=== PATIENT | female | born 1960 | race African-American/Black ===

== ENCOUNTER → 2020-08-10 08:27 | Outpatient (BNVA) | payer MEDICARE, MEDICAID, SELFPAY | PROVIDERS: PCP Internal Medicine Medical Oncology; Visit Provider Orthopaedic Surgery | DX: G56.01 Carpal tunnel syndrome, right upper limb (principal); M79.642 Pain in left hand | CPT/HCPCS: 99202 ==

== ENCOUNTER 2020-08-31 12:11 | Day surgery (SDC) | payer MEDICARE, MEDICAID, SELFPAY ==
[2020-08-31 12:29] VITALS: BMI 46.3
[2020-08-31 12:30] VITALS: BP 138/71; PULSE 58; RESP 18; TEMP 36.7; O2SAT 99
--- NOTE | 2020-08-31 13:16 | W.PM.OPN ---
Operative Note Operative Note Date of Service: 08/31/20 Narrative: Preop diagnosis: 1. Right Carpal tunnel syndrome Postop diagnosis: 1. Right Carpal tunnel syndrome Procedure: 1. Right Carpal tunnel release Surgeon: Sindi Quiles MD Anesthesia: local block using 1% lidocaine with epinephrine Findings: Thickened transverse carpal ligament. EBL: Less than 5 mL Specimens: None Complications: None Disposition: Brought to recovery room in stable condition Plan: Follow-up for 7-10 days for wound check and suture removal Indications: The patient is 60 years old, with right carpal tunnel syndrome that has been unresponsive to nonoperative management. The risks and benefits of operative treatment including but not limited to risk of damage to blood vessels, nerves, tendons, infection, persistent pain, persistent symptoms, or possible need for additional surgery were discussed with the patient and the patient wishes to proceed with surgery. Procedure: Once consent was obtained a local block was performed using a combination of 1% lidocaine with epinephrine. The patient was then brought back to the operating suite and placed on the operative table in supine position. A tourniquet was applied to the proximal aspect of the right upper extremity and the limb was prepped and draped in a standard surgical fashion. Once assured that we had a good block, a 1.5 cm longitudinal incision was made centered over the carpal tunnel. The incision was made through the skin to the subcutaneous tissues using a #15 blade. Dissection was made down to the level of the transverse carpal ligament with care being taken to protect the palmar cutaneous nerve. Once the transverse carpal ligament was clearly visualized, a longitudinal incision was made in the transverse carpal ligament 1st using a #15 blade, then using tenotomy scissors under direct visualization. Care was taken to look for and protect the motor branch of the median nerve when seen in this area. Once satisfied with our carpal tunnel release the wound was copiously irrigated with normal saline and hemostasis was obtained with a brief period of local pressure. The skin edges were reapproximated with some 5.0 nylon suture material and a sterile dressing was applied. The patient appears to have tolerated the procedure well and with no complications. All digits were well vascularized at the conclusion of the case.
[2020-08-31 13:57] VITALS: BP 109/86; PULSE 57; RESP 18; TEMP 36.1; O2SAT 97
== END 2020-08-31 14:15 | disposition home or self-care (01) ==
PROVIDERS: PCP Internal Medicine Medical Oncology; Visit Provider Orthopaedic Surgery
PROC: (CPT 64721; principal; 2020-08-31 12:50)
DX: G56.01 Carpal tunnel syndrome, right upper limb (principal); Z79.899 Other long term (current) drug therapy; Z88.8 Allergy status to other drugs, medicaments and biological substances; Z91.040 Latex allergy status
CPT/HCPCS: 64721

== ENCOUNTER → 2020-09-09 08:56 | Outpatient (BNVA) | payer MEDICARE, MEDICAID, SELFPAY | PROVIDERS: Visit Provider Orthopaedic Surgery | DX: G56.01 Carpal tunnel syndrome, right upper limb (principal) | CPT/HCPCS: 99212 ==

== ENCOUNTER 2020-09-17 12:29 | Outpatient (REF) | payer MEDICARE, MEDICAID, SELFPAY ==
--- NOTE | ~2020-09-17 | US_ITS ---
EXAMINATION: US VENOUS ULTRASOUND WITH DOPPLER LOWER EXTREMITY, RIGHT CLINICAL INFORMATION: Right leg pain. Assess for DVT. COMPARISON: None TECHNIQUE: Ultrasound of the deep veins is performed from the hip to the calf with compression sonography and color and pulse Doppler assessment. Spectral analysis with color-flow imaging is performed. FINDINGS: There is normal venous compression and respiratory variation and augmented flow. The visualized common femoral vein, superficial femoral vein, profunda femoral vein, popliteal vein, and the trifurcation region shows no evidence of deep venous thrombosis. No popliteal fossa cyst. US/US venous duplex LE RT IMPRESSION: No DVT demonstrated in the right lower extremity.
== END 2020-09-17 12:30 | disposition home or self-care (01) ==
LOC: HO.US 12:29
PROVIDERS: PCP Internal Medicine Medical Oncology; Visit Provider Internal Medicine Medical Oncology
DX: M79.604 Pain in right leg (principal); I82.409 Acute embolism and thrombosis of unspecified deep veins of unspecified lower extremity; T81.89XA Other complications of procedures, not elsewhere classified, initial encounter
CPT/HCPCS: 93971

== ENCOUNTER 2021-05-01 10:46 | Emergency (ER) | payer MEDICARE, MEDICAID, SELFPAY ==
--- NOTE | ~2021-05-01 | US_ITS ---
EXAMINATION: US VENOUS ULTRASOUND WITH DOPPLER LOWER EXTREMITY, BILATERAL CLINICAL INFORMATION: Redness, swelling, pain, rule out DVT COMPARISON: None TECHNIQUE: Ultrasound of the deep veins is performed from the hip to the calf with compression sonography and color and pulse Doppler assessment. Spectral analysis with color-flow imaging is performed. FINDINGS: RIGHT: There is normal venous compression and respiratory variation and augmented flow. The visualized common femoral vein, superficial femoral vein, profunda femoral vein, popliteal vein, and the trifurcation region shows no evidence of deep venous thrombosis. There is no significant popliteal fossa cyst. LEFT: There is normal venous compression and respiratory variation and augmented flow. The visualized common femoral vein, superficial femoral vein, profunda femoral vein, popliteal vein, and the trifurcation region shows no evidence of deep venous thrombosis. There is no significant popliteal fossa cyst. If the patient's symptoms persist, followup ultrasound in 5 days 7 days might be of value to exclude proximal propagation from a non-visualized calf vein. US/US venous duplex LE BI IMPRESSION: No DVT demonstrated in the bilateral lower extremities.
[2021-05-01 10:49] VITALS: BP 151/73; PULSE 92; RESP 18; TEMP 36.9; O2SAT 99; BMI 42.8
--- NOTE | 2021-05-01 11:59 | ED.GENADULT ---
HPI - General Adult General Chief complaint: Skin/Abscess/Foreign Body Stated complaint: rash Time Seen by Provider: 05/01/21 11:44 Source: patient Mode of arrival: ambulatory Limitations: no limitations History of Present Illness HPI narrative: 60-year-old female presenting with right lower leg swelling, pain, redness that has worsened over the last 2 weeks. She denies any trauma to the area. She denies fever or chills. She also reports her left lower leg with a tender bump. She states this was how her right lower leg started about 2 weeks ago. She at 1st thought was an insect bite and cleaned with alcohol. A continue to get more red and swollen but there was no obvious insect bite on a either leg and she has not been out in the wood or outside. MD complaint: RLE redness and swelling Onset (ago): week(s) (2) Location: right and lower extremity Radiation: proximal Severity: moderate Severity scale (1-10): 6 Quality: aching Pain Consistency: constant Relieving factors: rest Exacerbating factors: movement Associated symptoms: denies other symptoms Treatments prior to arrival: none Related Data Home Medications Medication Instructions Recorded Confirmed cholecalciferol (vitamin D3) 1,250 1,250 mcg PO QWEEK 05/27/20 mcg (50,000 unit) capsule Previous Rx's Medication Instructions Recorded hydrocodone 5 mg-acetaminophen 325 1 tab PO Q4-6H PRN #5 tab 08/31/20 mg tablet cephalexin 500 mg capsule 500 mg PO Q6H #28 cap 05/01/21 doxycycline monohydrate 100 mg 100 mg PO BID #14 tab 05/01/21 tablet Allergies Allergy/AdvReac Type Severity Reaction Status Date / Time cortisone [CORTISONE] Allergy Intermediate RASH Verified 09/09/20 09:21 adhesive tape [ADHESIVE TAPE] AdvReac Unknown UNKNOWN Verified 09/09/20 09:21 Latex Allergy Unknown redness Uncoded 08/31/20 12:37 [place] Allergy Unknown Unknown Uncoded 08/31/20 12:37 Review of Systems Review of Systems: Constitutional: No Fever, No Chills Cardiovascular: No Chest Pain, No SOB, No Orthopnea, + Edema Respiratory: No Cough, No Sputum, No Wheezing, No dyspnea Gastrointestinal: No Nausea, No Vomiting, No abdominal Pain Genitourinary: No Dysuria, No Urinary Frequency, No Hematuria Musculoskeletal: No joint pain, + Myalgias Skin: + Skin Lesions, No rash Neuro: No Weakness, No Numbness, No Dizziness, No Headache Psych: + Anxiety/Panic, No Depression Heme/Lymph: No Bruising, No Lymphadenopathy PMFSH Past Medical History Surgical History History of carpal tunnel release Social History Social History Advance Directives: No Patient : No Current occupational status: unemployed 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 Physical Exam Vital Signs: Vital Signs: Last Vital Signs Temp 97.5 F 05/01/21 13:33 Pulse 74 05/01/21 13:33 Resp 18 05/01/21 13:33 BP 134/83 05/01/21 13:33 Pulse Ox 96 05/01/21 13:33 Body Mass Index 42.8 Appearance: Alert. Oriented X3. No acute distress. HEENT: normal inspection CVS: Normal heart rate and rhythm. Pulses normal. Respiratory: No respiratory distress. Lungs are clear throughout Skin: Skin warm and dry. Normal skin color. Normal skin turgor. No rashes. Extremities: right lower leg with anteriolateral moderate area of erythema, tenderness and warmth. no calf tenderness. 1+ pitting edema. left lower leg with small circular area of tenderness and firmness to medial aspect of gastrocnemius, no calf tenderness. 2+ DP pulses bilaterally. Neuro: Oriented X 3. No motor deficit. No sensory deficit. Course Course Course Narrative: 60-year-old female presenting with right lower extremity swelling, redness, pain. Has been developing over the last 2 weeks. She also noticed a small area on her left lower extremity that is slightly swollen and tender. Concern for possible cellulitis, however will need to rule out deep vein thrombosis. Will get lower extremity Dopplers for further evaluation. She has not had any chest pain or shortness of breath to suggest PE. She is nontoxic appearing. Vital signs are still normal on arrival. Reevaluation(s) Reevaluation #1: Lower extremity Dopplers are negative. Will treat for cellulitis. Area on her right lower extremity has been outlined and skin pen, and she has been advised to monitor for worsening erythema, swelling, or pain. Will treat with oral antibiotics and have her follow-up with her primary care doctor next week. Stable for discharge home with supportive care. Patient agrees with plan. Critical Care Time Critical Care Time Critical Care Time: No Discharge Plan Discharge Clinical Impression: Cellulitis Qualifiers: Site of cellulitis: extremity Site of cellulitis of extremity: lower extremity Laterality: right Qualified Code(s): L03.115 - Cellulitis of right lower limb Patient Disposition: Home, Self-Care Instructions: Cellulitis (ED), Warm Compress or Soak (ED) Additional Instructions: Your ultrasound stay were negative for blood clots. You being treated for skin infection. Take both the prescribed antibiotics as directed. Complete their entire course Take Motrin and/or Tylenol as needed for pain. Elevate your leg whenever possible. Use warm compresses 3 to 4 times a day. If you have worsening redness, swelling, pain or develop a fever, chest pain, shortness of breath or any other concerning symptoms come back to the ER right away for further evaluation. Prescriptions: New doxycycline monohydrate 100 mg tablet 100 mg PO BID Qty: 14 RF: 0 cephalexin 500 mg capsule 500 mg PO Q6H Qty: 28 RF: 0 No Action cholecalciferol (vitamin D3) 1,250 mcg (50,000 unit) capsule 1,250 mcg PO QWEEK RF: 0 hydrocodone-acetaminophen 5-325 mg tablet 1 tab PO Q4-6H PRN (Reason: pain) Qty: 5 RF: 0 Interventions: ED Discharge Assessment Last Done: 05/01/21 13:34 Discharge Date/Time: 05/01/21 13:35
[2021-05-01 13:33] VITALS: BP 134/83; PULSE 74; RESP 18; TEMP 36.4; O2SAT 96
== END 2021-05-01 13:35 | disposition home or self-care (01) ==
PROVIDERS: Emergency Provider Emergency Medicine; PCP Internal Medicine Medical Oncology
DX: L03.115 Cellulitis of right lower limb (principal); R60.0 Localized edema; Z79.899 Other long term (current) drug therapy
CPT/HCPCS: 93970; 99283; 99284

== ENCOUNTER 2021-07-21 16:28 | Inpatient (IN) | payer MEDICARE, MEDICAID, SELFPAY ==
--- NOTE | ~2021-07-21 | MR_ITS ---
EXAMINATION: MR ABDOMEN WITHOUT CONTRAST CLINICAL INFORMATION: Assess CBD dilatation COMPARISON: Ultrasound same-day TECHNIQUE: MR abdomen is performed without gadolinium contrast. MRCP. FINDINGS: LUNG BASES: The visualized lung bases are unremarkable. LIVER, GALLBLADDER, AND BILIARY TREE: Hepatomegaly again noted. No discrete lesion on this nonenhanced study. The gallbladder wall appears somewhat thickened with stones noted. No significant distention. No discrete lesion on this nonenhanced study. Limited imaging. The biliary tree is prominent with the CBD dilated to approximately 14 mm. There are tiny stones seen within the distal CBD. No gross pancreatic mass or inflammatory changes. PANCREAS: Pancreatic duct normal. No inflammatory changes. No enlarged lymph nodes. SPLEEN: Unremarkable. ADRENAL GLANDS: Referred to CT exam report. KIDNEYS AND URETERS: The kidneys are normal in size and shape. No hydronephrosis. No perinephric stranding. GASTROINTESTINAL TRACT: No bowel obstruction. No ascites or fluid collection. ABDOMINAL WALL: No significant hernia is appreciated. LYMPH NODES: Prominent right paracardiac lymph nodes again noted VASCULAR: Unremarkable. OSSEOUS STRUCTURES: Not well demonstrated. MR/MR abdomen wo con IMPRESSION: 1. Dilated biliary tree with findings strongly suspicious for tiny choledocholithiasis within the distal most aspect of the CBD. 2. Gallbladder is relatively nondistended but please refer to the recent ultrasound for further assessment and findings.
--- NOTE | ~2021-07-21 | CT_ITS ---
EXAMINATION: CT ABDOMEN AND PELVIS WITHOUT CONTRAST CLINICAL INFORMATION: Reevaluate perforated diverticulitis COMPARISON: Previous CT of the abdomen and pelvis 07/21/2021 abdominal ultrasound and MRI 07/22/2021 TECHNIQUE: Multidetector volumetric imaging was performed from the superior aspect of the liver through the pubic symphysis. Sagittal and coronal reformatted images were obtained on the technologist's workstation. This CT examination was performed using dose optimization techniques as appropriate, variously including the following: *Automated exposure control *Adjustment of mA and/or kV according to patient size (this includes techniques or standardized protocols for targeted exams where dose is matched to indication/reason for exam; i.e. extremities or head) *Use of iterative reconstruction technique DLP: 1273 mGy-cm FINDINGS: LUNG BASES: There is atelectasis of the right lung base. There is a prominent right cardiophrenic angle or anterior diaphragmatic lymph node that is unchanged. LIVER, GALLBLADDER, AND BILIARY TREE: The liver is slightly enlarged. No focal liver lesion is seen. There is interval decrease in internal and extrahepatic biliary duct dilatation. The common bile duct measures 11 mm. The gallbladder is unremarkable with no evidence of radiopaque gallstones, gallbladder wall thickening, or obvious pericholecystic inflammatory changes. PANCREAS: The main pancreatic duct is slightly dilated in the head of the the pancreas measuring up to 6 mm. SPLEEN: Unremarkable. ADRENAL GLANDS: Unremarkable. KIDNEYS AND URETERS: The kidneys are normal in size, shape, and attenuation. No hydronephrosis, hydroureter, or calculi seen. No perinephric stranding. BLADDER: The right dome of the bladder appears slightly tented superiorly toward the fat stranding and abnormal air collection in the right lower quadrant. No air in the bladder is seen. GASTROINTESTINAL TRACT: There is diverticulosis of the colon. There is some fat stranding surrounding the proximal sigmoid colon. There are small air collections seen to the right of the sigmoid colon adjacent to the iliac vessels and right ovary. Appearance is again suggestive of diverticulitis and microperforation. This does not appear appreciably changed from previous CT 07/21/2021. Small and large bowel is otherwise unremarkable. The appendix is unremarkable. ABDOMINAL WALL: No significant hernia is appreciated. LYMPH NODES: There is nonspecific fat stranding and small lymph nodes seen in the small bowel mesentery there are small retroperitoneal lymph nodes. No enlarged lymph nodes are seen. There is no ascites. VASCULAR: Unremarkable. PELVIC VISCERA: Unremarkable. OSSEOUS STRUCTURES: There are postsurgical changes at L2-L3. There are degenerative changes of the spine. CT/CT abdomen pelvis wo con IMPRESSION: Stable abnormal air collection in the right lower quadrant probably representing microperforation from sigmoid diverticulitis. No free air is seen. Slight interval decrease in the intra and extrahepatic biliary duct dilatation. Gallstones. Slightly dilated main pancreatic duct in head of the pancreas. Inflammatory changes in the small bowel mesentery and shotty small bowel mesentery and retroperitoneal lymphadenopathy unchanged. Fleischner guidelines were followed.
--- NOTE | ~2021-07-21 | CT_ITS ---
EXAMINATION: CT ABDOMEN AND PELVIS WITH CONTRAST CLINICAL INFORMATION: Elevated LFTs with question of metastatic carcinoma. COMPARISON: None TECHNIQUE: Multidetector volumetric images were obtained from the superior aspect of the liver through the pubic symphysis following administration 85 mL of Omnipaque 350 intravenous contrast. Sagittal and coronal reformatted images were obtained on the technologist's workstation. Oral Contrast: No. This CT examination was performed using dose optimization techniques as appropriate, variously including the following: *Automated exposure control. *Adjustment of mA and/or kV according to patient size (this includes techniques or standardized protocols for targeted exams where dose is matched to indication/reason for exam; i.e. extremities or head). *Use of iterative reconstruction technique. DLP: 1613 mGy-cm FINDINGS: LUNG BASES: There is an enlarged right anterior pre-paracardiac lymph node present measuring 1.9 x 1.2 x 3.0 cm (503:104). Posterior paracardiac lymph nodes are present as well, the largest just behind the IVC measuring 2.5 x 2.0 x 2.2 cm (503:135). Right lower lobe atelectasis is present. LIVER, GALLBLADDER, AND BILIARY TREE: The liver is enlarged measuring 23.7 cm in length. There is intrahepatic biliary ductal dilatation seen with a markedly dilated common bile duct measuring 1.6 cm. The gallbladder is contracted containing gallstones. No evidence of cholecystitis. No mass is seen in the region of the distal common bile duct in the head of the pancreas. No definite stones can be seen within the common bile duct. PANCREAS: Unremarkable. No ductal dilatation, masses or calcifications seen. SPLEEN: Unremarkable. ADRENAL GLANDS: The adrenal glands are abnormal with significant thickening of the lateral limb on the left and an ovoid mass arising from the medial limb on the right measuring 2 x 1 cm. KIDNEYS AND URETERS: The kidneys are normal in size, shape, and attenuation. No hydronephrosis, hydroureter, or calculi seen. No perinephric stranding. BLADDER: Unremarkable. GASTROINTESTINAL TRACT: Diverticular changes are present in the colon, predominantly in the sigmoid. The area of inflammation in the pelvis and a branching air collection in the mesentery begins in the area which probably represents diverticulitis. In the pelvis, there is a complex predominantly air collection seen in the perisigmoid mesentery with multiple branching limbs which could represent contained air probably related to a microperforation.The small and large bowel are otherwise unremarkable. The appendix is unremarkable. ABDOMINAL WALL: No significant hernia is appreciated. LYMPH NODES: Multiple small lymph nodes are present in the retroperitoneum and root of the mesentery. One of the larger is preaortic below the level of the renal hilum measuring 2.1 x 1.0 x 3.4 cm (503:418). Mitzy changes are present in the mesentery with multiple small lymph nodes as well suggestive of mesenteric panniculitis (for example, 503:449). VASCULAR: Unremarkable. PELVIC VISCERA: An anteverted uterus is present. An abnormal adnexal mass or free intraperitoneal fluid is not present. OSSEOUS STRUCTURES: Degenerative changes are present throughout the spine with fusion at L2-L3. No bony destructive lesions are seen. CT/CT abdomen pelvis w con IMPRESSION: A number of abnormalities are present that I find hard to attribute to a single diagnosis: 1. There is cholelithiasis and moderate intrahepatic biliary dilatation with dilated distal common bile duct without mass or stone seen in the duct. Ultrasound may be helpful for further evaluation as this may be better at seeing a stone in the common bile duct. 2. There is sigmoid diverticular disease with inflammation near one loop of sigmoid with a well-contained branching air collections seen in the mesentery suggesting acute diverticulitis with microperforation and contained air collection. 3. Inflammatory changes suggesting mesenteric panniculitis are present in the root of the small bowel mesentery with multiple small lymph nodes. 4. There are definitely abnormally enlarged lymph nodes present most prominent in the paracardiac region as well as a few in the retroperitoneum. 5. Adrenal masses as described above. Fleischner guidelines were followed. This critical result was discussed with Dr. Gaspar at 9:15 PM on the day the exam and it was ascertained that the content and urgency of the report was understood at the time of direct communication.
--- NOTE | ~2021-07-21 | XR_ITS ---
EXAMINATION: XR ABDOMEN KUB CLINICAL INDICATION: Evaluate for pancreatic duct stone COMPARISON: CT scan from 07/23/2021 TECHNIQUE: AP view of the abdomen. FINDINGS: In comparison to the CT scan of July 23 there is new tubular structure identified to the right of L2 most likely biliary stent. And there is status post cholecystectomy with surgical clips in the right upper quadrant. There is no specific bowel gas pattern. Patient is status post disc prosthesis at the level of L3-for placement XR/XR KUB IMPRESSION: Stent visualized to the right of the spine. Status post cholecystectomy.
--- NOTE | ~2021-07-21 | FL_ITS ---
EXAMINATION: XR FLUOROSCOPY WITH IMAGES CLINICAL INFORMATION: ERCP. Biliary and pancreatic ductal distention COMPARISON: CT abdomen 07/23/2021, MR abdomen 07/22/2021, ultrasound abdomen 07/22/2021 TECHNIQUE: Fluoroscopy performed by Dr. Onesimo Sher. Fluoroscopy time: 4.5 minutes DAP: 42.7 Gycm2 Images: 11 FINDINGS: There is contrast in the pancreatic duct. No focal duct stricture or beading. There is mild fullness common duct. No focal stricture or intraluminal filling defect appreciated other than the catheter balloon. FL/FL guidance in OR IMPRESSION: Fluoroscopy for GI procedure.
--- NOTE | ~2021-07-21 | US_ITS ---
EXAMINATION: US ABDOMEN LIMITED CLINICAL INFORMATION: Dilated common bile duct. COMPARISON: CT scan of July 21, 2021 TECHNIQUE: Real-time imaging of the right upper quadrant abdominal viscera. FINDINGS: PANCREAS: No abnormal mass within the head or body is identified however the pancreatic duct at the level of the head of the pancreas measures up to 1.1 cm in diameter with no abnormal filling defects or calculus present and without definite pancreatic head mass. An ampullary lesion cannot be excluded. The tail of the pancreas obscured by overlying bowel gas. LIVER: There is hepatomegaly present. There are dilated intrahepatic bile ducts seen. No focal liver mass is appreciated. The liver contour is normal. Parenchymal echogenicity is normal. GALLBLADDER: The gallbladder appears abnormal with filling defects consistent with calculi and echogenic bile however the wall appears very echogenic and varies in thickness from 2 mm up to approximately 8 mm in diameter. No fluid within the wall of the gallbladder is identified and no pericholecystic fluid is seen. There was tenderness to palpation overlying the gallbladder during the study. COMMON BILE DUCT: Dilated up to 2 cm in diameter including the cystic duct measuring up to 1 cm in diameter. RIGHT KIDNEY: Normal. No hydronephrosis. No renal calculi or focal parenchymal lesions. The kidney measures 12.1 cm in maximum dimension. US/US abdomen limited IMPRESSION: Dilated cystic duct, common bile duct, and pancreatic duct with no pancreatic head lesion identified. No definite calculus within the distal common bile duct is seen. An ampullary lesion cannot be excluded. Abnormal appearing gallbladder with thickened and echogenic wall as well as heterogeneous echotexture lumen some of which appears to be related to calcification but some of which is difficult to tell with no definite layering of echogenic bile or calculi. No fluid within the gallbladder wall identified and no pericholecystic fluid is seen. The thickness of the gallbladder wall also appears to be variable. A gallbladder mass cannot be excluded. Appearance could also be related to chronic cholecystitis. Dilated intrahepatic bile ducts with hepatomegaly.
--- NOTE | ~2021-07-21 | CT_ITS ---
EXAMINATION: CT HEAD WITHOUT CONTRAST CLINICAL INFORMATION: Dysarthria. COMPARISON: None TECHNIQUE: Contiguous axial imaging was performed from the skull base to vertex without intravenous administration of contrast. Coronal and sagittal reformatted images are performed at CT scanner This CT examination was performed using dose optimization techniques as appropriate, variously including the following: *Automated exposure control *Adjustment of mA and/or kV according to patient size (this includes techniques or standardized protocols for targeted exams where dose is matched to indication/reason for exam; i.e. extremities or head) *Use of iterative reconstruction technique DLP: 2383 mGy-cm FINDINGS: There is no evidence of acute intracranial hemorrhage or territorial infarction. No abnormal mass effect or midline shift is seen. [place] to white matter differentiation is well preserved. No extra-axial fluid collections are identified. There are vascular calcifications of the internal carotid arteries at the carotid artery siphon bilaterally. The ventricles are normal in size. There is no abnormal attenuation within the brain parenchyma. The osseous structures and soft tissues are normal. The mastoid air cells and visualized portions of the paranasal sinuses are well aerated. CT/CT head/brain wo con IMPRESSION: No acute intracranial pathology.
--- NOTE | ~2021-07-21 | XR_ITS ---
EXAMINATION: XR CHEST CLINICAL INFORMATION: Assessment for missing tooth. COMPARISON: Chest radiographs 02/02/2017, 10/17/2012 TECHNIQUE: Portable upright AP view of the chest was obtained. FINDINGS: There are low lung volumes with inspiration to the eighth posterior ribs. There is no visible radiopaque foreign body or missing tooth. There is no lobar or segmental airspace consolidation or effusion. Cardiac and hilar and mediastinal contours are grossly unremarkable. There are degenerative changes thoracic spine. XR/XR chest 1V IMPRESSION: Low lung volumes. No visible to the rather radiopaque foreign body.
[2021-07-21 16:48] VITALS: BP 126/82; BP 98/54; PULSE 86; RESP 16; TEMP 36.3; O2SAT 97; O2SAT 98; BMI 42.5
--- NOTE | 2021-07-21 17:00 | ECG_ITS ---
Test Reason : SYNCOPE Blood Pressure : / mmHG Vent. Rate : 083 BPM Atrial Rate : 083 BPM P-R Int : 202 ms QRS Dur : 098 ms QT Int : 388 ms P-R-T Axes : 053 019 019 degrees QTc Int : 455 ms Normal sinus rhythm Normal ECG When compared with ECG of 02-FEB-2017 17:38, Vent. rate has increased BY 28 BPM Referred By: Ambrosio Whitlock Electronically Signed By:JOANN GARCÍA
--- NOTE | 2021-07-21 17:03 | ED_ITS ---
HPI - Altered Mental Status General Chief Complaint: General Medical Stated Complaint: Syncopial episodes Time Seen by Provider: 07/21/21 16:45 Source: patient Mode of arrival: EMS History of Present Illness HPI narrative: Patient's history of depression anxiety came here for not feeling well since 07/03 had cold symptoms been having diarrhea since then today she went to [employer] for shopping with her friend at 11:30 when she was with her friend she has a garbled speech which lasted for few seconds was able to ambulate without any focal weakness was little dizzy and just prior to arrival after shopping she was feeling more dizzy and passed out with jerking movements of all 4 extremity which lasted for for 5 minute patient was post ictal confused after the episode when patient arrived in the ER patient was back to her baseline while examining patient patient had a focal seizure of the left upper extremity lasted for few seconds patient has no history of seizures in the past patient does have a sister who has seizures Related Data Home Medications Medication Instructions Recorded Confirmed cholecalciferol (vitamin D3) 1,250 1,250 mcg PO QWEEK 05/27/20 mcg (50,000 unit) capsule atenolol 50 mg tablet 1 tab PO DAILY 07/21/21 cetirizine 10 mg tablet 1 tab PO DAILY 07/21/21 chlorthalidone 25 mg tablet 1 tab PO QAM 07/21/21 doxepin 25 mg capsule 1 cap PO BEDTIME 07/21/21 fluoxetine 20 mg capsule 1 cap PO QAM 07/21/21 gabapentin 300 mg capsule 1 cap PO TID 07/21/21 omeprazole 40 mg capsule,delayed 1 cap PO DAILY 07/21/21 release potassium chloride 10 mEq 1 tab PO DAILY 07/21/21 tablet,extended release(part/cryst) Allergies Allergy/AdvReac Type Severity Reaction Status Date / Time cortisone [CORTISONE] Allergy Intermediate RASH Verified 09/09/20 09:21 adhesive tape [ADHESIVE TAPE] AdvReac Unknown UNKNOWN Verified 09/09/20 09:21 Latex Allergy Unknown redness Uncoded 08/31/20 12:37 [place] Allergy Unknown Unknown Uncoded 08/31/20 12:37 Review of Systems Review of Systems: Yes all other systems are reviewed and are negative PMFSH Past Medical History Surgical History History of carpal tunnel release Social History Social History Smoked in Last 30 Days: No Use of substances other than those prescribed or required for medical reasons: No Advance Directives: No Advance Directives Information Provided: No Current occupational status: unemployed 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 Physical Exam Vital Signs: Vital Signs: Last Vital Signs Temp 98.5 F 07/21/21 17:51 Pulse 78 07/21/21 17:51 Resp 22 H 07/21/21 17:51 BP 98/55 L 07/21/21 17:51 Pulse Ox 99 07/21/21 17:51 BMI result Body Mass Index 42.5 Appearance: Alert. Oriented X3. No acute distress. Slow to respond Eyes: PERRLA, No Nystagmus ENT: Pharynx normal. Oral Mucosa moist Neck: Normal inspection. Neck supple. CVS: Normal heart rate and rhythm. Pulses normal. Respiratory: No respiratory distress. Equal air entry bilateral, no wheezing/rales/rhonchi Abdomen: Soft and nontender. Bowel sounds are present, no mass palpable, no CVA tenderness Skin: Skin warm and dry. Normal skin color. Normal skin turgor. Extremities: No lower extremity edema. No calf tenderness Neuro: Oriented X 3. No motor deficit. No sensory deficit.No cerebellar signs , cranial nerves II-XII intact MDM - Altered Mental Status MDM Narrative Medical decision making narrative: Patient with dizziness with jerking movement of extremities with transient dysarthria CT scan of the head negative for CVA no focal deficit on arrival etiology with jerking not clear possible patient she had a seizure versus chills patient was confused after the episode likely seizure. Patient never had similar episode in the past blood workup showed WBC count very elevated to 34,000 also showed elevated liver function test with bilirubin of 3.6. Patient does complain of pain in the right upper quadrant for last few months especially after she eats heavy foot but on examination there was no rebound tenderness or guarding the diffuse tenderness in right upper quadrant and left lower quadrant area CT scan of the abdomen showed gallstone with contracted gallbladder without any findings of cholecystitis also showed si gmoid diverticulitis with microperforation. Will start patient on Zosyn patient likely has normal lactic acid levell and patient is afebrile patient is not septic. CT scan showed dilated common bile duct likely patient might have stone may need MRCP in the am Lab Data Attestation: I reviewed the patient's lab results. Result diagrams: 07/21/21 17:20 07/21/21 17:20 Labs: Lab Results 07/21/21 07/21/21 07/21/21 Range/Units 17:20 17:20 17:20 WBC 34.5 H* (4.8-10.8) X10*3/uL RBC 3.53 L (4.20-5.50) X10*6/uL Hgb 9.7 L (12.0-16.0) g/dl Hct 29.6 L (37.0-47.0) % MCV 83.9 (80.0-98.0) fL MCH 27.5 (27.0-33.0) pg MCHC 32.8 (31.0-35.0) g/dl RDW 17.8 H (11.0-16.0) % Plt Count 567 H (160-400) X10*3/uL MPV 9.5 (9.4-12.3) fL Immature Gran % (Auto) Cancelled Neut % (Auto) Cancelled Lymph % (Auto) Cancelled [place] % (Auto) Cancelled Eos % (Auto) Cancelled Baso % (Auto) Cancelled Lymph # (Auto) Cancelled Porter # (Auto) Cancelled Eos # (Auto) Cancelled Baso # (Auto) Cancelled Abs Immat Gran (auto) Cancelled Absolute Neuts (auto) Cancelled Absolute Nucleated RBC 0.020 H (0.0-0.012) X10*3/uL Nucleated RBC % (auto) 0.1 (0.0-0.2) /100WBC Neutrophils % (Manual) 62 (45-73) % Band Neutrophils % 23 H (3-5) % Lymphocytes % (Manual) 9 L (20-40) % Monocytes % (Manual) 6 (2-11) % Abs Neuts (Manual) 29.3 H (2.0-8.3) X10*3/uL Lymphocytes # (Manual) 3.1 (1.2-4.9) X10*3/uL Monocytes # (Manual) 2.1 H (0.1-1.2) X10*3/uL Platelet Estimate INCREASED (NORMAL) Large Platelets PRESENT Plt Morphology Comment NOTED RBC Morphology NOTED Microcytosis 1+ (5-14) /OIF Macrocytosis 1+ (5-14) /OIF Sodium 134 L (135-145) mmol/L Potassium 3.4 (3.3-5.1) mmol/L Chloride 99 (96-108) mmol/L Carbon Dioxide 25 (22-29) mmol/L Anion Gap 13 (12-20) BUN 19 H (9-16) mg/dL Creatinine 1.21 (0.5-1.4) mg/dL Estim Creat Clear Calc 73.4 Estimated GFR 45 Random Glucose 122 H (60-115) mg/dL Lactic Acid (0.5-2.0) mmol/L Calcium 8.7 (8.4-10.2) mg/dL Magnesium 1.7 (1.6-2.6) mg/dL Total Bilirubin 3.6 H (0.0-1.0) mg/dL AST 87 H (5-31) U/L ALT 46 H (0-31) U/L Alkaline Phosphatase 429 H (39-117) U/L Troponin I High Sens 4.4 (<3.5-17.0) ng/L Total Protein 8.1 H (6.5-8.0) g/dL Albumin 2.9 L (3.5-5.0) g/dL Lipase 57 (8-78) U/L Urine Color Urine Appearance Urine pH (5.0-8.0) Ur Specific [place] (1.005-1.025) Urine Protein (NEG-TRACE) MG/DL Urine Glucose (UA) (NEG) MG/DL Urine Ketones (NEG) MG/DL Urine Blood (NEG) Urine Nitrite (NEG) Ur Leukocyte Esterase (NEG) COVID-19 (LUCIAL) (Negative) COVID-19 Clin Com 07/21/21 07/21/21 07/21/21 Range/Units 17:20 18:35 21:05 WBC (4.8-10.8) X10*3/uL RBC (4.20-5.50) X10*6/uL Hgb (12.0-16.0) g/dl Hct (37.0-47.0) % MCV (80.0-98.0) fL MCH (27.0-33.0) pg MCHC (31.0-35.0) g/dl RDW (11.0-16.0) % Plt Count (160-400) X10*3/uL MPV (9.4-12.3) fL Immature Gran % (Auto) Neut % (Auto) Lymph % (Auto) Porter % (Auto) Eos % (Auto) Baso % (Auto) Lymph # (Auto) Porter # (Auto) Eos # (Auto) Baso # (Auto) Abs Immat Gran (auto) Absolute Neuts (auto) Absolute Nucleated RBC (0.0-0.012) X10*3/uL Nucleated RBC % (auto) (0.0-0.2) /100WBC Neutrophils % (Manual) (45-73) % Band Neutrophils % (3-5) % Lymphocytes % (Manual) (20-40) % Monocytes % (Manual) (2-11) % Abs Neuts (Manual) (2.0-8.3) X10*3/uL Lymphocytes # (Manual) (1.2-4.9) X10*3/uL Monocytes # (Manual) (0.1-1.2) X10*3/uL Platelet Estimate (NORMAL) Large Platelets Plt Morphology Comment RBC Morphology Microcytosis /OIF Macrocytosis /OIF Sodium (135-145) mmol/L Potassium (3.3-5.1) mmol/L Chloride (96-108) mmol/L Carbon Dioxide (22-29) mmol/L Anion Gap (12-20) BUN (9-16) mg/dL Creatinine (0.5-1.4) mg/dL Estim Creat Clear Calc Estimated GFR Random Glucose (60-115) mg/dL Lactic Acid 1.9 (0.5-2.0) mmol/L Calcium (8.4-10.2) mg/dL Magnesium (1.6-2.6) mg/dL Total Bilirubin (0.0-1.0) mg/dL AST (5-31) U/L ALT (0-31) U/L Alkaline Phosphatase (39-117) U/L Troponin I High Sens (<3.5-17.0) ng/L Total Protein (6.5-8.0) g/dL Albumin (3.5-5.0) g/dL Lipase (8-78) U/L Urine Color YELLOW Urine Appearance CLEAR Urine pH 6.0 (5.0-8.0) Ur Specific [place] 1.010 (1.005-1.025) Urine Protein TRACE (NEG-TRACE) MG/DL Urine Glucose (UA) NEG (NEG) MG/DL Urine Ketones NEG (NEG) MG/DL Urine Blood NEG (NEG) Urine Nitrite NEG (NEG) Ur Leukocyte Esterase NEG (NEG) COVID-19 (LUCILA) Negative (Negative) COVID-19 Clin Com See Note ECG Data ECG #1: Attestation: I personally reviewed and interpreted this ECG as follows: Interpretation: Normal sinus rhythm heart rate 83 beats per minute normal intervals normal axis no acute STT wave changes pressure normal EKG Discharge Plan Discharge Clinical Impression: Acute diverticulitis, Acute metabolic encephalopathy [place] Qualifiers: Cholecystitis presence: without cholecystitis Biliary obstruction: with biliary obstruction Qualified Code(s): K80.21 - Calculus of gallbladder without cholecystitis with obstruction Patient Disposition: Admitted As Inpatient
[2021-07-21] MEDS: LORazepam 2 MG/ML VIAL 1 MG IVPUSH (17:04)
[2021-07-21 17:35] LABS: Hematocrit 29.6 % (37.0-47.0); Hemoglobin 9.7 g/dl (12.0-16.0); Mean Corpuscular HGB Conc 32.8 g/dl (31.0-35.0); Mean Corpuscular Hemoglobin 27.5 pg (27.0-33.0); Mean Corpuscular Volume 83.9 fL (80.0-98.0); Mean Platelet Volume 9.5 fL (9.4-12.3); NRBC Pct Auto 0.1 /100WBC (0.0-0.2); Platelet Count 567 X10*3/uL (160-400); Red Blood Count 3.53 X10*6/uL (4.20-5.50); Red Cell Distribution Width 17.8 % (11.0-16.0)
[2021-07-21 17:51] VITALS: BP 98/55; PULSE 78; RESP 22; TEMP 36.9; O2SAT 99
[2021-07-21 17:56] LABS: COVID-19 Test Negative (Negative); IDNOW Serial# 08D9AD1C
[2021-07-21 17:58] LABS: Alanine Aminotransferase 46 U/L (0-31); Albumin Level 2.9 g/dL (3.5-5.0); Alkaline Phosphatase 429 U/L (39-117); Anion Gap 13 (12-20); Aspartate Amino Transferase 87 U/L (5-31); Bilirubin Total 3.6 mg/dL (0.0-1.0); Blood Urea Nitrogen 19 mg/dL (9-16); Calcium 8.7 mg/dL (8.4-10.2); Carbon Dioxide 25 mmol/L (22-29); Chloride 99 mmol/L (96-108); Creatinine Clr Calc Pharmacy 73.4; Estimated Glomerular Filt Rate 45; Glucose Random 122 mg/dL (60-115); Magnesium 1.7 mg/dL (1.6-2.6); Potassium 3.4 mmol/L (3.3-5.1); Sodium 134 mmol/L (135-145); Total Protein 8.1 g/dL (6.5-8.0)
[2021-07-21 18:01] LABS: Troponin-I High Sensitivity 4.4 ng/L (<3.5-17.0)
[2021-07-21 18:17] LABS: White Blood Count 34.5 X10*3/uL (4.8-10.8)
[2021-07-21 18:29] LABS: Band Neutrophils Percent 23 % (3-5); Lymphocytes Absolute Manual 3.1 X10*3/uL (1.2-4.9); Lymphocytes Percent Manual 9 % (20-40); Macrocytosis 1+ (5-14) /OIF; Microcytosis 1+ (5-14) /OIF; Monocytes Absolute Manual 2.1 X10*3/uL (0.1-1.2); Monocytes Percent Manual 6 % (2-11); Neutrophils Absolute Manual 29.3 X10*3/uL (2.0-8.3); Neutrophils Percent Manual 62 % (45-73); RBC Morphology NOTED
[2021-07-21 18:30] LABS: Large Platelet PRESENT; Platelet Estimate INCREASED (NORMAL); Platelet Morphology Comment NOTED
[2021-07-21 18:57] LABS: Lactic Acid 1.9 mmol/L (0.5-2.0)
[2021-07-21] MEDS: iohexoL 350 MG/ML 100 ML INFUS..BTL IV (20:00)
[2021-07-21 21:11] LABS: Appearance Urine CLEAR; Color Urine YELLOW; Glucose Urine UA NEG (NEG); Leukocyte Esterase Urine NEG (NEG); Nitrite Urine NEG (NEG); Urine Blood NEG (NEG); Urine Ketones NEG (NEG); Urine Protein TRACE MG/DL (NEG-TRACE)
[2021-07-21 21:48] LABS: Lipase 57 U/L (8-78)
[2021-07-21] MEDS: Piperacillin Sodium/Tazobactam 3.375 GM in 0.9 % Sodium Chloride 50 ML IV (22:18)
[2021-07-21] MEDS: 0.9 % Sodium Chloride 1,000 ML 999 ML IV (22:19)
--- NOTE | 2021-07-21 23:47 | P.HPHOSP_ITS ---
History of Present Illness Date of Service: 07/21/21 Chief Complaint: syncope 61-year-old female with past medical history of depression, hypertension, GERD who presents to the hospital with complaints of fatigue, weakness, and seizure- like activity. Patient reports that today she has been feeling very tired, when shopping with her girlfriend but felt severe fatigue, on returning home she told her girlfriend that she was feeling very tired, she said down but experiencing shaking her arm and reports that she might have loss consciousness for about 10 minutes although she did feel this shaking in her hand through the episode. She does not remember anything else and the next thing she remembers is waking up in the ambulance. On arrival to the ED patient was postictal according to the physician. The patient herself does not remember anything else. Besides the fatigue and feeling generalized weakness she has no headache, no change in vision, no chest pain, no shortness of breath, no abdominal pain nausea or vomiting, no diarrhea constipation, no urinary symptoms and no lower extremity edema. on arrival to the ED patient vitals are remarkable for blood pressure of 98/54 with no other abnormal vitals satting 97% on room air Labs are significant for WBC count of 34.5, hemoglobin of 9.7 which dropped from 14 in November of 2019, sodium of 134, BUN of 19, creatinine of 1.21 with a baseline around 0.95, total bili of 3.6, AST of 87, ALT of 46, alk-phos of 429, albumin of 2.9, UA negative, head CT negative, abdominal CT shows multiple abnormalities including: Via the ice is and moderate intrahepatic biliary dilatation with dilated distal CBD without mass or stone. Sigmoid diverticular disease with inflammation near 1 loop of sigmoid with a well-contained branching air collection suggestive of diverticulitis with micro perforation and contained air collection. Inflammatory changes suggesting mesenteric panic colitis abnormally enlarged lymph nodes present most prominent in the pericardiac region patient was started on IV antibiotics and will be admitted for further management Review of Systems Review of Systems: Yes all other systems are reviewed and are negative [facility] Medical History (Updated 07/22/21 @ 06:27 by Gabrielle Morales MD) Depression Hypertension Pertinent family history: no history of cardiovascular disease in family Surgical History (Updated 07/22/21 @ 06:22 by Gabrielle Morales MD) History of carpal tunnel release No pertinent past surgical history Social History (Updated 07/22/21 @ 06:23 by Gabrielle Morales MD) Alcohol intake: never Smoked in Last 30 Days: No Use of substances other than those prescribed or required for medical reasons: No Advance Directives: No Advance Directives Information Provided: No Current occupational status: unemployed 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 Meds Allergies Allergy/AdvReac Type Severity Reaction Status Date / Time cortisone [CORTISONE] Allergy Intermediate RASH Verified 09/09/20 09:21 adhesive tape [ADHESIVE TAPE] AdvReac Unknown UNKNOWN Verified 09/09/20 09:21 Latex Allergy Unknown redness Uncoded 08/31/20 12:37 [place] Allergy Unknown Unknown Uncoded 08/31/20 12:37 Home Medications Medication Instructions Recorded Confirmed Last Taken Type cholecalciferol (vitamin D3) 1,250 1,250 mcg PO QWEEK 05/27/20 Unknown History mcg (50,000 unit) capsule atenolol 50 mg tablet 1 tab PO DAILY 07/21/21 Unknown History cetirizine 10 mg tablet 1 tab PO DAILY 07/21/21 Unknown History chlorthalidone 25 mg tablet 1 tab PO QAM 07/21/21 Unknown History doxepin 25 mg capsule 1 cap PO BEDTIME 07/21/21 Unknown History fluoxetine 20 mg capsule 1 cap PO QAM 07/21/21 Unknown History gabapentin 300 mg capsule 1 cap PO TID 07/21/21 Unknown History omeprazole 40 mg capsule,delayed 1 cap PO DAILY 07/21/21 Unknown History release potassium chloride 10 mEq 1 tab PO DAILY 07/21/21 Unknown History tablet,extended release(part/cryst) Physical Exam Vital Signs and Narrative: Vital Signs: Last Vital Signs Temp 98.5 F 07/21/21 17:51 Pulse 78 07/21/21 17:51 Resp 22 H 07/21/21 17:51 BP 98/55 L 07/21/21 17:51 Pulse Ox 99 07/21/21 17:51 BMI result Body Mass Index 42.5 Const: General: cooperative and no acute distress Orientation/conscious ness: patient oriented x3 Eyes: General: appearance normal, both eyes and all related structures Resp: Effort & Inspection: normal respiratory effort Auscultation: clear to auscultation bilaterally Cardio: Rate: regular rate Rhythm: regular rhythm GI: Other: no abdominal tenderness, no rebound or guarding Palpation (GI): Soft to palpation Auscultation: normal bowel sounds Skin: General skin exam: no rashes or lesions noted Neuro: General: patient oriented x3 Cognition (Neuro): normal cognition Extrem: General: Yes normal to inspection and Yes no pedal edema Results Labs CBC and Chem 7: 07/21/21 17:20 07/21/21 17:20 Labs: Laboratory Results - last 24 hr 07/21/21 07/21/21 07/21/21 17:20 17:20 17:20 MCV 83.9 MCH 27.5 MCHC 32.8 RDW 17.8 H Plt Count 567 H MPV 9.5 Immature Gran % (Auto) Cancelled Neut % (Auto) Cancelled Lymph % (Auto) Cancelled [place] % (Auto) Cancelled Eos % (Auto) Cancelled Baso % (Auto) Cancelled Lymph # (Auto) Cancelled [place] # (Auto) Cancelled Eos # (Auto) Cancelled Baso # (Auto) Cancelled Abs Immat Gran (auto) Cancelled Absolute Neuts (auto) Cancelled Absolute Nucleated RBC 0.020 H Nucleated RBC % (auto) 0.1 Neutrophils % (Manual) 62 Band Neutrophils % 23 H Lymphocytes % (Manual) 9 L Monocytes % (Manual) 6 Abs Neuts (Manual) 29.3 H Lymphocytes # (Manual) 3.1 Monocytes # (Manual) 2.1 H Platelet Estimate INCREASED Large Platelets PRESENT Plt Morphology Comment NOTED RBC Morphology NOTED Microcytosis 1+ (5-14) Macrocytosis 1+ (5-14) Anion Gap 13 Creatinine 1.21 Estim Creat Clear Calc 73.4 Estimated GFR 45 Random Glucose 122 H Lactic Acid Calcium 8.7 Magnesium 1.7 Total Bilirubin 3.6 H AST 87 H ALT 46 H Alkaline Phosphatase 429 H Troponin I High Sens 4.4 Total Protein 8.1 H Albumin 2.9 L Lipase 57 Urine Color Urine Appearance Urine pH Ur Specific [place] Urine Protein Urine Glucose (UA) Urine Ketones Urine Blood Urine Nitrite Ur Leukocyte Esterase COVID-19 (LUCILA) COVID-19 Clin Com 07/21/21 07/21/21 07/21/21 17:20 18:35 21:05 MCV MCH MCHC RDW Plt Count MPV Immature Gran % (Auto) Neut % (Auto) Lymph % (Auto) [place] % (Auto) Eos % (Auto) Baso % (Auto) Lymph # (Auto) [place] # (Auto) Eos # (Auto) Baso # (Auto) Abs Immat Gran (auto) Absolute Neuts (auto) Absolute Nucleated RBC Nucleated RBC % (auto) Neutrophils % (Manual) Band Neutrophils % Lymphocytes % (Manual) Monocytes % (Manual) Abs Neuts (Manual) Lymphocytes # (Manual) Monocytes # (Manual) Platelet Estimate Large Platelets Plt Morphology Comment RBC Morphology Microcytosis Macrocytosis Anion Gap Creatinine Estim Creat Clear Calc Estimated GFR Random Glucose Lactic Acid 1.9 Calcium Magnesium Total Bilirubin AST ALT Alkaline Phosphatase Troponin I High Sens Total Protein Albumin Lipase Urine Color YELLOW Urine Appearance CLEAR Urine pH 6.0 Ur Specific [place] 1.010 Urine Protein TRACE Urine Glucose (UA) NEG Urine Ketones NEG Urine Blood NEG Urine Nitrite NEG Ur Leukocyte Esterase NEG COVID-19 (LUCILA) Negative COVID-19 Clin Com See Note Imaging Radiologist's Impressions: Impressions Abdomen/Pelvis CT 07/21/21 20:17 IMPRESSION: A number of abnormalities are present that I find hard to attribute to a single diagnosis: 1. There is cholelithiasis and moderate intrahepatic biliary dilatation with dilated distal common bile duct without mass or stone seen in the duct. Ultrasound may be helpful for further evaluation as this may be better at seeing a stone in the common bile duct. 2. There is sigmoid diverticular disease with inflammation near one loop of sigmoid with a well-contained branching air collections seen in the mesentery suggesting acute diverticulitis with microperforation and contained air collection. 3. Inflammatory changes suggesting mesenteric panniculitis are present in the root of the small bowel mesentery with multiple small lymph nodes. 4. There are definitely abnormally enlarged lymph nodes present most prominent in the paracardiac region as well as a few in the retroperitoneum. 5. Adrenal masses as described above. Fleischner guidelines were followed. This critical result was discussed with Dr. Gaspar at 9:15 PM on the day the exam and it was ascertained that the content and urgency of the report was understood at the time of direct communication. Head CT 07/21/21 20:17 IMPRESSION: No acute intracranial pathology. Assessment and Plan (1) Acute diverticulitis: Status: Acute (2) Cholelithiasis: Status: Acute (3) Seizure-like activity: Status: Acute (4) Loss of consciousness: Status: Acute (5) Leukocytosis: Status: Acute (6) ALFREDO (acute kidney injury): Status: Acute 61-year-old female with past medical history of hypertension as well as depression who presents to the hospital with complaints of fatigue as well as seizure-like activity and loss of consciousness found to have acute diverticulitis # acute diverticulitis with micro perforation - patient has leukocytosis, soft abdomen, no rebound or guarding - will consult General surgery - broad-spectrum IV antibiotic - follow cultures # cholelithiasis with dilated CBD - no evidence of acute cholecystitis on CT but has transaminitis - will obtain abdominal ultrasound - prophylactic IV antibiotics - general surgery consulted # seizure-like activity - reports arm shaking witnessed by her friend and loss of consciousness - patient was postictal on arrival to the ED - will obtain EEG and if abnormal will consult neurology # hypertension - stable BP - will continue home meds pending review # leukocytosis - most likely in the setting of above - IV antibiotics and IV fluid - follow culture - follow CBC # ALFREDO - most likely multifactorial secondary to dehydration as well as acute infection - will start with IV fluid - follow BMP dvt ppx: Quality Stroke Does the patient have a stroke diagnosis?: No VTE Prior VTE?: No VTE Risk Level:: Medical - moderate - high VTE Device Contraindication: Treatment Not Indicated VTE Drug Contraindication: N/A - Med Ordered
[2021-07-22 03:00] VITALS: BP 105/45; PULSE 79; RESP 20; O2SAT 98
[2021-07-22] MEDS: metroNIDAZOLE/NS 500 MG/100 ML PIGGYBACK 100 MG IV (03:24)
[2021-07-22] MEDS: 0.9 % Sodium Chloride 1,000 ML 100 ML IVCONT ×2 (03:32→21:34)
[2021-07-22 03:56] VITALS: BP 115/60; PULSE 83; RESP 20; O2SAT 98
[2021-07-22] MEDS: levoFLOXacin/D5W 750 MG/150 ML PIGGYBACK 100 MG IV ×2 (04:28→21:28)
[2021-07-22] MEDS: Heparin Sodium,Porcine 5,000 UNIT/ML VIAL 5000 UNIT SUBCUT ×2 (06:11→19:43)
[2021-07-22 07:21] LABS: Basophils Percent Auto 0.2 % (0-2); Eosinophils Percent Auto 0.1 % (0-4); Hematocrit 28.5 % (37.0-47.0); Hemoglobin 9.4 g/dl (12.0-16.0); Imm Gran Abs Auto 0.26 X10*3/uL (0.00-0.03); Imm Gran Pct Auto 1.1 % (0.0-0.4); Lymphocytes Absolute Auto 1.5 X10*3/uL (1.2-4.9); Lymphocytes Percent Auto 6.2 % (20-40); MANUAL DIFF FLAG SCAN; Mean Corpuscular Hemoglobin 27.7 pg (27.0-33.0); Mean Corpuscular Volume 84.1 fL (80.0-98.0); Mean Platelet Volume 9.4 fL (9.4-12.3); Monocytes Absolute Auto 1.5 X10*3/uL (0.1-1.2); Monocytes Percent Auto 6.1 % (2-11); Neutrophils Absolute Auto 20.5 x10*3/uL (2.0-8.3); Neutrophils Percent Auto 86.3 % (45-73); Platelet Count 519 X10*3/uL (160-400); Red Blood Count 3.39 X10*6/uL (4.20-5.50); Red Cell Distribution Width 17.9 % (11.0-16.0); SCAN SMEAR FLAG 1; White Blood Count 23.7 X10*3/uL (4.8-10.8)
[2021-07-22 07:59] LABS: Anion Gap 11 (12-20); Blood Urea Nitrogen 15 mg/dL (9-16); Calcium 8.4 mg/dL (8.4-10.2); Carbon Dioxide 26 mmol/L (22-29); Chloride 103 mmol/L (96-108); Creatinine Clr Calc Pharmacy 96.6; Estimated Glomerular Filt Rate > 60; Glucose Random 122 mg/dL (60-115); Potassium 3.2 mmol/L (3.3-5.1); Sodium 137 mmol/L (135-145)
--- NOTE | 2021-07-22 08:09 | P.CONGS_ITS ---
History of Present Illness Consult details Consult date: 07/22/21 Requesting physician: Gabrielle Morales Narrative: 61-year-old female patient presenting with complaints of prolonged history of diarrhea, developing dizziness while shopping in subsequently having a syncopal episode. She was noted to have seizure-like activity by her friend and subsequently transported to the emergency department. She reports a vague history of upper abdominal pain mainly in the right upper quadrant but also in the right lower quadrant on off for approximately 1 month. Yesterday prior to the onset of her current symptoms reports eating clamp strips at [facility]. She felt nauseous but denies vomiting. Upon presentation to the emergency department admitting laboratories revealed a markedly elevated WBC of 35 with elevated liver function tests. A CT of the abdomen and pelvis revealed gallstones within the gallbladder, dilated common bile duct and cystic duct without apparent stones in the common bile duct, bailey colitis, adrenal mass, and possible micro perforation of the sigmoid colon due to diverticulitis. No abscess cavity is identified although there is evidence of panniculitis and enlarged lymph nodes. Review of Systems Review of Systems: Yes all other systems are reviewed and are negative Constitutional: Constitutional: Reports anorexia, Reports malaise and Reports weakness Eyes: Eyes: Denies exophthalmos ENT: Reports Normal hearing present, Denies dysphagia and Reports dizziness Cardiovascular: Cardiovascular: Denies chest pain, Denies irregular heart rhythm and Denies palpitations Respiratory: Respiratory: Reports chest congestion, Reports cough and Reports excessive phlegm production Gastrointestinal: Gastrointestinal: Reports as per HPI, Reports abdominal pain, Denies hematochezia, Denies dysphagia, Denies fecal incontinence and Reports diarrhea Genitourinary: Genitourinary: Reports no additional female genitourinary complaints Neurologic: Reports Normal hearing present, Reports dizziness and Reports weakness Psychiatric: Psychiatric: Reports depression Endocrine: Endocrine: Denies palpitations PMFSH Past Medical History Medical History Depression Hypertension Surgical History Surgical History History of carpal tunnel release Hx of tubal ligation No pertinent past surgical history Social History Social History Alcohol intake: never Smoked in Last 30 Days: No Use of substances other than those prescribed or required for medical reasons: No Advance Directives: No Advance Directives Information Provided: No Current occupational status: unemployed 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 Meds Allergies Allergy/AdvReac Type Severity Reaction Status Date / Time cortisone [CORTISONE] Allergy Intermediate RASH Verified 09/09/20 09:21 adhesive tape [ADHESIVE TAPE] AdvReac Unknown UNKNOWN Verified 09/09/20 09:21 Latex Allergy Unknown redness Uncoded 08/31/20 12:37 [place] Allergy Unknown Unknown Uncoded 08/31/20 12:37 Active Medications: Current Medications Acetaminophen (Acetaminophen 325 Mg Tablet) 650 mg PO Q6H PRN PRN Reason: Pain, Mild (Pain Scale 1-3) Docusate Sodium (Docusate Sodium 100 Mg Capsule) 100 mg PO DAILY PRN PRN Reason: Constipation Heparin Sodium (Porcine) (Heparin Sodium,Porcine 5,000 Unit/Ml Vial) 5,000 unit SUBCUT Q12H [facility] Last Admin: 07/22/21 06:11 Dose: 5,000 unit Documented by: Levofloxacin (Levaquin) 750 mg in 150 mls @ 100 mls/hr IV Q24H [facility] Metronidazole (Flagyl) 500 mg in 100 mls @ 100 mls/hr IV Q8H [facility] Last Infusion: 07/22/21 04:28 Dose: Infused Documented by: Sodium Chloride (Ns) 1,000 mls @ 100 mls/hr IVCONT .Q10H [facility] Last Admin: 07/22/21 03:32 Dose: 100 mls/hr Documented by: Ondansetron HCl (Ondansetron Hcl 4 Mg/2 Ml Vial) 4 mg IVPUSH Q8H PRN PRN Reason: Nausea and Vomiting Pharmacy Consult (Consult Rx Perform Med Rec) 1 each MISCELLANE ONCE PRN PRN Reason: Consult order Sodium Chloride (0.9 % Sodium Chloride Flush 3 Ml Syringe) 3 ml IVFLUSH QSHIFT [facility] Last Admin: 07/22/21 07:39 Dose: Not Given Documented by: Home Medications Medication Instructions Recorded Confirmed Last Taken Type cholecalciferol (vitamin D3) 1,250 1,250 mcg PO QWEEK 05/27/20 Unknown History mcg (50,000 unit) capsule atenolol 50 mg tablet 1 tab PO DAILY 07/21/21 Unknown History cetirizine 10 mg tablet 1 tab PO DAILY 07/21/21 Unknown History chlorthalidone 25 mg tablet 1 tab PO QAM 07/21/21 Unknown History doxepin 25 mg capsule 1 cap PO BEDTIME 07/21/21 Unknown History fluoxetine 20 mg capsule 1 cap PO QAM 07/21/21 Unknown History gabapentin 300 mg capsule 1 cap PO TID 07/21/21 Unknown History omeprazole 40 mg capsule,delayed 1 cap PO DAILY 07/21/21 Unknown History release potassium chloride 10 mEq 1 tab PO DAILY 07/21/21 Unknown History tablet,extended release(part/cryst) naproxen 500 mg tablet 1 tab PO BID PRN 07/22/21 Unknown History ondansetron HCl 4 mg tablet 1 tab PO Q6H 07/22/21 Unknown History Physical Exam Vital Signs: Vital Signs: Last Vital Signs Temp 98.5 F 07/21/21 17:51 Pulse 83 07/22/21 03:56 Resp 20 07/22/21 03:56 BP 115/60 07/22/21 03:56 Pulse Ox 98 07/22/21 03:56 BMI result Body Mass Index 42.5 Const: General: well developed and alert Nutritional Appearance: well nourished Orientation/consciousness: patient oriented x3 Limitations: no limitations HENMT: Head: Yes normocephalic and Yes atraumatic Ears: hearing grossly normal bilaterally Neck: Neck: Yes normal visual inspection, Yes trachea midline, Yes supple and Yes no JVD Resp: Effort & Inspection: normal respiratory effort, no audible wheezes, no cough and no respiratory distress GI: Inspection: Yes normal to inspection Palpation (GI): Soft to palpation, Tenderness to palpation present (GI) in the LLQ, in the RLQ, in the RUQ and Andrews's sign positive and no masses Percussion: Yes normal to percussion Rectal Exam - Female: deferred Skin: General skin exam: no rashes or lesions noted Neuro: General: patient oriented x3 Cranial nerves: Yes Normal hearing present Extrem: General: Yes no clubbing, cyanosis or edema Results Labs Result diagrams: 07/21/21 17:20 07/22/21 07:13 Labs: Abnormal lab results 07/21/21 07/21/21 07/22/21 Range/Units 17:20 17:20 07:13 WBC 34.5 H* (4.8-10.8) X10*3/uL RBC 3.53 L (4.20-5.50) X10*6/uL Hgb 9.7 L (12.0-16.0) g/dl Hct 29.6 L (37.0-47.0) % RDW 17.8 H (11.0-16.0) % Plt Count 567 H (160-400) X10*3/uL Absolute Nucleated RBC 0.020 H (0.0-0.012) X10*3/uL Band Neutrophils % 23 H (3-5) % Lymphocytes % (Manual) 9 L (20-40) % Abs Neuts (Manual) 29.3 H (2.0-8.3) X10*3/uL Monocytes # (Manual) 2.1 H (0.1-1.2) X10*3/uL Sodium 134 L (135-145) mmol/L Potassium 3.2 L (3.3-5.1) mmol/L Anion Gap 11 L (12-20) BUN 19 H (9-16) mg/dL Random Glucose 122 H 122 H (60-115) mg/dL Total Bilirubin 3.6 H (0.0-1.0) mg/dL AST 87 H (5-31) U/L ALT 46 H (0-31) U/L Alkaline Phosphatase 429 H (39-117) U/L Total Protein 8.1 H (6.5-8.0) g/dL Albumin 2.9 L (3.5-5.0) g/dL Short CBC 07/21/21 Range/Units 17:20 WBC 34.5 H* (4.8-10.8) X10*3/uL Hgb 9.7 L (12.0-16.0) g/dl Hct 29.6 L (37.0-47.0) % Plt Count 567 H (160-400) X10*3/uL BMP 07/21/21 07/22/21 17:20 07:13 Sodium 134 L 137 Potassium 3.4 3.2 L Chloride 99 103 Carbon Dioxide 25 26 BUN 19 H 15 Creatinine 1.21 0.92 Calcium 8.7 8.4 Liver Function 07/21/21 Range/Units 17:20 Total Bilirubin 3.6 H (0.0-1.0) mg/dL AST 87 H (5-31) U/L ALT 46 H (0-31) U/L Alkaline Phosphatase 429 H (39-117) U/L Albumin 2.9 L (3.5-5.0) g/dL Urine 07/21/21 Range/Units 21:05 Urine Color YELLOW Urine Appearance CLEAR Urine pH 6.0 (5.0-8.0) Ur Specific [place] 1.010 (1.005-1.025) Urine Protein TRACE (NEG-TRACE) MG/DL Urine Glucose (UA) NEG (NEG) MG/DL All other labs normal. Imaging Abdomen CT scan report/results: report reviewed and image reviewed CT scan - pelvis: report reviewed and image reviewed Abdominal ultrasound report/results: image reviewed Assessment and Plan (1) Cholelithiasis: Status: Acute (2) Leukocytosis: Status: Acute (3) Gallstone: Qualifiers: Biliary obstruction: with biliary obstruction Cholecystitis presence: without cholecystitis Qualified Code(s): K80.21 - Calculus of gallbladder without cholecystitis with obstruction Status: Acute (4) Cholangitis: Status: Acute 61-year-old female patient presenting with recent history of dizziness, syncope, abdominal pain, and seizure-like activity, found upon presentation to the emergency department to have elevated WBC of 34.5, markedly elevated liver function tests, and CT revealing gallstones, enlarged common bile duct, bailey colitis, and possible micro perforated diverticulum sigmoid colon. Review the ultrasound reveals a dilated common bile duct without apparent obstructing stone. Findings are worrisome for cholangitis. With Dr. Jimenez. Recommend GI consultation, MRCP. Await repeat laboratories this morning. Agree with continuing Levaquin and Flagyl. Procedures Date of Service Date of Service: 07/22/21
--- NOTE | 2021-07-22 08:20 | P.CONGS_ITS ---
History of Present Illness Consult details Consult date: 07/22/21 Requesting physician: Gabrielle Morales Narrative: 61-year-old female with past medical history of depression, hypertension, GERD who presented to the hospital with complaints of fatigue, weakness, and seizure-like activity.? Patient reports that she was feeling very tired yesterday and upon returning home she sat down and? experienced shaking of her arm with possible LOC for about 10 minutes. EMS was called. On arrival to the ED patient was postictal according to the physician.?Work up included head CT which was negative. Abdominal CT had multiple abnormalities including moderate intrahepatic biliary dilatation with dilated distal CBD without mass or stone.? Sigmoid diverticular disease with inflammation near 1 loop of sigmoid with a well-contained branching air collection suggestive of diverticulitis with micro perforation and contained air collection.? Inflammatory changes suggesting mesenteric panic colitis abnormally enlarged lymph nodes present most prominent in the pericardiac region ?on arrival to the ED patient vitals? are remarkable for blood pressure of 98/54 with no other abnormal vitals satting 97% on room air Labs are significant for WBC count of 34.5, hemoglobin of 9.7 which dropped from 14 in November of 2019, sodium of 134, BUN of 19, creatinine of 1.21 with a baseline around 0.95, total bili of 3.6, AST of 87, ALT of 46, alk-phos of 429,? albumin of 2.9, UA negative, ?, PMFSH Past Medical History Medical History Depression Hypertension Surgical History Surgical History History of carpal tunnel release Hx of tubal ligation No pertinent past surgical history Social History Social History Alcohol intake: never Smoked in Last 30 Days: No Use of substances other than those prescribed or required for medical reasons: No Advance Directives: No Advance Directives Information Provided: No Current occupational status: unemployed 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 Meds Allergies Allergy/AdvReac Type Severity Reaction Status Date / Time cortisone [CORTISONE] Allergy Intermediate RASH Verified 09/09/20 09:21 adhesive tape [ADHESIVE TAPE] AdvReac Unknown UNKNOWN Verified 09/09/20 09:21 Latex Allergy Unknown redness Uncoded 08/31/20 12:37 [place] Allergy Unknown Unknown Uncoded 08/31/20 12:37 Active Medications: Current Medications Acetaminophen (Acetaminophen 325 Mg Tablet) 650 mg PO Q6H PRN PRN Reason: Pain, Mild (Pain Scale 1-3) Docusate Sodium (Docusate Sodium 100 Mg Capsule) 100 mg PO DAILY PRN PRN Reason: Constipation Heparin Sodium (Porcine) (Heparin Sodium,Porcine 5,000 Unit/Ml Vial) 5,000 unit SUBCUT Q12H [facility] Last Admin: 07/22/21 06:11 Dose: 5,000 unit Documented by: Levofloxacin (Levaquin) 750 mg in 150 mls @ 100 mls/hr IV Q24H [facility] Metronidazole (Flagyl) 500 mg in 100 mls @ 100 mls/hr IV Q8H [facility] Last Infusion: 07/22/21 04:28 Dose: Infused Documented by: Sodium Chloride (Ns) 1,000 mls @ 100 mls/hr IVCONT .Q10H [facility] Last Admin: 07/22/21 03:32 Dose: 100 mls/hr Documented by: Ondansetron HCl (Ondansetron Hcl 4 Mg/2 Ml Vial) 4 mg IVPUSH Q8H PRN PRN Reason: Nausea and Vomiting Pharmacy Consult (Consult Rx Perform Med Rec) 1 each MISCELLANE ONCE PRN PRN Reason: Consult order Sodium Chloride (0.9 % Sodium Chloride Flush 3 Ml Syringe) 3 ml IVFLUSH QSHIFT [facility] Last Admin: 07/22/21 07:39 Dose: Not Given Documented by: Home Medications Medication Instructions Recorded Confirmed Last Taken Type cholecalciferol (vitamin D3) 1,250 1,250 mcg PO QWEEK 05/27/20 Unknown History mcg (50,000 unit) capsule atenolol 50 mg tablet 1 tab PO DAILY 07/21/21 Unknown History cetirizine 10 mg tablet 1 tab PO DAILY 07/21/21 Unknown History chlorthalidone 25 mg tablet 1 tab PO QAM 07/21/21 Unknown History doxepin 25 mg capsule 1 cap PO BEDTIME 07/21/21 Unknown History fluoxetine 20 mg capsule 1 cap PO QAM 07/21/21 Unknown History gabapentin 300 mg capsule 1 cap PO TID 07/21/21 Unknown History omeprazole 40 mg capsule,delayed 1 cap PO DAILY 07/21/21 Unknown History release potassium chloride 10 mEq 1 tab PO DAILY 07/21/21 Unknown History tablet,extended release(part/cryst) naproxen 500 mg tablet 1 tab PO BID PRN 07/22/21 Unknown History ondansetron HCl 4 mg tablet 1 tab PO Q6H 07/22/21 Unknown History Physical Exam Vital Signs: Vital Signs: Last Vital Signs Temp 98.5 F 07/21/21 17:51 Pulse 83 07/22/21 03:56 Resp 20 07/22/21 03:56 BP 115/60 07/22/21 03:56 Pulse Ox 98 07/22/21 03:56 BMI result Body Mass Index 42.5 Results Labs Result diagrams: 07/21/21 17:20 07/22/21 07:13 Labs: Abnormal lab results 07/21/21 07/21/21 07/22/21 Range/Units 17:20 17:20 07:13 WBC 34.5 H* (4.8-10.8) X10*3/uL RBC 3.53 L (4.20-5.50) X10*6/uL Hgb 9.7 L (12.0-16.0) g/dl Hct 29.6 L (37.0-47.0) % RDW 17.8 H (11.0-16.0) % Plt Count 567 H (160-400) X10*3/uL Absolute Nucleated RBC 0.020 H (0.0-0.012) X10*3/uL Band Neutrophils % 23 H (3-5) % Lymphocytes % (Manual) 9 L (20-40) % Abs Neuts (Manual) 29.3 H (2.0-8.3) X10*3/uL Monocytes # (Manual) 2.1 H (0.1-1.2) X10*3/uL Sodium 134 L (135-145) mmol/L Potassium 3.2 L (3.3-5.1) mmol/L Anion Gap 11 L (12-20) BUN 19 H (9-16) mg/dL Random Glucose 122 H 122 H (60-115) mg/dL Total Bilirubin 3.6 H (0.0-1.0) mg/dL AST 87 H (5-31) U/L ALT 46 H (0-31) U/L Alkaline Phosphatase 429 H (39-117) U/L Total Protein 8.1 H (6.5-8.0) g/dL Albumin 2.9 L (3.5-5.0) g/dL Short CBC 07/21/21 Range/Units 17:20 WBC 34.5 H* (4.8-10.8) X10*3/uL Hgb 9.7 L (12.0-16.0) g/dl Hct 29.6 L (37.0-47.0) % Plt Count 567 H (160-400) X10*3/uL BMP 07/21/21 07/22/21 17:20 07:13 Sodium 134 L 137 Potassium 3.4 3.2 L Chloride 99 103 Carbon Dioxide 25 26 BUN 19 H 15 Creatinine 1.21 0.92 Calcium 8.7 8.4 Liver Function 07/21/21 Range/Units 17:20 Total Bilirubin 3.6 H (0.0-1.0) mg/dL AST 87 H (5-31) U/L ALT 46 H (0-31) U/L Alkaline Phosphatase 429 H (39-117) U/L Albumin 2.9 L (3.5-5.0) g/dL Urine 07/21/21 Range/Units 21:05 Urine Color YELLOW Urine Appearance CLEAR Urine pH 6.0 (5.0-8.0) Ur Specific [place] 1.010 (1.005-1.025) Urine Protein TRACE (NEG-TRACE) MG/DL Urine Glucose (UA) NEG (NEG) MG/DL All other labs normal. Imaging Additional studies: CT ABD/PELVIS 1. There is cholelithiasis and moderate intrahepatic biliary dilatation with dilated distal common bile duct without mass or stone seen in the duct. Ultrasound may be helpful for further evaluation as this may be better at seeing a stone in the common bile duct. 2. There is sigmoid diverticular disease with inflammation near one loop of sigmoid with a well-contained branching air collections seen in the mesentery suggesting acute diverticulitis with microperforation and contained air collection. 3. Inflammatory changes suggesting mesenteric panniculitis are present in the root of the small bowel mesentery with multiple small lymph nodes. 4. There are definitely abnormally enlarged lymph nodes present most prominent in the paracardiac region as well as a few in the retroperitoneum. 5. Adrenal masses as described above.
[2021-07-22 08:23] LABS: SLIDE REVIEW VERIFIED
--- NOTE | 2021-07-22 09:08 | PHA.MEDREC ---
Pharmacy Consult ? Medication Reconciliation Pharmacy has completed the medication reconciliation. Patient is unsure about Fluoxetine, however it was filled at the same time as all her other medicaitons. Katie Ross, MateoD
[2021-07-22] MEDS: LORazepam 2 MG/ML VIAL 1 MG IVPUSH (09:09)
--- NOTE | 2021-07-22 09:15 | PC.NURSE ---
Pt medicated with ativan IV for anxiety regarding MRI. Pt reports claustrophobia. Techs at bedside at this time for transport to MRI.
--- NOTE | 2021-07-22 09:19 | HO.PM.IMPN ---
Subjective Subjective Date of Service: 07/22/21 Interval History: seizure , cbd dilation Review of Systems Seems more awake, had some right upper quadrant pain otherwise denies any chest pain or shortness of breath or fever or chills or cough or phlegm. Physical Exam Vital Signs: Vital Signs: Last Vital Signs Temp 98.5 F 07/21/21 17:51 Pulse 83 07/22/21 03:56 Resp 20 07/22/21 03:56 BP 115/60 07/22/21 03:56 Pulse Ox 98 07/22/21 03:56 BMI result Body Mass Index 42.5 Physical exam: Appearance: Alert.? Oriented X3.? not in distress.? cvs: rrr, [id number] , no murmur res: clear to auscultation ,no rhonchii or wheezing abd: no rebound or guarding ,ruq, bs present. ext pulses present , no cyanosis . neuro: axo3 , nonfocal. Objective Data Active Medications Acetaminophen (Acetaminophen 325 Mg Tablet) 650 mg PO Q6H PRN PRN Reason: Pain, Mild (Pain Scale 1-3) Docusate Sodium (Docusate Sodium 100 Mg Capsule) 100 mg PO DAILY PRN PRN Reason: Constipation Heparin Sodium (Porcine) (Heparin Sodium,Porcine 5,000 Unit/Ml Vial) 5,000 unit SUBCUT Q12H [facility] Last Admin: 07/22/21 06:11 Dose: 5,000 unit Documented by: [facility] Levofloxacin (Levaquin) 750 mg in 150 mls @ 100 mls/hr IV Q24H [facility] Metronidazole (Flagyl) 500 mg in 100 mls @ 100 mls/hr IV Q8H [facility] Last Infusion: 07/22/21 04:28 Dose: 0 mls/hr Documented by: [facility] Sodium Chloride (Ns) 1,000 mls @ 100 mls/hr IVCONT .Q10H [facility] Last Admin: 07/22/21 03:32 Dose: 100 mls/hr Documented by: [facility] Ondansetron HCl (Ondansetron Hcl 4 Mg/2 Ml Vial) 4 mg IVPUSH Q8H PRN PRN Reason: Nausea and Vomiting Pharmacy Consult (Consult Rx Perform Med Rec) 1 each MISCELLANE ONCE PRN PRN Reason: Consult order Sodium Chloride (0.9 % Sodium Chloride Flush 3 Ml Syringe) 3 ml IVFLUSH QSHIFT [facility] Last Admin: 07/22/21 07:39 Dose: Not Given Documented by: LONNIE Non-Admin Reason: IV Running Labs CBC & Chem 7: 07/22/21 07:13 07/22/21 07:13 Labs: Laboratory Results - last 24 hr 07/21/21 07/21/21 07/21/21 17:20 17:20 17:20 MCV 83.9 MCH 27.5 MCHC 32.8 RDW 17.8 H Plt Count 567 H MPV 9.5 Immature Gran % (Auto) Cancelled Neut % (Auto) Cancelled Lymph % (Auto) Cancelled Cole % (Auto) Cancelled Eos % (Auto) Cancelled Baso % (Auto) Cancelled Lymph # (Auto) Cancelled Cole # (Auto) Cancelled Eos # (Auto) Cancelled Baso # (Auto) Cancelled Abs Immat Gran (auto) Cancelled Absolute Neuts (auto) Cancelled Absolute Nucleated RBC 0.020 H Nucleated RBC % (auto) 0.1 Neutrophils % (Manual) 62 Band Neutrophils % 23 H Lymphocytes % (Manual) 9 L Monocytes % (Manual) 6 Abs Neuts (Manual) 29.3 H Lymphocytes # (Manual) 3.1 Monocytes # (Manual) 2.1 H Platelet Estimate INCREASED Large Platelets PRESENT Plt Morphology Comment NOTED RBC Morphology NOTED Microcytosis 1+ (5-14) Macrocytosis 1+ (5-14) Smear Tech's Comments Anion Gap 13 Estim Creat Clear Calc 73.4 Estimated GFR 45 Random Glucose 122 H Lactic Acid Calcium 8.7 Magnesium 1.7 Total Bilirubin 3.6 H AST 87 H ALT 46 H Alkaline Phosphatase 429 H Troponin I High Sens 4.4 Total Protein 8.1 H Albumin 2.9 L Lipase 57 Urine Color Urine Appearance Urine pH Ur Specific [place] Urine Protein Urine Glucose (UA) Urine Ketones Urine Blood Urine Nitrite Ur Leukocyte Esterase COVID-19 ([facility]) COVID-19 Clin Com 07/21/21 07/21/21 07/21/21 17:20 18:35 21:05 MCV MCH MCHC RDW Plt Count MPV Immature Gran % (Auto) Neut % (Auto) Lymph % (Auto) Cole % (Auto) Eos % (Auto) Baso % (Auto) Lymph # (Auto) Cole # (Auto) Eos # (Auto) Baso # (Auto) Abs Immat Gran (auto) Absolute Neuts (auto) Absolute Nucleated RBC Nucleated RBC % (auto) Neutrophils % (Manual) Band Neutrophils % Lymphocytes % (Manual) Monocytes % (Manual) Abs Neuts (Manual) Lymphocytes # (Manual) Monocytes # (Manual) Platelet Estimate Large Platelets Plt Morphology Comment RBC Morphology Microcytosis Macrocytosis Smear Tech's Comments Anion Gap Estim Creat Clear Calc Estimated GFR Random Glucose Lactic Acid 1.9 Calcium Magnesium Total Bilirubin AST ALT Alkaline Phosphatase Troponin I High Sens Total Protein Albumin Lipase Urine Color YELLOW Urine Appearance CLEAR Urine pH 6.0 Ur Specific [place] 1.010 Urine Protein TRACE Urine Glucose (UA) NEG Urine Ketones NEG Urine Blood NEG Urine Nitrite NEG Ur Leukocyte Esterase NEG COVID-19 (LUCILA) Negative COVID-19 Clin Com See Note 07/22/21 07/22/21 07:13 07:13 MCV 84.1 MCH 27.7 MCHC 33.0 RDW 17.9 H Plt Count 519 H MPV 9.4 Immature Gran % (Auto) 1.1 H Neut % (Auto) 86.3 H Lymph % (Auto) 6.2 L Cole % (Auto) 6.1 Eos % (Auto) 0.1 Baso % (Auto) 0.2 Lymph # (Auto) 1.5 Cole # (Auto) 1.5 H Eos # (Auto) 0.0 Baso # (Auto) 0.0 Abs Immat Gran (auto) 0.26 H Absolute Neuts (auto) 20.5 H Absolute Nucleated RBC 0.000 Nucleated RBC % (auto) 0.0 Neutrophils % (Manual) Band Neutrophils % Lymphocytes % (Manual) Monocytes % (Manual) Abs Neuts (Manual) Lymphocytes # (Manual) Monocytes # (Manual) Platelet Estimate Large Platelets Plt Morphology Comment RBC Morphology Microcytosis Macrocytosis Smear Tech's Comments VERIFIED Anion Gap 11 L Estim Creat Clear Calc 96.6 Estimated GFR > 60 Random Glucose 122 H Lactic Acid Calcium 8.4 Magnesium Total Bilirubin AST ALT Alkaline Phosphatase Troponin I High Sens Total Protein Albumin Lipase Urine Color Urine Appearance Urine pH Ur Specific [place] Urine Protein Urine Glucose (UA) Urine Ketones Urine Blood Urine Nitrite Ur Leukocyte Esterase COVID-19 (LUCILA) COVID-19 Clin Com Assessment and Plan (1) Cholangitis: Status: Acute (2) Perforated diverticulum: Status: Acute (3) Sepsis: Status: Acute Assessment and Plan: 61-year-old female with past medical history of hypertension as well as depression who presents to the hospital with complaints of fatigue as well as seizure-like activity and loss of consciousness found to have acute diverticulitis 1. sepsis (POA)sec acute diverticulitis with micro perforation, possible cholangitis has leucocytossis , tachycardia For leukocytosis improving ,no fever. mri abd:Dilated biliary tree with findings strongly suspicious for tiny choledocholithiasis within the distal most aspect of the CBD. abdominal ultrasound:The thickness of the gallbladder wall also appears to be variable. Appearance could also be related to chronic cholecystitis. blood cultures npo ,broad-spectrum IV antibiotic-levaquin/flagyl day2 cbc , bmp ,liver panel in am 2.? cholelithiasis with dilated CBD see above- seen by GI recommended abd imaging repeat imaging p.o. contrast 3. seizure-like activity Patient was postictal due to seizure -no toxic metabolic encephalopathy. -? reports arm shaking witnessed by her friend and loss of consciousness -? patient was postictal on arrival to the ED consult neurology-ct head neg -? will obtain EEG in am 4.? hypertension -? stable BP hold home meds . hold asa , nsaids -may need endoscopic procedure. 5. leukocytosis -? most likely in the setting of above -? IV antibiotics and IV fluid -? follow culture -? follow CBC 6.? ALFREDO -? most likely multifactorial secondary to dehydration as well as acute infection on IV fluid, improving -? follow BMP Quality Stroke Does the patient have a stroke diagnosis?: No VTE Prior VTE?: No VTE Risk Level:: Medical - moderate - high VTE Device Contraindication: Treatment Not Indicated VTE Drug Contraindication: N/A - Med Ordered
--- NOTE | 2021-07-22 10:48 | MHC.CDI.CONC ---
CDI Concurrent Query Documentation Clarification: PHYSICIAN'S DOCUMENTATION REQUEST Date of Query: 07/22/21 1049 Patient Name: Ibis Arriaga Admit Date: 07/21/21 Dear Doctor, A review of the medical record indicates additional documentation may be needed. Please review below and update the documentation accordingly. Risk Factors/Clinical Indicators/Treatments ED: Clinical impression - Acute metabolic encephalopathy Dizzy, seizure like activity, confused after the episode likely seizure. Please clarify the following: Metabolic Encephalopathy: [Diagnosis] was present on admission and is now resolved [Diagnosis] was present on admission and is still being monitored, evaluated, or treated [Diagnosis] was ruled out [Diagnosis] is still a likely, suspected, probable diagnosis Other (please specify) Unable to determine Use of terms such as suspected, likely, concern for, or probable (associated with a specific diagnosis that is being evaluated, monitored, or treated as if it exists) are acceptable and can be coded in the inpatient setting, when documented at the time of discharge. Thank you, Louise Sharma [facility], CDIS Extension: [phone] Please use your independent medical judgment in providing your response. THIS QUERY IS PART OF THE PERMANENT MEDICAL RECORD Provider Response: Other Other Diagnosis: no acute metabolic encephalopathy
[2021-07-22] MEDS: metroNIDAZOLE/NS 500 MG/100 ML PIGGYBACK IV ×2 (12:16→19:43)
--- NOTE | 2021-07-22 12:22 | PM.GICN ---
History of Present Illness Data of Consult Service Date: 07/22/21 Requesting physician: Fernando Jimenez Primary Care Provider: Kiel Rice MD HPI Reason for consult: ?cholnagitis 61-year-old female with past medical history of depression, hypertension, GERD who I am seeing for abn imaging and elevated LFT. PAtient said she has noted diarrhea for the last 2 weeks but no blood or mucous. Yesterday she had sudden onset severe pain in the lower abdomen with some pain in the RUQ area as well. She also noted to be feeling fatigued and tired with shaking of arm and possible seizure episode with LOC. Today she has tenderness in LLQ and pain, and has not passed any stool or gas since admission. She has nausea but no vomiting. Denies fever, chills, no weight loss recently, feels hungry. She has never had a colonoscopy work up: Labs: WBC count of 34.5, hemoglobin of 9.7 which dropped from 14 in November of 2019, sodium of 134, BUN of 19, creatinine of 1.21 with a baseline around 0.95, total bili of 3.6, AST 87, ALT 46, alk-phos: 429,? albumin of 2.9, UA negative, Imaging: negative head CT CT A/P: moderate intrahepatic biliary dilatation with dilated distal CBD without mass or stone.? Sigmoid diverticular disease with inflammation near 1 loop of sigmoid with a well-contained branching air collection suggestive of diverticulitis with micro perforation and contained air collection.? Inflammatory changes suggesting mesenteric panic colitis abnormally enlarged lymph nodes present most prominent in the pericardiac region US: thickened GB, dilated CBD and PD, hepatomegaly Review of Systems Review of Systems: Yes all other systems are reviewed and are negative Constitutional: Constitutional: Reports anorexia, Reports malaise and Reports weakness Eyes: Eyes: Denies exophthalmos ENT: Reports Normal hearing present, Denies dysphagia and Reports dizziness Cardiovascular: Cardiovascular: Denies chest pain, Denies irregular heart rhythm and Denies palpitations Respiratory: Respiratory: Reports chest congestion, Reports cough and Reports excessive phlegm production Gastrointestinal: Gastrointestinal: Reports as per HPI, Reports abdominal pain, Denies hematochezia, Denies dysphagia, Denies fecal incontinence and Reports diarrhea Neurologic: Reports Normal hearing present, Reports dizziness and Reports weakness Psychiatric: Psychiatric: Reports depression Endocrine: Endocrine: Denies palpitations PMFSH Past Medical History Medical History Depression Hypertension Surgical History Surgical History History of carpal tunnel release Hx of tubal ligation No pertinent past surgical history Social History Social History Alcohol intake: never Smoked in Last 30 Days: No Use of substances other than those prescribed or required for medical reasons: No Advance Directives: No Advance Directives Information Provided: No Current occupational status: unemployed 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 Meds Allergies Allergy/AdvReac Type Severity Reaction Status Date / Time cortisone [CORTISONE] Allergy Intermediate RASH Verified 09/09/20 09:21 adhesive tape [ADHESIVE TAPE] AdvReac Unknown UNKNOWN Verified 09/09/20 09:21 Latex Allergy Unknown redness Uncoded 08/31/20 12:37 Emerson Allergy Unknown Unknown Uncoded 08/31/20 12:37 Active Medications: Current Medications Acetaminophen (Acetaminophen 325 Mg Tablet) 650 mg PO Q6H PRN PRN Reason: Pain, Mild (Pain Scale 1-3) Docusate Sodium (Docusate Sodium 100 Mg Capsule) 100 mg PO DAILY PRN PRN Reason: Constipation Heparin Sodium (Porcine) (Heparin Sodium,Porcine 5,000 Unit/Ml Vial) 5,000 unit SUBCUT Q12H [facility] Last Admin: 07/22/21 06:11 Dose: 5,000 unit Documented by: Levofloxacin (Levaquin) 750 mg in 150 mls @ 100 mls/hr IV Q24H [facility] Metronidazole (Flagyl) 500 mg in 100 mls @ 100 mls/hr IV Q8H [facility] Last Admin: 07/22/21 12:16 Dose: 500 mls/hr Documented by: Sodium Chloride (Ns) 1,000 mls @ 100 mls/hr IVCONT .Q10H [facility] Last Admin: 07/22/21 03:32 Dose: 100 mls/hr Documented by: Ondansetron HCl (Ondansetron Hcl 4 Mg/2 Ml Vial) 4 mg IVPUSH Q8H PRN PRN Reason: Nausea and Vomiting Pharmacy Consult (Consult Rx Perform Med Rec) 1 each MISCELLANE ONCE PRN PRN Reason: Consult order Sodium Chloride (0.9 % Sodium Chloride Flush 3 Ml Syringe) 3 ml IVFLUSH QSHIFT [facility] Last Admin: 07/22/21 07:39 Dose: Not Given Documented by: Home Medications Medication Instructions Recorded Confirmed Last Taken Type atenolol 50 mg tablet 1 tab PO DAILY 07/21/21 07/22/21 07/20/21 History cetirizine 10 mg tablet 1 tab PO DAILY 07/21/21 07/22/21 07/20/21 History chlorthalidone 25 mg tablet 1 tab PO QAM 07/21/21 07/22/21 07/20/21 History doxepin 25 mg capsule 1 cap PO BEDTIME 07/21/21 07/22/21 07/20/21 History fluoxetine 20 mg capsule 1 cap PO QAM 07/21/21 07/22/21 07/20/21 History gabapentin 300 mg capsule 1 cap PO TID 07/21/21 07/22/21 07/20/21 History omeprazole 40 mg capsule,delayed 1 cap PO DAILY 07/21/21 07/22/21 07/20/21 History release potassium chloride 10 mEq 1 tab PO DAILY 07/21/21 07/22/21 07/20/21 History tablet,extended release(part/cryst) aspirin 81 mg chewable tablet 81 mg PO DAILY 07/22/21 07/22/21 07/20/21 History naproxen 500 mg tablet 1 tab PO BID 07/22/21 07/22/21 07/20/21 History ondansetron HCl 4 mg tablet 1 tab PO Q6H PRN 07/22/21 07/22/21 07/20/21 History Physical Exam Vital Signs: Vital Signs: Last Vital Signs Temp 98.5 F 07/21/21 17:51 Pulse 83 07/22/21 03:56 Resp 20 07/22/21 03:56 BP 115/60 07/22/21 03:56 Pulse Ox 98 07/22/21 03:56 BMI result Body Mass Index 42.5 Const: General: cooperative, no acute distress, well developed and alert Nutritional Appearance: well nourished Orientation/consciousness: patient oriented x3 Limitations: no limitations HENMT: Head: Yes normocephalic and Yes atraumatic Ears: hearing grossly normal bilaterally Eyes: General: appearance normal, both eyes and all related structures Neck: Neck: Yes normal visual inspection, Yes trachea midline, Yes supple and Yes no JVD Resp: Effort & Inspection: normal respiratory effort, no audible wheezes, no cough and no respiratory distress Auscultation: clear to auscultation bilaterally Cardio: Rate: regular rate Rhythm: regular rhythm GI: Inspection: Yes normal to inspection Palpation (GI): Soft to palpation, Tenderness to palpation present (GI) in the LLQ, in the RLQ, in the RUQ and Andrews's sign positive and no masses Percussion: Yes normal to percussion Auscultation: normal bowel sounds Rectal Exam - Female: deferred Skin: General skin exam: no rashes or lesions noted Neuro: General: patient oriented x3 Cranial nerves: Yes Normal hearing present Cognition (Neuro): normal cognition Extrem: General: Yes normal to inspection, Yes no clubbing, cyanosis or edema and Yes no pedal edema Results Labs CBC & Chem 7: 07/22/21 07:13 07/22/21 07:13 Labs: Short CBC 07/21/21 07/22/21 Range/Units 17:20 07:13 WBC 34.5 H* 23.7 H (4.8-10.8) X10*3/uL Hgb 9.7 L 9.4 L (12.0-16.0) g/dl Hct 29.6 L 28.5 L (37.0-47.0) % Plt Count 567 H 519 H (160-400) X10*3/uL BMP 07/21/21 07/22/21 17:20 07:13 Sodium 134 L 137 Potassium 3.4 3.2 L Chloride 99 103 Carbon Dioxide 25 26 BUN 19 H 15 Creatinine 1.21 0.92 Calcium 8.7 8.4 Liver Function 07/21/21 Range/Units 17:20 Total Bilirubin 3.6 H (0.0-1.0) mg/dL AST 87 H (5-31) U/L ALT 46 H (0-31) U/L Alkaline Phosphatase 429 H (39-117) U/L Albumin 2.9 L (3.5-5.0) g/dL Urine 07/21/21 Range/Units 21:05 Urine Color YELLOW Urine Appearance CLEAR Urine pH 6.0 (5.0-8.0) Ur Specific [place] 1.010 (1.005-1.025) Urine Protein TRACE (NEG-TRACE) MG/DL Urine Glucose (UA) NEG (NEG) MG/DL Microbiology Microbiology Results: Microbiology 07/21/21 18:35 Blood - Venous Blood Culture - Preliminary Imaging CT scan - abdomen: Attestation: I personally reviewed and interpreted this imaging study as follows: My impression: calcification in GB, dilated CBD, atherosclerosis, perf tic with small air bubbles noted. Assessment and Plan (1) Dilated cbd, acquired: Status: Acute (2) Abnormal LFTs: Status: Acute (3) Perforated diverticulum: Status: Acute 1/ LLq pain with perforated diverticulum on imaging 2/ Abn LFT with dilated CBD, no obvious biliary stones or masses on imaging, MRI report pending, but I don;t appreciate any obvious mass on my personal read, but CBD remains massively dilated ddx: ampullary lesion, cholangioca, impacted stone, pancreatic ca, benign stricture She may have 2 pathologies ongoing, but given her description and current pain/clinical findings it would appear that the perforated sigmoid divertiuclum is the more acute issue of the 2 Plan: 1/ Cont with Iv ABX and bowel rest as doing 2/ await MRi official report. trend LFT 3/ If LFT worsen and clinical findings more suggestive of cholangitis then emergent ERCP otherwise would delay any ERCP till at least Monday, blood cultures neg so far 4/ consider repeat CT with PO contrast to re evaluate the perf tomorrow. Procedures Date of Service Date of Service: 07/22/21
--- NOTE | 2021-07-22 12:27 | PC.NURSE ---
fariba reyes and running, pt requesting ice chips, per md lou to give, ice chips given. No other complaints at this time. HARMEET.
--- NOTE | 2021-07-22 12:49 | MHC.CM.PN ---
PT REPORTS SHE LIVES ALONE AND IS INDEPENDENT WITH PERSONAL CARE PT REPORTS SHE DOES HAVE A DIRECTOR OF CORPORATE RESPONSIBILITY THAT COMES TWICE PER WEEK TO ASSIST WITH HOUSEWORK/TRANSPORTATION SHE REPORTS SHE HAS BOTH A CANE AND A WALKER SHE USES NEEDED PT CONFIRMS HER PCP IS PIERCE JO PT COMPLETED A HCP TODAY NAMING HER SON, GIN LUJAN [phone] AND HER SISTER, FACUNDO OCAMPO [phone], HER PRIMARY AND ALTERNATE AGENTS RESPECTIVELY. A COPY OF THE HCP WAS SCANNED INTO [employer] AND SENT TO [facility] DELIVERED, ORIGINAL GIVEN TO PT, COPY SENT TO [facility] TO TRANSPORT
[2021-07-22 15:20] VITALS: BP 112/62; PULSE 94; RESP 16; TEMP 36.6; O2SAT 97
[2021-07-22 19:37] VITALS: BP 103/53; PULSE 80; RESP 18; O2SAT 98
[2021-07-22] MEDS: FLUoxetine HCl 20 MG CAPSULE PO (19:43)
[2021-07-22] MEDS: Doxepin HCl 25 MG CAPSULE PO (21:27)
[2021-07-23] VITALS (7 sets, daily range): BP systolic 89–124; BP diastolic 45–70; PULSE 58–74; RESP 14–20; TEMP 35.9–36.6; O2SAT 96–99
--- NOTE | 2021-07-23 | EEG_ITS ---
The waking background activity consists of a well-defined [id number] voltage posterior 10 hertz alpha frequency that is seen symmetrically and attenuates well with eye opening. Photic stimulation is without activation. Hyperventilation was omitted. No focal, lateralizing, or paroxysmal discharges are seen. IMPRESSION: This waking EEG is within normal limits. MD YAS Jean/LOKESH / [id number]
[2021-07-23] MEDS: metroNIDAZOLE/NS 500 MG/100 ML PIGGYBACK IV ×2 (04:37→13:24)
--- NOTE | 2021-07-23 04:41 | PC.NURSE ---
pt sleeping no s/s of distress, pt slept comfortably. vitals stable.
[2021-07-23] MEDS: Heparin Sodium,Porcine 5,000 UNIT/ML VIAL 5000 UNIT SUBCUT ×2 (06:13→16:50)
[2021-07-23 07:28] LABS: Basophils Percent Auto 0.2 % (0-2); Eosinophils Absolute Auto 0.1 X10*3/uL (0.0-0.4); Hematocrit 26.8 % (37.0-47.0); Hemoglobin 8.7 g/dl (12.0-16.0); Imm Gran Abs Auto 0.12 X10*3/uL (0.00-0.03); Lymphocytes Absolute Auto 1.7 X10*3/uL (1.2-4.9); Lymphocytes Percent Auto 14.3 % (20-40); MANUAL DIFF FLAG NO; Mean Corpuscular HGB Conc 32.5 g/dl (31.0-35.0); Mean Corpuscular Volume 83.2 fL (80.0-98.0); Mean Platelet Volume 9.4 fL (9.4-12.3); Monocytes Absolute Auto 0.7 X10*3/uL (0.1-1.2); Monocytes Percent Auto 5.5 % (2-11); Neutrophils Absolute Auto 9.5 x10*3/uL (2.0-8.3); Platelet Count 452 X10*3/uL (160-400); Red Blood Count 3.22 X10*6/uL (4.20-5.50); Red Cell Distribution Width 18.1 % (11.0-16.0); White Blood Count 12.2 X10*3/uL (4.8-10.8)
--- NOTE | 2021-07-23 07:48 | PM.PNGS ---
Subjective Subjective Date of Service: 07/23/21 Interval history: Patient reports feeling improved with decreased abdominal pain. The abdominal pain is mainly in the right upper quadrant this time. She is hungry and denies nausea or vomiting. She is passing her urine but feels it is very concentrated. Physical Exam Vital Signs: Vital Signs: Last Vital Signs Temp 97.9 F 07/23/21 01:29 Pulse 72 07/23/21 06:16 Resp 16 07/23/21 06:16 BP 106/52 L 07/23/21 06:16 Pulse Ox 97 07/23/21 06:16 BMI result Body Mass Index 42.5 Const: General: cooperative and no acute distress Nutritional Appearance: obese Orientation/consciousness: patient oriented x3 Limitations: no limitations HENMT: Head: Yes normocephalic and Yes atraumatic Resp: Effort & Inspection: normal respiratory effort Auscultation: clear to auscultation bilaterally GI: Inspection: Yes normal to inspection Palpation (GI): Soft to palpation, Tenderness to palpation present (GI) in the RUQ; Negative for Andrews's sign negative and with no rebound tenderness, no guarding and not rigid Auscultation: normal bowel sounds Rectal Exam - Female: deferred Skin: General skin exam: no rashes or lesions noted Neuro: General: patient oriented x3 Extrem: General: Yes normal to inspection, Yes capillary refill normal and Yes no clubbing, cyanosis or edema Objective Data Active Medications Acetaminophen (Acetaminophen 325 Mg Tablet) 650 mg PO Q6H PRN PRN Reason: Pain, Mild (Pain Scale 1-3) Atenolol (Atenolol 50 Mg Tablet) 50 mg PO DAILY [facility]; Protocol Docusate Sodium (Docusate Sodium 100 Mg Capsule) 100 mg PO DAILY PRN PRN Reason: Constipation Doxepin HCl (Doxepin Hcl 25 Mg Capsule) 25 mg PO BEDTIME [facility] Last Admin: 07/22/21 21:27 Dose: 25 mg Documented by: [facility]CT[facility]za Fluoxetine HCl (Fluoxetine Hcl 20 Mg Capsule) 20 mg PO DAILY [facility] Last Admin: 07/22/21 19:43 Dose: 20 mg Documented by: [facility] Heparin Sodium (Porcine) (Heparin Sodium,Porcine 5,000 Unit/Ml Vial) 5,000 unit SUBCUT Q12H [facility] Last Admin: 07/23/21 06:13 Dose: 5,000 unit Documented by: [facility] Levofloxacin (Levaquin) 750 mg in 150 mls @ 100 mls/hr IV Q24H [facility] Last Infusion: 07/23/21 02:49 Dose: 0 mls/hr Documented by: [facility] Metronidazole (Flagyl) 500 mg in 100 mls @ 100 mls/hr IV Q8H [facility] Last Admin: 07/23/21 04:37 Dose: 500 mls/hr Documented by: [facility] Sodium Chloride (Ns) 1,000 mls @ 100 mls/hr IVCONT .Q10H [facility] Last Admin: 07/22/21 21:34 Dose: 100 mls/hr Documented by: [facility] Loratadine (Loratadine 10 Mg Tablet) 10 mg PO DAILY [facility] Omeprazole (Omeprazole 40 Mg Capsule.Dr) 40 mg PO DAILY [facility] Ondansetron HCl (Ondansetron Hcl 4 Mg/2 Ml Vial) 4 mg IVPUSH Q8H PRN PRN Reason: Nausea and Vomiting Pharmacy Consult (Consult Rx Perform Med Rec) 1 each MISCELLANE ONCE PRN PRN Reason: Consult order Potassium Chloride (Potassium Chloride Er 10 Meq Capsule.Er) 1 meq PO DAILY [facility] Sodium Chloride (0.9 % Sodium Chloride Flush 3 Ml Syringe) 3 ml IVFLUSH QSHIFT [facility] Last Admin: 07/23/21 00:27 Dose: Not Given Documented by: [facility] Non-Admin Reason: IV Running Labs CBC & Chem 7: 07/23/21 07:23 07/22/21 07:13 Labs: Laboratory Results - last 24 hr 07/22/21 07/22/21 07/23/21 07:13 07:13 07:23 MCV 84.1 83.2 MCH 27.7 27.0 MCHC 33.0 32.5 RDW 17.9 H 18.1 H Plt Count 519 H 452 H MPV 9.4 9.4 Immature Gran % (Auto) 1.1 H 1.0 H Neut % (Auto) 86.3 H 78.0 H Lymph % (Auto) 6.2 L 14.3 L [place] % (Auto) 6.1 5.5 Eos % (Auto) 0.1 1.0 Baso % (Auto) 0.2 0.2 Lymph # (Auto) 1.5 1.7 [place] # (Auto) 1.5 H 0.7 Eos # (Auto) 0.0 0.1 Baso # (Auto) 0.0 0.0 Abs Immat Gran (auto) 0.26 H 0.12 H Absolute Neuts (auto) 20.5 H 9.5 H Absolute Nucleated RBC 0.000 0.000 Nucleated RBC % (auto) 0.0 0.0 Smear Tech's Comments VERIFIED Anion Gap 11 L Estim Creat Clear Calc 96.6 Estimated GFR > 60 Random Glucose 122 H Calcium 8.4 Imaging MRI - abdomen: Attestation: I personally reviewed and interpreted this imaging study as follows: (Dilated common bile duct, gallstones within the gallbladder and common bile duct, normal appearing pancreatic duct, no pancreatic mass appreciated) Radiologist's impression: Impressions Abdomen Ultrasound 07/22/21 07:44 IMPRESSION: Dilated cystic duct, common bile duct, and pancreatic duct with no pancreatic head lesion identified. No definite calculus within the distal common bile duct is seen. An ampullary lesion cannot be excluded. Abnormal appearing gallbladder with thickened and echogenic wall as well as heterogeneous echotexture lumen some of which appears to be related to calcification but some of which is difficult to tell with no definite layering of echogenic bile or calculi. No fluid within the gallbladder wall identified and no pericholecystic fluid is seen. The thickness of the gallbladder wall also appears to be variable. A gallbladder mass cannot be excluded. Appearance could also be related to chronic cholecystitis. Dilated intrahepatic bile ducts with hepatomegaly. Abdomen MRI 07/22/21 09:46 IMPRESSION: 1. Dilated biliary tree with findings strongly suspicious for tiny choledocholithiasis within the distal most aspect of the CBD. 2. Gallbladder is relatively nondistended but please refer to the recent ultrasound for further assessment and findings. Microbiology Microbiology Results: Microbiology 07/21/21 18:45 Blood Culture - Preliminary Blood - Venous No growth after 24 hours. 07/21/21 18:35 Blood Culture - Preliminary Blood - Venous Procedures Date of Service Date of Service: 07/23/21 Progress Note: A&P Assessment and plan (1) Cholelithiasis: Status: Acute Assessment and Plan: Patient found to have gallstones within the gallbladder possible wall thickening but no pericholecystic fluid. Patient will eventually need laparoscopic or possible open cholecystectomy. Ideally will need ERCP removed possible small gallstones noted on MRI. (2) Acute diverticulitis: Status: Acute Assessment and Plan: Mild inflammatory changes noted. Air tracking outside of bowel in pelvis verses perhaps fistula. Patient currently asymptomatic and hungry. If her pain should worsen lower abdomen would recommend repeating CT abdomen and pelvis. (3) Leukocytosis: Status: Acute Assessment and Plan: WBC is improving this morning, trending towards normal. (4) Dilated cbd, acquired: Status: Acute Assessment and Plan: MRI indicates stones in the distal common bile duct with dilated common bile duct. Awaiting repeat LFTs this morning. If trending downward will continue to monitor however if elevated may need ERCP. Appreciate GI input. Fall Risk Details Current Medications: Current Medications Acetaminophen (Acetaminophen 325 Mg Tablet) 650 mg PO Q6H PRN PRN Reason: Pain, Mild (Pain Scale 1-3) Atenolol (Atenolol 50 Mg Tablet) 50 mg PO DAILY [facility]; Protocol Docusate Sodium (Docusate Sodium 100 Mg Capsule) 100 mg PO DAILY PRN PRN Reason: Constipation Doxepin HCl (Doxepin Hcl 25 Mg Capsule) 25 mg PO BEDTIME [facility] Last Admin: 07/22/21 21:27 Dose: 25 mg Documented by: Fluoxetine HCl (Fluoxetine Hcl 20 Mg Capsule) 20 mg PO DAILY [facility] Last Admin: 07/22/21 19:43 Dose: 20 mg Documented by: Heparin Sodium (Porcine) (Heparin Sodium,Porcine 5,000 Unit/Ml Vial) 5,000 unit SUBCUT Q12H [facility] Last Admin: 07/23/21 06:13 Dose: 5,000 unit Documented by: Levofloxacin (Levaquin) 750 mg in 150 mls @ 100 mls/hr IV Q24H [facility] Last Infusion: 07/23/21 02:49 Dose: Infused Documented by: Metronidazole (Flagyl) 500 mg in 100 mls @ 100 mls/hr IV Q8H [facility] Last Admin: 07/23/21 04:37 Dose: 500 mls/hr Documented by: Sodium Chloride (Ns) 1,000 mls @ 100 mls/hr IVCONT .Q10H [facility] Last Admin: 07/22/21 21:34 Dose: 100 mls/hr Documented by: Loratadine (Loratadine 10 Mg Tablet) 10 mg PO DAILY [facility] Omeprazole (Omeprazole 40 Mg Capsule.) 40 mg PO DAILY [facility] Ondansetron HCl (Ondansetron Hcl 4 Mg/2 Ml Vial) 4 mg IVPUSH Q8H PRN PRN Reason: Nausea and Vomiting Pharmacy Consult (Consult Rx Perform Med Rec) 1 each MISCELLANE ONCE PRN PRN Reason: Consult order Potassium Chloride (Potassium Chloride Er 10 Meq Capsule.Er) 1 meq PO DAILY [facility] Sodium Chloride (0.9 % Sodium Chloride Flush 3 Ml Syringe) 3 ml IVFLUSH QSHIFT [facility] Last Admin: 07/23/21 00:27 Dose: Not Given Documented by: Time Spent With Patient Time: Total time spent is greater than 50% in coordination of care (as documented) at patient's floor/unit and/or counseling patient: Time with patient: 25 - 35 minutes Quality Stroke Does the patient have a stroke diagnosis?: No VTE Prior VTE?: No VTE Risk Level:: Medical - moderate - high VTE Device Contraindication: Treatment Not Indicated VTE Drug Contraindication: N/A - Med Ordered
[2021-07-23 07:55] LABS: Blood Urea Nitrogen 13 mg/dL (9-16); Calcium 8.1 mg/dL (8.4-10.2); Creatinine Clr Calc Pharmacy 109.7; Estimated Glomerular Filt Rate > 60; Glucose Random 73 mg/dL (60-115)
--- NOTE | 2021-07-23 07:57 | P.PNIM_ITS ---
Subjective Subjective Date of Service: 07/23/21 Interval History: elevated lft's, abd pain Review of Systems patient still has abdominal pain left lower quadrant, denies any chest pain or shortness of breath or fever or chills Physical Exam Vital Signs: Vital Signs: Last Vital Signs Temp 97.8 F 07/23/21 07:49 Pulse 74 07/23/21 07:49 Resp 14 07/23/21 07:49 BP 113/51 L 07/23/21 07:49 Pulse Ox 96 07/23/21 07:49 BMI result Body Mass Index 42.5 Appearance: Alert.? Oriented X3.? not in distress.? cvs: rrr, [id number] , no murmur res: clear to auscultation ,no rhonchii or wheezing abd: no rebound or guarding ,ruq, bs present. ext pulses present , no cyanosis . neuro: axo3 , nonfocal. Objective Data Active Medications Acetaminophen (Acetaminophen 325 Mg Tablet) 650 mg PO Q6H PRN PRN Reason: Pain, Mild (Pain Scale 1-3) Atenolol (Atenolol 50 Mg Tablet) 50 mg PO DAILY [facility]; Protocol Docusate Sodium (Docusate Sodium 100 Mg Capsule) 100 mg PO DAILY PRN PRN Reason: Constipation Doxepin HCl (Doxepin Hcl 25 Mg Capsule) 25 mg PO BEDTIME [facility] Last Admin: 07/22/21 21:27 Dose: 25 mg Documented by: [facility] Fluoxetine HCl (Fluoxetine Hcl 20 Mg Capsule) 20 mg PO DAILY [facility] Last Admin: 07/22/21 19:43 Dose: 20 mg Documented by: [facility] Heparin Sodium (Porcine) (Heparin Sodium,Porcine 5,000 Unit/Ml Vial) 5,000 unit SUBCUT Q12H [facility] Last Admin: 07/23/21 06:13 Dose: 5,000 unit Documented by: [facility] Levofloxacin (Levaquin) 750 mg in 150 mls @ 100 mls/hr IV Q24H [facility] Last Infusion: 07/23/21 02:49 Dose: 0 mls/hr Documented by: [facility] Metronidazole (Flagyl) 500 mg in 100 mls @ 100 mls/hr IV Q8H [facility] Last Admin: 07/23/21 04:37 Dose: 500 mls/hr Documented by: [facility] Sodium Chloride (Ns) 1,000 mls @ 100 mls/hr IVCONT .Q10H [facility] Last Admin: 07/22/21 21:34 Dose: 100 mls/hr Documented by: [facility] Loratadine (Loratadine 10 Mg Tablet) 10 mg PO DAILY [facility] Omeprazole (Omeprazole 40 Mg Capsule.Dr) 40 mg PO DAILY [facility] Ondansetron HCl (Ondansetron Hcl 4 Mg/2 Ml Vial) 4 mg IVPUSH Q8H PRN PRN Reason: Nausea and Vomiting Pharmacy Consult (Consult Rx Perform Med Rec) 1 each MISCELLANE ONCE PRN PRN Reason: Consult order Potassium Chloride (Potassium Chloride Er 10 Meq Capsule.Er) 1 meq PO DAILY [facility] Sodium Chloride (0.9 % Sodium Chloride Flush 3 Ml Syringe) 3 ml IVFLUSH QSHIFT [facility] Last Admin: 07/23/21 00:27 Dose: Not Given Documented by: [facility] Non-Admin Reason: IV Running Labs CBC & Chem 7: 07/23/21 07:23 07/23/21 07:23 Labs: Laboratory Results - last 24 hr 07/22/21 07/22/21 07/23/21 07:13 07:13 07:23 MCV 84.1 83.2 MCH 27.7 27.0 MCHC 33.0 32.5 RDW 17.9 H 18.1 H Plt Count 519 H 452 H MPV 9.4 9.4 Immature Gran % (Auto) 1.1 H 1.0 H Neut % (Auto) 86.3 H 78.0 H Lymph % (Auto) 6.[address] [place] % (Auto) 6.1 5.5 Eos % (Auto) 0.1 1.0 Baso % (Auto) 0.2 0.2 Lymph # (Auto) 1.[address] [place] # (Auto) 1.5 H 0.7 Eos # (Auto) 0.0 0.1 Baso # (Auto) 0.0 0.0 Abs Immat Gran (auto) 0.26 H 0.12 H Absolute Neuts (auto) 20.5 H 9.5 H Absolute Nucleated RBC 0.000 0.000 Nucleated RBC % (auto) 0.0 0.0 Smear Tech's Comments VERIFIED Anion Gap 11 L Estim Creat Clear Calc 96.6 Estimated GFR > 60 Random Glucose 122 H Calcium 8.4 07/23/21 07:23 MCV MCH MCHC RDW Plt Count MPV Immature Gran % (Auto) Neut % (Auto) Lymph % (Auto) [place] % (Auto) Eos % (Auto) Baso % (Auto) Lymph # (Auto) [place] # (Auto) Eos # (Auto) Baso # (Auto) Abs Immat Gran (auto) Absolute Neuts (auto) Absolute Nucleated RBC Nucleated RBC % (auto) Smear Tech's Comments Anion Gap Estim Creat Clear Calc 109.7 Estimated GFR > 60 Random Glucose 73 Calcium 8.1 L Microbiology Microbiology Results: Microbiology 07/21/21 18:45 Blood Culture - Preliminary Blood - Venous No growth after 24 hours. 07/21/21 18:35 Blood Culture - Preliminary Blood - Venous Assessment and Plan (1) Perforated diverticulum: Status: Acute (2) Abnormal LFTs: Status: Acute (3) Seizure-like activity: Status: Acute Assessment and Plan: 61-year-old female with past medical history of hypertension as well as depression who presents to the hospital with complaints of fatigue as well as seizure-like activity and loss of consciousness found to have acute divertic ulitis 1. sepsis (POA)sec acute diverticulitis with micro perforation, possible cholangitis has leucocytossis , tachycardia ? For leukocytosis improving ,no fever. mri abd:Dilated biliary tree with findings strongly suspicious for tiny choledocholithiasis within the distal most aspect of the CBD. ?abdominal ultrasound:The thickness of the gallbladder wall also appears to be variable.? Appearance could also be related to chronic cholecystitis. ?blood cultures npo ,broad-spectrum IV antibiotic-levaquin/flagyl day3 still has abd pain-ct abd with po contrast - diverticulitis with microperforation area seems stable similar to yesterday, an CBD dilation is slightly better on the CT. cbc , bmp ,liver panel in am 2.? cholelithiasis with dilated CBD see above- seen by GI recommended abd imaging repeat imaging p.o. contrast 3. seizure-like activity-Patient was postictal due to seizure -no? toxic metabolic? encephalopathy. -? reports arm shaking witnessed by her friend and loss of consciousness -? patient was postictal on arrival to the ED ?consult neurology-ct head neg eeg pendin neuro-eval noted -possible sz vs tremors /rigors sec to sepsis 4.? hypertension -? stable BP hold? home meds . hold asa , nsaids -may need endoscopic procedure. 5. leukocytosis -? most likely in the setting of above -? IV antibiotics and IV fluid -? follow culture -? follow CBC 6.? ALFREDO -? most likely multifactorial secondary to dehydration as well as acute infection on? IV fluid, improving -? follow BMP Hypokalemia: Repleted, added IV potassium, also magnesium level added. Quality Stroke Does the patient have a stroke diagnosis?: No VTE Prior VTE?: No VTE Risk Level:: Medical - moderate - high VTE Device Contraindication: Treatment Not Indicated VTE Drug Contraindication: N/A - Med Ordered
[2021-07-23 08:07] LABS: Anion Gap 8 (12-20); Carbon Dioxide 26 mmol/L (22-29); Chloride 105 mmol/L (96-108); Potassium 2.7 mmol/L (3.3-5.1); Sodium 136 mmol/L (135-145)
[2021-07-23 08:16] LABS: Alanine Aminotransferase 23 U/L (0-31); Albumin Level 2.2 g/dL (3.5-5.0); Alkaline Phosphatase 281 U/L (39-117); Aspartate Amino Transferase 35 U/L (5-31); Bilirubin Direct 2.1 mg/dL (0.0-0.5); Bilirubin Total 2.6 mg/dL (0.0-1.0); Total Protein 6.4 g/dL (6.5-8.0)
[2021-07-23] MEDS: atenoloL 50 MG TABLET PO (08:31)
[2021-07-23] MEDS: Loratadine 10 MG TABLET PO (08:31)
[2021-07-23] MEDS: FLUoxetine HCl 20 MG CAPSULE PO (08:32)
[2021-07-23] MEDS: Omeprazole 40 MG CAPSULE.DR PO (08:32)
[2021-07-23] MEDS: 0.9 % Sodium Chloride Flush 3 ML SYRINGE IVFLUSH ×2 (09:30→19:57)
--- NOTE | 2021-07-23 10:30 | P.CNNE_ITS ---
History of Present Illness Data of Consult Service Date: 07/22/21 Primary Care Provider: Kiel Rice MD HPI Reason for consult: possible sz like episode This is a 61-year-old female with history of depression, hypertension, GERD who presents to the hospital with complaints of fatigue, weakness, and seizure-like activity.? Patient reports that today she has been feeling very tired, when shopping with her girlfriend but felt severe fatigue, on returning home she told her girlfriend that she was feeling very tired, she had shaking of her arms and body but says she was conscious. She does not remember anything else. On arrival to the ED patient was postictal according to the physician.? The patient herself does not remember anything else.?No previous h/o SZ. Review of Systems Review of Systems: Awake alert and lucid. some right upper quadrant pain otherwise denies any chest pain or shortness of breath or fever or chills or cough or phlegm. Yes all other systems are reviewed and are negative Constitutional: Constitutional: Reports anorexia, Reports malaise and Reports weakness Eyes: Eyes: Denies exophthalmos ENT: Reports Normal hearing present, Denies dysphagia and Reports dizziness Cardiovascular: Cardiovascular: Denies chest pain, Denies irregular heart rhythm and Denies palpitations Respiratory: Respiratory: Reports chest congestion, Reports cough and Reports excessive phlegm production Gastrointestinal: Gastrointestinal: Reports as per HPI, Reports abdominal pain, Denies hematochezia, Denies dysphagia, Denies fecal incontinence and Reports diarrhea Neurologic: Reports Normal hearing present, Reports dizziness and Reports weakness Psychiatric: Psychiatric: Reports depression Endocrine: Endocrine: Denies palpitations PMFSH Past Medical History Medical History Depression Hypertension Surgical History Surgical History History of carpal tunnel release Hx of tubal ligation No pertinent past surgical history Social History Social History Alcohol intake: never Smoked in Last 30 Days: No Use of substances other than those prescribed or required for medical reasons: No Advance Directives: No Advance Directives Information Provided: No service: No Current occupational status: unemployed 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 Meds Allergies Allergy/AdvReac Type Severity Reaction Status Date / Time cortisone [CORTISONE] Allergy Intermediate RASH Verified 09/09/20 09:21 adhesive tape [ADHESIVE TAPE] AdvReac Unknown UNKNOWN Verified 09/09/20 09:21 Latex Allergy Unknown redness Uncoded 08/31/20 12:37 Emerson Allergy Unknown Unknown Uncoded 08/31/20 12:37 Active Medications: Current Medications Acetaminophen (Acetaminophen 325 Mg Tablet) 650 mg PO Q6H PRN PRN Reason: Pain, Mild (Pain Scale 1-3) Atenolol (Atenolol 50 Mg Tablet) 50 mg PO DAILY [facility]; Protocol Last Admin: 07/23/21 08:31 Dose: 50 mg Documented by: Docusate Sodium (Docusate Sodium 100 Mg Capsule) 100 mg PO DAILY PRN PRN Reason: Constipation Doxepin HCl (Doxepin Hcl 25 Mg Capsule) 25 mg PO BEDTIME [facility] Last Admin: 07/22/21 21:27 Dose: 25 mg Documented by: Fluoxetine HCl (Fluoxetine Hcl 20 Mg Capsule) 20 mg PO DAILY [facility] Last Admin: 07/23/21 08:32 Dose: 20 mg Documented by: Heparin Sodium (Porcine) (Heparin Sodium,Porcine 5,000 Unit/Ml Vial) 5,000 unit SUBCUT Q12H [facility] Last Admin: 07/23/21 06:13 Dose: 5,000 unit Documented by: Levofloxacin (Levaquin) 750 mg in 150 mls @ 100 mls/hr IV Q24H [facility] Last Infusion: 07/23/21 02:49 Dose: Infused Documented by: Metronidazole (Flagyl) 500 mg in 100 mls @ 100 mls/hr IV Q8H [facility] Last Admin: 07/23/21 04:37 Dose: 500 mls/hr Documented by: Sodium Chloride (Ns) 1,000 mls @ 100 mls/hr IVCONT .Q10H [facility] Last Admin: 07/22/21 21:34 Dose: 100 mls/hr Documented by: Loratadine (Loratadine 10 Mg Tablet) 10 mg PO DAILY [facility] Last Admin: 07/23/21 08:31 Dose: 10 mg Documented by: Omeprazole (Omeprazole 40 Mg Capsule.) 40 mg PO DAILY [facility] Last Admin: 07/23/21 08:32 Dose: 40 mg Documented by: Ondansetron HCl (Ondansetron Hcl 4 Mg/2 Ml Vial) 4 mg IVPUSH Q8H PRN PRN Reason: Nausea and Vomiting Pharmacy Consult (Consult Rx Perform Med Rec) 1 each MISCELLANE ONCE PRN PRN Reason: Consult order Potassium Chloride (Potassium Chloride Er 10 Meq Capsule.Er) 10 meq PO DAILY [facility] Last Admin: 07/23/21 08:44 Dose: 10 meq Documented by: Sodium Chloride (0.9 % Sodium Chloride Flush 3 Ml Syringe) 3 ml IVFLUSH QSHIFT [facility] Last Admin: 07/23/21 09:30 Dose: 3 ml Documented by: Home Medications Medication Instructions Recorded Confirmed Last Taken Type atenolol 50 mg tablet 1 tab PO DAILY 07/21/21 07/22/21 07/20/21 History cetirizine 10 mg tablet 1 tab PO DAILY 07/21/21 07/22/21 07/20/21 History chlorthalidone 25 mg tablet 1 tab PO QAM 07/21/21 07/22/21 07/20/21 History doxepin 25 mg capsule 1 cap PO BEDTIME 07/21/21 07/22/21 07/20/21 History fluoxetine 20 mg capsule 1 cap PO QAM 07/21/21 07/22/21 07/20/21 History gabapentin 300 mg capsule 1 cap PO TID 07/21/21 07/22/21 07/20/21 History omeprazole 40 mg capsule,delayed 1 cap PO DAILY 07/21/21 07/22/21 07/20/21 History release potassium chloride 10 mEq 1 tab PO DAILY 07/21/21 07/22/21 07/20/21 History tablet,extended release(part/cryst) aspirin 81 mg chewable tablet 81 mg PO DAILY 07/22/21 07/22/21 07/20/21 History naproxen 500 mg tablet 1 tab PO BID 07/22/21 07/22/21 07/20/21 History ondansetron HCl 4 mg tablet 1 tab PO Q6H PRN 07/22/21 07/22/21 07/20/21 History Physical Exam Vital Signs: Vital Signs: Last Vital Signs Temp 97.8 F 07/23/21 07:49 Pulse 74 07/23/21 07:49 Resp 14 07/23/21 07:49 BP 113/51 L 07/23/21 07:49 Pulse Ox 96 07/23/21 07:49 BMI result Body Mass Index 42.5 Const: General: cooperative, no acute distress, well developed and alert Nutritional Appearance: well nourished and obese Orientation/consciousness: p atient oriented x3 Limitations: no limitations HENMT: Head: Yes normocephalic and Yes atraumatic Ears: hearing grossly normal bilaterally Eyes: General: appearance normal, both eyes and all related structures Neck: Neck: Yes normal visual inspection, Yes trachea midline, Yes supple and Yes no JVD Resp: Effort & Inspection: normal respiratory effort, no audible wheezes, no cough and no respiratory distress Auscultation: clear to auscultation bilaterally Cardio: Rate: regular rate Rhythm: regular rhythm GI: Inspection: Yes normal to inspection Palpation (GI): Soft to palpation, Tenderness to palpation present (GI) in the RUQ; Negative for Andrews's sign negative and with no rebound tenderness, no guarding, not rigid and no masses Percussion: Yes normal to percussion Auscultation: normal bowel sounds Rectal Exam - Female: deferred Skin: General skin exam: no rashes or lesions noted Neuro: Other: Alert oriented x3 with non focal exam. General: patient oriented x3 Cranial nerves: Yes Normal hearing present Cognition (Neuro): normal cognition Extrem: General: Yes normal to inspection, Yes capillary refill normal, Yes no clubbing, cyanosis or edema and Yes no pedal edema Results Labs CBC & Chem 7: 07/23/21 07:23 07/23/21 07:23 Labs: Short CBC 07/23/21 Range/Units 07:23 WBC 12.2 H (4.8-10.8) X10*3/uL Hgb 8.7 L (12.0-16.0) g/dl Hct 26.8 L (37.0-47.0) % Plt Count 452 H (160-400) X10*3/uL BMP 07/23/21 07:23 Sodium 136 Potassium 2.7 L Chloride 105 Carbon Dioxide 26 BUN 13 Creatinine 0.81 Calcium 8.1 L Liver Function 07/23/21 Range/Units 07:23 Total Bilirubin 2.6 H (0.0-1.0) mg/dL Direct Bilirubin 2.1 H (0.0-0.5) mg/dL AST 35 H D (5-31) U/L ALT 23 (0-31) U/L Alkaline Phosphatase 281 H D (39-117) U/L Albumin 2.2 L D (3.5-5.0) g/dL Microbiology Microbiology Results: Microbiology 07/21/21 18:35 Blood - Venous Blood Culture - Preliminary No growth after 24 hours. 07/21/21 18:45 Blood - Venous Blood Culture - Preliminary No growth after 24 hours. Assessment and Plan (1) Cholelithiasis: Status: Acute Patient found to have gallstones within the gallbladder possible wall thickening but no pericholecystic fluid. Patient will eventually need laparoscopic or possible open cholecystectomy. Ideally will need ERCP removed possible small gallstones noted on MRI. (2) Acute diverticulitis: Status: Acute Mild inflammatory changes noted. Air tracking outside of bowel in pelvis verses perhaps fistula. Patient currently asymptomatic and hungry. If her pain should worsen lower abdomen would recommend repeating CT abdomen and pelvis. (3) Dilated cbd, acquired: Status: Acute MRI indicates stones in the distal common bile duct with dilated common bile duct. Awaiting repeat LFTs this morning. If trending downward will continue to monitor however if elevated may need ERCP. Appreciate GI input. (4) Seizure-like activity: Status: Acute Possibl eSz vs tremors an rigors from sepsis. CT brain negative. Recom. EEG (5) Cholangitis: Status: Acute Procedures Date of Service Date of Service: 07/22/21
--- NOTE | 2021-07-23 13:20 | MHC.CM.PN ---
PER MD ROUNDS,. PT EXPECTED TO BE CLEARED TO DISCHARGE IN 1-2 DAYS. DC PLAN REMAINS HOME WITH [employer] PT WILL SELF ARRANGE TRANSPORT
[2021-07-23] MEDS: Morphine Sulfate 2 MG/ML CARTRIDGE IVPUSH (13:58)
--- NOTE | 2021-07-23 14:16 | PC.NURSE ---
PT IS OFF TO CT SCAN
[2021-07-23] MEDS: Diatrizoate Meglumine, Sodium 30 ML SOLUTION PO (14:48)
[2021-07-23] MEDS: 0.9 % Sodium Chloride 1,000 ML 100 ML IVCONT (15:45)
[2021-07-23] MEDS: Potassium Chloride/H20 10 MEQ/100 ML PIGGYBACK 100 MEQ IV (15:53)
[2021-07-23] MEDS: Potassium Chloride Packet 20 MEQ PACKET 40 MEQ PO (19:49)
[2021-07-23] MEDS: metroNIDAZOLE/NS 500 MG/100 ML PIGGYBACK 100 MG IV (19:49)
--- NOTE | 2021-07-23 20:23 | P.PNGI_ITS ---
Subjective Subjective Date of Service: 07/23/21 Interval History: Passing gas but no stool ongoing LLQ pain no nausea, no vomiting no fever or chills feels hungry Critical Care Time (minutes): 0 Physical Exam Vital Signs: Vital Signs: Last Vital Signs Temp 96.6 F L 07/23/21 19:24 Pulse 61 07/23/21 19:24 Resp 20 07/23/21 19:24 BP 98/56 L 07/23/21 19:24 Pulse Ox 98 07/23/21 19:24 BMI result Body Mass Index 42.5 Const: General: cooperative, no acute distress, well developed and alert Nutritional Appearance: well nourished and obese Orientation/consciousness: patient oriented x3 Limitations: no limitations HENMT: Head: Yes normocephalic and Yes atraumatic Ears: hearing grossly normal bilaterally Eyes: General: appearance normal, both eyes and all related structures Neck: Neck: Yes normal visual inspection, Yes trachea midline, Yes supple and Yes no JVD Resp: Effort & Inspection: normal respiratory effort, no audible wheezes, no cough and no respiratory distress Auscultation: clear to auscultation bilaterally Cardio: Rate: regular rate Rhythm: regular rhythm GI: Inspection: Yes normal to inspection Palpation (GI): Tenderness to palpation present (GI) in the LLQ, Guarding due to palpation present (GI) in the LLQ, not rigid and no masses Percussion: Yes normal to percussion Auscultation: normal bowel sounds Skin: General skin exam: no rashes or lesions noted Neuro: Other: Alert oriented x3 with non focal exam. General: patient oriented x3 Cranial nerves: Yes Normal hearing present Cognition (Neuro): normal cognition Extrem: General: Yes normal to inspection, Yes no clubbing, cyanosis or edema and Yes no pedal edema Objective Data Labs CBC & Chem 7: 07/23/21 07:23 07/23/21 07:23 Labs: Laboratory Results - last 24 hr 07/23/21 07/23/21 07/23/21 07:23 07:23 07:23 WBC 12.2 H RBC 3.22 L Hgb 8.7 L Hct 26.8 L MCV 83.2 MCH 27.0 MCHC 32.5 RDW 18.1 H Plt Count 452 H MPV 9.4 Immature Gran % (Auto) 1.0 H Neut % (Auto) 78.0 H Lymph % (Auto) 14.3 L Hernando % (Auto) 5.5 Eos % (Auto) 1.0 Baso % (Auto) 0.2 Lymph # (Auto) 1.7 Hernando # (Auto) 0.7 Eos # (Auto) 0.1 Baso # (Auto) 0.0 Abs Immat Gran (auto) 0.12 H Absolute Neuts (auto) 9.5 H Absolute Nucleated RBC 0.000 Nucleated RBC % (auto) 0.0 Sodium 136 Potassium 2.7 L Chloride 105 Carbon Dioxide 26 Anion Gap 8 L BUN 13 Creatinine 0.81 Estim Creat Clear Calc 109.7 Estimated GFR > 60 Random Glucose 73 Calcium 8.1 L Magnesium 2.0 Total Bilirubin 2.6 H Direct Bilirubin 2.1 H AST 35 H D ALT 23 Alkaline Phosphatase 281 H D Total Protein 6.4 L D Albumin 2.2 L D Microbiology Microbiology Results: Microbiology 07/21/21 18:35 Blood - Venous Blood Culture - Preliminary No growth after 24 hours. 07/21/21 18:45 Blood - Venous Blood Culture - Preliminary No growth after 24 hours. Procedures Date of Service Date of Service: 07/23/21 Progress Note: A&P Assessment and plan (1) Perforated diverticulum: Status: Acute (2) Abnormal LFTs: Status: Acute Assessment and Plan: 1/ LLQ pain from perforated sigmoid diverticulum (contained micro perf-no free air--stable appearance on repeat CT) 2/ Dilated CBD and PD, raised LFT, possible 2/2 stones, ddx; neoplasia, SOD, stricture PLAN: 1/ f/u srug recs for perforated sigmoid diverticulitis, allow clears if surgical team agree 2/ tentatively plan for ERCP Monday for burshings and cholangiogram, possible stents and stone extraction if indicated Fall Risk Details Current Medications: Current Medications Acetaminophen (Acetaminophen 325 Mg Tablet) 650 mg PO Q6H PRN PRN Reason: Pain, Mild (Pain Scale 1-3) Atenolol (Atenolol 50 Mg Tablet) 50 mg PO DAILY [facility]; Protocol Last Admin: 07/23/21 08:31 Dose: 50 mg Documented by: Docusate Sodium (Docusate Sodium 100 Mg Capsule) 100 mg PO DAILY PRN PRN Reason: Constipation Doxepin HCl (Doxepin Hcl 25 Mg Capsule) 25 mg PO BEDTIME [facility] Last Admin: 07/22/21 21:27 Dose: 25 mg Documented by: Fluoxetine HCl (Fluoxetine Hcl 20 Mg Capsule) 20 mg PO DAILY [facility] Last Admin: 07/23/21 08:32 Dose: 20 mg Documented by: Heparin Sodium (Porcine) (Heparin Sodium,Porcine 5,000 Unit/Ml Vial) 5,000 unit SUBCUT Q12H [facility] Last Admin: 07/23/21 16:50 Dose: 5,000 unit Documented by: Levofloxacin (Levaquin) 750 mg in 150 mls @ 100 mls/hr IV Q24H [facility] Last Infusion: 07/23/21 02:49 Dose: Infused Documented by: Metronidazole (Flagyl) 500 mg in 100 mls @ 100 mls/hr IV Q8H [facility] Last Admin: 07/23/21 19:49 Dose: 100 mls/hr Documented by: Sodium Chloride (Ns) 1,000 mls @ 100 mls/hr IVCONT .Q10H [facility] Last Admin: 07/23/21 15:45 Dose: 100 mls/hr Documented by: Loratadine (Loratadine 10 Mg Tablet) 10 mg PO DAILY [facility] Last Admin: 07/23/21 08:31 Dose: 10 mg Documented by: Morphine Sulfate (Morphine Sulfate 2 Mg/Ml Cartridge) 2 mg IVPUSH Q3H PRN; Protocol PRN Reason: Pain, Mild (Pain Scale 1-3) Last Admin: 07/23/21 13:58 Dose: 2 mg Documented by: Omeprazole (Omeprazole 40 Mg Capsule.Dr) 40 mg PO DAILY [facility] Last Admin: 07/23/21 08:32 Dose: 40 mg Documented by: Ondansetron HCl (Ondansetron Hcl 4 Mg/2 Ml Vial) 4 mg IVPUSH Q8H PRN PRN Reason: Nausea and Vomiting Pharmacy Consult (Consult Rx Perform Med Rec) 1 each MISCELLANE ONCE PRN PRN Reason: Consult order Potassium Chloride (Potassium Chloride Er 10 Meq Capsule.Er) 10 meq PO DAILY [facility] Last Admin: 07/23/21 08:44 Dose: 10 meq Documented by: Sodium Chloride (0.9 % Sodium Chloride Flush 3 Ml Syringe) 3 ml IVFLUSH QSHIFT [facility] Last Admin: 07/23/21 19:57 Dose: 3 ml Documented by: Time Spent With Patient Time: Total time spent is greater than 50% in coordination of care (as documented) at patient's floor/unit and/or counseling patient: Time with patient: 15 - 24 minutes Quality Stroke Does the patient have a stroke diagnosis?: No VTE Prior VTE?: No VTE Risk Level:: Medical - moderate - high VTE Device Contraindication: Treatment Not Indicated VTE Drug Contraindication: N/A - Med Ordered
[2021-07-23] MEDS: Doxepin HCl 25 MG CAPSULE PO (22:07)
[2021-07-23] MEDS: levoFLOXacin/D5W 750 MG/150 ML PIGGYBACK 100 MG IV (22:08)
[2021-07-24] VITALS (7 sets, daily range): BP systolic 97–149; BP diastolic 56–82; PULSE 59–77; RESP 17–20; TEMP 35.5–36.8; O2SAT 96–100
[2021-07-24] MEDS: metroNIDAZOLE/NS 500 MG/100 ML PIGGYBACK 100 MG IV ×3 (02:28→18:36)
[2021-07-24] MEDS: 0.9 % Sodium Chloride 1,000 ML 100 ML IVCONT ×2 (02:29→14:48)
[2021-07-24] MEDS: Heparin Sodium,Porcine 5,000 UNIT/ML VIAL 5000 UNIT SUBCUT ×2 (05:31→18:36)
[2021-07-24 06:48] LABS: Alanine Aminotransferase 21 U/L (0-31); Albumin Level 2.2 g/dL (3.5-5.0); Alkaline Phosphatase 243 U/L (39-117); Anion Gap 12 (12-20); Aspartate Amino Transferase 30 U/L (5-31); Bilirubin Direct 1.5 mg/dL (0.0-0.5); Bilirubin Total 1.8 mg/dL (0.0-1.0); Blood Urea Nitrogen 11 mg/dL (9-16); Calcium 8.3 mg/dL (8.4-10.2); Carbon Dioxide 23 mmol/L (22-29); Chloride 109 mmol/L (96-108); Creatinine Clr Calc Pharmacy 107.1; Estimated Glomerular Filt Rate > 60; Glucose Random 73 mg/dL (60-115); Potassium 3.7 mmol/L (3.3-5.1); Sodium 140 mmol/L (135-145); Total Protein 6.5 g/dL (6.5-8.0)
[2021-07-24 07:07] LABS: Hematocrit 27.6 % (37.0-47.0); Hemoglobin 8.8 g/dl (12.0-16.0); Mean Corpuscular HGB Conc 31.9 g/dl (31.0-35.0); Mean Corpuscular Hemoglobin 26.6 pg (27.0-33.0); Mean Corpuscular Volume 83.4 fL (80.0-98.0); Platelet Count 484 X10*3/uL (160-400); Red Blood Count 3.31 X10*6/uL (4.20-5.50); Red Cell Distribution Width 18.5 % (11.0-16.0); White Blood Count 6.6 X10*3/uL (4.8-10.8)
--- NOTE | 2021-07-24 07:44 | HO.PM.IMPN ---
Subjective Subjective Date of Service: 07/24/21 Interval History: abd pain Review of Systems abd pain seems to be improving Denies any chest pain or Denies any new complaint of chest pain or shortness of breath or abdominal pain or fever or chills or nausea or vomiting Denies any cough Denies any weakness or numbness.shortness breath or fever or chills Physical Exam Vital Signs: Vital Signs: Last Vital Signs Temp 96 F L 07/24/21 07:22 Pulse 59 07/24/21 07:22 Resp 20 07/24/21 07:22 BP 149/82 H 07/24/21 07:22 Pulse Ox 96 07/24/21 07:22 BMI result Body Mass Index 42.5 Appearance: Alert.? Oriented X3.? not in distress.? cvs: rrr, [id number] , no murmur res: clear to auscultation ,no rhonchii or wheezing abd: no rebound or guarding ,llq seems , bs present. ext pulses present , no cyanosis . neuro: axo3 , nonfocal. Objective Data Active Medications Acetaminophen (Acetaminophen 325 Mg Tablet) 650 mg PO Q6H PRN PRN Reason: Pain, Mild (Pain Scale 1-3) Atenolol (Atenolol 50 Mg Tablet) 50 mg PO DAILY [facility]; Protocol Last Admin: 07/23/21 08:31 Dose: 50 mg Documented by: YARED Docusate Sodium (Docusate Sodium 100 Mg Capsule) 100 mg PO DAILY PRN PRN Reason: Constipation Doxepin HCl (Doxepin Hcl 25 Mg Capsule) 25 mg PO BEDTIME [facility] Last Admin: 07/23/21 22:07 Dose: 25 mg Documented by: STEVO Fluoxetine HCl (Fluoxetine Hcl 20 Mg Capsule) 20 mg PO DAILY [facility] Last Admin: 07/23/21 08:32 Dose: 20 mg Documented by: YARED Heparin Sodium (Porcine) (Heparin Sodium,Porcine 5,000 Unit/Ml Vial) 5,000 unit SUBCUT Q12H [facility] Last Admin: 07/24/21 05:31 Dose: 5,000 unit Documented by: JODI Levofloxacin (Levaquin) 750 mg in 150 mls @ 100 mls/hr IV Q24H [facility] Last Infusion: 07/24/21 00:02 Dose: 0 mls/hr Documented by: JODI Metronidazole (Flagyl) 500 mg in 100 mls @ 100 mls/hr IV Q8H [facility] Last Infusion: 07/24/21 03:45 Dose: 0 mls/hr Documented by: JODI Sodium Chloride (Ns) 1,000 mls @ 100 mls/hr IVCONT .Q10H [facility] Last Admin: 07/24/21 05:22 Dose: Not Given Documented by: JODI Non-Admin Reason: IV Running Loratadine (Loratadine 10 Mg Tablet) 10 mg PO DAILY [facility] Last Admin: 07/23/21 08:31 Dose: 10 mg Documented by: YARED Morphine Sulfate (Morphine Sulfate 2 Mg/Ml Cartridge) 2 mg IVPUSH Q3H PRN; Protocol PRN Reason: Pain, Mild (Pain Scale 1-3) Last Admin: 07/23/21 13:58 Dose: 2 mg Documented by: YARED Omeprazole (Omeprazole 40 Mg Capsule.Dr) 40 mg PO DAILY [facility] Last Admin: 07/23/21 08:32 Dose: 40 mg Documented by: YARED Ondansetron HCl (Ondansetron Hcl 4 Mg/2 Ml Vial) 4 mg IVPUSH Q8H PRN PRN Reason: Nausea and Vomiting Pharmacy Consult (Consult Rx Perform Med Rec) 1 each MISCELLANE ONCE PRN PRN Reason: Consult order Potassium Chloride (Potassium Chloride Er 10 Meq Capsule.Er) 10 meq PO DAILY [facility] Last Admin: 07/23/21 08:44 Dose: 10 meq Documented by: YARED Sodium Chloride (0.9 % Sodium Chloride Flush 3 Ml Syringe) 3 ml IVFLUSH QSHIFT [facility] Last Admin: 07/24/21 07:20 Dose: Not Given Documented by: LEONEL Non-Admin Reason: IV Running Labs CBC & Chem 7: 07/24/21 05:50 07/24/21 05:50 Labs: Laboratory Results - last 24 hr 07/23/21 07/23/21 07/24/21 07:23 07:23 05:50 MCV 83.4 MCH 26.6 L MCHC 31.9 RDW 18.5 H Plt Count 484 H MPV 10.0 Absolute Nucleated RBC 0.000 Nucleated RBC % (auto) 0.0 Anion Gap 8 L Estim Creat Clear Calc 109.7 Estimated GFR > 60 Random Glucose 73 Calcium 8.1 L Magnesium 2.0 Total Bilirubin 2.6 H Direct Bilirubin 2.1 H AST 35 H D ALT 23 Alkaline Phosphatase 281 H D Total Protein 6.4 L D Albumin 2.2 L D 07/24/21 05:50 MCV MCH MCHC RDW Plt Count MPV Absolute Nucleated RBC Nucleated RBC % (auto) Anion Gap 12 Estim Creat Clear Calc 107.1 Estimated GFR > 60 Random Glucose 73 Calcium 8.3 L Magnesium Total Bilirubin 1.8 H Direct Bilirubin 1.5 H AST 30 ALT 21 Alkaline Phosphatase 243 H Total Protein 6.5 Albumin 2.2 L Microbiology Microbiology Results: Microbiology 07/21/21 18:45 Blood Culture - Preliminary Blood - Venous No growth after 48 hours. 07/21/21 18:35 Blood Culture - Preliminary Blood - Venous No growth after 24 hours. Assessment and Plan (1) Perforated diverticulum: Status: Acute (2) Cholangitis: Status: Acute Assessment and Plan: 61-year-old female with past medical history of hypertension as well as depression who presents to the hospital with complaints of fatigue as well as seizure-like activity and loss of consciousness found to have acute diverticulitis 1. sepsis (POA)sec acute diverticulitis with micro perforation, possible cholangitis has leucocytossis , tachycardia-seems improved ? For leukocytosis improved ,no fever. mri abd:Dilated biliary tree with findings strongly suspicious for tiny choledocholithiasis within the distal most aspect of the CBD. ?abdominal ultrasound:The thickness of the gallbladder wall also appears to be variable.? Appearance could also be related to chronic cholecystitis. ?blood cultures npo ,broad-spectrum IV antibiotic-levaquin/flagyl day3 still has abd pain-ct abd with po contrast - diverticulitis with microperforation area seems stable similar to yesterday, an CBD dilation is slightly better on the CT. liver panel in am 2.? cholelithiasis with dilated CBD see above- seen by GI recommended abd imaging repeat imaging p.o. contrast 3. seizure-like activity-Patient was postictal due to seizure -no? toxic metabolic? encephalopathy. -? reports arm shaking witnessed by her friend and loss of consciousness -? patient was postictal on arrival to the ED ?consult neurology-ct head neg eeg -normal neuro-eval noted -possible sz vs tremors /rigors sec to sepsis will check with neuro follow up. 4.? hypertension -? stable BP hold? home meds . hold asa , nsaids -may need endoscopy . 5. leukocytosis: resolved -? most likely in the setting of above -? IV antibiotics and IV fluid -? follow culture -blood cultures neg@48hrs 6.? ALFREDO -? most likely multifactorial secondary to dehydration as well as acute infection on? IV fluid, improving -? follow BMP ? Hypokalemia: Repleted, resolved . Quality Stroke Does the patient have a stroke diagnosis?: No VTE Prior VTE?: No VTE Risk Level:: Medical - moderate - high VTE Device Contraindication: Treatment Not Indicated VTE Drug Contraindication: N/A - Med Ordered
--- NOTE | 2021-07-24 08:45 | PM.PNGS ---
Subjective Subjective Date of Service: 07/24/21 Interval history: Patient reports abdominal pain in the lower abdomen and right upper quadrant. Denies nausea or vomiting. Reports having a normal bowel movement yesterday. Denies any bleeding per rectum. Physical Exam Vital Signs: Vital Signs: Last Vital Signs Temp 96 F L 07/24/21 07:22 Pulse 59 07/24/21 07:22 Resp 20 07/24/21 07:22 BP 149/82 H 07/24/21 07:22 Pulse Ox 96 07/24/21 07:22 BMI result Body Mass Index 42.5 Const: General: no acute distress Nutritional Appearance: obese Orientation/consciousness: patient oriented x3 Limitations: no limitations HENMT: Head: Yes normocephalic and Yes atraumatic Eyes: Sclerae: sclerae normal GI: Inspection: Yes obesity Palpation (GI): Soft to palpation, Tenderness to palpation present (GI) in the LLQ and in the RUQ; Negative for Andrews's sign negative, no guarding, not rigid and No Rebound tenderness present Percussion: Yes normal to percussion Auscultation: normal bowel sounds Rectal Exam - Female: deferred Skin: General skin exam: no rashes or lesions noted Neuro: General: patient oriented x3 Objective Data Active Medications Acetaminophen (Acetaminophen 325 Mg Tablet) 650 mg PO Q6H PRN PRN Reason: Pain, Mild (Pain Scale 1-3) Atenolol (Atenolol 50 Mg Tablet) 50 mg PO DAILY [facility]; Protocol Last Admin: 07/23/21 08:31 Dose: 50 mg Documented by: YARED Docusate Sodium (Docusate Sodium 100 Mg Capsule) 100 mg PO DAILY PRN PRN Reason: Constipation Doxepin HCl (Doxepin Hcl 25 Mg Capsule) 25 mg PO BEDTIME [facility] Last Admin: 07/23/21 22:07 Dose: 25 mg Documented by: STEVO Fluoxetine HCl (Fluoxetine Hcl 20 Mg Capsule) 20 mg PO DAILY [facility] Last Admin: 07/23/21 08:32 Dose: 20 mg Documented by: YARED Heparin Sodium (Porcine) (Heparin Sodium,Porcine 5,000 Unit/Ml Vial) 5,000 unit SUBCUT Q12H [facility] Last Admin: 07/24/21 05:31 Dose: 5,000 unit Documented by: JODI Levofloxacin (Levaquin) 750 mg in 150 mls @ 100 mls/hr IV Q24H [facility] Last Infusion: 07/24/21 00:02 Dose: 0 mls/hr Documented by: JODI Metronidazole (Flagyl) 500 mg in 100 mls @ 100 mls/hr IV Q8H [facility] Last Infusion: 07/24/21 03:45 Dose: 0 mls/hr Documented by: JODI Sodium Chloride (Ns) 1,000 mls @ 100 mls/hr IVCONT .Q10H [facility] Last Admin: 07/24/21 05:22 Dose: Not Given Documented by: JODI Non-Admin Reason: IV Running Loratadine (Loratadine 10 Mg Tablet) 10 mg PO DAILY [facility] Last Admin: 07/23/21 08:31 Dose: 10 mg Documented by: YARED Morphine Sulfate (Morphine Sulfate 2 Mg/Ml Cartridge) 2 mg IVPUSH Q3H PRN; Protocol PRN Reason: Pain, Mild (Pain Scale 1-3) Last Admin: 07/23/21 13:58 Dose: 2 mg Documented by: YARED Omeprazole (Omeprazole 40 Mg Capsule.Dr) 40 mg PO DAILY [facility] Last Admin: 07/23/21 08:32 Dose: 40 mg Documented by: YARED Ondansetron HCl (Ondansetron Hcl 4 Mg/2 Ml Vial) 4 mg IVPUSH Q8H PRN PRN Reason: Nausea and Vomiting Pharmacy Consult (Consult Rx Perform Med Rec) 1 each MISCELLANE ONCE PRN PRN Reason: Consult order Potassium Chloride (Potassium Chloride Er 10 Meq Capsule.Er) 10 meq PO DAILY [facility] Last Admin: 07/23/21 08:44 Dose: 10 meq Documented by: YARED Sodium Chloride (0.9 % Sodium Chloride Flush 3 Ml Syringe) 3 ml IVFLUSH QSHIFT [facility] Last Admin: 07/24/21 07:20 Dose: Not Given Documented by: LEONEL Non-Admin Reason: IV Running Labs CBC & Chem 7: 07/24/21 05:50 07/24/21 05:50 Labs: Laboratory Results - last 24 hr 07/23/21 07/24/21 07/24/21 07:23 05:50 05:50 MCV 83.4 MCH 26.6 L MCHC 31.9 RDW 18.5 H Plt Count 484 H MPV 10.0 Absolute Nucleated RBC 0.000 Nucleated RBC % (auto) 0.0 Anion Gap 12 Estim Creat Clear Calc 107.1 Estimated GFR > 60 Random Glucose 73 Calcium 8.3 L Magnesium 2.0 Total Bilirubin 1.8 H Direct Bilirubin 1.5 H AST 30 ALT 21 Alkaline Phosphatase 243 H Total Protein 6.5 Albumin 2.2 L Imaging MRI - abdomen: Radiologist's impression: Impressions Abdomen/Pelvis CT 07/23/21 14:49 IMPRESSION: Stable abnormal air collection in the right lower quadrant probably representing microperforation from sigmoid diverticulitis. No free air is seen. Slight interval decrease in the intra and extrahepatic biliary duct dilatation. Gallstones. Slightly dilated main pancreatic duct in head of the pancreas. Inflammatory changes in the small bowel mesentery and shotty small bowel mesentery and retroperitoneal lymphadenopathy unchanged. Fleischner guidelines were followed. CT scan - abdomen: Radiologist's impression: Impressions Abdomen/Pelvis CT 07/23/21 14:49 IMPRESSION: Stable abnormal air collection in the right lower quadrant probably representing microperforation from sigmoid diverticulitis. No free air is seen. Slight interval decrease in the intra and extrahepatic biliary duct dilatation. Gallstones. Slightly dilated main pancreatic duct in head of the pancreas. Inflammatory changes in the small bowel mesentery and shotty small bowel mesentery and retroperitoneal lymphadenopathy unchanged. Fleischner guidelines were followed. Microbiology Microbiology Results: Microbiology 07/21/21 18:45 Blood Culture - Preliminary Blood - Venous No growth after 48 hours. 07/21/21 18:35 Blood Culture - Preliminary Blood - Venous No growth after 24 hours. Procedures Date of Service Date of Service: 07/24/21 Progress Note: A&P Assessment and plan (1) Perforated diverticulum: Status: Acute (2) Dilated cbd, acquired: Status: Acute (3) Cholelithiasis: Status: Acute Assessment and Plan: 61-year-old female patient with abdominal pain in markedly elevated WBC now with abdominal pain in the lower abdomen. Overall she has improved with a normal WBC and decreasing liver function tests. Repeat CT abdomen and pelvis revealed a persistent air collection adjacent to the sigmoid colon suggestive of a micro perforation without abscess essentially unchanged from prior study. There is an interval decrease in the size of the common bile duct. MRCP does show small stones within the common bile duct. Patient is currently on a clear liquid diet and seems to be tolerating this fairly well. She is scheduled for ERCP on Monday and will eventually need a cholecystectomy. Recommend continuing antibiotics for the possible micro perforated sigmoid diverticulum. Fall Risk Details Current Medications: Current Medications Acetaminophen (Acetaminophen 325 Mg Tablet) 650 mg PO Q6H PRN PRN Reason: Pain, Mild (Pain Scale 1-3) Atenolol (Atenolol 50 Mg Tablet) 50 mg PO DAILY [facility]; Protocol Last Admin: 07/23/21 08:31 Dose: 50 mg Documented by: Docusate Sodium (Docusate Sodium 100 Mg Capsule) 100 mg PO DAILY PRN PRN Reason: Constipation Doxepin HCl (Doxepin Hcl 25 Mg Capsule) 25 mg PO BEDTIME [facility] Last Admin: 07/23/21 22:07 Dose: 25 mg Documented by: Fluoxetine HCl (Fluoxetine Hcl 20 Mg Capsule) 20 mg PO DAILY [facility] Last Admin: 07/23/21 08:32 Dose: 20 mg Documented by: Heparin Sodium (Porcine) (Heparin Sodium,Porcine 5,000 Unit/Ml Vial) 5,000 unit SUBCUT Q12H [facility] Last Admin: 07/24/21 05:31 Dose: 5,000 unit Documented by: Levofloxacin (Levaquin) 750 mg in 150 mls @ 100 mls/hr IV Q24H [facility] Last Infusion: 07/24/21 00:02 Dose: Infused Documented by: Metronidazole (Flagyl) 500 mg in 100 mls @ 100 mls/hr IV Q8H [facility] Last Infusion: 07/24/21 03:45 Dose: Infused Documented by: Sodium Chloride (Ns) 1,000 mls @ 100 mls/hr IVCONT .Q10H [facility] Last Admin: 07/24/21 05:22 Dose: Not Given Documented by: Loratadine (Loratadine 10 Mg Tablet) 10 mg PO DAILY [facility] Last Admin: 07/23/21 08:31 Dose: 10 mg Documented by: Morphine Sulfate (Morphine Sulfate 2 Mg/Ml Cartridge) 2 mg IVPUSH Q3H PRN; Protocol PRN Reason: Pain, Mild (Pain Scale 1-3) Last Admin: 07/23/21 13:58 Dose: 2 mg Documented by: Omeprazole (Omeprazole 40 Mg Capsule.) 40 mg PO DAILY [facility] Last Admin: 07/23/21 08:32 Dose: 40 mg Documented by: Ondansetron HCl (Ondansetron Hcl 4 Mg/2 Ml Vial) 4 mg IVPUSH Q8H PRN PRN Reason: Nausea and Vomiting Pharmacy Consult (Consult Rx Perform Med Rec) 1 each MISCELLANE ONCE PRN PRN Reason: Consult order Potassium Chloride (Potassium Chloride Er 10 Meq Capsule.Er) 10 meq PO DAILY [facility] Last Admin: 07/23/21 08:44 Dose: 10 meq Documented by: Sodium Chloride (0.9 % Sodium Chloride Flush 3 Ml Syringe) 3 ml IVFLUSH QSHIFT [facility] Last Admin: 07/24/21 07:20 Dose: Not Given Documented by: Time Spent With Patient Time: Total time spent is greater than 50% in coordination of care (as documented) at patient's floor/unit and/or counseling patient: Time with patient: 15 - 24 minutes Quality Stroke Does the patient have a stroke diagnosis?: No VTE Prior VTE?: No VTE Risk Level:: Medical - moderate - high VTE Device Contraindication: Treatment Not Indicated VTE Drug Contraindication: N/A - Med Ordered
[2021-07-24] MEDS: Omeprazole 40 MG CAPSULE.DR PO (09:17)
[2021-07-24] MEDS: FLUoxetine HCl 20 MG CAPSULE PO (09:17)
[2021-07-24] MEDS: atenoloL 50 MG TABLET PO (09:18)
[2021-07-24] MEDS: Loratadine 10 MG TABLET PO (09:18)
[2021-07-24 12:33] LABS: Iron 85 mcg/dL (30-160); Percent Iron Saturation 43 % (15-50); Total Iron Binding Capacity 197 mcg/dL (228-428); Unsaturated Iron Binding 112 ug/dL
[2021-07-24 13:49] LABS: Ferritin 596 ng/mL (10-250)
[2021-07-24] MEDS: guaiFENesin 100 MG/5 ML LIQUID PO (18:23)
[2021-07-24] MEDS: levoFLOXacin/D5W 750 MG/150 ML PIGGYBACK 100 MG IV (20:45)
[2021-07-24] MEDS: Doxepin HCl 25 MG CAPSULE PO (20:45)
[2021-07-25 00:48] VITALS: BP 119/59; PULSE 58; RESP 16; TEMP 36.2; O2SAT 99
[2021-07-25] MEDS: 0.9 % Sodium Chloride 1,000 ML 100 ML IVCONT (03:59)
[2021-07-25] MEDS: metroNIDAZOLE/NS 500 MG/100 ML PIGGYBACK 100 MG IV ×3 (04:07→18:13)
[2021-07-25] MEDS: guaiFENesin 100 MG/5 ML LIQUID PO ×2 (04:15→08:31)
[2021-07-25] MEDS: Heparin Sodium,Porcine 5,000 UNIT/ML VIAL 5000 UNIT SUBCUT ×2 (06:04→18:13)
[2021-07-25 06:13] LABS: Hematocrit 29.2 % (37.0-47.0); Hemoglobin 9.2 g/dl (12.0-16.0)
[2021-07-25 06:36] LABS: Anion Gap 11 (12-20); Blood Urea Nitrogen 8 mg/dL (9-16); Calcium 8.4 mg/dL (8.4-10.2); Carbon Dioxide 23 mmol/L (22-29); Chloride 106 mmol/L (96-108); Creatinine Clr Calc Pharmacy 107.1; Estimated Glomerular Filt Rate > 60; Glucose Random 88 mg/dL (60-115); Potassium 3.1 mmol/L (3.3-5.1); Sodium 137 mmol/L (135-145)
[2021-07-25 07:10] VITALS: BP 104/55; PULSE 69; RESP 19; TEMP 36.1; O2SAT 99
[2021-07-25 07:39] VITALS: RESP 18
[2021-07-25] MEDS: Morphine Sulfate 2 MG/ML CARTRIDGE IVPUSH (07:39)
[2021-07-25] MEDS: Loratadine 10 MG TABLET PO (07:40)
[2021-07-25] MEDS: Omeprazole 40 MG CAPSULE.DR PO (07:40)
[2021-07-25] MEDS: atenoloL 50 MG TABLET PO (07:40)
[2021-07-25] MEDS: FLUoxetine HCl 20 MG CAPSULE PO (07:40)
--- NOTE | 2021-07-25 07:46 | HO.PM.IMPN ---
Subjective Subjective Date of Service: 07/25/21 Interval History: abd pain Review of Systems abd pain seems to be improving ? Denies any chest pain or? Denies any new complaint of chest pain or shortness of breath or fever or chills or nausea or vomiting has left lower abd pain Physical Exam Vital Signs: Vital Signs: Last Vital Signs Temp 97 F 07/25/21 07:10 Pulse 69 07/25/21 07:10 Resp 18 07/25/21 07:39 BP 104/55 L 07/25/21 07:10 Pulse Ox 99 07/25/21 07:10 BMI result Body Mass Index 42.5 ? Appearance: Alert.? Oriented X3.? not in distress.? cvs: rrr, [id number] , no murmur res: clear to auscultation ,no rhonchii or wheezing abd: no rebound or guarding ,llq seems , bs present. ext pulses present , no cyanosis . neuro: axo3 , nonfocal. Objective Data Active Medications Acetaminophen (Acetaminophen 325 Mg Tablet) 650 mg PO Q6H PRN PRN Reason: Pain, Mild (Pain Scale 1-3) Atenolol (Atenolol 50 Mg Tablet) 50 mg PO DAILY [facility]; Protocol Last Admin: 07/25/21 07:40 Dose: 50 mg Documented by: MELISSA Docusate Sodium (Docusate Sodium 100 Mg Capsule) 100 mg PO DAILY PRN PRN Reason: Constipation Doxepin HCl (Doxepin Hcl 25 Mg Capsule) 25 mg PO BEDTIME [facility] Last Admin: 07/24/21 20:45 Dose: 25 mg Documented by: STEVO Fluoxetine HCl (Fluoxetine Hcl 20 Mg Capsule) 20 mg PO DAILY [facility] Last Admin: 07/25/21 07:40 Dose: 20 mg Documented by: MELISSA Guaifenesin (Guaifenesin 100 Mg/5 Ml Liquid) 5 ml PO Q4H PRN PRN Reason: Cough Last Admin: 07/25/21 04:15 Dose: 5 ml Documented by: STEVO Heparin Sodium (Porcine) (Heparin Sodium,Porcine 5,000 Unit/Ml Vial) 5,000 unit SUBCUT Q12H [facility] Last Admin: 07/25/21 06:04 Dose: 5,000 unit Documented by: STEVO Levofloxacin (Levaquin) 750 mg in 150 mls @ 100 mls/hr IV Q24H [facility] Last Infusion: 07/25/21 01:05 Dose: 0 mls/hr Documented by: STEVO Metronidazole (Flagyl) 500 mg in 100 mls @ 100 mls/hr IV Q8H [facility] Last Infusion: 07/25/21 06:06 Dose: 0 mls/hr Documented by: STEVO Loratadine (Loratadine 10 Mg Tablet) 10 mg PO DAILY [facility] Last Admin: 07/25/21 07:40 Dose: 10 mg Documented by: MELISSA Morphine Sulfate (Morphine Sulfate 2 Mg/Ml Cartridge) 2 mg IVPUSH Q3H PRN; Protocol PRN Reason: Pain, Mild (Pain Scale 1-3) Last Admin: 07/25/21 07:39 Dose: 2 mg Documented by: MELISSA Omeprazole (Omeprazole 40 Mg Capsule.Dr) 40 mg PO DAILY [facility] Last Admin: 07/25/21 07:40 Dose: 40 mg Documented by: MELISSA Ondansetron HCl (Ondansetron Hcl 4 Mg/2 Ml Vial) 4 mg IVPUSH Q8H PRN PRN Reason: Nausea and Vomiting Pharmacy Consult (Consult Rx Perform Med Rec) 1 each MISCELLANE ONCE PRN PRN Reason: Consult order Potassium Chloride (Potassium Chloride Er 10 Meq Capsule.Er) 10 meq PO DAILY [facility] Last Admin: 07/25/21 07:40 Dose: 10 meq Documented by: MELISSA Sodium Chloride (0.9 % Sodium Chloride Flush 3 Ml Syringe) 3 ml IVFLUSH QSHIFT [facility] Last Admin: 07/25/21 07:30 Dose: Not Given Documented by: MELISSA Non-Admin Reason: IV Running Labs CBC & Chem 7: 07/25/21 05:11 07/25/21 05:11 Labs: Laboratory Results - last 24 hr 07/24/21 07/25/21 05:50 05:11 Anion Gap 11 L Estim Creat Clear Calc 107.1 Estimated GFR > 60 Random Glucose 88 Calcium 8.4 Iron 85 TIBC 197 L % Saturation 43 Unsat Iron Binding 112 Ferritin 596 H Microbiology Microbiology Results: Microbiology 07/21/21 18:35 Blood Culture - Preliminary Blood - Venous No growth after 48 hours. Assessment and Plan (1) Sepsis: Status: Acute (2) Abnormal LFTs: Status: Acute Assessment and Plan: 61-year-old female with past medical history of hypertension as well as depression who presents to the hospital with complaints of fatigue as well as seizure-like activity and loss of consciousness found to have acute diverticulitis 1. sepsis (POA)sec acute diverticulitis with micro perforation, possible cholangitis has leucocytossis , tachycardia-seems improved ? For leukocytosis improved ,no fever. mri abd:Dilated biliary tree with findings strongly suspicious for tiny choledocholithiasis within the distal most aspect of the CBD. ?abdominal ultrasound:The thickness of the gallbladder wall also appears to be variable.? Appearance could also be related to chronic cholecystitis. ?blood cultures npo ,broad-spectrum IV antibiotic-levaquin/flagyl day4 still has abd pain-ct abd with po contrast - diverticulitis with microperforation area seems stable similar to yesterday, an CBD dilation is slightly better on the CT. liver panel in am 2.? cholelithiasis with dilated CBD see above- seen by GI recommended abd imaging repeat imaging p.o. contrast 3. seizure-like activity-Patient was postictal due to seizure -no? toxic metabolic? encephalopathy. -? reports arm shaking witnessed by her friend and loss of consciousness -? patient was postictal on arrival to the ED ?consult neurology-ct head neg eeg -normal neuro-eval noted -possible sz vs tremors /rigors sec to sepsis will check with neuro follow up. 4.? hypertension -? stable BP hold? home meds . hold asa , nsaids -may need endoscopy . 5. leukocytosis: resolved -? most likely in the setting of above -? IV antibiotics and IV fluid -? follow culture -blood cultures neg@48hrs 6.? ALFREDO -? most likely multifactorial secondary to dehydration as well as acute infection on? IV fluid, improving -? follow BMP ? Hypokalemia: Repleted, resolved . Quality Stroke Does the patient have a stroke diagnosis?: No VTE Prior VTE?: No VTE Risk Level:: Medical - moderate - high VTE Device Contraindication: Treatment Not Indicated VTE Drug Contraindication: N/A - Med Ordered
[2021-07-25] MEDS: Potassium Chloride Packet 20 MEQ PACKET 40 MEQ PO (08:32)
[2021-07-25] MEDS: ondansetron HCL 4 MG/2 ML VIAL IVPUSH ×2 (08:43→15:53)
[2021-07-25 08:59] LABS: Alanine Aminotransferase 16 U/L (0-31); Albumin Level 2.3 g/dL (3.5-5.0); Alkaline Phosphatase 229 U/L (39-117); Aspartate Amino Transferase 27 U/L (5-31); Bilirubin Direct 1.4 mg/dL (0.0-0.5); Bilirubin Total 1.8 mg/dL (0.0-1.0); Magnesium 1.5 mg/dL (1.6-2.6); Total Protein 6.6 g/dL (6.5-8.0)
--- NOTE | 2021-07-25 09:54 | P.PNGS_ITS ---
Subjective Subjective Date of Service: 07/25/21 Interval history: Patient coughing heavily during my visit. She reports some abdominal pain but appeared more comfortable, sitting up in bed. She continues to move her bowels and denies nausea or vomiting. Physical Exam Vital Signs: Vital Signs: Last Vital Signs Temp 97 F 07/25/21 07:10 Pulse 69 07/25/21 07:10 Resp 18 07/25/21 07:39 BP 104/55 L 07/25/21 07:10 Pulse Ox 99 07/25/21 07:10 BMI result Body Mass Index 42.5 Const: General: no acute distress Nutritional Appearance: obese Orientation/consciousness: patient oriented x3 Limitations: no limitations Resp: Effort & Inspection: normal respiratory effort, no audible wheezes, Actively coughing and no respiratory distress GI: Inspection: Yes obesity Palpation (GI): Soft to palpation, Tenderness to palpation present (GI) in the LLQ and in the RUQ; Negative for Andrews's sign negative, with no rebound tenderness and Rovsing's sign negative and not rigid Percussion: Yes normal to percussion Auscultation: normal bowel sounds Rectal Exam - Female: deferred Skin: General skin exam: no rashes or lesions noted Neuro: General: patient oriented x3 Extrem: General: Yes normal to inspection Objective Data Active Medications Acetaminophen (Acetaminophen 325 Mg Tablet) 650 mg PO Q6H PRN PRN Reason: Pain, Mild (Pain Scale 1-3) Atenolol (Atenolol 50 Mg Tablet) 50 mg PO DAILY [facility]; Protocol Last Admin: 07/25/21 07:40 Dose: 50 mg Documented by: SALMAEMA Docusate Sodium (Docusate Sodium 100 Mg Capsule) 100 mg PO DAILY PRN PRN Reason: Constipation Doxepin HCl (Doxepin Hcl 25 Mg Capsule) 25 mg PO BEDTIME [facility] Last Admin: 07/24/21 20:45 Dose: 25 mg Documented by: RAINAS Fluoxetine HCl (Fluoxetine Hcl 20 Mg Capsule) 20 mg PO DAILY [facility] Last Admin: 07/25/21 07:40 Dose: 20 mg Documented by: SALMAEMA Guaifenesin (Guaifenesin 100 Mg/5 Ml Liquid) 5 ml PO Q4H PRN PRN Reason: Cough Last Admin: 07/25/21 08:31 Dose: 5 ml Documented by: HO.COTEMA Heparin Sodium (Porcine) (Heparin Sodium,Porcine 5,000 Unit/Ml Vial) 5,000 unit SUBCUT Q12H [facility] Last Admin: 07/25/21 06:04 Dose: 5,000 unit Documented by: STEOV Levofloxacin (Levaquin) 750 mg in 150 mls @ 100 mls/hr IV Q24H [facility] Last Infusion: 07/25/21 01:05 Dose: 0 mls/hr Documented by: STEVO Metronidazole (Flagyl) 500 mg in 100 mls @ 100 mls/hr IV Q8H [facility] Last Infusion: 07/25/21 06:06 Dose: 0 mls/hr Documented by: STEVO Loratadine (Loratadine 10 Mg Tablet) 10 mg PO DAILY [facility] Last Admin: 07/25/21 07:40 Dose: 10 mg Documented by: MELISSA Morphine Sulfate (Morphine Sulfate 2 Mg/Ml Cartridge) 2 mg IVPUSH Q3H PRN; Protocol PRN Reason: Pain, Mild (Pain Scale 1-3) Last Admin: 07/25/21 07:39 Dose: 2 mg Documented by: MELISSA Omeprazole (Omeprazole 40 Mg Capsule.Dr) 40 mg PO DAILY [facility] Last Admin: 07/25/21 07:40 Dose: 40 mg Documented by: SALMAEMA Ondansetron HCl (Ondansetron Hcl 4 Mg/2 Ml Vial) 4 mg IVPUSH Q8H PRN PRN Reason: Nausea and Vomiting Last Admin: 07/25/21 08:43 Dose: 4 mg Documented by: MELISSA Pharmacy Consult (Consult Rx Perform Med Rec) 1 each MISCELLANE ONCE PRN PRN Reason: Consult order Potassium Chloride (Potassium Chloride Er 10 Meq Capsule.Er) 10 meq PO DAILY [facility] Last Admin: 07/25/21 07:40 Dose: 10 meq Documented by: SALMAEMA Sodium Chloride (0.9 % Sodium Chloride Flush 3 Ml Syringe) 3 ml IVFLUSH QSHIFT [facility] Last Admin: 07/25/21 07:30 Dose: Not Given Documented by: MELISSA Non-Admin Reason: IV Running Labs CBC & Chem 7: 07/25/21 05:11 07/25/21 05:11 Labs: Laboratory Results - last 24 hr 07/24/21 07/25/21 05:50 05:11 Anion Gap 11 L Estim Creat Clear Calc 107.1 Estimated GFR > 60 Random Glucose 88 Calcium 8.4 Magnesium 1.5 L Iron 85 TIBC 197 L % Saturation 43 Unsat Iron Binding 112 Ferritin 596 H Total Bilirubin 1.8 H Direct Bilirubin 1.4 H AST 27 ALT 16 Alkaline Phosphatase 229 H Total Protein 6.6 Albumin 2.3 L Microbiology Microbiology Results: Microbiology 07/21/21 18:35 Blood Culture - Preliminary Blood - Venous No growth after 48 hours. Procedures Date of Service Date of Service: 07/25/21 Progress Note: A&P Assessment and plan (1) Perforated diverticulum: Status: Acute (2) Dilated cbd, acquired: Status: Acute (3) Cholelithiasis: Status: Acute Assessment and Plan: 61-year-old female patient with abdominal pain in markedly elevated WBC now with abdominal pain in the lower abdomen.? Overall she has improved with a normal WBC and decreasing liver function tests although T bili and D bili remained elevated today. Repeat CT abdomen and pelvis revealed a persistent air collection adjacent to the sigmoid colon suggestive of a micro perforation without abscess essentially unchanged from prior study.? There is an interval decrease in the size of the common bile duct.? MRCP does show small stones within the common bile duct.? Patient is currently on a clear liquid diet and seems to be tolerating this fairly well.? She is scheduled for ERCP on Monday and will eventually need a cholecystectomy.? Recommend continuing antibiotics for the possible micro perforated sigmoid diverticulum. Fall Risk Details Current Medications: Current Medications Acetaminophen (Acetaminophen 325 Mg Tablet) 650 mg PO Q6H PRN PRN Reason: Pain, Mild (Pain Scale 1-3) Atenolol (Atenolol 50 Mg Tablet) 50 mg PO DAILY [facility]; Protocol Last Admin: 07/25/21 07:40 Dose: 50 mg Documented by: Docusate Sodium (Docusate Sodium 100 Mg Capsule) 100 mg PO DAILY PRN PRN Reason: Constipation Doxepin HCl (Doxepin Hcl 25 Mg Capsule) 25 mg PO BEDTIME [facility] Last Admin: 07/24/21 20:45 Dose: 25 mg Documented by: Fluoxetine HCl (Fluoxetine Hcl 20 Mg Capsule) 20 mg PO DAILY [facility] Last Admin: 07/25/21 07:40 Dose: 20 mg Documented by: Guaifenesin (Guaifenesin 100 Mg/5 Ml Liquid) 5 ml PO Q4H PRN PRN Reason: Cough Last Admin: 07/25/21 08:31 Dose: 5 ml Documented by: Heparin Sodium (Porcine) (Heparin Sodium,Porcine 5,000 Unit/Ml Vial) 5,000 unit SUBCUT Q12H [facility] Last Admin: 07/25/21 06:04 Dose: 5,000 unit Documented by: Levofloxacin (Levaquin) 750 mg in 150 mls @ 100 mls/hr IV Q24H [facility] Last Infusion: 07/25/21 01:05 Dose: Infused Documented by: Metronidazole (Flagyl) 500 mg in 100 mls @ 100 mls/hr IV Q8H [facility] Last Infusion: 07/25/21 06:06 Dose: Infused Documented by: Loratadine (Loratadine 10 Mg Tablet) 10 mg PO DAILY [facility] Last Admin: 07/25/21 07:40 Dose: 10 mg Documented by: Morphine Sulfate (Morphine Sulfate 2 Mg/Ml Cartridge) 2 mg IVPUSH Q3H PRN; Protocol PRN Reason: Pain, Mild (Pain Scale 1-3) Last Admin: 07/25/21 07:39 Dose: 2 mg Documented by: Omeprazole (Omeprazole 40 Mg Capsule.Dr) 40 mg PO DAILY [facility] Last Admin: 07/25/21 07:40 Dose: 40 mg Documented by: Ondansetron HCl (Ondansetron Hcl 4 Mg/2 Ml Vial) 4 mg IVPUSH Q8H PRN PRN Reason: Nausea and Vomiting Last Admin: 07/25/21 08:43 Dose: 4 mg Documented by: Pharmacy Consult (Consult Rx Perform Med Rec) 1 each MISCELLANE ONCE PRN PRN Reason: Consult order Potassium Chloride (Potassium Chloride Er 10 Meq Capsule.Er) 10 meq PO DAILY [facility] Last Admin: 07/25/21 07:40 Dose: 10 meq Documented by: Sodium Chloride (0.9 % Sodium Chloride Flush 3 Ml Syringe) 3 ml IVFLUSH QSHIFT [facility] Last Admin: 07/25/21 07:30 Dose: Not Given Documented by: Time Spent With Patient Time: Total time spent is greater than 50% in coordination of care (as documented) at patient's floor/unit and/or counseling patient: Time with patient: 15 - 24 minutes Quality Stroke Does the patient have a stroke diagnosis?: No VTE Prior VTE?: No VTE Risk Level:: Medical - moderate - high VTE Device Contraindication: Treatment Not Indicated VTE Drug Contraindication: N/A - Med Ordered
[2021-07-25 11:23] VITALS: BP 111/64; PULSE 68; RESP 18; TEMP 36.1; O2SAT 94
[2021-07-25] MEDS: 0.9 % Sodium Chloride Flush 3 ML SYRINGE IVFLUSH ×2 (15:53→21:08)
[2021-07-25 15:54] VITALS: BP 102/65; PULSE 66; RESP 18; TEMP 37.2; O2SAT 98
[2021-07-25 20:23] VITALS: BP 121/76; PULSE 61; RESP 18; TEMP 37.1; O2SAT 98
[2021-07-25] MEDS: levoFLOXacin/D5W 750 MG/150 ML PIGGYBACK 100 MG IV (21:07)
[2021-07-25] MEDS: Doxepin HCl 25 MG CAPSULE PO (21:07)
[2021-07-26] VITALS (14 sets, daily range): BP systolic 87–125; BP diastolic 44–64; PULSE 58–64; RESP 16–19; TEMP 36.2–37; O2SAT 94–100
[2021-07-26] MEDS: metroNIDAZOLE/NS 500 MG/100 ML PIGGYBACK 100 MG IV ×2 (03:01→18:00)
[2021-07-26] MEDS: ondansetron HCL 4 MG/2 ML VIAL IVPUSH (03:05)
[2021-07-26 06:07] LABS: Anion Gap 12 (12-20); Blood Urea Nitrogen 7 mg/dL (9-16); Calcium 8.5 mg/dL (8.4-10.2); Carbon Dioxide 23 mmol/L (22-29); Chloride 104 mmol/L (96-108); Creatinine Clr Calc Pharmacy 99.9; Estimated Glomerular Filt Rate > 60; Glucose Random 76 mg/dL (60-115); Potassium 3.1 mmol/L (3.3-5.1); Sodium 136 mmol/L (135-145)
--- NOTE | 2021-07-26 07:45 | P.PNIM_ITS ---
Subjective Subjective Date of Service: 07/26/21 Interval History: diverticulitis/microperforation Review of Systems Still has abdominal pain left lower quadrant area. No nausea or vomiting no fever or chills or Physical Exam Vital Signs: Vital Signs: Last Vital Signs Temp 97.7 F 07/26/21 02:54 Pulse 58 07/26/21 02:54 Resp 18 07/26/21 02:54 BP 125/60 07/26/21 02:54 Pulse Ox 98 07/26/21 02:54 BMI result Body Mass Index 42.5 Appearance: Alert.? Oriented X3.? not in distress.? cvs: rrr, [id number] , no murmur res: clear to auscultation ,no rhonchii or wheezing abd: no rebound or guarding ,llq seems , bs present. ext pulses present , no cyanosis . neuro: axo3 , nonfocal. Objective Data Active Medications Acetaminophen (Acetaminophen 325 Mg Tablet) 650 mg PO Q6H PRN PRN Reason: Pain, Mild (Pain Scale 1-3) Atenolol (Atenolol 50 Mg Tablet) 50 mg PO DAILY [facility]; Protocol Last Admin: 07/25/21 07:40 Dose: 50 mg Documented by: SALMAEMA Docusate Sodium (Docusate Sodium 100 Mg Capsule) 100 mg PO DAILY PRN PRN Reason: Constipation Doxepin HCl (Doxepin Hcl 25 Mg Capsule) 25 mg PO BEDTIME [facility] Last Admin: 07/25/21 21:07 Dose: 25 mg Documented by: ODRISM Fluoxetine HCl (Fluoxetine Hcl 20 Mg Capsule) 20 mg PO DAILY [facility] Last Admin: 07/25/21 07:40 Dose: 20 mg Documented by: COTEMA Guaifenesin (Guaifenesin 100 Mg/5 Ml Liquid) 5 ml PO Q4H PRN PRN Reason: Cough Last Admin: 07/25/21 08:31 Dose: 5 ml Documented by: SALMAEMA Heparin Sodium (Porcine) (Heparin Sodium,Porcine 5,000 Unit/Ml Vial) 5,000 unit SUBCUT Q12H [facility] Last Admin: 07/26/21 06:04 Dose: Not Given Documented by: TAERISIsidoro Non-Admin Reason: preop Levofloxacin (Levaquin) 750 mg in 150 mls @ 100 mls/hr IV Q24H [facility] Last Infusion: 07/25/21 22:42 Dose: 0 mls/hr Documented by: LAUREN Metronidazole (Flagyl) 500 mg in 100 mls @ 100 mls/hr IV Q8H [facility] Last Infusion: 07/26/21 04:11 Dose: 0 mls/hr Documented by: LAUREN Magnesium Sulfate (Magnesium Sulfate/H2o) 2 gm in 50 mls @ 50 mls/hr IV ONCE ONE Stop: 07/26/21 08:42 Potassium Chloride () 40 meq in 100 mls @ 100 mls/hr IV Q1H [facility] Stop: 07/26/21 09:44 Loratadine (Loratadine 10 Mg Tablet) 10 mg PO DAILY [facility] Last Admin: 07/25/21 07:40 Dose: 10 mg Documented by: COTEMA Morphine Sulfate (Morphine Sulfate 2 Mg/Ml Cartridge) 2 mg IVPUSH Q3H PRN; Protocol PRN Reason: Pain, Mild (Pain Scale 1-3) Last Admin: 07/25/21 07:39 Dose: 2 mg Documented by: COTEMA Omeprazole (Omeprazole 40 Mg Capsule.Dr) 40 mg PO DAILY [facility] Last Admin: 07/25/21 07:40 Dose: 40 mg Documented by: COTEMA Ondansetron HCl (Ondansetron Hcl 4 Mg/2 Ml Vial) 4 mg IVPUSH Q8H PRN PRN Reason: Nausea and Vomiting Last Admin: 07/26/21 03:05 Dose: 4 mg Documented by: LAUREN Pharmacy Consult (Consult Rx Perform Med Rec) 1 each MISCELLANE ONCE PRN PRN Reason: Consult order Potassium Chloride (Potassium Chloride Er 10 Meq Capsule.Er) 10 meq PO DAILY [facility] Last Admin: 07/25/21 07:40 Dose: 10 meq Documented by: COTEMA Sodium Chloride (0.9 % Sodium Chloride Flush 3 Ml Syringe) 3 ml IVFLUSH QSHIFT [facility] Last Admin: 07/25/21 21:08 Dose: 3 ml Documented by: LAUREN Labs CBC & Chem 7: 07/25/21 05:11 07/26/21 05:35 Labs: Laboratory Results - last 24 hr 07/25/21 07/26/21 05:11 05:35 Anion Gap 12 Estim Creat Clear Calc 99.9 Estimated GFR > 60 Random Glucose 76 Calcium 8.5 Magnesium 1.5 L Total Bilirubin 1.8 H Direct Bilirubin 1.4 H AST 27 ALT 16 Alkaline Phosphatase 229 H Total Protein 6.6 Albumin 2.3 L Assessment and Plan (1) Sepsis: Status: Acute (2) Perforated diverticulum: Status: Acute (3) Dilated cbd, acquired: Status: Acute Assessment and Plan: 61-year-old female with past medical history of hypertension as well as depression who presents to the hospital with complaints of fatigue as well as seizure-like activity and loss of consciousness found to have acute diverticulitis 1. sepsis (POA)sec acute diverticulitis with micro perforation, possible cholangitis has leucocytossis , tachycardia-seems improved ? For leukocytosis improved ,no fever. mri abd:Dilated biliary tree with findings strongly suspicious for tiny choledocholithiasis within the distal most aspect of the CBD. ?abdominal ultrasound:The thickness of the gallbladder wall also appears to be variable.? Appearance could also be related to chronic cholecystitis. ?blood cultures npo ,broad-spectrum IV antibiotic-levaquin/flagyl day5 ct abd with po contrast on 07/26 days back - diverticulitis with microperforation area seems stable similar to yesterday, an CBD dilation is slightly better on the CT. liver panel in am 2.? cholelithiasis with dilated CBD see above- seen by GI recommended abd imaging repeat imaging p.o. contrast 3. seizure-like activity-Patient was postictal due to seizure -no? toxic metabolic? encephalopathy. -? reports arm shaking witnessed by her friend and loss of consciousness -? patient was postictal on arrival to the ED ?consult neurology-ct head neg eeg -normal neuro-eval noted -possible sz vs tremors /rigors sec to sepsis will check with neuro follow up. 4.? hypertension -? stable BP hold? home meds . hold asa , nsaids -may need endoscopy . 5. leukocytosis: resolved -? most likely in the setting of above -? IV antibiotics and IV fluid -? follow culture -blood cultures neg@48hrs 6.? ALFREDO -? most likely multifactorial secondary to dehydration as well as acute infection on? IV fluid, improving -? follow BMP ? Hypokalemia and hypomagnesemia: Repleted, resolved . Quality Stroke Does the patient have a stroke diagnosis?: No VTE Prior VTE?: No VTE Risk Level:: Medical - moderate - high VTE Device Contraindication: Treatment Not Indicated VTE Drug Contraindication: N/A - Med Ordered
[2021-07-26 07:48] LABS: Folate 4.4 ng/mL (> or = 4.0); Vitamin B12 830 pg/mL (200-900)
[2021-07-26] MEDS: Morphine Sulfate 2 MG/ML CARTRIDGE IVPUSH (09:28)
[2021-07-26] MEDS: 0.9 % Sodium Chloride Flush 3 ML SYRINGE IVFLUSH (09:29)
[2021-07-26] MEDS: Magnesium Sulfate/H2O 2 GM/50 ML PIGGYBACK IV (09:29)
[2021-07-26] MEDS: atenoloL 50 MG TABLET PO (09:39)
[2021-07-26] MEDS: Morphine Sulfate 4 MG/ML CARTRIDGE IVPUSH (10:47)
--- NOTE | 2021-07-26 12:57 | HO.ANESPROP2 ---
[facility] Active Problems Active Problems: All Active Problems (Updated 07/22/21 @ 17:17 by Fernando Jimenez MD) Seizure-like activity (Acute) Sepsis (Acute) Perforated diverticulum (Acute) Abnormal LFTs (Acute) Dilated cbd, acquired (Acute) Cholangitis (Acute) ALFREDO (acute kidney injury) (Acute) Leukocytosis (Acute) Loss of consciousness (Acute) Cholelithiasis (Acute) Acute diverticulitis (Acute) Gallstone (Acute) Acute metabolic encephalopathy (Acute) Left hand pain (Acute) Carpal tunnel syndrome of right wrist (Acute) Past Medical History Medical History Depression Hypertension Surgical History Surgical History History of carpal tunnel release Hx of tubal ligation No pertinent past surgical history History of Problems with Anesthesia: No Social History Social History Housing: Other Do you presently have visiting nurse or other home services: Yes (aide 2x a week) Alcohol intake: never Patient Tobacco Use Status: Former Tobacco user Quit Date: 5 yrs ago Tobacco use type: Cigarette service: No Current occupational status: unemployed 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 Meds Allergies Allergy/AdvReac Type Severity Reaction Status Date / Time cortisone [CORTISONE] Allergy Intermediate RASH Verified 09/09/20 09:21 adhesive tape [ADHESIVE TAPE] AdvReac Unknown UNKNOWN Verified 09/09/20 09:21 Latex Allergy Unknown redness Uncoded 08/31/20 12:37 [place] Allergy Unknown Unknown Uncoded 08/31/20 12:37 Active Medications: Current Medications Acetaminophen (Acetaminophen 325 Mg Tablet) 650 mg PO Q6H PRN PRN Reason: Pain, Mild (Pain Scale 1-3) Atenolol (Atenolol 50 Mg Tablet) 50 mg PO DAILY [facility]; Protocol Last Admin: 07/26/21 09:39 Dose: 50 mg Documented by: Docusate Sodium (Docusate Sodium 100 Mg Capsule) 100 mg PO DAILY PRN PRN Reason: Constipation Doxepin HCl (Doxepin Hcl 25 Mg Capsule) 25 mg PO BEDTIME [facility] Last Admin: 07/25/21 21:07 Dose: 25 mg Documented by: Fluoxetine HCl (Fluoxetine Hcl 20 Mg Capsule) 20 mg PO DAILY [facility] Last Admin: 07/26/21 12:22 Dose: Not Given Documented by: Guaifenesin (Guaifenesin 100 Mg/5 Ml Liquid) 5 ml PO Q4H PRN PRN Reason: Cough Last Admin: 07/25/21 08:31 Dose: 5 ml Documented by: Heparin Sodium (Porcine) (Heparin Sodium,Porcine 5,000 Unit/Ml Vial) 5,000 unit SUBCUT Q12H [facility] Last Admin: 07/26/21 06:04 Dose: Not Given Documented by: Levofloxacin (Levaquin) 750 mg in 150 mls @ 100 mls/hr IV Q24H [facility] Last Infusion: 07/25/21 22:42 Dose: Infused Documented by: Metronidazole (Flagyl) 500 mg in 100 mls @ 100 mls/hr IV Q8H [facility] Last Admin: 07/26/21 12:23 Dose: Not Given Documented by: Loratadine (Loratadine 10 Mg Tablet) 10 mg PO DAILY [facility] Last Admin: 07/26/21 12:22 Dose: Not Given Documented by: Morphine Sulfate (Morphine Sulfate 4 Mg/Ml Cartridge) 4 mg IVPUSH Q3H PRN; Protocol PRN Reason: Pain, Mild (Pain Scale 1-3) Omeprazole (Omeprazole 40 Mg Capsule.Dr) 40 mg PO DAILY [facility] Last Admin: 07/26/21 12:22 Dose: Not Given Documented by: Ondansetron HCl (Ondansetron Hcl 4 Mg/2 Ml Vial) 4 mg IVPUSH Q8H PRN PRN Reason: Nausea and Vomiting Last Admin: 07/26/21 03:05 Dose: 4 mg Documented by: Pharmacy Consult (Consult Rx Perform Med Rec) 1 each MISCELLANE ONCE PRN PRN Reason: Consult order Potassium Chloride (Potassium Chloride Er 10 Meq Capsule.Er) 10 meq PO DAILY [facility] Last Admin: 07/26/21 12:23 Dose: Not Given Documented by: Sodium Chloride (0.9 % Sodium Chloride Flush 3 Ml Syringe) 3 ml IVFLUSH QSHIFT [facility] Last Admin: 07/26/21 09:29 Dose: 3 ml Documented by: Home Medications Medication Instructions Recorded Confirmed Last Taken Type atenolol 50 mg tablet 1 tab PO DAILY 07/21/21 07/22/21 07/20/21 History cetirizine 10 mg tablet 1 tab PO DAILY 07/21/21 07/22/21 07/20/21 History chlorthalidone 25 mg tablet 1 tab PO QAM 07/21/21 07/22/21 07/20/21 History doxepin 25 mg capsule 1 cap PO BEDTIME 07/21/21 07/22/21 07/20/21 History fluoxetine 20 mg capsule 1 cap PO QAM 07/21/21 07/22/21 07/20/21 History gabapentin 300 mg capsule 1 cap PO TID 07/21/21 07/22/21 07/20/21 History omeprazole 40 mg capsule,delayed 1 cap PO DAILY 07/21/21 07/22/21 07/20/21 History release potassium chloride 10 mEq 1 tab PO DAILY 07/21/21 07/22/21 07/20/21 History tablet,extended release(part/cryst) aspirin 81 mg chewable tablet 81 mg PO DAILY 07/22/21 07/22/21 07/20/21 History naproxen 500 mg tablet 1 tab PO BID 07/22/21 07/22/21 07/20/21 History ondansetron HCl 4 mg tablet 1 tab PO Q6H PRN 07/22/21 07/22/21 07/20/21 History Exam Exam Date and Time: July 26, 2021 1257 Height,Weight and Vital Signs: Height 5 ft 11 in Weight 138.346 kg Last Vital Signs Temp 98.6 F 07/26/21 12:27 Pulse 60 07/26/21 12:27 Resp 16 07/26/21 12:27 BP 116/64 07/26/21 12:27 Pulse Ox 97 07/26/21 12:27 Pertinent Lab Results Pertinent Lab Results: Laboratory Tests 07/21/21 07/21/21 07/21/21 17:20 17:20 17:20 WBC 34.5 H* RBC 3.53 L Hgb 9.7 L Hct 29.6 L MCV 83.9 MCH 27.5 MCHC 32.8 RDW 17.8 H Plt Count 567 H MPV 9.5 Immature Gran % (Auto) Cancelled Neut % (Auto) Cancelled Lymph % (Auto) Cancelled [place] % (Auto) Cancelled Eos % (Auto) Cancelled Baso % (Auto) Cancelled Lymph # (Auto) Cancelled [place] # (Auto) Cancelled Eos # (Auto) Cancelled Baso # (Auto) Cancelled Abs Immat Gran (auto) Cancelled Absolute Neuts (auto) Cancelled Absolute Nucleated RBC 0.020 H Nucleated RBC % (auto) 0.1 Neutrophils % (Manual) 62 Band Neutrophils % 23 H Lymphocytes % (Manual) 9 L Monocytes % (Manual) 6 Abs Neuts (Manual) 29.3 H Lymphocytes # (Manual) 3.1 Monocytes # (Manual) 2.1 H Platelet Estimate INCREASED Large Platelets PRESENT Plt Morphology Comment NOTED RBC Morphology NOTED Microcytosis 1+ (5-14) Macrocytosis 1+ (5-14) Smear Tech's Comments Sodium 134 L Potassium 3.4 Chloride 99 Carbon Dioxide 25 Anion Gap 13 BUN 19 H Creatinine 1.21 Estim Creat Clear Calc 73.4 Estimated GFR 45 Random Glucose 122 H Lactic Acid Calcium 8.7 Magnesium 1.7 Iron TIBC % Saturation Unsat Iron Binding Ferritin Total Bilirubin 3.6 H Direct Bilirubin AST 87 H ALT 46 H Alkaline Phosphatase 429 H Troponin I High Sens 4.4 Total Protein 8.1 H Albumin 2.9 L Lipase 57 Vitamin B12 Folate Urine Color Urine Appearance Urine pH Ur Specific [place] Urine Protein Urine Glucose (UA) Urine Ketones Urine Blood Urine Nitrite Ur Leukocyte Esterase COVID-19 (LUCILA) COVID-19 Clin Com 07/21/21 07/21/21 07/21/21 17:20 18:35 21:05 WBC RBC Hgb Hct MCV MCH MCHC RDW Plt Count MPV Immature Gran % (Auto) Neut % (Auto) Lymph % (Auto) [place] % (Auto) Eos % (Auto) Baso % (Auto) Lymph # (Auto) [place] # (Auto) Eos # (Auto) Baso # (Auto) Abs Immat Gran (auto) Absolute Neuts (auto) Absolute Nucleated RBC Nucleated RBC % (auto) Neutrophils % (Manual) Band Neutrophils % Lymphocytes % (Manual) Monocytes % (Manual) Abs Neuts (Manual) Lymphocytes # (Manual) Monocytes # (Manual) Platelet Estimate Large Platelets Plt Morphology Comment RBC Morphology Microcytosis Macrocytosis Smear Tech's Comments Sodium Potassium Chloride Carbon Dioxide Anion Gap BUN Creatinine Estim Creat Clear Calc Estimated GFR Random Glucose Lactic Acid 1.9 Calcium Magnesium Iron TIBC % Saturation Unsat Iron Binding Ferritin Total Bilirubin Direct Bilirubin AST ALT Alkaline Phosphatase Troponin I High Sens Total Protein Albumin Lipase Vitamin B12 Folate Urine Color YELLOW Urine Appearance CLEAR Urine pH 6.0 Ur Specific [place] 1.010 Urine Protein TRACE Urine Glucose (UA) NEG Urine Ketones NEG Urine Blood NEG Urine Nitrite NEG Ur Leukocyte Esterase NEG COVID-19 (LUCILA) Negative COVID-19 Clin Com See Note 07/22/21 07/22/21 07/23/21 07:13 07:13 07:23 WBC 23.7 H 12.2 H RBC 3.39 L 3.22 L Hgb 9.4 L 8.7 L Hct 28.5 L 26.8 L MCV 84.1 83.2 MCH 27.7 27.0 MCHC 33.0 32.5 RDW 17.9 H 18.1 H Plt Count 519 H 452 H MPV 9.4 9.4 Immature Gran % (Auto) 1.1 H 1.0 H Neut % (Auto) 86.3 H 78.0 H Lymph % (Auto) 6.2 L 14.3 L [place] % (Auto) 6.1 5.5 Eos % (Auto) 0.1 1.0 Baso % (Auto) 0.2 0.2 Lymph # (Auto) 1.5 1.7 [place] # (Auto) 1.5 H 0.7 Eos # (Auto) 0.0 0.1 Baso # (Auto) 0.0 0.0 Abs Immat Gran (auto) 0.26 H 0.12 H Absolute Neuts (auto) 20.5 H 9.5 H Absolute Nucleated RBC 0.000 0.000 Nucleated RBC % (auto) 0.0 0.0 Neutrophils % (Manual) Band Neutrophils % Lymphocytes % (Manual) Monocytes % (Manual) Abs Neuts (Manual) Lymphocytes # (Manual) Monocytes # (Manual) Platelet Estimate Large Platelets Plt Morphology Comment RBC Morphology Microcytosis Macrocytosis Smear Tech's Comments VERIFIED Sodium 137 Potassium 3.2 L Chloride 103 Carbon Dioxide 26 Anion Gap 11 L BUN 15 Creatinine 0.92 Estim Creat Clear Calc 96.6 Estimated GFR > 60 Random Glucose 122 H Lactic Acid Calcium 8.4 Magnesium Iron TIBC % Saturation Unsat Iron Binding Ferritin Total Bilirubin Direct Bilirubin AST ALT Alkaline Phosphatase Troponin I High Sens Total Protein Albumin Lipase Vitamin B12 Folate Urine Color Urine Appearance Urine pH Ur Specific [place] Urine Protein Urine Glucose (UA) Urine Ketones Urine Blood Urine Nitrite Ur Leukocyte Esterase COVID-19 (LUCILA) COVID-19 Clin Com 0107/23/21 07/24/21 07:23 07:23 05:50 WBC 6.6 RBC 3.31 L Hgb 8.8 L Hct 27.6 L MCV 83.4 MCH 26.6 L MCHC 31.9 RDW 18.5 H Plt Count 484 H MPV 10.0 Immature Gran % (Auto) Neut % (Auto) Lymph % (Auto) [place] % (Auto) Eos % (Auto) Baso % (Auto) Lymph # (Auto) [place] # (Auto) Eos # (Auto) Baso # (Auto) Abs Immat Gran (auto) Absolute Neuts (auto) Absolute Nucleated RBC 0.000 Nucleated RBC % (auto) 0.0 Neutrophils % (Manual) Band Neutrophils % Lymphocytes % (Manual) Monocytes % (Manual) Abs Neuts (Manual) Lymphocytes # (Manual) Monocytes # (Manual) Platelet Estimate Large Platelets Plt Morphology Comment RBC Morphology Microcytosis Macrocytosis Smear Tech's Comments Sodium 136 Potassium 2.7 L Chloride 105 Carbon Dioxide 26 Anion Gap 8 L BUN 13 Creatinine 0.81 Estim Creat Clear Calc 109.7 Estimated GFR > 60 Random Glucose 73 Lactic Acid Calcium 8.1 L Magnesium 2.0 Iron TIBC % Saturation Unsat Iron Binding Ferritin Total Bilirubin 2.6 H Direct Bilirubin 2.1 H AST 35 H D ALT 23 Alkaline Phosphatase 281 H D Troponin I High Sens Total Protein 6.4 L D Albumin 2.2 L D Lipase Vitamin B12 Folate Urine Color Urine Appearance Urine pH Ur Specific [place] Urine Protein Urine Glucose (UA) Urine Ketones Urine Blood Urine Nitrite Ur Leukocyte Esterase COVID-19 (LUCILA) COVID-19 Clin Com 07/24/21 07/24/21 07/25/21 05:50 05:50 05:11 WBC RBC Hgb 9.2 L Hct 29.2 L MCV MCH MCHC RDW Plt Count MPV Immature Gran % (Auto) Neut % (Auto) Lymph % (Auto) [place] % (Auto) Eos % (Auto) Baso % (Auto) Lymph # (Auto) [place] # (Auto) Eos # (Auto) Baso # (Auto) Abs Immat Gran (auto) Absolute Neuts (auto) Absolute Nucleated RBC Nucleated RBC % (auto) Neutrophils % (Manual) Band Neutrophils % Lymphocytes % (Manual) Monocytes % (Manual) Abs Neuts (Manual) Lymphocytes # (Manual) Monocytes # (Manual) Platelet Estimate Large Platelets Plt Morphology Comment RBC Morphology Microcytosis Macrocytosis Smear Tech's Comments Sodium 140 Potassium 3.7 D Chloride 109 H Carbon Dioxide 23 Anion Gap 12 BUN 11 Creatinine 0.83 Estim Creat Clear Calc 107.1 Estimated GFR > 60 Random Glucose 73 Lactic Acid Calcium 8.3 L Magnesium Iron 85 TIBC 197 L % Saturation 43 Unsat Iron Binding 112 Ferritin 596 H Total Bilirubin 1.8 H Direct Bilirubin 1.5 H AST 30 ALT 21 Alkaline Phosphatase 243 H Troponin I High Sens Total Protein 6.5 Albumin 2.2 L Lipase Vitamin B12 830 Folate 4.4 Urine Color Urine Appearance Urine pH Ur Specific [place] Urine Protein Urine Glucose (UA) Urine Ketones Urine Blood Urine Nitrite Ur Leukocyte Esterase COVID-19 (LUCILA) COVID-19 DigitalMR Com 07/25/21 07/26/21 05:11 05:35 WBC RBC Hgb Hct MCV MCH MCHC RDW Plt Count MPV Immature Gran % (Auto) Neut % (Auto) Lymph % (Auto) [place] % (Auto) Eos % (Auto) Baso % (Auto) Lymph # (Auto) [place] # (Auto) Eos # (Auto) Baso # (Auto) Abs Immat Gran (auto) Absolute Neuts (auto) Absolute Nucleated RBC Nucleated RBC % (auto) Neutrophils % (Manual) Band Neutrophils % Lymphocytes % (Manual) Monocytes % (Manual) Abs Neuts (Manual) Lymphocytes # (Manual) Monocytes # (Manual) Platelet Estimate Large Platelets Plt Morphology Comment RBC Morphology Microcytosis Macrocytosis Smear Tech's Comments Sodium 137 136 Potassium 3.1 L 3.1 L Chloride 106 104 Carbon Dioxide 23 23 Anion Gap 11 L 12 BUN 8 L 7 L Creatinine 0.83 0.89 Estim Creat Clear Calc 107.1 99.9 Estimated GFR > 60 > 60 Random Glucose 88 76 Lactic Acid Calcium 8.4 8.5 Magnesium 1.5 L Iron TIBC % Saturation Unsat Iron Binding Ferritin Total Bilirubin 1.8 H Direct Bilirubin 1.4 H AST 27 ALT 16 Alkaline Phosphatase 229 H Troponin I High Sens Total Protein 6.6 Albumin 2.3 L Lipase Vitamin B12 Folate Urine Color Urine Appearance Urine pH Ur Specific [place] Urine Protein Urine Glucose (UA) Urine Ketones Urine Blood Urine Nitrite Ur Leukocyte Esterase COVID-19 ([facility]UCILA) COVID-19 Clin Com Airway Mallampati Class: III TM Dist: >3cm Neck ROM: Full Loose/Missing/Broken Teeth: Yes, Upper (Edentulous upper) and Lower (3 lower teeth one very loose) Heart: RRR Lungs: CTA Assessment and Plan Assessment Anesthesia Assessment: Anesthesia Plan Discussed and Chart Reviewed Final Anesthetic Review History of Problems with Anesthesia: No NPO: Yes ASA Class: III Final Preanesthetic Review: Meds/Allgs Chart Reviewed, Consent Obtained/Reviewed and Anes Risks/Benef Reviewed Patient Risk: Intermediate Procedure Risk: Intermediate Anesthetic Plan Anesthetic Plan: GA Disposition: Standard PACU
[2021-07-26] MEDS: Lactated Ringers 1,000 ML 50 ML IVCONT (13:00)
--- NOTE | 2021-07-26 13:10 | MHC.SHP ---
Pre-Procedural Eval Section A Date of Service: 07/26/21 The patient is an INPATIENT: Yes The History & Physical has been completed within 30 days and I have reviewed it.: Yes Section B Chief Complaint: Syncope, diverticulitis Allergies: Allergies Allergy/AdvReac Type Severity Reaction Status Date / Time cortisone [CORTISONE] Allergy Intermediate RASH Verified 09/09/20 09:21 adhesive tape [ADHESIVE TAPE] AdvReac Unknown UNKNOWN Verified 09/09/20 09:21 Latex Allergy Unknown redness Uncoded 08/31/20 12:37 [place] Allergy Unknown Unknown Uncoded 08/31/20 12:37 Plan Diagnosis/Plan: Unchanged I have reviewed the history and physical and performed a pertinent physical examination on my patient. No changes have occurred unless specified.
--- NOTE | 2021-07-26 13:32 | PC.NURSE ---
states no antibiotic needed even with missing scheduled noon dose of flagyl.
--- NOTE | 2021-07-26 14:15 | MHC.CM.PN ---
PER PHYSICAN ROUNDS, PATIENT STILL WITH SIGNIFICANT PAIN. WILL BE HERE EXPECTED 1-2 MORE DAYS. CASE MANAGEMENT CONTINUING TO FOLLOW
--- NOTE | 2021-07-26 15:17 | P.BOP_ITS ---
Brief Operative Note Date of Service: 07/26/21 Pre-op diagnosis: double duct sign, dilated CBD and PD, concern for choledocholithiasis Post-op diagnosis: same Surgeon: Onesimo Sher MD Anesthesia: GETA Was an Occupational Medicine Physician used for this Procedure?: No Estimated blood loss (mL): 5 Pathology: other Condition: stable Disposition: PACU
--- NOTE | 2021-07-26 15:18 | P.OP_ITS ---
Operative Note Operative Note Date of Service: 07/26/21 Narrative: Description: Endoscopic retrograde cholangiopancreatography (ERCP) with brush cytology and spyglass PROCEDURE: Endoscopic retrograde cholangiopancreatography with brushings, spyglass and sphincterotomy INDICATION FOR THE PROCEDURE: Patient with a history of abdominal pain and dilated CBD and PD with possible stones in CBD MEDICATIONS: General anesthesia, rectal indomethacin 100 mg, The risks of the procedure were made aware to the patient and consisted of medication reaction, bleeding, perforation, aspiration, and post ERCP pancreatitis. DESCRIPTION OF PROCEDURE: After informed consent and appropriate sedation, the duodenoscope was inserted into the oropharynx, down the esophagus, and into the stomach. The scope was then advanced through the pylorus to the ampulla. The ampulla had a normal appearance. It was approached with the tome and entered into what was thought to be initially the CBD. Small amount of contrast was injected but this was noted to be actually the PD. It was beaded and irregular and slightly dilated. A mariaa precut was then performed and the tome with drawn. It was angled and then went into the CBD. Cholangiogram revealed a dilated CBD about 12 mm without filling of the cystic duct. A generous sphincterotomy was performed.A balloon was then exchanged and sweeped down the duct a few times but no stone material or debris noted. Brushings were then taken including for FISH. Spyglass was also used for direct visualization but no obvious mass or epithelial abnormality was seen. A balloon cholangiogram was again done, again dilated CBD noted, no filling defects and no dye into the cystic duct. The PD was then re entered and brushings taken. A 2 cm 4 Fr stent was then deployed to reduce risk of post procedure pancreatitis. There was some minor oozing which had ceased by the end of the procedure. The stomach was then decompressed and the endoscope was withdrawn. FINDINGS: 1.dilated CBD 2. dilated and irregular, tortuous PD may be due to chronic pancreatitis, can a lso cause 1/ above 3. probable chronic cholecystitis, no filling of dye into the GB RECOMMENDATIONS: 1. NPO except ice chips for next 4-6 hrs then clears as tolerated, can advance diet tomorrow if feels well and if no plan for further surgery 2. await biopsy results
--- NOTE | 2021-07-26 16:10 | PM.PNGS ---
Subjective Subjective Date of Service: 07/26/21 Interval history: Patient seen in the recovery room following ERCP today. No obstructing stone was identified although large common bile duct and irregular pancreatic duct was identified. Brushings were obtained. The cystic duct to not fill with contrast during the procedure. This is suggestive of acute cholecystitis. Patient continues to have abdominal pain in the lower abdomen as well. Physical Exam Vital Signs: Vital Signs: Last Vital Signs Temp 97.1 F 07/26/21 15:30 Pulse 59 07/26/21 16:00 Resp 16 07/26/21 16:00 BP 89/50 L 07/26/21 16:00 Pulse Ox 99 07/26/21 16:00 BMI result Body Mass Index 42.5 Const: General: well developed Nutritional Appearance: obese Orientation/consciousness: patient oriented x3 Limitations: no limitations Eyes: Sclerae: sclerae normal Resp: Effort & Inspection: normal respiratory effort GI: Palpation (GI): Tenderness to palpation present (GI) in the LUQ and in the RUQ; Negative for with no rebound tenderness, no guarding and not rigid Skin: General skin exam: no rashes or lesions noted Neuro: General: patient oriented x3 Objective Data Active Medications Acetaminophen (Acetaminophen 325 Mg Tablet) 650 mg PO Q6H PRN PRN Reason: Pain, Mild (Pain Scale 1-3) Acetaminophen (Acetaminophen 325 Mg Tablet) 650 mg PO ONCE PRN PRN Reason: Pain, Mild (Pain Scale 1-3) Atenolol (Atenolol 50 Mg Tablet) 50 mg PO DAILY [facility]; Protocol Last Admin: 07/26/21 09:39 Dose: 50 mg Documented by: JODI Docusate Sodium (Docusate Sodium 100 Mg Capsule) 100 mg PO DAILY PRN PRN Reason: Constipation Doxepin HCl (Doxepin Hcl 25 Mg Capsule) 25 mg PO BEDTIME [facility] Last Admin: 07/25/21 21:07 Dose: 25 mg Documented by: ODRISM Fluoxetine HCl (Fluoxetine Hcl 20 Mg Capsule) 20 mg PO DAILY [facility] Last Admin: 07/26/21 12:22 Dose: Not Given Documented by: JODI Non-Admin Reason: preop Guaifenesin (Guaifenesin 100 Mg/5 Ml Liquid) 5 ml PO Q4H PRN PRN Reason: Cough Last Admin: 07/25/21 08:31 Dose: 5 ml Documented by: COTEMA Heparin Sodium (Porcine) (Heparin Sodium,Porcine 5,000 Unit/Ml Vial) 5,000 unit SUBCUT Q12H [facility] Last Admin: 07/26/21 06:04 Dose: Not Given Documented by: LAUREN Non-Admin Reason: preop Levofloxacin (Levaquin) 750 mg in 150 mls @ 100 mls/hr IV Q24H [facility] Last Infusion: 07/25/21 22:42 Dose: 0 mls/hr Documented by: LAUREN Metronidazole (Flagyl) 500 mg in 100 mls @ 100 mls/hr IV Q8H [facility] Last Admin: 07/26/21 12:23 Dose: Not Given Documented by: JODI Non-Admin Reason: Not In Room Lactated Ringer's (Lr) 1,000 mls @ 50 mls/hr IVCONT .Q20H [facility] Last Admin: 07/26/21 13:00 Dose: 50 mls/hr Documented by: LEXIE Lactated Ringer's (Lr) 1,000 mls @ 125 mls/hr IVCONT .Q8H [facility] Loratadine (Loratadine 10 Mg Tablet) 10 mg PO DAILY [facility] Last Admin: 07/26/21 12:22 Dose: Not Given Documented by: JODI Non-Admin Reason: preop Morphine Sulfate (Morphine Sulfate 4 Mg/Ml Cartridge) 4 mg IVPUSH Q3H PRN; Protocol PRN Reason: Pain, Mild (Pain Scale 1-3) Omeprazole (Omeprazole 40 Mg Capsule.Dr) 40 mg PO DAILY [facility] Last Admin: 07/26/21 12:22 Dose: Not Given Documented by: JODI Non-Admin Reason: preop Ondansetron HCl (Ondansetron Hcl 4 Mg/2 Ml Vial) 4 mg IVPUSH Q8H PRN PRN Reason: Nausea and Vomiting Last Admin: 07/26/21 03:05 Dose: 4 mg Documented by: LAUREN Ondansetron HCl (Ondansetron Hcl 4 Mg/2 Ml Vial) 4 mg IVPUSH ONCE PRN PRN Reason: Nausea and Vomiting Pharmacy Consult (Consult Rx Perform Med Rec) 1 each MISCELLANE ONCE PRN PRN Reason: Consult order Potassium Chloride (Potassium Chloride Er 10 Meq Capsule.Er) 10 meq PO DAILY [facility] Last Admin: 07/26/21 12:23 Dose: Not Given Documented by: JODI Non-Admin Reason: preop Sodium Chloride (0.9 % Sodium Chloride Flush 3 Ml Syringe) 3 ml IVFLUSH QSHIFT [facility] Last Admin: 07/26/21 09:29 Dose: 3 ml Documented by: JODI Labs CBC & Chem 7: 07/25/21 05:11 07/26/21 05:35 Labs: Laboratory Results - last 24 hr 07/24/21 07/26/21 05:50 05:35 Anion Gap 12 Estim Creat Clear Calc 99.9 Estimated GFR > 60 Random Glucose 76 Calcium 8.5 Vitamin B12 830 Folate 4.4 Procedures Date of Service Date of Service: 07/26/21 Progress Note: A&P Assessment and plan (1) Perforated diverticulum: Status: Acute (2) Abnormal LFTs: Status: Acute (3) Dilated cbd, acquired: Status: Acute (4) Cholelithiasis: Status: Acute Assessment and Plan: 61-year-old female patient with complaints of abdominal pain found to have a dilated common bile duct with possible stones on MRCP. Gallstones noted within the gallbladder. Patient also found to have air surrounding the sigmoid colon suggestive of a micro perforation. No abscess is appreciated on 2 CT scans. ERCP today revealed no stones within the duct although the pancreatic duct was noted to be irregularly shaped in the common bile duct was markedly dilated. Cystic duct and not fill suggesting acute cholecystitis. Patient continues to have abdominal pain but is difficult to know which disease process is causing her pain. Given the ERCP findings. I will recommend laparoscopic cholecystectomy and exploratory laparoscopy to evaluate the sigmoid colon for abscess/perforation. She will be added onto the operative schedule for tomorrow. NPO after midnight. Fall Risk Details Current Medications: Current Medications Acetaminophen (Acetaminophen 325 Mg Tablet) 650 mg PO Q6H PRN PRN Reason: Pain, Mild (Pain Scale 1-3) Acetaminophen (Acetaminophen 325 Mg Tablet) 650 mg PO ONCE PRN PRN Reason: Pain, Mild (Pain Scale 1-3) Atenolol (Atenolol 50 Mg Tablet) 50 mg PO DAILY [facility]; Protocol Last Admin: 07/26/21 09:39 Dose: 50 mg Documented by: Docusate Sodium (Docusate Sodium 100 Mg Capsule) 100 mg PO DAILY PRN PRN Reason: Constipation Doxepin HCl (Doxepin Hcl 25 Mg Capsule) 25 mg PO BEDTIME [facility] Last Admin: 07/25/21 21:07 Dose: 25 mg Documented by: Fluoxetine HCl (Fluoxetine Hcl 20 Mg Capsule) 20 mg PO DAILY [facility] Last Admin: 07/26/21 12:22 Dose: Not Given Documented by: Guaifenesin (Guaifenesin 100 Mg/5 Ml Liquid) 5 ml PO Q4H PRN PRN Reason: Cough Last Admin: 07/25/21 08:31 Dose: 5 ml Documented by: Heparin Sodium (Porcine) (Heparin Sodium,Porcine 5,000 Unit/Ml Vial) 5,000 unit SUBCUT Q12H [facility] Last Admin: 07/26/21 06:04 Dose: Not Given Documented by: Levofloxacin (Levaquin) 750 mg in 150 mls @ 100 mls/hr IV Q24H [facility] Last Infusion: 07/25/21 22:42 Dose: Infused Documented by: Metronidazole (Flagyl) 500 mg in 100 mls @ 100 mls/hr IV Q8H [facility] Last Admin: 07/26/21 12:23 Dose: Not Given Documented by: Lactated Ringer's (Lr) 1,000 mls @ 50 mls/hr IVCONT .Q20H [facility] Last Admin: 07/26/21 13:00 Dose: 50 mls/hr Documented by: Lactated Ringer's (Lr) 1,000 mls @ 125 mls/hr IVCONT .Q8H [facility] Loratadine (Loratadine 10 Mg Tablet) 10 mg PO DAILY [facility] Last Admin: 07/26/21 12:22 Dose: Not Given Documented by: Morphine Sulfate (Morphine Sulfate 4 Mg/Ml Cartridge) 4 mg IVPUSH Q3H PRN; Protocol PRN Reason: Pain, Mild (Pain Scale 1-3) Omeprazole (Omeprazole 40 Mg Capsule.Dr) 40 mg PO DAILY [facility] Last Admin: 07/26/21 12:22 Dose: Not Given Documented by: Ondansetron HCl (Ondansetron Hcl 4 Mg/2 Ml Vial) 4 mg IVPUSH Q8H PRN PRN Reason: Nausea and Vomiting Last Admin: 07/26/21 03:05 Dose: 4 mg Documented by: Ondansetron HCl (Ondansetron Hcl 4 Mg/2 Ml Vial) 4 mg IVPUSH ONCE PRN PRN Reason: Nausea and Vomiting Pharmacy Consult (Consult Rx Perform Med Rec) 1 each MISCELLANE ONCE PRN PRN Reason: Consult order Potassium Chloride (Potassium Chloride Er 10 Meq Capsule.Er) 10 meq PO DAILY [facility] Last Admin: 07/26/21 12:23 Dose: Not Given Documented by: Sodium Chloride (0.9 % Sodium Chloride Flush 3 Ml Syringe) 3 ml IVFLUSH QSHIFT [facility] Last Admin: 07/26/21 09:29 Dose: 3 ml Documented by: Time Spent With Patient Time: Total time spent is greater than 50% in coordination of care (as documented) at patient's floor/unit and/or counseling patient: Time with patient: 15 - 24 minutes Quality Stroke Does the patient have a stroke diagnosis?: No VTE Prior VTE?: No VTE Risk Level:: Medical - moderate - high VTE Device Contraindication: Treatment Not Indicated VTE Drug Contraindication: N/A - Med Ordered
[2021-07-26] MEDS: Lactated Ringers 1,000 ML 125 ML IVCONT (17:14)
[2021-07-26] MEDS: Heparin Sodium,Porcine 5,000 UNIT/ML VIAL 5000 UNIT SUBCUT (17:57)
[2021-07-26] MEDS: levoFLOXacin/D5W 750 MG/150 ML PIGGYBACK 100 MG IV (21:13)
[2021-07-26] MEDS: Doxepin HCl 25 MG CAPSULE PO (21:13)
[2021-07-27] VITALS (17 sets, daily range): BP systolic 93–172; BP diastolic 54–92; PULSE 53–86; RESP 12–20; TEMP 36.1–36.6; O2SAT 95–100
[2021-07-27] MEDS: metroNIDAZOLE/NS 500 MG/100 ML PIGGYBACK 100 MG IV ×2 (02:40→19:15)
[2021-07-27] MEDS: Lactated Ringers 1,000 ML 125 ML IVCONT (02:40)
[2021-07-27 06:08] LABS: Anion Gap 13 (12-20); Blood Urea Nitrogen 9 mg/dL (9-16); Calcium 8.3 mg/dL (8.4-10.2); Carbon Dioxide 26 mmol/L (22-29); Chloride 103 mmol/L (96-108); Estimated Glomerular Filt Rate 55; Glucose Random 71 mg/dL (60-115); Potassium 3.6 mmol/L (3.3-5.1); Sodium 138 mmol/L (135-145)
[2021-07-27 07:44] LABS: Alanine Aminotransferase 17 U/L (0-31); Albumin Level 2.4 g/dL (3.5-5.0); Alkaline Phosphatase 224 U/L (39-117); Aspartate Amino Transferase 57 U/L (5-31); Bilirubin Direct 1.3 mg/dL (0.0-0.5); Bilirubin Total 1.6 mg/dL (0.0-1.0); Lipase 118 U/L (8-78); Total Protein 6.8 g/dL (6.5-8.0)
--- NOTE | 2021-07-27 07:57 | PM.PNGS ---
Subjective Subjective Date of Service: 07/27/21 Interval history: Feels ok this morning, abdominal pain improved. Tolerated the ERCP well. Physical Exam Vital Signs: Vital Signs: Last Vital Signs Temp 97.6 F 07/27/21 03:34 Pulse 86 07/27/21 03:34 Resp 18 07/27/21 03:34 BP 115/62 07/27/21 03:34 Pulse Ox 98 07/27/21 03:34 BMI result Body Mass Index 42.5 Const: General: comfortable and no acute distress Nutritional Appearance: obese Orientation/consciousness: patient oriented x3 Limitations: no limitations Resp: Effort & Inspection: normal respiratory effort, no respiratory distress and not tachypneic Auscultation: clear to auscultation bilaterally GI: Inspection: Yes normal to inspection and Yes obesity Palpation (GI): Soft to palpation, Tenderness to palpation present (GI) in the LLQ and in the RUQ, no guarding and not rigid Percussion: Yes dullness to percussion Rectal Exam - Female: deferred Skin: General skin exam: no rashes or lesions noted Neuro: General: patient oriented x3 Extrem: General: Yes no clubbing, cyanosis or edema Objective Data Active Medications Acetaminophen (Acetaminophen 325 Mg Tablet) 650 mg PO Q6H PRN PRN Reason: Pain, Mild (Pain Scale 1-3) Acetaminophen (Acetaminophen 325 Mg Tablet) 650 mg PO ONCE PRN PRN Reason: Pain, Mild (Pain Scale 1-3) Atenolol (Atenolol 50 Mg Tablet) 50 mg PO DAILY [facility]; Protocol Last Admin: 07/26/21 09:39 Dose: 50 mg Documented by: JODI Docusate Sodium (Docusate Sodium 100 Mg Capsule) 100 mg PO DAILY PRN PRN Reason: Constipation Doxepin HCl (Doxepin Hcl 25 Mg Capsule) 25 mg PO BEDTIME [facility] Last Admin: 07/26/21 21:13 Dose: 25 mg Documented by: ODRISM Fluoxetine HCl (Fluoxetine Hcl 20 Mg Capsule) 20 mg PO DAILY [facility] Last Admin: 07/26/21 12:22 Dose: Not Given Documented by: JODI Non-Admin Reason: preop Guaifenesin (Guaifenesin 100 Mg/5 Ml Liquid) 5 ml PO Q4H PRN PRN Reason: Cough Last Admin: 07/25/21 08:31 Dose: 5 ml Documented by: COTEMA Heparin Sodium (Porcine) (Heparin Sodium,Porcine 5,000 Unit/Ml Vial) 5,000 unit SUBCUT Q12H [facility] Last Admin: 07/27/21 05:53 Dose: Not Given Documented by: LAUREN Non-Admin Reason: pre op Levofloxacin (Levaquin) 750 mg in 150 mls @ 100 mls/hr IV Q24H [facility] Last Infusion: 07/26/21 22:49 Dose: 0 mls/hr Documented by: LAUREN Metronidazole (Flagyl) 500 mg in 100 mls @ 100 mls/hr IV Q8H [facility] Last Infusion: 07/27/21 04:07 Dose: 0 mls/hr Documented by: LAUREN Lactated Ringer's (Lr) 1,000 mls @ 50 mls/hr IVCONT .Q20H [facility] Last Admin: 07/26/21 13:00 Dose: 50 mls/hr Documented by: LEXIE Lactated Ringer's (Lr) 1,000 mls @ 125 mls/hr IVCONT .Q8H [facility] Last Admin: 07/27/21 02:40 Dose: 125 mls/hr Documented by: LAUREN Cefotetan Disodium 2 gm/ (Sodium Chloride) 50 mls @ 100 mls/hr IV PREOP ONE Stop: 07/27/21 08:17 Loratadine (Loratadine 10 Mg Tablet) 10 mg PO DAILY [facility] Last Admin: 07/26/21 12:22 Dose: Not Given Documented by: JODI Non-Admin Reason: preop Morphine Sulfate (Morphine Sulfate 4 Mg/Ml Cartridge) 4 mg IVPUSH Q3H PRN; Protocol PRN Reason: Pain, Mild (Pain Scale 1-3) Omeprazole (Omeprazole 40 Mg Capsule.Dr) 40 mg PO DAILY [facility] Last Admin: 07/26/21 12:22 Dose: Not Given Documented by: JODI Non-Admin Reason: preop Ondansetron HCl (Ondansetron Hcl 4 Mg/2 Ml Vial) 4 mg IVPUSH Q8H PRN PRN Reason: Nausea and Vomiting Last Admin: 07/26/21 03:05 Dose: 4 mg Documented by: LAUREN Ondansetron HCl (Ondansetron Hcl 4 Mg/2 Ml Vial) 4 mg IVPUSH ONCE PRN PRN Reason: Nausea and Vomiting Pharmacy Consult (Consult Rx Perform Med Rec) 1 each MISCELLANE ONCE PRN PRN Reason: Consult order Potassium Chloride (Potassium Chloride Er 10 Meq Capsule.Er) 10 meq PO DAILY [facility] Last Admin: 07/26/21 12:23 Dose: Not Given Documented by: JODI Non-Admin Reason: preop Sodium Chloride (0.9 % Sodium Chloride Flush 3 Ml Syringe) 3 ml IVFLUSH QSHIFT [facility] Last Admin: 07/27/21 00:18 Dose: Not Given Documented by: LAUREN Non-Admin Reason: IV Running Labs CBC & Chem 7: 07/25/21 05:11 07/27/21 05:32 Labs: Laboratory Results - last 24 hr 07/27/21 05:32 Anion Gap 13 Estim Creat Clear Calc 88.0 Estimated GFR 55 Random Glucose 71 Calcium 8.3 L Total Bilirubin 1.6 H Direct Bilirubin 1.3 H AST 57 H ALT 17 Alkaline Phosphatase 224 H Total Protein 6.8 Albumin 2.4 L Lipase 118 H Microbiology Microbiology Results: Microbiology 07/21/21 18:45 Blood Culture - Final Blood - Venous No growth after 5 days. Procedures Date of Service Date of Service: 07/27/21 Progress Note: A&P Assessment and plan (1) Acute cholecystitis due to biliary calculus: Status: Acute (2) Perforated diverticulum: Status: Acute Assessment and Plan: Patient presents with abdominal pain found to have a dilated CBD with small stones on MRCP. Also found to have air tracking outside of sigmoid colon suggestive of a microperf. No abscess on either scan. ERCP negative for stones in the CBD however the duct was markedly dilated. The gallbladder did not fill with the cholangiogram, suggestive of acute cholecystitis. I discussed the findings with Ms Arriaga this morning and suggested a laparoscopic cholecystectomy, possible open, with diagnostic laparoscopy to evaluate the microperf. After a discussion of the procedure, alternatives and risks, she consents to the procedure. She has been added on to the OR schedule for later today. Fall Risk Details Current Medications: Current Medications Acetaminophen (Acetaminophen 325 Mg Tablet) 650 mg PO Q6H PRN PRN Reason: Pain, Mild (Pain Scale 1-3) Acetaminophen (Acetaminophen 325 Mg Tablet) 650 mg PO ONCE PRN PRN Reason: Pain, Mild (Pain Scale 1-3) Atenolol (Atenolol 50 Mg Tablet) 50 mg PO DAILY [facility]; Protocol Last Admin: 07/26/21 09:39 Dose: 50 mg Documented by: Docusate Sodium (Docusate Sodium 100 Mg Capsule) 100 mg PO DAILY PRN PRN Reason: Constipation Doxepin HCl (Doxepin Hcl 25 Mg Capsule) 25 mg PO BEDTIME [facility] Last Admin: 07/26/21 21:13 Dose: 25 mg Documented by: Fluoxetine HCl (Fluoxetine Hcl 20 Mg Capsule) 20 mg PO DAILY [facility] Last Admin: 07/26/21 12:22 Dose: Not Given Documented by: Guaifenesin (Guaifenesin 100 Mg/5 Ml Liquid) 5 ml PO Q4H PRN PRN Reason: Cough Last Admin: 07/25/21 08:31 Dose: 5 ml Documented by: Heparin Sodium (Porcine) (Heparin Sodium,Porcine 5,000 Unit/Ml Vial) 5,000 unit SUBCUT Q12H [facility] Last Admin: 07/27/21 05:53 Dose: Not Given Documented by: Levofloxacin (Levaquin) 750 mg in 150 mls @ 100 mls/hr IV Q24H [facility] Last Infusion: 07/26/21 22:49 Dose: Infused Documented by: Metronidazole (Flagyl) 500 mg in 100 mls @ 100 mls/hr IV Q8H [facility] Last Infusion: 07/27/21 04:07 Dose: Infused Documented by: Lactated Ringer's (Lr) 1,000 mls @ 50 mls/hr IVCONT .Q20H [facility] Last Admin: 07/26/21 13:00 Dose: 50 mls/hr Documented by: Lactated Ringer's (Lr) 1,000 mls @ 125 mls/hr IVCONT .Q8H [facility] Last Admin: 07/27/21 02:40 Dose: 125 mls/hr Documented by: Cefotetan Disodium 2 gm/ (Sodium Chloride) 50 mls @ 100 mls/hr IV PREOP ONE Stop: 07/27/21 08:17 Loratadine (Loratadine 10 Mg Tablet) 10 mg PO DAILY [facility] Last Admin: 07/26/21 12:22 Dose: Not Given Documented by: Morphine Sulfate (Morphine Sulfate 4 Mg/Ml Cartridge) 4 mg IVPUSH Q3H PRN; Protocol PRN Reason: Pain, Mild (Pain Scale 1-3) Omeprazole (Omeprazole 40 Mg Capsule.Dr) 40 mg PO DAILY [facility] Last Admin: 07/26/21 12:22 Dose: Not Given Documented by: Ondansetron HCl (Ondansetron Hcl 4 Mg/2 Ml Vial) 4 mg IVPUSH Q8H PRN PRN Reason: Nausea and Vomiting Last Admin: 07/26/21 03:05 Dose: 4 mg Documented by: Ondansetron HCl (Ondansetron Hcl 4 Mg/2 Ml Vial) 4 mg IVPUSH ONCE PRN PRN Reason: Nausea and Vomiting Pharmacy Consult (Consult Rx Perform Med Rec) 1 each MISCELLANE ONCE PRN PRN Reason: Consult order Potassium Chloride (Potassium Chloride Er 10 Meq Capsule.Er) 10 meq PO DAILY [facility] Last Admin: 07/26/21 12:23 Dose: Not Given Documented by: Sodium Chloride (0.9 % Sodium Chloride Flush 3 Ml Syringe) 3 ml IVFLUSH QSHIFT [facility] Last Admin: 07/27/21 00:18 Dose: Not Given Documented by: Time Spent With Patient Time: Total time spent is greater than 50% in coordination of care (as documented) at patient's floor/unit and/or counseling patient: Time with patient: 15 - 24 minutes Quality Stroke Does the patient have a stroke diagnosis?: No VTE Prior VTE?: No VTE Risk Level:: Medical - moderate - high VTE Device Contraindication: Treatment Not Indicated VTE Drug Contraindication: N/A - Med Ordered
[2021-07-27] MEDS: 0.9 % Sodium Chloride Flush 3 ML SYRINGE IVFLUSH ×2 (09:31→17:38)
[2021-07-27] MEDS: Acetaminophen 325 MG TABLET 650 MG PO (09:32)
[2021-07-27] MEDS: FLUoxetine HCl 20 MG CAPSULE PO (09:32)
[2021-07-27] MEDS: Loratadine 10 MG TABLET PO (09:32)
[2021-07-27] MEDS: atenoloL 50 MG TABLET PO (09:32)
[2021-07-27] MEDS: Omeprazole 40 MG CAPSULE.DR PO (09:32)
--- NOTE | 2021-07-27 09:46 | HO.ANESPROP2 ---
HPI - Anesthesia Eval Consult details Narrative: 61 yo female patient for laparoscopic cholecystectomy, possible open PMFSH Active Problems Active Problems: All Active Problems (Updated 07/27/21 @ 07:59 by Edil Feliciano MD) Anemia Acute cholecystitis due to biliary calculus (Acute) Seizure-like activity (Acute) Sepsis (Acute) Perforated diverticulum (Acute) Abnormal LFTs (Acute) Dilated cbd, acquired (Acute) Cholangitis (Acute) ALFREDO (acute kidney injury) (Acute) Leukocytosis (Acute) Loss of consciousness (Acute) Cholelithiasis (Acute) Acute diverticulitis (Acute) Gallstone (Acute) Acute metabolic encephalopathy (Acute) Left hand pain (Acute) Carpal tunnel syndrome of right wrist (Acute) Past Medical History Medical History (Updated 07/27/21 @ 10:55 by Ana Paula Harris MD) Depression Hypertension Family History Family history of problems with anesthesia: No Surgical History Surgical History (Updated 07/27/21 @ 10:56 by Ana Paula Harris MD) History of back surgery History of carpal tunnel release Hx of tubal ligation No pertinent past surgical history History of Problems with Anesthesia: No Social History Social History Housing: Other Do you presently have visiting nurse or other home services: Yes (aide 2x a week) Alcohol intake: never Patient Tobacco Use Status: Former Tobacco user Quit Date: 5 yrs ago Tobacco use type: Cigarette service: No Current occupational status: unemployed 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 Meds Allergies Allergy/AdvReac Type Severity Reaction Status Date / Time cortisone [CORTISONE] Allergy Intermediate RASH Verified 09/09/20 09:21 adhesive tape [ADHESIVE TAPE] AdvReac Unknown UNKNOWN Verified 09/09/20 09:21 Latex Allergy Unknown redness Uncoded 08/31/20 12:37 Harris Allergy Unknown Unknown Uncoded 08/31/20 12:37 Active Medications: Current Medications Acetaminophen (Acetaminophen 325 Mg Tablet) 650 mg PO Q6H PRN PRN Reason: Pain, Mild (Pain Scale 1-3) Last Admin: 07/27/21 09:32 Dose: 650 mg Documented by: Acetaminophen (Acetaminophen 325 Mg Tablet) 650 mg PO ONCE PRN PRN Reason: Pain, Mild (Pain Scale 1-3) Atenolol (Atenolol 50 Mg Tablet) 50 mg PO DAILY [facility]; Protocol Last Admin: 07/27/21 09:32 Dose: 50 mg Documented by: Docusate Sodium (Docusate Sodium 100 Mg Capsule) 100 mg PO DAILY PRN PRN Reason: Constipation Doxepin HCl (Doxepin Hcl 25 Mg Capsule) 25 mg PO BEDTIME [facility] Last Admin: 07/26/21 21:13 Dose: 25 mg Documented by: Fluoxetine HCl (Fluoxetine Hcl 20 Mg Capsule) 20 mg PO DAILY [facility] Last Admin: 07/27/21 09:32 Dose: 20 mg Documented by: Guaifenesin (Guaifenesin 100 Mg/5 Ml Liquid) 5 ml PO Q4H PRN PRN Reason: Cough Last Admin: 07/25/21 08:31 Dose: 5 ml Documented by: Heparin Sodium (Porcine) (Heparin Sodium,Porcine 5,000 Unit/Ml Vial) 5,000 unit SUBCUT Q12H [facility] Last Admin: 07/27/21 05:53 Dose: Not Given Documented by: Levofloxacin (Levaquin) 750 mg in 150 mls @ 100 mls/hr IV Q24H [facility] Last Infusion: 07/26/21 22:49 Dose: Infused Documented by: Metronidazole (Flagyl) 500 mg in 100 mls @ 100 mls/hr IV Q8H [facility] Last Infusion: 07/27/21 04:07 Dose: Infused Documented by: Lactated Ringer's (Lr) 1,000 mls @ 50 mls/hr IVCONT .Q20H [facility] Last Admin: 07/26/21 13:00 Dose: 50 mls/hr Documented by: Lactated Ringer's (Lr) 1,000 mls @ 125 mls/hr IVCONT .Q8H [facility] Last Admin: 07/27/21 02:40 Dose: 125 mls/hr Documented by: Loratadine (Loratadine 10 Mg Tablet) 10 mg PO DAILY [facility] Last Admin: 07/27/21 09:32 Dose: 10 mg Documented by: Morphine Sulfate (Morphine Sulfate 4 Mg/Ml Cartridge) 4 mg IVPUSH Q3H PRN; Protocol PRN Reason: Pain, Mild (Pain Scale 1-3) Omeprazole (Omeprazole 40 Mg Capsule.Dr) 40 mg PO DAILY [facility] Last Admin: 07/27/21 09:32 Dose: 40 mg Documented by: Ondansetron HCl (Ondansetron Hcl 4 Mg/2 Ml Vial) 4 mg IVPUSH Q8H PRN PRN Reason: Nausea and Vomiting Last Admin: 07/26/21 03:05 Dose: 4 mg Documented by: Ondansetron HCl (Ondansetron Hcl 4 Mg/2 Ml Vial) 4 mg IVPUSH ONCE PRN PRN Reason: Nausea and Vomiting Pharmacy Consult (Consult Rx Perform Med Rec) 1 each MISCELLANE ONCE PRN PRN Reason: Consult order Potassium Chloride (Potassium Chloride Er 10 Meq Capsule.Er) 10 meq PO DAILY [facility] Last Admin: 07/27/21 09:36 Dose: 10 meq Documented by: Sodium Chloride (0.9 % Sodium Chloride Flush 3 Ml Syringe) 3 ml IVFLUSH QSHIFT [facility] Last Admin: 07/27/21 09:31 Dose: 3 ml Documented by: Home Medications Medication Instructions Recorded Confirmed Last Taken Type atenolol 50 mg tablet 1 tab PO DAILY 07/21/21 07/22/21 07/20/21 History cetirizine 10 mg tablet 1 tab PO DAILY 07/21/21 07/22/21 07/20/21 History chlorthalidone 25 mg tablet 1 tab PO QAM 07/21/21 07/22/21 07/20/21 History doxepin 25 mg capsule 1 cap PO BEDTIME 07/21/21 07/22/21 07/20/21 History fluoxetine 20 mg capsule 1 cap PO QAM 07/21/21 07/22/21 07/20/21 History gabapentin 300 mg capsule 1 cap PO TID 07/21/21 07/22/21 07/20/21 History omeprazole 40 mg capsule,delayed 1 cap PO DAILY 07/21/21 07/22/21 07/20/21 History release potassium chloride 10 mEq 1 tab PO DAILY 07/21/21 07/22/21 07/20/21 History tablet,extended release(part/cryst) aspirin 81 mg chewable tablet 81 mg PO DAILY 07/22/21 07/22/21 07/20/21 History naproxen 500 mg tablet 1 tab PO BID 07/22/21 07/22/21 07/20/21 History ondansetron HCl 4 mg tablet 1 tab PO Q6H PRN 07/22/21 07/22/21 07/20/21 History Exam Exam Date and Time: July 27, 2021 0946 Height,Weight and Vital Signs: Height 5 ft 11 in Weight 138.346 kg Last Vital Signs Temp 97.7 F 07/27/21 08:00 Pulse 53 07/27/21 08:00 Resp 18 07/27/21 08:00 BP 117/64 07/27/21 08:00 Pulse Ox 97 07/27/21 08:00 Pertinent Lab Results Pertinent Lab Results: Laboratory Tests 07/21/21 07/21/21 07/21/21 17:20 17:20 17:20 WBC 34.5 H* RBC 3.53 L Hgb 9.7 L Hct 29.6 L MCV 83.9 MCH 27.5 MCHC 32.8 RDW 17.8 H Plt Count 567 H MPV 9.5 Immature Gran % (Auto) Cancelled Neut % (Auto) Cancelled Lymph % (Auto) Cancelled [place] % (Auto) Cancelled Eos % (Auto) Cancelled Baso % (Auto) Cancelled Lymph # (Auto) Cancelled [place] # (Auto) Cancelled Eos # (Auto) Cancelled Baso # (Auto) Cancelled Abs Immat Gran (auto) Cancelled Absolute Neuts (auto) Cancelled Absolute Nucleated RBC 0.020 H Nucleated RBC % (auto) 0.1 Neutrophils % (Manual) 62 Band Neutrophils % 23 H Lymphocytes % (Manual) 9 L Monocytes % (Manual) 6 Abs Neuts (Manual) 29.3 H Lymphocytes # (Manual) 3.1 Monocytes # (Manual) 2.1 H Platelet Estimate INCREASED Large Platelets PRESENT Plt Morphology Comment NOTED RBC Morphology NOTED Microcytosis 1+ (5-14) Macrocytosis 1+ (5-14) Smear Tech's Comments Sodium 134 L Potassium 3.4 Chloride 99 Carbon Dioxide 25 Anion Gap 13 BUN 19 H Creatinine 1.21 Estim Creat Clear Calc 73.4 Estimated GFR 45 Random Glucose 122 H Lactic Acid Calcium 8.7 Magnesium 1.7 Iron TIBC % Saturation Unsat Iron Binding Ferritin Total Bilirubin 3.6 H Direct Bilirubin AST 87 H ALT 46 H Alkaline Phosphatase 429 H Troponin I High Sens 4.4 Total Protein 8.1 H Albumin 2.9 L Lipase 57 Vitamin B12 Folate Urine Color Urine Appearance Urine pH Ur Specific [place] Urine Protein Urine Glucose (UA) Urine Ketones Urine Blood Urine Nitrite Ur Leukocyte Esterase COVID-19 (LUCILA) COVID-19 Clin Com 0107/21/21 07/21/21 17:20 18:35 21:05 WBC RBC Hgb Hct MCV MCH MCHC RDW Plt Count MPV Immature Gran % (Auto) Neut % (Auto) Lymph % (Auto) [place] % (Auto) Eos % (Auto) Baso % (Auto) Lymph # (Auto) [place] # (Auto) Eos # (Auto) Baso # (Auto) Abs Immat Gran (auto) Absolute Neuts (auto) Absolute Nucleated RBC Nucleated RBC % (auto) Neutrophils % (Manual) Band Neutrophils % Lymphocytes % (Manual) Monocytes % (Manual) Abs Neuts (Manual) Lymphocytes # (Manual) Monocytes # (Manual) Platelet Estimate Large Platelets Plt Morphology Comment RBC Morphology Microcytosis Macrocytosis Smear Tech's Comments Sodium Potassium Chloride Carbon Dioxide Anion Gap BUN Creatinine Estim Creat Clear Calc Estimated GFR Random Glucose Lactic Acid 1.9 Calcium Magnesium Iron TIBC % Saturation Unsat Iron Binding Ferritin Total Bilirubin Direct Bilirubin AST ALT Alkaline Phosphatase Troponin I High Sens Total Protein Albumin Lipase Vitamin B12 Folate Urine Color YELLOW Urine Appearance CLEAR Urine pH 6.0 Ur Specific [place] 1.010 Urine Protein TRACE Urine Glucose (UA) NEG Urine Ketones NEG Urine Blood NEG Urine Nitrite NEG Ur Leukocyte Esterase NEG COVID-19 (LUCILA) Negative COVID-19 Clin Com See Note 07/22/21 07/22/21 07/23/21 07:13 07:13 07:23 WBC 23.7 H 12.2 H RBC 3.39 L 3.22 L Hgb 9.4 L 8.7 L Hct 28.5 L 26.8 L MCV 84.1 83.2 MCH 27.7 27.0 MCHC 33.0 32.5 RDW 17.9 H 18.1 H Plt Count 519 H 452 H MPV 9.4 9.4 Immature Gran % (Auto) 1.1 H 1.0 H Neut % (Auto) 86.3 H 78.0 H Lymph % (Auto) 6.2 L 14.3 L [place] % (Auto) 6.1 5.5 Eos % (Auto) 0.1 1.0 Baso % (Auto) 0.2 0.2 Lymph # (Auto) 1.5 1.7 [place] # (Auto) 1.5 H 0.7 Eos # (Auto) 0.0 0.1 Baso # (Auto) 0.0 0.0 Abs Immat Gran (auto) 0.26 H 0.12 H Absolute Neuts (auto) 20.5 H 9.5 H Absolute Nucleated RBC 0.000 0.000 Nucleated RBC % (auto) 0.0 0.0 Neutrophils % (Manual) Band Neutrophils % Lymphocytes % (Manual) Monocytes % (Manual) Abs Neuts (Manual) Lymphocytes # (Manual) Monocytes # (Manual) Platelet Estimate Large Platelets Plt Morphology Comment RBC Morphology Microcytosis Macrocytosis Smear Tech's Comments VERIFIED Sodium 137 Potassium 3.2 L Chloride 103 Carbon Dioxide 26 Anion Gap 11 L BUN 15 Creatinine 0.92 Estim Creat Clear Calc 96.6 Estimated GFR > 60 Random Glucose 122 H Lactic Acid Calcium 8.4 Magnesium Iron TIBC % Saturation Unsat Iron Binding Ferritin Total Bilirubin Direct Bilirubin AST ALT Alkaline Phosphatase Troponin I High Sens Total Protein Albumin Lipase Vitamin B12 Folate Urine Color Urine Appearance Urine pH Ur Specific [place] Urine Protein Urine Glucose (UA) Urine Ketones Urine Blood Urine Nitrite Ur Leukocyte Esterase COVID-19 (LUCILA) COVID-19 Clin Com 07/23/21 07/23/21 07/24/21 07:23 07:23 05:50 WBC 6.6 RBC 3.31 L Hgb 8.8 L Hct 27.6 L MCV 83.4 MCH 26.6 L MCHC 31.9 RDW 18.5 H Plt Count 484 H MPV 10.0 Immature Gran % (Auto) Neut % (Auto) Lymph % (Auto) [place] % (Auto) Eos % (Auto) Baso % (Auto) Lymph # (Auto) [place] # (Auto) Eos # (Auto) Baso # (Auto) Abs Immat Gran (auto) Absolute Neuts (auto) Absolute Nucleated RBC 0.000 Nucleated RBC % (auto) 0.0 Neutrophils % (Manual) Band Neutrophils % Lymphocytes % (Manual) Monocytes % (Manual) Abs Neuts (Manual) Lymphocytes # (Manual) Monocytes # (Manual) Platelet Estimate Large Platelets Plt Morphology Comment RBC Morphology Microcytosis Macrocytosis Smear Tech's Comments Sodium 136 Potassium 2.7 L Chloride 105 Carbon Dioxide 26 Anion Gap 8 L BUN 13 Creatinine 0.81 Estim Creat Clear Calc 109.7 Estimated GFR > 60 Random Glucose 73 Lactic Acid Calcium 8.1 L Magnesium 2.0 Iron TIBC % Saturation Unsat Iron Binding Ferritin Total Bilirubin 2.6 H Direct Bilirubin 2.1 H AST 35 H D ALT 23 Alkaline Phosphatase 281 H D Troponin I High Sens Total Protein 6.4 L D Albumin 2.2 L D Lipase Vitamin B12 Folate Urine Color Urine Appearance Urine pH Ur Specific [place] Urine Protein Urine Glucose (UA) Urine Ketones Urine Blood Urine Nitrite Ur Leukocyte Esterase COVID-19 (LUCILA) COVID-19 [employer] 07/24/21 07/24/21 07/25/21 05:50 05:50 05:11 WBC RBC Hgb 9.2 L Hct 29.2 L MCV MCH MCHC RDW Plt Count MPV Immature Gran % (Auto) Neut % (Auto) Lymph % (Auto) [place] % (Auto) Eos % (Auto) Baso % (Auto) Lymph # (Auto) [place] # (Auto) Eos # (Auto) Baso # (Auto) Abs Immat Gran (auto) Absolute Neuts (auto) Absolute Nucleated RBC Nucleated RBC % (auto) Neutrophils % (Manual) Band Neutrophils % Lymphocytes % (Manual) Monocytes % (Manual) Abs Neuts (Manual) Lymphocytes # (Manual) Monocytes # (Manual) Platelet Estimate Large Platelets Plt Morphology Comment RBC Morphology Microcytosis Macrocytosis Smear Tech's Comments Sodium 140 Potassium 3.7 D Chloride 109 H Carbon Dioxide 23 Anion Gap 12 BUN 11 Creatinine 0.83 Estim Creat Clear Calc 107.1 Estimated GFR > 60 Random Glucose 73 Lactic Acid Calcium 8.3 L Magnesium Iron 85 TIBC 197 L % Saturation 43 Unsat Iron Binding 112 Ferritin 596 H Total Bilirubin 1.8 H Direct Bilirubin 1.5 H AST 30 ALT 21 Alkaline Phosphatase 243 H Troponin I High Sens Total Protein 6.5 Albumin 2.2 L Lipase Vitamin B12 830 Folate 4.4 Urine Color Urine Appearance Urine pH Ur Specific [place] Urine Protein Urine Glucose (UA) Urine Ketones Urine Blood Urine Nitrite Ur Leukocyte Esterase COVID-19 (LUCILA) COVID-19 [employer] 07/25/21 07/26/21 07/27/21 05:11 05:35 05:32 WBC RBC Hgb Hct MCV MCH MCHC RDW Plt Count MPV Immature Gran % (Auto) Neut % (Auto) Lymph % (Auto) [place] % (Auto) Eos % (Auto) Baso % (Auto) Lymph # (Auto) [place] # (Auto) Eos # (Auto) Baso # (Auto) Abs Immat Gran (auto) Absolute Neuts (auto) Absolute Nucleated RBC Nucleated RBC % (auto) Neutrophils % (Manual) Band Neutrophils % Lymphocytes % (Manual) Monocytes % (Manual) Abs Neuts (Manual) Lymphocytes # (Manual) Monocytes # (Manual) Platelet Estimate Large Platelets Plt Morphology Comment RBC Morphology Microcytosis Macrocytosis Smear Tech's Comments Sodium 137 136 138 Potassium 3.1 L 3.1 L 3.6 Chloride 106 104 103 Carbon Dioxide 23 23 26 Anion Gap 11 L 12 13 BUN 8 L 7 L 9 Creatinine 0.83 0.89 1.01 Estim Creat Clear Calc 107.1 99.9 88.0 Estimated GFR > 60 > 60 55 Random Glucose 88 76 71 Lactic Acid Calcium 8.4 8.5 8.3 L Magnesium 1.5 L Iron TIBC % Saturation Unsat Iron Binding Ferritin Total Bilirubin 1.8 H 1.6 H Direct Bilirubin 1.4 H 1.3 H AST 27 57 H ALT 16 17 Alkaline Phosphatase 229 H 224 H Troponin I High Sens Total Protein 6.6 6.8 Albumin 2.3 L 2.4 L Lipase 118 H Vitamin B12 Folate Urine Color Urine Appearance Urine pH Ur Specific [place] Urine Protein Urine Glucose (UA) Urine Ketones Urine Blood Urine Nitrite Ur Leukocyte Esterase COVID-19 ([facility]UCILA) COVID-19 Clin Com Assessment and Plan Final Anesthetic Review Family History of Problems with Anesthesia: No History of Problems with Anesthesia: No
[2021-07-27] MEDS: Lactated Ringers 1,000 ML 100 ML IVCONT (10:34)
--- NOTE | 2021-07-27 13:04 | P.OP_ITS ---
Operative Note Operative Note Date of Service: 07/27/21 Narrative: Preoperative diagnosis: Acute cholecystitis, cholelithiasis, micro perforation sigmoid colon Postoperative diagnosis: Acute cholecystitis, cholelithiasis, negative exploratory laparoscopy Procedure: Laparoscopic cholecystectomy, exploratory laparoscopy Surgeon: Edil Feliciano MD Hall Tender: SKIP Pack Anesthesia: General endotracheal Indications for procedure: 61-year-old female patient presenting with diffuse abdominal pain and a markedly elevated WBC found to have evidence of acute cholecystitis, choledocholithiasis, common bile duct obstruction, with air tracking around the sigmoid colon suggestive of a micro perforation. Patient was initially treated with antibiotics with improvement of her WBC. MRCP did indicate several small stones within the common bile duct. ERCP however reve aled no obstructing stone with obstruction of the cystic duct and no filling of the gallbladder suggestive of acute cholecystitis. Patient presents today for laparoscopic cholecystectomy and exploratory laparoscopy to evaluate the sigmoid colon. Operative findings: Acutely inflamed gallbladder with several large gallstones within the gallbladder. The cystic duct was noted to be quite large. The wall the gallbladder was edematous. Evaluation of the left lower quadrant revealed a small amount of clear fluid no evidence of perforation in the sigmoid colon. Specimen: gallbladder Estimated blood loss: 5 mL Complications: None Procedure details: Patient was brought to the OR and placed in a supine position. After administering general anesthesia the patient's abdomen was prepped with ChloraPrep and draped in a sterile fashion. Local anesthesia consisting of 0.5% Sensorcaine without epinephrine was infiltrated in a periumbilical region. A 5 mm incision was made above the umbilicus in a transverse fashion. The Veress needle was then inserted while elevating abdominal cavity with towel clips. After positive drop test the abdomen was insufflated to a pressure of 15 mm of mercury. The Veress needle was then removed and a 5 mm trocar inserted. The camera was inserted in the abdomen explored. A 12 mm trocar was then placed in the epigastrium and two 5 mm trocars placed in the right upper quadrant. The patient was placed in reverse Trendelenburg positioning and rotated to the left. The gallbladder was grasped with the fundus and retracted cephalad. A large gallstone was noted at the fundus of the gallbladder as well as in the infundibulum. The infundibulum was then grasped and retracted away from the liver bed. The Dolphin dissected was then used to dissect the peritoneum off the infundibulum to reveal the junction with the cystic duct. Cystic artery was noted slightly medial and posterior to the cystic duct. After obtaining a critical view, the cystic artery was doubly clipped divided. A 2nd lateral cystic artery was also identified, doubly clipped and divided. The cystic duct was noted to be quite large, larger than a large clip would accommodate. As a result an Endo-ISIAH stapler was used to divide the cystic duct using the vascular staple. The gallbladder was then dissected off the liver bed using electrocautery with an L hook. Hemostasis was assured all times using the electrocautery. When the gallbladder is completely dissected off the liver bed was placed in an Endo-Catch bag and brought out through the epigastric incision. The gallbladder was sent to pathology for further examination. The abdomen was then re-examined and the pelvis examined. The patient was placed in a Trendelenburg position and the small bowel retracted out of the pelvis. Sigmoid colon was identified and a small amount of fluid evacuated. The sigmoid colon was evaluated determined to have no evidence of diverticulitis. The pelvis was irrigated with saline solution and suctioned. The returning fluid clear without evidence of fecal soilage. Liver bed was irrigated and suctioned dry. No bleeding or bile leak could be identified. CO2 was then evacuated and all trocars removed. Fascia was closed at the epigastric incision using a [id number] Polysorb suture. Skin was closed in all incisions using a subcuticular 4 0 Polysorb suture. Sterile dressings consisting of Steri-Strips, 2 x 2 gauze, and Tegaderm were then applied. The patient tolerated the procedure well. Sponge instrument and needle counts reported as correct. The patient was transferred to PACU in stable condition.
[2021-07-27] MEDS: ondansetron HCL 4 MG/2 ML VIAL IVPUSH (13:32)
--- NOTE | 2021-07-27 14:57 | HO.POSTANES ---
Post Anesthesia Evaluation Post Anesthesia Evaluation Vital Signs: Vital Signs Temp Pulse Resp BP Pulse Ox 07/27/21 14:23 97 F 54 14 94/59 L 97 07/27/21 14:09 54 12 93/57 L 98 07/27/21 13:55 54 12 97/61 95 07/27/21 13:45 58 18 103/66 96 07/27/21 13:35 71 20 158/85 H 97 07/27/21 13:30 80 20 157/92 H 97 07/27/21 13:22 80 19 157/90 H 97 07/27/21 13:17 58 18 125/74 97 07/27/21 13:12 57 19 117/75 97 07/27/21 13:07 97.5 F 68 16 116/59 L 100 07/27/21 10:27 97.7 F 56 18 109/54 L 98 07/27/21 08:00 97.7 F 53 18 117/64 97 07/27/21 03:34 97.6 F 86 18 115/62 98 Anesthesia: General Endotracheal-GETA Mental Status: Awake Pain Control: Satisfactory Nausea/Vomiting: None Hydration: Adequate Anesthesia-Related Issues: No Anes. Related Issues
--- NOTE | 2021-07-27 15:09 | HO.PM.IMPN ---
Subjective Subjective Date of Service: 07/27/21 Interval History: Perforated diverticulitis, CBD stone, Review of Systems Abdominal pain somewhat better but still has lower abdominal pain. Still require on and off morphine. Denies any nausea or vomiting no fever or chills overnight Physical Exam Vital Signs: Vital Signs: Last Vital Signs Temp 97.4 F 07/27/21 14:53 Pulse 58 07/27/21 14:53 Resp 19 07/27/21 14:53 BP 94/60 07/27/21 14:53 Pulse Ox 96 07/27/21 14:53 BMI result Body Mass Index 42.5 Appearance: Alert.? Oriented X3.? not in distress.? cvs: rrr, [id number] , no murmur res: clear to auscultation ,no rhonchii or wheezing abd: no rebound or guarding ,llq seems , bs present. ext pulses present , no cyanosis . neuro: axo3 , nonfocal. Objective Data Active Medications Acetaminophen (Acetaminophen 325 Mg Tablet) 650 mg PO Q6H PRN PRN Reason: Pain, Mild (Pain Scale 1-3) Last Admin: 07/27/21 09:32 Dose: 650 mg Documented by: LEONEL Acetaminophen (Acetaminophen 325 Mg Tablet) 650 mg PO ONCE PRN PRN Reason: Pain, Mild (Pain Scale 1-3) Atenolol (Atenolol 50 Mg Tablet) 50 mg PO DAILY [facility]; Protocol Last Admin: 07/27/21 09:32 Dose: 50 mg Documented by: LEONEL Docusate Sodium (Docusate Sodium 100 Mg Capsule) 100 mg PO DAILY PRN PRN Reason: Constipation Doxepin HCl (Doxepin Hcl 25 Mg Capsule) 25 mg PO BEDTIME [facility] Last Admin: 07/26/21 21:13 Dose: 25 mg Documented by: ODRISIsidoro Fentanyl (Fentanyl Citrate/Pf 100 Mcg/2 Ml Vial) 25 mcg IVPUSH Q5M PRN; Protocol PRN Reason: Pain, Moderate (Pain Scale 4-6 Fluoxetine HCl (Fluoxetine Hcl 20 Mg Capsule) 20 mg PO DAILY [facility] Last Admin: 07/27/21 09:32 Dose: 20 mg Documented by: LEONEL Guaifenesin (Guaifenesin 100 Mg/5 Ml Liquid) 5 ml PO Q4H PRN PRN Reason: Cough Last Admin: 07/25/21 08:31 Dose: 5 ml Documented by: COTEMA Heparin Sodium (Porcine) (Heparin Sodium,Porcine 5,000 Unit/Ml Vial) 5,000 unit SUBCUT Q12H [facility] Last Admin: 07/27/21 05:53 Dose: Not Given Documented by: LAUREN Non-Admin Reason: pre op Hydromorphone HCl (Hydromorphone Hcl 0.5 Mg/0.5 Ml Syringe) 0.25 mg IVPUSH Q5M PRN; Protocol PRN Reason: Pain, Severe (Pain Scale 7-10) Levofloxacin (Levaquin) 750 mg in 150 mls @ 100 mls/hr IV Q24H [facility] Last Infusion: 07/26/21 22:49 Dose: 0 mls/hr Documented by: LAUREN Metronidazole (Flagyl) 500 mg in 100 mls @ 100 mls/hr IV Q8H [facility] Last Infusion: 07/27/21 04:07 Dose: 0 mls/hr Documented by: LAUREN Lactated Ringer's (Lr) 1,000 mls @ 100 mls/hr IVCONT .Q10H [facility] Last Admin: 07/27/21 10:34 Dose: 100 mls/hr Documented by: MANNY Promethazine HCl 6.25 mg/ (Sodium Chloride) 50.25 mls @ 201 mls/hr IV ONCE PRN PRN Reason: Nausea and Vomiting Loratadine (Loratadine 10 Mg Tablet) 10 mg PO DAILY [facility] Last Admin: 07/27/21 09:32 Dose: 10 mg Documented by: LEONEL Morphine Sulfate (Morphine Sulfate 4 Mg/Ml Cartridge) 4 mg IVPUSH Q3H PRN; Protocol PRN Reason: Pain, Mild (Pain Scale 1-3) Omeprazole (Omeprazole 40 Mg Capsule.Dr) 40 mg PO DAILY [facility] Last Admin: 07/27/21 09:32 Dose: 40 mg Documented by: LEONEL Ondansetron HCl (Ondansetron Hcl 4 Mg/2 Ml Vial) 4 mg IVPUSH Q8H PRN PRN Reason: Nausea and Vomiting Last Admin: 07/26/21 03:05 Dose: 4 mg Documented by: LAUREN Ondansetron HCl (Ondansetron Hcl 4 Mg/2 Ml Vial) 4 mg IVPUSH ONCE PRN PRN Reason: Nausea and Vomiting Pharmacy Consult (Consult Rx Perform Med Rec) 1 each MISCELLANE ONCE PRN PRN Reason: Consult order Potassium Chloride (Potassium Chloride Er 10 Meq Capsule.Er) 10 meq PO DAILY [facility] Last Admin: 07/27/21 09:36 Dose: 10 meq Documented by: LEONEL Sodium Chloride (0.9 % Sodium Chloride Flush 3 Ml Syringe) 3 ml IVFLUSH QSHIFT [facility] Last Admin: 07/27/21 09:31 Dose: 3 ml Documented by: LEONEL Labs CBC & Chem 7: 07/25/21 05:11 07/27/21 05:32 Labs: Laboratory Results - last 24 hr 07/27/21 05:32 Anion Gap 13 Estim Creat Clear Calc 88.0 Estimated GFR 55 Random Glucose 71 Calcium 8.3 L Total Bilirubin 1.6 H Direct Bilirubin 1.3 H AST 57 H ALT 17 Alkaline Phosphatase 224 H Total Protein 6.8 Albumin 2.4 L Lipase 118 H Microbiology Microbiology Results: Microbiology 07/21/21 18:35 Blood Culture - Final Blood - Venous No growth after 5 days. 07/21/21 18:45 Blood Culture - Final Blood - Venous No growth after 5 days. Assessment and Plan (1) Sepsis: Status: Acute (2) Abnormal LFTs: Status: Acute (3) Dilated cbd, acquired: Status: Acute Assessment and Plan: 61-year-old female with past medical history of hypertension as well as depression who presents to the hospital with complaints of fatigue as well as seizure-like activity and loss of consciousness found to have acute diverticulitis 1. sepsis (POA)sec acute diverticulitis with micro perforation, possible cholangitis has leucocytossis , tachycardia-seems improved ? For leukocytosis improved ,no fever. mri abd:Dilated biliary tree with findings strongly suspicious for tiny choledocholithiasis within the distal most aspect of the CBD. ?abdominal ultrasound:The thickness of the gallbladder wall also appears to be variable.? Appearance could also be related to chronic cholecystitis. ?blood cultures neg npo ,broad-spectrum IV antibiotic-levaquin/flagyl day6 ct abd with po contrast on 07/26 days back - diverticulitis with microperforation area seems stable similar to yesterday, an CBD dilation is slightly better on the CT. liver panel in am Patient is and p.o. and going to surgery today for cholecystectomy , Says he also will look at diverticulitis site laparoscopically. 2.? cholelithiasis with dilated CBD see above- seen by GI recommended : Patient had ERCP:1.dilated CBD 2. dilated and irregular, tortuous PD may be due to chronic pancreatitis, can also cause 1/ above? 3. probable chronic cholecystitis, no filling of dye into the GB. plan :Gi biopsies are done , follow-up outpatient with GI. 3. seizure-like activity-Patient was postictal due to seizure -no? toxic metabolic? encephalopathy. -? reports arm shaking witnessed by her friend and loss of consciousness -? patient was postictal on arrival to the ED ?consult neurology-ct head neg eeg -normal neuro-eval noted -possible sz vs tremors /rigors sec to sepsis neuro follow up. 4.? hypertension -? stable BP hold? home meds . hold asa , nsaids -may need endoscopy . 5. leukocytosis: resolved -? most likely in the setting of above -? IV antibiotics and IV fluid -? follow culture -blood cultures neg@48hrs 6.? ALFREDO -? most likely multifactorial secondary to dehydration as well as acute infection on? IV fluid, improving -? follow BMP ? Hypokalemia and hypomagnesemia: Repleted, resolved . Quality Stroke Does the patient have a stroke diagnosis?: No VTE Prior VTE?: No VTE Risk Level:: Medical - moderate - high VTE Device Contraindication: Treatment Not Indicated VTE Drug Contraindication: N/A - Med Ordered
[2021-07-27] MEDS: Morphine Sulfate 4 MG/ML CARTRIDGE IVPUSH ×2 (17:37→20:45)
[2021-07-27] MEDS: Heparin Sodium,Porcine 5,000 UNIT/ML VIAL 5000 UNIT SUBCUT (17:38)
[2021-07-27] MEDS: Doxepin HCl 25 MG CAPSULE PO (20:45)
[2021-07-27] MEDS: levoFLOXacin/D5W 750 MG/150 ML PIGGYBACK 100 MG IV (22:58)
[2021-07-28] VITALS (8 sets, daily range): BP systolic 90–110; BP diastolic 47–61; PULSE 52–66; RESP 16–18; TEMP 35.7–37; O2SAT 94–98
[2021-07-28] MEDS: Morphine Sulfate 4 MG/ML CARTRIDGE IVPUSH ×3 (00:36→11:16)
[2021-07-28] MEDS: metroNIDAZOLE/NS 500 MG/100 ML PIGGYBACK 100 MG IV ×3 (03:59→19:07)
[2021-07-28 05:00] LABS: Hematocrit 28.5 % (37.0-47.0); Mean Corpuscular HGB Conc 31.6 g/dl (31.0-35.0); Mean Corpuscular Hemoglobin 26.5 pg (27.0-33.0); Mean Corpuscular Volume 84.1 fL (80.0-98.0); Mean Platelet Volume 10.1 fL (9.4-12.3); NRBC Pct Auto 0.2 /100WBC (0.0-0.2); Platelet Count 383 X10*3/uL (160-400); Red Blood Count 3.39 X10*6/uL (4.20-5.50); Red Cell Distribution Width 18.8 % (11.0-16.0); White Blood Count 9.6 X10*3/uL (4.8-10.8)
[2021-07-28] MEDS: Heparin Sodium,Porcine 5,000 UNIT/ML VIAL 5000 UNIT SUBCUT ×2 (05:12→17:40)
[2021-07-28 05:25] LABS: Alanine Aminotransferase 17 U/L (0-31); Albumin Level 2.5 g/dL (3.5-5.0); Alkaline Phosphatase 204 U/L (39-117); Anion Gap 10 (12-20); Aspartate Amino Transferase 56 U/L (5-31); Bilirubin Direct 1.2 mg/dL (0.0-0.5); Bilirubin Total 1.4 mg/dL (0.0-1.0); Blood Urea Nitrogen 14 mg/dL (9-16); Calcium 8.2 mg/dL (8.4-10.2); Carbon Dioxide 28 mmol/L (22-29); Chloride 103 mmol/L (96-108); Creatinine Clr Calc Pharmacy 84.7; Estimated Glomerular Filt Rate 53; Glucose Random 106 mg/dL (60-115); Potassium 3.5 mmol/L (3.3-5.1); Sodium 137 mmol/L (135-145); Total Protein 6.9 g/dL (6.5-8.0)
--- NOTE | 2021-07-28 07:34 | P.PNIM_ITS ---
Subjective Subjective Date of Service: 07/28/21 Interval History: diverticulitis , cbd dilation Review of Systems abd pain seems to be improving, still has signifcant pain feels nauseated Physical Exam Vital Signs: Vital Signs: Last Vital Signs Temp 98.0 F 07/28/21 04:27 Pulse 65 07/28/21 04:27 Resp 16 07/28/21 04:27 BP 110/61 07/28/21 04:27 Pulse Ox 98 07/28/21 04:27 BMI result Body Mass Index 42.5 Appearance: Alert.? Oriented X3.? not in distress.? cvs: rrr, [id number] , no murmur res: clear to auscultation ,no rhonchii or wheezing abd: no rebound or guarding ,llq seems , bs present. ext pulses present , no cyanosis . neuro: axo3 , nonfocal. Objective Data Active Medications Acetaminophen (Acetaminophen 325 Mg Tablet) 650 mg PO Q6H PRN PRN Reason: Pain, Mild (Pain Scale 1-3) Last Admin: 07/27/21 09:32 Dose: 650 mg Documented by: LEONEL Atenolol (Atenolol 50 Mg Tablet) 50 mg PO DAILY [facility]; Protocol Last Admin: 07/27/21 09:32 Dose: 50 mg Documented by: LEONEL Docusate Sodium (Docusate Sodium 100 Mg Capsule) 100 mg PO DAILY PRN PRN Reason: Constipation Doxepin HCl (Doxepin Hcl 25 Mg Capsule) 25 mg PO BEDTIME [facility] Last Admin: 07/27/21 20:45 Dose: 25 mg Documented by: JOANN Fluoxetine HCl (Fluoxetine Hcl 20 Mg Capsule) 20 mg PO DAILY [facility] Last Admin: 07/27/21 09:32 Dose: 20 mg Documented by: LEONEL Guaifenesin (Guaifenesin 100 Mg/5 Ml Liquid) 5 ml PO Q4H PRN PRN Reason: Cough Last Admin: 07/25/21 08:31 Dose: 5 ml Documented by: MELISSA Heparin Sodium (Porcine) (Heparin Sodium,Porcine 5,000 Unit/Ml Vial) 5,000 unit SUBCUT Q12H [facility] Last Admin: 07/28/21 05:12 Dose: 5,000 unit Documented by: BHAVESH Levofloxacin (Levaquin) 750 mg in 150 mls @ 100 mls/hr IV Q24H [facility] Last Infusion: 07/28/21 01:06 Dose: 100 mls/hr Documented by: BHAVESH Metronidazole (Flagyl) 500 mg in 100 mls @ 100 mls/hr IV Q8H [facility] Last Infusion: 07/28/21 06:16 Dose: 100 mls/hr Documented by: BHAVESH Promethazine HCl 6.25 mg/ (Sodium Chloride) 50.25 mls @ 201 mls/hr IV ONCE PRN PRN Reason: Nausea and Vomiting Loratadine (Loratadine 10 Mg Tablet) 10 mg PO DAILY [facility] Last Admin: 07/27/21 09:32 Dose: 10 mg Documented by: LEONEL Morphine Sulfate (Morphine Sulfate 4 Mg/Ml Cartridge) 4 mg IVPUSH Q3H PRN; Protocol PRN Reason: Pain, Mild (Pain Scale 1-3) Last Admin: 07/28/21 05:12 Dose: 4 mg Documented by: BHAVESH Omeprazole (Omeprazole 40 Mg Capsule.Dr) 40 mg PO DAILY [facility] Last Admin: 07/27/21 09:32 Dose: 40 mg Documented by: LEONEL Ondansetron HCl (Ondansetron Hcl 4 Mg/2 Ml Vial) 4 mg IVPUSH Q8H PRN PRN Reason: Nausea and Vomiting Last Admin: 07/26/21 03:05 Dose: 4 mg Documented by: LAUREN Pharmacy Consult (Consult Rx Perform Med Rec) 1 each MISCELLANE ONCE PRN PRN Reason: Consult order Potassium Chloride (Potassium Chloride Er 10 Meq Capsule.Er) 10 meq PO DAILY [facility] Last Admin: 07/27/21 09:36 Dose: 10 meq Documented by: LEONEL Sodium Chloride (0.9 % Sodium Chloride Flush 3 Ml Syringe) 3 ml IVFLUSH QSHIFT [facility] Last Admin: 07/28/21 00:29 Dose: Not Given Documented by: BHAVESH Non-Admin Reason: IV Running Labs CBC & Chem 7: 07/28/21 04:18 07/28/21 04:18 Labs: Laboratory Results - last 24 hr 07/21/21 07/22/21 07/23/21 17:20 07:13 07:23 MCV MCH MCHC RDW Plt Count MPV Absolute Nucleated RBC Nucleated RBC % (auto) Anion Gap Creatinine 1.21 0.92 0.81 Estim Creat Clear Calc Estimated GFR Random Glucose Calcium Total Bilirubin Direct Bilirubin AST ALT Alkaline Phosphatase Total Protein Albumin Lipase 07/24/21 07/25/21 07/26/21 05:50 05:11 05:35 MCV MCH MCHC RDW Plt Count MPV Absolute Nucleated RBC Nucleated RBC % (auto) Anion Gap Creatinine 0.83 0.83 0.89 Estim Creat Clear Calc Estimated GFR Random Glucose Calcium Total Bilirubin Direct Bilirubin AST ALT Alkaline Phosphatase Total Protein Albumin Lipase 07/27/21 07/28/21 07/28/21 05:32 04:18 04:18 MCV 84.1 MCH 26.5 L MCHC 31.6 RDW 18.8 H Plt Count 383 MPV 10.1 Absolute Nucleated RBC 0.020 H Nucleated RBC % (auto) 0.2 Anion Gap 10 L Creatinine 1.01 1.05 Estim Creat Clear Calc 84.7 Estimated GFR 53 Random Glucose 106 Calcium 8.2 L Total Bilirubin 1.6 H 1.4 H Direct Bilirubin 1.3 H 1.2 H AST 57 H 56 H ALT 17 17 Alkaline Phosphatase 224 H 204 H Total Protein 6.8 6.9 Albumin 2.4 L 2.5 L Lipase 118 H Microbiology Microbiology Results: Microbiology 07/21/21 18:35 Blood Culture - Final Blood - Venous No growth after 5 days. Assessment and Plan (1) S/P laparoscopic cholecystectomy: Status: Acute (2) Sepsis: Status: Acute (3) Perforated diverticulum: Status: Acute Assessment and Plan: 61-year-old female with past medical history of hypertension as well as depression who presents to the hospital with complaints of fatigue as well as seizure-like activity and loss of consciousness found to have acute divert iculitis 1. sepsis (POA)sec acute diverticulitis with micro perforation, possible cholangitis has leucocytossis , tachycardia-seems improved ? For leukocytosis improved ,no fever. mri abd:Dilated biliary tree with findings strongly suspicious for tiny choledocholithiasis within the distal most aspect of the CBD. ?abdominal ultrasound:The thickness of the gallbladder wall also appears to be variable.? Appearance could also be related to chronic cholecystitis. ?blood cultures neg npo ,broad-spectrum IV antibiotic-levaquin/flagyl day7 ct abd with po contrast on 07/26 days back - diverticulitis with microperforation area seems stable similar to yesterday, an CBD dilation is slightly better on the CT. ? Patient is and p.o. , s/p lap day1 still has pain, nausea surgery follow up - moniter for today 2.? cholelithiasis with dilated CBD see above- seen by GI recommended : She was CBD dilation secondary to chronic pancreatitis/cholecystitis. ? Patient had? ERCP:1.dilated CBD 2. dilated and irregular, tortuous PD may be due to chronic pancreatitis, can also cause 1/ above? 3. probable chronic cholecystitis, no filling of dye into the GB. Gi follow up in am. 3. seizure-like activity-Patient was postictal due to seizure -no? toxic metabolic? encephalopathy. -? reports arm shaking witnessed by her friend and loss of consciousness -? patient was postictal on arrival to the ED ?consult neurology-ct head neg eeg -normal neuro-eval noted -possible sz vs tremors /rigors sec to sepsis neuro follow up. 4.? hypertension -? stable BP hold? home meds . hold asa , nsaids -may need endoscopy . 5. leukocytosis: resolved -? most likely in the setting of above -? IV antibiotics and IV fluid -? follow culture -blood cultures neg@48hrs 6.? ALFREDO -? most likely multifactorial secondary to dehydration as well as acute infection on? IV fluid, improving -? follow BMP ? Hypokalemia and hypomagnesemia: Repleted, resolved . Quality Stroke Does the patient have a stroke diagnosis?: No VTE Prior VTE?: No VTE Risk Level:: Medical - moderate - high VTE Device Contraindication: Treatment Not Indicated VTE Drug Contraindication: N/A - Med Ordered
[2021-07-28] MEDS: atenoloL 50 MG TABLET PO (07:53)
[2021-07-28] MEDS: Loratadine 10 MG TABLET PO (07:53)
[2021-07-28] MEDS: Omeprazole 40 MG CAPSULE.DR PO (07:53)
[2021-07-28] MEDS: 0.9 % Sodium Chloride Flush 3 ML SYRINGE IVFLUSH ×2 (07:54→17:41)
[2021-07-28] MEDS: FLUoxetine HCl 20 MG CAPSULE PO (07:54)
[2021-07-28] MEDS: Lactated Ringers 1,000 ML 80 ML IVCONT (07:54)
--- NOTE | 2021-07-28 11:40 | MHC.CM.PN ---
EMR REVIEWED, PER HOSPITALIST PT CONT'S TO HAVE PAIN AND IV PAIN MEDS, ANTIC D/C 1-2 DAYS, CM WILL CONT TO FOLLOW D/C NEEDS.
--- NOTE | 2021-07-28 12:02 | P.PNGS_ITS ---
Subjective Subjective Date of Service: 07/28/21 Interval history: Feels ok this morning. All the pain prior to surgery is gone and now is just having incisional pain. Tolerating diet without N/V. OOB to bathroom. Physical Exam Vital Signs: Vital Signs: Last Vital Signs Temp 96.9 F 07/28/21 11:48 Pulse 52 07/28/21 11:48 Resp 17 07/28/21 11:48 BP 98/52 L 07/28/21 11:48 Pulse Ox 95 07/28/21 11:48 BMI result Body Mass Index 42.5 Const: General: comfortable, no acute distress and alert Orientation/consciousness: patient oriented x3 Resp: Effort & Inspection: normal respiratory effort GI: Inspection: No distended and Yes incision (dressings c/d/i) Palpation (GI): Soft to palpation, Tenderness to palpation present (GI) (incisional, cait epigastric incision site), no guarding and not rigid Percussion: Yes normal to percussion Skin: General skin exam: no rashes or lesions noted Neuro: General: patient oriented x3 Objective Data Active Medications Acetaminophen (Acetaminophen 325 Mg Tablet) 650 mg PO Q6H PRN PRN Reason: Pain, Mild (Pain Scale 1-3) Last Admin: 07/27/21 09:32 Dose: 650 mg Documented by: LEONEL Atenolol (Atenolol 50 Mg Tablet) 50 mg PO DAILY [facility]; Protocol Last Admin: 07/28/21 07:53 Dose: 50 mg Documented by: YUVAL Docusate Sodium (Docusate Sodium 100 Mg Capsule) 100 mg PO DAILY PRN PRN Reason: Constipation Doxepin HCl (Doxepin Hcl 25 Mg Capsule) 25 mg PO BEDTIME [facility] Last Admin: 07/27/21 20:45 Dose: 25 mg Documented by: JOANN Fluoxetine HCl (Fluoxetine Hcl 20 Mg Capsule) 20 mg PO DAILY [facility] Last Admin: 07/28/21 07:54 Dose: 20 mg Documented by: YUVAL Guaifenesin (Guaifenesin 100 Mg/5 Ml Liquid) 5 ml PO Q4H PRN PRN Reason: Cough Last Admin: 07/25/21 08:31 Dose: 5 ml Documented by: MELISSA Heparin Sodium (Porcine) (Heparin Sodium,Porcine 5,000 Unit/Ml Vial) 5,000 unit SUBCUT Q12H [facility] Last Admin: 07/28/21 05:12 Dose: 5,000 unit Documented by: BHAVESH Levofloxacin (Levaquin) 750 mg in 150 mls @ 100 mls/hr IV Q24H [facility] Last Infusion: 07/28/21 01:06 Dose: 100 mls/hr Documented by: BHAVESH Metronidazole (Flagyl) 500 mg in 100 mls @ 100 mls/hr IV Q8H [facility] Last Admin: 07/28/21 11:16 Dose: 100 mls/hr Documented by: YUVAL Promethazine HCl 6.25 mg/ (Sodium Chloride) 50.25 mls @ 201 mls/hr IV ONCE PRN PRN Reason: Nausea and Vomiting Lactated Ringer's (Lr) 1,000 mls @ 80 mls/hr IVCONT .[id number] [facility] Last Infusion: 07/28/21 10:05 Dose: 0 mls/hr Documented by: YUVAL Loratadine (Loratadine 10 Mg Tablet) 10 mg PO DAILY [facility] Last Admin: 07/28/21 07:53 Dose: 10 mg Documented by: YUVAL Morphine Sulfate (Morphine Sulfate 4 Mg/Ml Cartridge) 4 mg IVPUSH Q3H PRN; Protocol PRN Reason: Pain, Mild (Pain Scale 1-3) Last Admin: 07/28/21 11:16 Dose: 4 mg Documented by: YUVAL Omeprazole (Omeprazole 40 Mg Capsule.Dr) 40 mg PO DAILY [facility] Last Admin: 07/28/21 07:53 Dose: 40 mg Documented by: YUVAL Ondansetron HCl (Ondansetron Hcl 4 Mg/2 Ml Vial) 4 mg IVPUSH Q8H PRN PRN Reason: Nausea and Vomiting Last Admin: 07/26/21 03:05 Dose: 4 mg Documented by: LAUREN Pharmacy Consult (Consult Rx Perform Med Rec) 1 each MISCELLANE ONCE PRN PRN Reason: Consult order Potassium Chloride (Potassium Chloride Er 10 Meq Capsule.Er) 10 meq PO DAILY [facility] Last Admin: 07/28/21 07:53 Dose: 10 meq Documented by: YUVAL Sodium Chloride (0.9 % Sodium Chloride Flush 3 Ml Syringe) 3 ml IVFLUSH QSHIFT [facility] Last Admin: 07/28/21 07:54 Dose: 3 ml Documented by: YUVAL Labs CBC & Chem 7: 07/28/21 04:18 07/28/21 04:18 Labs: Laboratory Results - last 24 hr 07/28/21 07/28/21 04:18 04:18 MCV 84.1 MCH 26.5 L MCHC 31.6 RDW 18.8 H Plt Count 383 MPV 10.1 Absolute Nucleated RBC 0.020 H Nucleated RBC % (auto) 0.2 Anion Gap 10 L Estim Creat Clear Calc 84.7 Estimated GFR 53 Random Glucose 106 Calcium 8.2 L Total Bilirubin 1.4 H Direct Bilirubin 1.2 H AST 56 H ALT 17 Alkaline Phosphatase 204 H Total Protein 6.9 Albumin 2.5 L Microbiology Microbiology Results: Microbiology 07/21/21 18:35 Blood Culture - Final Blood - Venous No growth after 5 days. Procedures Date of Service Date of Service: 07/28/21 Progress Note: A&P Assessment and plan (1) Acute cholecystitis due to biliary calculus: Status: Acute (2) Sepsis: Status: Acute (3) Dilated cbd, acquired: Status: Acute (4) S/P laparoscopic cholecystectomy: Status: Acute Assessment and Plan: Patient presents with abdominal pain found to have a dilated CBD with small stones on MRCP.? Also found to have air tracking outside of sigmoid colon suggestive of a microperf.? No abscess on either scan.? ERCP negative for stones in the CBD however the duct was markedly dilated with no GB filling. She is now POD #1 s/p lap CCY with negative exploratory laparoscopy. Intraop findings included acutely inflamed gallbladder with several large gallstones within the gallbladder with a large cystic duct. Evaluation of the left lower quadrant revealed a small amount of clear fluid no evidence of perforation in the sigmoid colon. She is doing well post op. She is only having incisional pain but is comfortable. Tolerating solid diet. VSS. Abd exam benign with appropriate post op tenderness, dressings c/d/i. She is stable from surgical standpoint. No evidence of sandra perforation on laparoscopy. Discharge planning as per medicine. Can f/u in office with Dr. Feliciano in office in 1 week. GI f/u with Dr. Sher for colonoscopy to eval colon. Fall Risk Details Current Medications: Current Medications Acetaminophen (Acetaminophen 325 Mg Tablet) 650 mg PO Q6H PRN PRN Reason: Pain, Mild (Pain Scale 1-3) Last Admin: 07/27/21 09:32 Dose: 650 mg Documented by: Atenolol (Atenolol 50 Mg Tablet) 50 mg PO DAILY [facility]; Protocol Last Admin: 07/28/21 07:53 Dose: 50 mg Documented by: Docusate Sodium (Docusate Sodium 100 Mg Capsule) 100 mg PO DAILY PRN PRN Reason: Constipation Doxepin HCl (Doxepin Hcl 25 Mg Capsule) 25 mg PO BEDTIME [facility] Last Admin: 07/27/21 20:45 Dose: 25 mg Documented by: Fluoxetine HCl (Fluoxetine Hcl 20 Mg Capsule) 20 mg PO DAILY [facility] Last Admin: 07/28/21 07:54 Dose: 20 mg Documented by: Guaifenesin (Guaifenesin 100 Mg/5 Ml Liquid) 5 ml PO Q4H PRN PRN Reason: Cough Last Admin: 07/25/21 08:31 Dose: 5 ml Documented by: Heparin Sodium (Porcine) (Heparin Sodium,Porcine 5,000 Unit/Ml Vial) 5,000 unit SUBCUT Q12H [facility] Last Admin: 07/28/21 05:12 Dose: 5,000 unit Documented by: Levofloxacin (Levaquin) 750 mg in 150 mls @ 100 mls/hr IV Q24H [facility] Last Infusion: 07/28/21 01:06 Dose: Infused Documented by: Metronidazole (Flagyl) 500 mg in 100 mls @ 100 mls/hr IV Q8H [facility] Last Admin: 07/28/21 11:16 Dose: 100 mls/hr Documented by: Promethazine HCl 6.25 mg/ (Sodium Chloride) 50.25 mls @ 201 mls/hr IV ONCE PRN PRN Reason: Nausea and Vomiting Lactated Ringer's (Lr) 1,000 mls @ 80 mls/hr IVCONT .[id number] [facility] Last Infusion: 07/28/21 10:05 Dose: 0 mls/hr Documented by: Loratadine (Loratadine 10 Mg Tablet) 10 mg PO DAILY [facility] Last Admin: 07/28/21 07:53 Dose: 10 mg Documented by: Morphine Sulfate (Morphine Sulfate 4 Mg/Ml Cartridge) 4 mg IVPUSH Q3H PRN; Protocol PRN Reason: Pain, Mild (Pain Scale 1-3) Last Admin: 07/28/21 11:16 Dose: 4 mg Documented by: Omeprazole (Omeprazole 40 Mg Capsule.Dr) 40 mg PO DAILY [facility] Last Admin: 07/28/21 07:53 Dose: 40 mg Documented by: Ondansetron HCl (Ondansetron Hcl 4 Mg/2 Ml Vial) 4 mg IVPUSH Q8H PRN PRN Reason: Nausea and Vomiting Last Admin: 07/26/21 03:05 Dose: 4 mg Documented by: Pharmacy Consult (Consult Rx Perform Med Rec) 1 each MISCELLANE ONCE PRN PRN Reason: Consult order Potassium Chloride (Potassium Chloride Er 10 Meq Capsule.Er) 10 meq PO DAILY [facility] Last Admin: 07/28/21 07:53 Dose: 10 meq Documented by: Sodium Chloride (0.9 % Sodium Chloride Flush 3 Ml Syringe) 3 ml IVFLUSH QSHIFT [facility] Last Admin: 07/28/21 07:54 Dose: 3 ml Documented by: Time Spent With Patient Time: Total time spent is greater than 50% in coordination of care (as documented) at patient's floor/unit and/or counseling patient: Time with patient: 15 - 24 minutes Quality Stroke Does the patient have a stroke diagnosis?: No VTE Prior VTE?: No VTE Risk Level:: Medical - moderate - high VTE Device Contraindication: Treatment Not Indicated VTE Drug Contraindication: N/A - Med Ordered
--- NOTE | 2021-07-28 12:41 | HO.POSTANES ---
Post Anesthesia Evaluation Post Anesthesia Evaluation Vital Signs: Vital Signs Temp Pulse Resp BP Pulse Ox 07/28/21 11:48 96.9 F 52 17 98/52 L 95 07/28/21 08:28 97.1 F 58 18 98 07/28/21 04:27 98.0 F 65 16 110/61 98 Anesthesia: General Endotracheal-GETA Mental Status: Awake Pain Control: Satisfactory Nausea/Vomiting: None Hydration: Adequate Anesthesia-Related Issues: No Anes. Related Issues
--- NOTE | 2021-07-28 12:58 | MHC.CM.PN ---
Cm met w/pt at pt's request, pt reports she is discharging home tomorrow and would like additional help, cm offered [facility]NA service which pt would like and encouraged pt to contatc the company that provides her HH services to request an increase in hours as CM are unable to. Pt reports she has no preference in which [facility]NA provides service.
--- NOTE | 2021-07-28 14:08 | MHC.CM.PN ---
PER HOSPITALIST PT MEDICALLY CLEARED FOR D/C HOME W/NEW [facility]NA FOR RETIREMENT AND RESUMPTION OF HOME HEALTH, PT CALLING TO ARRANGE TRANSPORT.
--- NOTE | 2021-07-28 14:21 | P.DS_ITS ---
DS: Providers Provider Date of Service: 07/28/21 Date of admission: 07/21/21 23:47 Primary care physician: Kiel Rice MD Consults: 07/22/21 03:06 Consult to General Surgery Routine Consulting Provider: Edil Feliciano Reason for consultation: diverticulitis with micro perforation Has provider been notified: No 07/22/21 07:17 Consult to Neurology Routine Consulting Provider: [facility] Reason for consultation: Possible seizure Has provider been notified: No 07/22/21 08:04 Consult to Gastroenterology Routine Consulting Provider: Raul Bella Reason for consultation: cbd dilation, elevated lft's Has provider been notified: No DS: Diagnosis Discharge Diagnosis (1) Acute cholecystitis due to biliary calculus: Status: Acute (2) Sepsis: Status: Acute (3) Dilated cbd, acquired: Status: Acute (4) S/P laparoscopic cholecystectomy: Status: Acute DS: Summary Hospital Course Hospital Course: 61-year-old female with past medical history of hypertension as well as depression who presents to the hospital with complaints of fatigue as well as seizure-like activity and loss of consciousness found to have acute diverticulitis 1.Intially found to sepsis (POA)sec acute diverticulitis with micro perforation, possible cholangitis-further workup Mrcp done , started on broad- spectrum IV antibiotics, blood cultures sent, requested GI and surgery evaluation. patient ?found to have a dilated CBD with small stones on MRCP.? Also found to have air tracking outside of sigmoid colon suggestive of a microperf.? No abscess on either scan.? ERCP negative for stones in the CBD however the duct was markedly dilated with no GB filling. Blood cultures are negative, furthermore patient got s/p lap CCY POD #2 with negative exploratory laparoscopy. Intraop findings included acutely inflamed gallbladder with several large gallstones within the gallbladder with a large cystic duct. Evaluation of the left lower quadrant revealed a small amount of clear fluid no evidence of perforation in the sigmoid colon. She is doing well post op. She is only having incisional pain but is comfortable. Tolerating solid diet. VSS. Abd exam benign with appropriate post op tenderness, dressings c/d/i. She is stable from surgical standpoint. No evidence of sandra perforation on laparoscopy. Discharge planning as per medicine. Can f/u in office with Dr. Feliciano in office in 1 week. GI f/u with Dr. Sher for colonoscopy to eval colon. 2.? cholelithiasis with dilated CBD see above- seen by GI recommended : ? Patient had? ERCP:1.dilated CBD 2. dilated and irregular, tortuous PD may be due to chronic pancreatitis, can also cause 1/ above? 3. probable chronic cholecystitis, no filling of dye into the GB. plan :Gi biopsies are done ,? follow-up outpatient with GI. 3. seizure-like activity-Patient was postictal due to seizure -no? toxic metabolic? encephalopathy. -? reports arm shaking witnessed by her friend and loss of consciousness -? patient was postictal on arrival to the ED ?consult neurology-ct head neg eeg -normal neuro-eval noted -possible sz vs tremors /rigors sec to sepsis neuro follow up. 4.? hypertension -? stable BP hold? home meds . hold asa , nsaids -may need endoscopy . 5. leukocytosis: resolved -? most likely in the setting of above -? IV antibiotics and IV fluid -? follow culture -blood cultures neg@48hrs 6.? ALFREDO -? most likely multifactorial secondary to dehydration as well as acute infection on? IV fluid, improving -? follow BMP ? Hypokalemia and hypomagnesemia: Repleted, resolved . Time Spent with Patient Time attestation: Total time spent providing and/or coordinating discharge services: Physical Exam Vital Signs: Vital Signs: Last Vital Signs Temp 96.9 F 07/28/21 11:48 Pulse 52 07/28/21 11:48 Resp 17 07/28/21 11:48 BP 98/52 L 07/28/21 11:48 Pulse Ox 95 07/28/21 11:48 BMI result Body Mass Index 42.5 DS: Data Data Completed and Pending Completed studies during hospitalization [Text1]: Pending at discharge 07/26/21 14:29 Cytology [PTH] Routine Cytology [PTH] Routine 07/27/21 12:42 Surgical [PTH] Routine Labs on day of discharge: Laboratory Results - last 24 hr 07/28/21 07/28/21 04:18 04:18 WBC 9.6 RBC 3.39 L Hgb 9.0 L Hct 28.5 L MCV 84.1 MCH 26.5 L MCHC 31.6 RDW 18.8 H Plt Count 383 MPV 10.1 Absolute Nucleated RBC 0.020 H Nucleated RBC % (auto) 0.2 Sodium 137 Potassium 3.5 Chloride 103 Carbon Dioxide 28 Anion Gap 10 L BUN 14 D Creatinine 1.05 Estim Creat Clear Calc 84.7 Estimated GFR 53 Random Glucose 106 Calcium 8.2 L Total Bilirubin 1.4 H Direct Bilirubin 1.2 H AST 56 H ALT 17 Alkaline Phosphatase 204 H Total Protein 6.9 Albumin 2.5 L Discharge Plan Discharge Patient Disposition: Home Health Service Discharge Diagnosis: sepsis 2nd to diverticulitis. possible cholecystitis status post cholecystectomy. ALFREDO resolved Referrals: Marisela PARRISH [Outside] - 1 Week (LONG TERM, PLEASE CALL [phone] IF YOU DO NOT HEAR FROM A NURSE BY NOON TOMORROW 07/29/21, YOUR START OF CARE WILL BE WITHIN 48HRS OF DISCHARGE. ) Kiel Rice MD [Primary Care Provider] - 1 Week Onesimo Sher MD [Physician] - 1 Week (follow up outpatiently) Edil Feliciano MD [Physician] - 1 Week Discharge Medications: New levofloxacin 500 mg tablet 500 mg PO Q24H Qty: 2 RF: 0 acetaminophen [Tylenol] 325 mg tablet 650 mg PO Q6H PRN (Reason: pain, mild) Qty: 10 RF: 0 metronidazole 500 mg tablet 500 mg PO BID Qty: 4 RF: 0 Continued cetirizine 10 mg tablet 1 tab PO DAILY RF: 0 doxepin 25 mg capsule 1 cap PO BEDTIME RF: 0 chlorthalidone 25 mg tablet 1 tab PO QAM RF: 0 omeprazole 40 mg capsule,delayed release(DR/EC) 1 cap PO DAILY RF: 0 gabapentin 300 mg capsule 1 cap PO TID RF: 0 fluoxetine 20 mg capsule 1 cap PO QAM RF: 0 atenolol 50 mg tablet 1 tab PO DAILY RF: 0 potassium chloride 10 mEq tablet,ER particles/crystals 1 tab PO DAILY RF: 0 ondansetron HCl 4 mg tablet 1 tab PO Q6H PRN (Reason: Nausea) RF: 0 aspirin 81 mg Tablet,Chewable 81 mg PO DAILY RF: 0 Discontinued naproxen 500 mg tablet 1 tab PO BID RF: 0 Discharge Orders: Discharge Order (Routine); Ordered 07/28/21 Ordered By: Fernando Jimenez Diet: advance to usual diet and low fat, low cholesterol Activity on Discharge: As tolerated Stand Alone Forms: Patient Portal Discharge page Activity Restrictions/Additional Instructions: If the incision area is tender, you may apply an ice pack for short intervals (No more than 20 minutes on, followed by at least 20 minutes off). Do not apply heat. Do not use creams, lotions, or topical antibiotics unless instructed to do so by your surgeon. These can cause infection or allergic reaction. Ok to shower. Remove clear dressings 3 days following your procedure. You have steri strips (small white cloth strips) covering your incision- these will fall off ~1 week. No heavy lifting (>10lbs)! Follow up in office with Dr. Feliciano in 1 week. ([phone]) Call Your Doctor If: -Your temperature exceeds 101.5? F -You experience excessive pain or swelling -You have an unexpected reaction to medication -You have excessive bleeding -You experience continued vomiting/nausea -Your incision begins to separate -Your incision shows signs of infection such as increased redness, swelling, excessive pain, drainage (light blood or clear fluid is normal) or heat Care Plan Goals: patient admitted for sepsis secondary to diverticulitis, possible cholangitis: patient was started on hydration, anti biotics, seen by surgery and GI and MRCP was done -showed CBD dilation for that patient had MRCP done and biopsies were taken. she also had laparoscopic cholecystectomy yesterday- abdominal pain improved significantly. we will switch to po antibiotics upon discharge. patient is to follow up outpatient with Dr. Feliciano and Dr. Sher. Health Concerns: as above. Plan of Treatment: as above. Assessment: as above.
[2021-07-28] MEDS: oxyCODONE HCl Immed Release 5 MG TABLET PO (17:41)
[2021-07-28] MEDS: levoFLOXacin/D5W 750 MG/150 ML PIGGYBACK 100 MG IV (20:31)
[2021-07-28] MEDS: Doxepin HCl 25 MG CAPSULE PO (20:31)
[2021-07-29] MEDS: 0.9 % Sodium Chloride Flush 3 ML SYRINGE IVFLUSH ×2 (00:58→07:43)
[2021-07-29] MEDS: Morphine Sulfate 4 MG/ML CARTRIDGE IVPUSH (02:05)
[2021-07-29] MEDS: metroNIDAZOLE/NS 500 MG/100 ML PIGGYBACK 100 MG IV ×2 (02:08→10:48)
[2021-07-29 03:31] VITALS: BP 105/47; PULSE 73; RESP 18; TEMP 37.4; O2SAT 93
[2021-07-29] MEDS: Heparin Sodium,Porcine 5,000 UNIT/ML VIAL 5000 UNIT SUBCUT (05:59)
[2021-07-29 07:25] VITALS: BP 107/53; PULSE 72; RESP 18; TEMP 36.8; O2SAT 95
[2021-07-29] MEDS: FLUoxetine HCl 20 MG CAPSULE PO (07:43)
[2021-07-29] MEDS: Loratadine 10 MG TABLET PO (07:43)
[2021-07-29] MEDS: atenoloL 50 MG TABLET PO (07:43)
[2021-07-29] MEDS: Omeprazole 40 MG CAPSULE.DR PO (07:43)
--- NOTE | 2021-07-29 08:08 | P.PNGS_ITS ---
Subjective Subjective Date of Service: 07/29/21 Interval history: Patient is much improved with decreased abdominal pain, tolerating regular diet, passing bowels normally. Physical Exam Vital Signs: Vital Signs: Last Vital Signs Temp 98.2 F 07/29/21 07:25 Pulse 72 07/29/21 07:25 Resp 18 07/29/21 07:25 BP 107/53 L 07/29/21 07:25 Pulse Ox 95 07/29/21 07:25 BMI result Body Mass Index 42.5 Const: General: cooperative and comfortable Nutritional Appearance: obese Orientation/consciousness: patient oriented x3 Limitations: no limitations HENMT: Head: Yes normocephalic and Yes atraumatic Resp: Other: Breathing comfortably on room air GI: Other: Incisions are clean, dry, and intact without redness or discharge. Skin: Other: Warm, dry, no rash Neuro: General: patient oriented x3 Objective Data Active Medications Acetaminophen (Acetaminophen 325 Mg Tablet) 650 mg PO Q6H PRN PRN Reason: Pain, Mild (Pain Scale 1-3) Last Admin: 07/27/21 09:32 Dose: 650 mg Documented by: LEONEL Atenolol (Atenolol 50 Mg Tablet) 50 mg PO DAILY [facility]; Protocol Last Admin: 07/29/21 07:43 Dose: 50 mg Documented by: SHANELLE Docusate Sodium (Docusate Sodium 100 Mg Capsule) 100 mg PO DAILY PRN PRN Reason: Constipation Doxepin HCl (Doxepin Hcl 25 Mg Capsule) 25 mg PO BEDTIME [facility] Last Admin: 07/28/21 20:31 Dose: 25 mg Documented by: KANWAL Fluoxetine HCl (Fluoxetine Hcl 20 Mg Capsule) 20 mg PO DAILY [facility] Last Admin: 07/29/21 07:43 Dose: 20 mg Documented by: SHANELLE Guaifenesin (Guaifenesin 100 Mg/5 Ml Liquid) 5 ml PO Q4H PRN PRN Reason: Cough Last Admin: 07/25/21 08:31 Dose: 5 ml Documented by: COTEMA Heparin Sodium (Porcine) (Heparin Sodium,Porcine 5,000 Unit/Ml Vial) 5,000 unit SUBCUT Q12H [facility] Last Admin: 07/29/21 05:59 Dose: 5,000 unit Documented by: CINDY Levofloxacin (Levaquin) 750 mg in 150 mls @ 100 mls/hr IV Q24H [facility] Last Infusion: 07/28/21 22:14 Dose: 0 mls/hr Documented by: KANWAL Metronidazole (Flagyl) 500 mg in 100 mls @ 100 mls/hr IV Q8H [facility] Last Infusion: 07/29/21 03:14 Dose: 0 mls/hr Documented by: CINDY Promethazine HCl 6.25 mg/ (Sodium Chloride) 50.25 mls @ 201 mls/hr IV ONCE PRN PRN Reason: Nausea and Vomiting Loratadine (Loratadine 10 Mg Tablet) 10 mg PO DAILY [facility] Last Admin: 07/29/21 07:43 Dose: 10 mg Documented by: SHANELLE Morphine Sulfate (Morphine Sulfate 4 Mg/Ml Cartridge) 4 mg IVPUSH Q3H PRN; Protocol PRN Reason: Pain, Mild (Pain Scale 1-3) Last Admin: 07/29/21 02:05 Dose: 4 mg Documented by: CINDY Omeprazole (Omeprazole 40 Mg Capsule.Dr) 40 mg PO DAILY [facility] Last Admin: 07/29/21 07:43 Dose: 40 mg Documented by: SHANELLE Ondansetron HCl (Ondansetron Hcl 4 Mg/2 Ml Vial) 4 mg IVPUSH Q8H PRN PRN Reason: Nausea and Vomiting Last Admin: 07/26/21 03:05 Dose: 4 mg Documented by: ODRISM Oxycodone HCl (Oxycodone Hcl Immed Release 5 Mg Tablet) 5 mg PO Q4H PRN PRN Reason: Pain, Moderate (Pain Scale 4-6 Last Admin: 07/28/21 17:41 Dose: 5 mg Documented by: KANWAL Pharmacy Consult (Consult Rx Perform Med Rec) 1 each MISCELLANE ONCE PRN PRN Reason: Consult order Potassium Chloride (Potassium Chloride Er 10 Meq Capsule.Er) 10 meq PO DAILY [facility] Last Admin: 07/29/21 07:43 Dose: 10 meq Documented by: SHANELLE Sodium Chloride (0.9 % Sodium Chloride Flush 3 Ml Syringe) 3 ml IVFLUSH QSHIFT [facility] Last Admin: 07/29/21 07:43 Dose: 3 ml Documented by: SHANELLE Labs CBC & Chem 7: 07/28/21 04:18 07/28/21 04:18 Procedures Date of Service Date of Service: 07/29/21 Progress Note: A&P Assessment and plan (1) S/P laparoscopic cholecystectomy: Status: Acute (2) Acute cholecystitis due to biliary calculus: Status: Acute Assessment and Plan: Pod 2 status post laparoscopic cholecystectomy for acute cholecystitis cholelithiasis. Exploratory laparoscopy performed no evidence of bowel perforation. Patient is ready for discharge to home. She should follow up in the office in approximately 1 week. She should continue on oral antibiotics for another 5- 7 days. I will follow her up in the office in approximately 1 week. She should remain on a low-fat diet and avoid heavy lifting greater than 10 lb for the next 2 weeks. I instructed her to call for increased pain, nausea, vomiting, fever, chills, or other concerns regarding her incisions. Fall Risk Details Current Medications: Current Medications Acetaminophen (Acetaminophen 325 Mg Tablet) 650 mg PO Q6H PRN PRN Reason: Pain, Mild (Pain Scale 1-3) Last Admin: 07/27/21 09:32 Dose: 650 mg Documented by: Atenolol (Atenolol 50 Mg Tablet) 50 mg PO DAILY [facility]; Protocol Last Admin: 07/29/21 07:43 Dose: 50 mg Documented by: Docusate Sodium (Docusate Sodium 100 Mg Capsule) 100 mg PO DAILY PRN PRN Reason: Constipation Doxepin HCl (Doxepin Hcl 25 Mg Capsule) 25 mg PO BEDTIME [facility] Last Admin: 07/28/21 20:31 Dose: 25 mg Documented by: Fluoxetine HCl (Fluoxetine Hcl 20 Mg Capsule) 20 mg PO DAILY [facility] Last Admin: 07/29/21 07:43 Dose: 20 mg Documented by: Guaifenesin (Guaifenesin 100 Mg/5 Ml Liquid) 5 ml PO Q4H PRN PRN Reason: Cough Last Admin: 07/25/21 08:31 Dose: 5 ml Documented by: Heparin Sodium (Porcine) (Heparin Sodium,Porcine 5,000 Unit/Ml Vial) 5,000 unit SUBCUT Q12H [facility] Last Admin: 07/29/21 05:59 Dose: 5,000 unit Documented by: Levofloxacin (Levaquin) 750 mg in 150 mls @ 100 mls/hr IV Q24H [facility] Last Infusion: 07/28/21 22:14 Dose: Infused Documented by: Metronidazole (Flagyl) 500 mg in 100 mls @ 100 mls/hr IV Q8H [facility] Last Infusion: 07/29/21 03:14 Dose: Infused Documented by: Promethazine HCl 6.25 mg/ (Sodium Chloride) 50.25 mls @ 201 mls/hr IV ONCE PRN PRN Reason: Nausea and Vomiting Loratadine (Loratadine 10 Mg Tablet) 10 mg PO DAILY [facility] Last Admin: 07/29/21 07:43 Dose: 10 mg Documented by: Morphine Sulfate (Morphine Sulfate 4 Mg/Ml Cartridge) 4 mg IVPUSH Q3H PRN; Protocol PRN Reason: Pain, Mild (Pain Scale 1-3) Last Admin: 07/29/21 02:05 Dose: 4 mg Documented by: Omeprazole (Omeprazole 40 Mg Capsule.Dr) 40 mg PO DAILY [facility] Last Admin: 07/29/21 07:43 Dose: 40 mg Documented by: Ondansetron HCl (Ondansetron Hcl 4 Mg/2 Ml Vial) 4 mg IVPUSH Q8H PRN PRN Reason: Nausea and Vomiting Last Admin: 07/26/21 03:05 Dose: 4 mg Documented by: Oxycodone HCl (Oxycodone Hcl Immed Release 5 Mg Tablet) 5 mg PO Q4H PRN PRN Reason: Pain, Moderate (Pain Scale 4-6 Last Admin: 07/28/21 17:41 Dose: 5 mg Documented by: Pharmacy Consult (Consult Rx Perform Med Rec) 1 each MISCELLANE ONCE PRN PRN Reason: Consult order Potassium Chloride (Potassium Chloride Er 10 Meq Capsule.Er) 10 meq PO DAILY [facility] Last Admin: 07/29/21 07:43 Dose: 10 meq Documented by: Sodium Chloride (0.9 % Sodium Chloride Flush 3 Ml Syringe) 3 ml IVFLUSH QSHIFT [facility] Last Admin: 07/29/21 07:43 Dose: 3 ml Documented by: Time Spent With Patient Time: Total time spent is greater than 50% in coordination of care (as documented) at patient's floor/unit and/or counseling patient: Time with patient: 15 - 24 minutes Quality Stroke Does the patient have a stroke diagnosis?: No VTE Prior VTE?: No VTE Risk Level:: Medical - moderate - high VTE Device Contraindication: Treatment Not Indicated VTE Drug Contraindication: N/A - Med Ordered
--- NOTE | 2021-07-29 10:45 | PM.DS ---
DS: Providers Provider Date of Service: 07/29/21 Date of admission: 07/21/21 23:47 Primary care physician: Kiel Rice MD Consults: 07/22/21 03:06 Consult to General Surgery Routine Consulting Provider: Edil Feliciano Reason for consultation: diverticulitis with micro perforation Has provider been notified: No 07/22/21 07:17 Consult to Neurology Routine Consulting Provider: [facility] Reason for consultation: Possible seizure Has provider been notified: No 07/22/21 08:04 Consult to Gastroenterology Routine Consulting Provider: Raul Bella Reason for consultation: cbd dilation, elevated lft's Has provider been notified: No DS: Diagnosis Discharge Diagnosis (1) S/P laparoscopic cholecystectomy: Status: Acute (2) Acute cholecystitis due to biliary calculus: Status: Acute DS: Summary Hospital Course Hospital Course: Patient was admitted for sepsis secondary to acute cholecystitis and possible cholangitis. She was treated with Levaquin and metronidazole. Blood cultures were negative. Patient underwent ERCP which showed dilated CBD but no obvious stones, pathology appears benign. patient underwent laparoscopic cholecystectomy with resolution of her pain and symptoms. Patient was able to tolerate solid diet. On admission patient was also noted to have tonic clonic movements witnessed by a friend. EEG was normal. Differential includes seizure versus rigors due to sepsis which seems more likely. Patient follow-up with Neurology as outpatient. Patient will be discharged on p.o. Levaquin and Flagyl. Time Spent with Patient Time attestation: Total time spent providing and/or coordinating discharge services: Discharge coordination time: Greater than 30 minutes Quality: Stroke Does the patient have a stroke diagnosis?: No Physical Exam Vital Signs: Vital Signs: Last Vital Signs Temp 98.2 F 07/29/21 07:25 Pulse 72 07/29/21 07:25 Resp 18 07/29/21 07:25 BP 107/53 L 07/29/21 07:25 Pulse Ox 95 07/29/21 07:25 BMI result Body Mass Index 42.5 General: AO X 3, no acute distress Resp: CTA bilateral, no accessory muscles used CVS: S1,S2,RRR GI: soft, non tender, non distended Neuro: motor grossly intact, alert Psych: appropriate affect, appropriate insight DS: Data Data Completed and Pending Completed studies during hospitalization [Text1]: Pending at discharge 07/26/21 14:29 Cytology [PTH] Routine Cytology [PTH] Routine 07/27/21 12:42 Surgical [PTH] Routine Discharge Plan Discharge Patient Disposition: Home Health Service Discharge Diagnosis: sepsis 2nd to diverticulitis. possible cholecystitis status post cholecystectomy. ALFREDO resolved Referrals: Marisela PARRISH [Outside] - 1 Week (INTERMEDIATE, PLEASE CALL [phone] IF YOU DO NOT HEAR FROM A NURSE BY NOON TOMORROW 07/29/21, YOUR START OF CARE WILL BE WITHIN 48HRS OF DISCHARGE. ) Kiel Rice MD [Primary Care Provider] - 1 Week Onesimo Sher MD [Physician] - 1 Week (follow up outpatiently) Edil Feliciano MD [Physician] - 1 Week Discharge Medications: New levofloxacin 500 mg tablet 500 mg PO Q24H Qty: 2 RF: 0 metronidazole 500 mg tablet 500 mg PO BID Qty: 4 RF: 0 acetaminophen [Tylenol] 325 mg tablet 650 mg PO Q6H PRN (Reason: pain, mild) Qty: 10 RF: 0 docusate sodium [Colace] 100 mg capsule 100 mg PO DAILY Qty: 30 RF: 0 Continued cetirizine 10 mg tablet 1 tab PO DAILY RF: 0 doxepin 25 mg capsule 1 cap PO BEDTIME RF: 0 chlorthalidone 25 mg tablet 1 tab PO QAM RF: 0 omeprazole 40 mg capsule,delayed release(DR/EC) 1 cap PO DAILY RF: 0 gabapentin 300 mg capsule 1 cap PO TID RF: 0 fluoxetine 20 mg capsule 1 cap PO QAM RF: 0 atenolol 50 mg tablet 1 tab PO DAILY RF: 0 potassium chloride 10 mEq tablet,ER particles/crystals 1 tab PO DAILY RF: 0 ondansetron HCl 4 mg tablet 1 tab PO Q6H PRN (Reason: Nausea) RF: 0 aspirin 81 mg Tablet,Chewable 81 mg PO DAILY RF: 0 Discontinued naproxen 500 mg tablet 1 tab PO BID RF: 0 Discharge Orders: Discharge Order (Routine); Ordered 07/28/21 Ordered By: Fernando Jimenez Diet: advance to usual diet and low fat, low cholesterol Activity on Discharge: As tolerated Stand Alone Forms: Patient Portal Discharge page Activity Restrictions/Additional Instructions: If the incision area is tender, you may apply an ice pack for short intervals (No more than 20 minutes on, followed by at least 20 minutes off). Do not apply heat. Do not use creams, lotions, or topical antibiotics unless instructed to do so by your surgeon. These can cause infection or allergic reaction. Ok to shower. Remove clear dressings 3 days following your procedure. You have steri strips (small white cloth strips) covering your incision- these will fall off ~1 week. No heavy lifting (>10lbs)! Follow up in office with Dr. Feliciano in 1 week. ([phone]) Call Your Doctor If: -Your temperature exceeds 101.5? F -You experience excessive pain or swelling -You have an unexpected reaction to medication -You have excessive bleeding -You experience continued vomiting/nausea -Your incision begins to separate -Your incision shows signs of infection such as increased redness, swelling, excessive pain, drainage (light blood or clear fluid is normal) or heat Care Plan Goals: patient admitted for sepsis secondary to diverticulitis, possible cholangitis: patient was started on hydration, anti biotics, seen by surgery and GI and MRCP was done -showed CBD dilation for that patient had MRCP done and biopsies were taken. she also had laparoscopic cholecystectomy yesterday- abdominal pain improved significantly. we will switch to po antibiotics upon discharge. patient is to follow up outpatient with Dr. Feliciano and Dr. Sher. Health Concerns: as above. Plan of Treatment: as above. Assessment: as above.
--- NOTE | 2021-07-29 12:14 | MHC.CM.PN ---
PT DISCHARGING HOME TODAY W/[facility] FOR LONG-TERM, PT WILL CALL FAMILY FOR TRANSPORT HOME.
--- NOTE | 2021-07-29 14:26 | P.F2F_ITS ---
Service Date Service Date: 07/29/21 Encounter Date of encounter: 07/29/21 Reasons for Services Signs and symptoms assessed: weakness Homebound: Leaving the home is medically contraindicated at this time without the asist of a device and/or another person due th the listed conditions above and below. Reason homebound: unsteady gait / fall risk Certification: Based on the above findings, I certify that this patient is confined to the home and needs intermittent long-term care, physical therapy and/or speech therapy, or continues to need occupational therapy. The patient is under my care, and I have initiated the establishment of the plan of care. The patient will be followed by a physician who will periodically review the plan of care.
== END 2021-07-29 13:13 | disposition home health service (06) | DRG 854 ==
LOC: HO.ED 17:53 → HO.EDOVER 07-22 00:02 → HO.S3 07-23 16:45
PROVIDERS: Internal Medicine; Internal Medicine Gastroenterology; Surgery; Admitting Provider Internal Medicine; Emergency Provider Internal Medicine; PCP Internal Medicine Medical Oncology; Visit Provider Internal Medicine
PROC: 0F788ZZ Dilation of Cystic Duct, Via Natural or Artificial Opening Endoscopic (ICD-10-PCS; CPT 43260; principal; 2021-07-26 12:30)
PROC: 0FT44ZZ Resection of Gallbladder, Percutaneous Endoscopic Approach (ICD-10-PCS; CPT 47562; principal; 2021-07-27 11:00)
DX: A41.9 Sepsis, unspecified organism (principal); N17.9 Acute kidney failure, unspecified; K80.42 Calculus of bile duct with acute cholecystitis without obstruction; F32.A Depression, unspecified; D72.829 Elevated white blood cell count, unspecified; R56.9 Unspecified convulsions; K21.9 Gastro-esophageal reflux disease without esophagitis; E86.0 Dehydration; Z20.822 Contact with and (suspected) exposure to COVID-19; Z87.891 Personal history of nicotine dependence; Z91.040 Latex allergy status; Z79.82 Long term (current) use of aspirin; Z79.899 Other long term (current) drug therapy
CPT/HCPCS: 36415; 70450; 71045; 74018; 74176; 74177; 74181; 76705; 80048; 80053; 80076; 81003; 82607; 82728; 82746; 83540; 83605; 83690; 83735; 84484; 85007; 85014; 85018; 85025; 85027; 87040; 87635; 88112; 88120; 88121; 88300; 88304; 93005; 95816; 96365; 96375; 99024; 99284; 99285; C1713; C1769; C1887; C2617; J1100; J1170; J1610; J1956; J2060; J2250; J2270; J2370; J2405; J2543; J3010; J3475; Q9967

== ENCOUNTER → 2021-08-10 10:32 | Outpatient (BNVA) | payer MEDICARE, MEDICAID, SELFPAY | PROVIDERS: PCP Internal Medicine Medical Oncology; Visit Provider Surgery | DX: Z48.815 Encounter for surgical aftercare following surgery on the digestive system (principal); Z90.49 Acquired absence of other specified parts of digestive tract | CPT/HCPCS: 99212 ==

== ENCOUNTER 2021-09-06 11:01 | Outpatient (REF) | payer MEDICARE, MEDICAID, SELFPAY ==
--- NOTE | ~2021-09-06 | XR_ITS ---
EXAMINATION: XR ABDOMEN KUB CLINICAL INDICATION: Displacement of other gastrointestinal prosthesis COMPARISON: Previous x-ray July [address] of the abdomen and pelvis July 2021 TECHNIQUE: AP view of the abdomen. FINDINGS: There is a stent seen projecting over the right side of the L1 vertebral body. This is similar to previous KUB. This is new from previous CT of the abdomen and pelvis 07/23/2021. There are surgical clips in the right upper quadrant suggestive of previous cholecystectomy. The bowel gas pattern is normal. There are post operative changes at the L3-L4 disc space level. There are degenerative changes of the spine and hip joints. XR/XR KUB IMPRESSION: Stable position of the stent projecting over the right side of the L1 vertebral body compared to previous KUB July 2021.
== END 2021-09-06 11:02 | disposition home or self-care (01) ==
LOC: HO.XRAY 11:01
PROVIDERS: PCP Internal Medicine Medical Oncology; Visit Provider Internal Medicine Gastroenterology
DX: T85.528A Displacement of other gastrointestinal prosthetic devices, implants and grafts, initial encounter (principal)
CPT/HCPCS: 74018

== ENCOUNTER → 2021-10-08 11:09 | Outpatient (BNVA) | payer MEDICARE, MEDICAID, SELFPAY | PROVIDERS: PCP Internal Medicine Medical Oncology; Visit Provider Internal Medicine Gastroenterology | DX: R10.9 Unspecified abdominal pain (principal) | CPT/HCPCS: 99212 ==

== ENCOUNTER 2021-10-12 11:46 | Outpatient (REF) | payer MEDICARE, MEDICAID, SELFPAY ==
--- NOTE | ~2021-10-12 | MM_ITS ---
EXAMINATION: MM SCREENING DIGITAL BREAST TOMOSYNTHESIS, BILATERAL CLINICAL INFORMATION: Screening. Asymptomatic. The lifetime risk of breast cancer based on the Tyrer-Cuzick Model is 7%. COMPARISON: Mammography: 04/25/2019, 02/27/2018, 03/27/2014, 09/05/2011 TECHNIQUE: Digital breast tomosynthesis is performed in both the craniocaudal and mediolateral oblique views along with computer-aided detection (CAD). Synthesized 2D images are generated from the tomosynthesis. Additional bilateral CC and additional bilateral MLO views are provided. FINDINGS: The breasts are almost entirely fatty (ACR BI-RADS breast composition Category a). Parenchymal pattern is similar to prior studies. Background stromal markings are stable. There are no significant masses, abnormal calcifications, or other abnormalities. MM/MM tomosynthesis screening BI IMPRESSION: No mammographic evidence of malignancy. ASSESSMENT: BI-RADS 1: Negative RECOMMENDATION: Routine annual mammography screening. This patient's information was entered into a reminder system with a target due date for their next mammogram.
== END 2021-10-12 11:47 | disposition home or self-care (01) ==
LOC: HO.MAMMO 11:46
PROVIDERS: PCP Internal Medicine Medical Oncology; Visit Provider Internal Medicine Medical Oncology
DX: Z12.31 Encounter for screening mammogram for malignant neoplasm of breast (principal)
CPT/HCPCS: 77063; 77067

== ENCOUNTER 2022-01-02 17:57 | Emergency (ER) | payer MEDICARE, MEDICAID, SELFPAY ==
--- NOTE | ~2022-01-02 | XR_ITS ---
EXAMINATION: LEFT KNEE AND CHEST. CLINICAL INFORMATION: Status post left knee replacement. COMPARISON: None TECHNIQUE: Left knee 2 views. Chest one view. FINDINGS: Left knee: There is a total left knee replacement with prosthetic components in satisfactory alignment. There is moderate prepatellar anterior knee soft tissue swelling with mild joint effusion. CHEST: The lungs are hypoexpanded with clear. The heart size is enlarged. Pulmonary vascularity is normal. No gross bony abnormality seen. XR/XR chest 1V IMPRESSION: Total left knee prosthesis with prosthetic components in satisfactory alignment. Moderate left anterior knee soft tissue swelling is seen. There is mild joint effusion as well.
--- NOTE | ~2022-01-02 | XR_ITS ---
EXAMINATION: LEFT KNEE AND CHEST. CLINICAL INFORMATION: Status post left knee replacement. COMPARISON: None TECHNIQUE: Left knee 2 views. Chest one view. FINDINGS: Left knee: There is a total left knee replacement with prosthetic components in satisfactory alignment. There is moderate prepatellar anterior knee soft tissue swelling with mild joint effusion. CHEST: The lungs are hypoexpanded with clear. The heart size is enlarged. Pulmonary vascularity is normal. No gross bony abnormality seen. XR/XR knee LT 2V IMPRESSION: Total left knee prosthesis with prosthetic components in satisfactory alignment. Moderate left anterior knee soft tissue swelling is seen. There is mild joint effusion as well.
--- NOTE | ~2022-01-02 | US_ITS ---
EXAMINATION: US VENOUS ULTRASOUND WITH DOPPLER LOWER EXTREMITY, LEFT CLINICAL INFORMATION: Edema, pain COMPARISON: None TECHNIQUE: Ultrasound of the deep veins is performed from the hip to the calf with compression sonography and color and pulse Doppler assessment. Spectral analysis with color-flow imaging is performed. FINDINGS: There is normal venous compression and respiratory variation and augmented flow. The visualized common femoral vein, superficial femoral vein, profunda femoral vein, popliteal vein, and the trifurcation region shows no evidence of deep venous thrombosis. 4.6 x 1.1 x 3.6 cm probable Renee's cyst. prominent lymph node in the groin. If the patient's symptoms persist, followup ultrasound in 5 days 7 days might be of value to exclude proximal propagation from a non-visualized calf vein. US/US venous duplex LE LT IMPRESSION: No DVT demonstrated in the left lower extremity. Renee's cyst noted
[2022-01-02 18:13] VITALS: BP 127/77; PULSE 101; PULSE 110; RESP 18; TEMP 38.8; O2SAT 96; BMI 46.3
--- NOTE | 2022-01-02 18:13 | ECG_ITS ---
Test Reason : SEPSIS Blood Pressure : / mmHG Vent. Rate : 100 BPM Atrial Rate : 100 BPM P-R Int : 198 ms QRS Dur : 098 ms QT Int : 364 ms P-R-T Axes : 053 018 037 degrees QTc Int : 469 ms Normal sinus rhythm Normal ECG When compared with ECG of 21-JUL-2021 17:27, No significant change was found Referred By: Rebecca Green Electronically Signed By:JOANN GARCÍA
--- NOTE | 2022-01-02 18:27 | ED_ITS ---
HPI - General Adult General Chief complaint: General Medical Stated complaint: L KNEE PAIN/SWELL,FEVER 102 S/P PROC @ [facility] Source: patient and EMS Mode of arrival: EMS Limitations: no limitations History of Present Illness HPI narrative: 61-year-old female presents via EMS for increased left leg pain and swelling. She is status post total knee replacement on 12/31/2021 from [facility] Dr. Nugent, was evaluated earlier today at [facility] for the same complaint. She reports to have fevers, increased pain, and swelling to left lower extremity. She does not report chest pain or pressure, palpitations, shortness of breath, abdominal pain, abdominal distention, dysuria, hematuria, or any other concerning symptoms. Onset (ago): day(s) (1) Location: left and lower extremity Radiation: non-radiation Severity: severe Severity scale (1-10): 9 Quality: aching Pain Consistency: constant Relieving factors: none Exacerbating factors: movement Associated symptoms: fever/chills Treatments prior to arrival: none Related Data Home Medications Medication Instructions Recorded Confirmed atenolol 50 mg tablet 1 tab PO DAILY 07/21/21 07/22/21 cetirizine 10 mg tablet 1 tab PO DAILY 07/21/21 08/10/21 chlorthalidone 25 mg tablet 1 tab PO QAM 07/21/21 08/10/21 doxepin 25 mg capsule 1 cap PO BEDTIME 07/21/21 08/10/21 fluoxetine 20 mg capsule 1 cap PO QAM 07/21/21 08/10/21 gabapentin 300 mg capsule 1 cap PO TID 07/21/21 08/10/21 omeprazole 40 mg capsule,delayed 1 cap PO DAILY 07/21/21 08/10/21 release potassium chloride 10 mEq 1 tab PO DAILY 07/21/21 08/10/21 tablet,extended release(part/cryst) aspirin 81 mg chewable tablet 81 mg PO DAILY 07/22/21 07/22/21 ondansetron HCl 4 mg tablet 1 tab PO Q6H PRN Nausea 07/22/21 08/10/21 naproxen 500 mg tablet 500 mg PO BID PRN 08/10/21 08/10/21 Previous Rx's Medication Instructions Recorded acetaminophen 325 mg tablet 650 mg PO Q6H PRN pain, mild #10 07/28/21 (Tylenol) tabs docusate sodium 100 mg capsule 100 mg PO DAILY #30 caps 07/28/21 (Colace) levofloxacin 500 mg tablet 500 mg PO Q24H #2 tabs 07/28/21 metronidazole 500 mg tablet 500 mg PO BID #4 tabs 07/28/21 ondansetron 4 mg disintegrating 4 mg PO Q8H PRN nausea and 10/08/21 tablet vomiting #7 tabs sodium,potassium,mag sulfates 17.5 See Rx Instructions PO .COMPLEX 10/08/21 gram-3.13 gram-1.6 gram oral soln #354 mL (Suprep Bowel Prep Kit) cefuroxime axetil 500 mg tablet 500 mg PO Q12H 7 days #14 tabs 01/02/22 Allergies Allergy/AdvReac Type Severity Reaction Status Date / Time cortisone [CORTISONE] Allergy Intermediate RASH Verified 10/08/21 11:21 adhesive tape [ADHESIVE TAPE] AdvReac Unknown UNKNOWN Verified 10/08/21 11:21 Latex Allergy Unknown redness Uncoded 10/08/21 11:21 Emerson Allergy Unknown Unknown Uncoded 10/08/21 11:21 Review of Systems Review of Systems: Constitutional: No Fever, No Chills ENT/Mouth: No Ear Pain, No Hoarseness, No sore throat Eyes: No Eye Pain, No Swelling, No Redness, No Foreign Body Cardiovascular: No Chest Pain, No SOB Respiratory: No Cough, No Dyspnea Gastrointestinal: No Nausea, No Vomiting, No Diarrhea, No abdominal Pain Genitourinary: No Dysuria, No Hematuria Musculoskeletal: positive left knee pain, No Myalgias, No Joint Swelling Skin: No Skin lacerations, No rash Neuro: No Weakness, No Numbness, No Paresthesias, No Loss of Consciousness, No Dizziness, No Headache Psych: No Anxiety/Panic, No Depression Heme/Lymph: no easy bruising, no Lymphadenopathy Endocrine: No Polyuria, No Polydipsia Yes all other systems are reviewed and are negative [facility] Past Medical History Attestation statement: The following information was validated with the patient. Source: old records reviewed Medical History Depression Hypertension Surgical History History of back surgery History of carpal tunnel release Hx of tubal ligation No pertinent past surgical history Social History Social History Housing: Other Do you presently have visiting nurse or other home services: Yes (aide 2x a week) Alcohol intake: former Patient Tobacco Use Status: Former Tobacco user Quit Date: 5 yrs ago Tobacco use type: Cigarette Use of substances other than those prescribed or required for medical reasons: No Advance Directives: No Advance Directives Information Provided: No service: No Current occupational status: unemployed 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 Physical Exam ED Vital Signs: Vital Signs - 24 hr 01/02/22 18:13 Temperature 101.8 F H Pulse Rate 101 H Respiratory Rate 18 Blood Pressure 127/77 Pulse Oximetry 96 Oxygen Delivery Method Room Air BMI result Body Mass Index 46.3 Appearance: Alert. Oriented X3. Moderate distress. Eyes: Pupils equal, round and reactive to light. EOMI. Sclera nonicteric. ENT: Pharynx normal. Moist mucous membranes. Neck: Normal inspection. Neck supple. CVS: Normal heart rate and rhythm. Apical pulse equal pulses to extremities Respiratory: No respiratory distress. . Lung sounds clear to auscultation all lobes. Abdomen: Soft and nontender. Skin: Skin warm and dry. Normal skin color. Normal skin turgor. Extremities: Range of motion within normal limits left lower extremity. Diffusely swollen and warm to touch. No erythema noted. Calf pain or tende rness. Findings consistent with status post left total knee replacement on 12/31/2021. Brisk capillary refill and equal pedal pulses bilaterally. Neuro: No motor deficit. No sensory deficit. Cranial nerves 2-12 intact. Course Course Course Narrative: 61-year-old female presents via EMS for left knee pain and fever of 102. Patient was evaluated at [facility] yesterday with negative workup, patient did not want to return to [facility] per patient request. Plan is for labs, cultures, x-ray of knee and chest, urinalysis, saline bolus, morphine, and Tylenol. 18:15 records requested from [facility]. 18:20 discussion of plan of care with Dr. Johnson. She did evaluate this patient. Dr. Johnson agrees with the plan. 19:53 x-ray of the knee indicates moderate left anterior knee soft tissue swelling and mild joint effusion. When comparing to x-ray from [facility] on 01/02/2022 states that they are postsurgical changes from left total knee arthroscopy in standard alignment without radiographic evidence of immediate complication. Overlying soft tissue swelling and soft tissue gas is compatible with the immediate postoperative state. Duplex negative for DVT, negative for DVT and indicates Renee's cyst, when comparing the radiology read from [facility] on 12/2708/15/2021 there is no evidence of DVT and no report of Renee's cyst Plan of care is to treat for UTI. Will give ceftriaxone IV, replete magnesium with 2 g, replete potassium. Patient has chronic hypokalemia and does take potassium supplements on a daily basis. Lab values are consistent with normal values. ESR elevated at 74, prior rate 97 consistent with postsurgical procedure. CRP 74, was 10 earlier today. Labs were compared to values obtained from [facility] Medical evaluation on 01/02/2022. Patient verbalized understanding of and agrees plan of care discharge home. Verbalized understanding of signs and symptoms indicating need for emergent intervention. She does understand that she must follow-up with her orthopedic surgeon, Dr. Nugent. Medical Decision Making Differential Diagnosis Differential Diagnosis: Sepsis, hemarthrosis, effusion, DVT Medical Records Medical records reviewed: Yes I reviewed the patient's medical records. Medical records narrative: Patient was evaluated earlier today at [facility], presented for increased left knee pain and swelling. Physical exam indicates left knee diffusely swollen and warm to touch. Limited range of motion secondary to pain and swelling. No calf pain or tenderness. Minimal swelling over the dorsum of her left foot most likely dependent edema. They did speak to orthopedics at that time, stated that was most likely due to the block wearing off with the increase of pain. They completed x-ray, which was negative for acute findings, showing some normal swelling postop to the left knee. DVT study was negative for acute findings. Lab values indicated white count of 10.9, hematocrit of 35.6, sed rate 97, CRP of 10.1 all consistent with findings status post total left knee replacement. Patient was given pain medications and discharged home with encouragement to follow-up with orthopedics. Lab Data Lab results reviewed: Yes I reviewed the patient's lab results. Result diagrams: 01/02/22 18:50 01/02/22 18:50 Labs: Lab Results 06/26/22 06/26/22 06/26/22 Range/Units 18:30 18:50 18:50 WBC 11.2 H (4.8-10.8) X10*3/uL RBC 3.98 L (4.20-5.50) X10*6/uL Hgb 10.6 L (12.0-16.0) g/dl Hct 31.9 L (37.0-47.0) % MCV 80.2 (80.0-98.0) fL MCH 26.6 L (27.0-33.0) pg MCHC 33.2 (31.0-35.0) g/dl RDW 15.1 (11.0-16.0) % Plt Count 301 (160-400) X10*3/uL MPV 10.4 (9.4-12.3) fL Immature Gran % (Auto) 0.5 H (0.0-0.4) % Neut % (Auto) 65.4 (45-73) % Lymph % (Auto) 19.9 L (20-40) % Lo[place]za % (Auto) 9.5 (2-11) % Eos % (Auto) 4.3 H (0-4) % Baso % (Auto) 0.4 (0-2) % Lymph # (Auto) 2.2 (1.2-4.9) X10*3/uL [place] # (Auto) 1.1 (0.1-1.2) X10*3/uL Eos # (Auto) 0.5 H (0.0-0.4) X10*3/uL Baso # (Auto) 0.0 (0.0-0.2) X10*3/uL Abs Immat Gran (auto) 0.06 H (0.00-0.03) X10*3/uL Absolute Neuts (auto) 7.3 (2.0-8.3) x10*3/uL Absolute Nucleated RBC 0.000 (0.0-0.012) X10*3/uL Nucleated RBC % (auto) 0.0 (0.0-0.2) /100WBC ESR (0-20) MM/HR PT (9.9-13.0) SEC INR (0.9-1.1) APTT Cancelled Sodium (135-145) mmol/L Potassium (3.3-5.1) mmol/L Chloride (96-108) mmol/L Carbon Dioxide (22-29) mmol/L Anion Gap (12-20) BUN (9-16) mg/dL Creatinine (0.5-1.4) mg/dL Estim Creat Clear Calc Estimated GFR POC Glucose 99 (60-115) mg/dL Random Glucose (60-115) mg/dL Lactic Acid (0.5-2.0) mmol/L Calcium (8.4-10.2) mg/dL Magnesium (1.6-2.6) mg/dL Total Bilirubin (0.0-1.0) mg/dL Direct Bilirubin (0.0-0.5) mg/dL AST (5-31) U/L ALT (0-31) U/L Alkaline Phosphatase (39-117) U/L Troponin I High Sens (<3.5-17.0) ng/L Total Protein (6.5-8.0) g/dL Albumin (3.5-5.0) g/dL Lipase (8-78) U/L Urine Color Urine Appearance Urine pH (5.0-8.0) Ur Specific Ava (1.005-1.025) Urine Protein (NEG-TRACE) MG/DL Urine Glucose (UA) (NEG) MG/DL Urine Ketones (NEG) MG/DL Urine Blood (NEG) Urine Nitrite (NEG) Ur Leukocyte Esterase (NEG) Urine RBC (0) /HPF Urine WBC (0-4) /HPF Urine WBC Clumps Ur Squamous Epith Cells /LPF Ur Renal Epithelial Cell /LPF Amorphous Sediment /LPF Urine Bacteria /LPF Urine Mucus /LPF Urine Yeast /HPF COVID-19 (LUCILA) (Negative) COVID-19 Clin Com Influenza Type A (MARVIN) (Negative) Influenza Type B (MARVIN) (Negative) Influenza A & B Note 01/02/22 01/02/22 01/02/22 Range/Units 18:50 18:50 18:50 WBC (4.8-10.8) X10*3/uL RBC (4.20-5.50) X10*6/uL Hgb (12.0-16.0) g/dl Hct (37.0-47.0) % MCV (80.0-98.0) fL MCH (27.0-33.0) pg MCHC (31.0-35.0) g/dl RDW (11.0-16.0) % Plt Count (160-400) X10*3/uL MPV (9.4-12.3) fL Immature Gran % (Auto) (0.0-0.4) % Neut % (Auto) (45-73) % Lymph % (Auto) (20-40) % Lo[place]za % (Auto) (2-11) % Eos % (Auto) (0-4) % Baso % (Auto) (0-2) % Lymph # (Auto) (1.2-4.9) X10*3/uL [place] # (Auto) (0.1-1.2) X10*3/uL Eos # (Auto) (0.0-0.4) X10*3/uL Baso # (Auto) (0.0-0.2) X10*3/uL Abs Immat Gran (auto) (0.00-0.03) X10*3/uL Absolute Neuts (auto) (2.0-8.3) x10*3/uL Absolute Nucleated RBC (0.0-0.012) X10*3/uL Nucleated RBC % (auto) (0.0-0.2) /100WBC ESR (0-20) MM/HR PT 14.1 H (9.9-13.0) SEC INR 1.2 H (0.9-1.1) APTT 29.9 Sodium 136 (135-145) mmol/L Potassium 3.1 L (3.3-5.1) mmol/L Chloride 102 (96-108) mmol/L Carbon Dioxide 26 (22-29) mmol/L Anion Gap 11 L (12-20) BUN 14 (9-16) mg/dL Creatinine 0.81 (0.5-1.4) mg/dL Estim Creat Clear Calc 111.9 Estimated GFR > 60 POC Glucose (60-115) mg/dL Random Glucose 105 (60-115) mg/dL Lactic Acid 1.0 (0.5-2.0) mmol/L Calcium 8.0 L (8.4-10.2) mg/dL Magnesium 1.4 L* (1.6-2.6) mg/dL Total Bilirubin 0.9 (0.0-1.0) mg/dL Direct Bilirubin 0.5 (0.0-0.5) mg/dL AST 21 D (5-31) U/L ALT 10 (0-31) U/L Alkaline Phosphatase 93 D (39-117) U/L Troponin I High Sens (<3.5-17.0) ng/L Total Protein 7.0 (6.5-8.0) g/dL Albumin 3.3 L D (3.5-5.0) g/dL Lipase 21 (8-78) U/L Urine Color Urine Appearance Urine pH (5.0-8.0) Ur Specific Ava (1.005-1.025) Urine Protein (NEG-TRACE) MG/DL Urine Glucose (UA) (NEG) MG/DL Urine Ketones (NEG) MG/DL Urine Blood (NEG) Urine Nitrite (NEG) Ur Leukocyte Esterase (NEG) Urine RBC (0) /HPF Urine WBC (0-4) /HPF Urine WBC Clumps Ur Squamous Epith Cells /LPF Ur Renal Epithelial Cell /LPF Amorphous Sediment /LPF Urine Bacteria /LPF Urine Mucus /LPF Urine Yeast /HPF COVID-19 (LUCILA) (Negative) COVID-19 Clin Com Influenza Type A (MARVIN) (Negative) Influenza Type B (MARVIN) (Negative) Influenza A & B Note 01/02/22 01/02/22 01/02/22 Range/Units 18:50 18:51 19:16 WBC (4.8-10.8) X10*3/uL RBC (4.20-5.50) X10*6/uL Hgb (12.0-16.0) g/dl Hct (37.0-47.0) % MCV (80.0-98.0) fL MCH (27.0-33.0) pg MCHC (31.0-35.0) g/dl RDW (11.0-16.0) % Plt Count (160-400) X10*3/uL MPV (9.4-12.3) fL Immature Gran % (Auto) (0.0-0.4) % Neut % (Auto) (45-73) % Lymph % (Auto) (20-40) % Lo[place]za % (Auto) (2-11) % Eos % (Auto) (0-4) % Baso % (Auto) (0-2) % Lymph # (Auto) (1.2-4.9) X10*3/uL [place] # (Auto) (0.1-1.2) X10*3/uL Eos # (Auto) (0.0-0.4) X10*3/uL Baso # (Auto) (0.0-0.2) X10*3/uL Abs Immat Gran (auto) (0.00-0.03) X10*3/uL Absolute Neuts (auto) (2.0-8.3) x10*3/uL Absolute Nucleated RBC (0.0-0.012) X10*3/uL Nucleated RBC % (auto) (0.0-0.2) /100WBC ESR 74 H (0-20) MM/HR PT (9.9-13.0) SEC INR (0.9-1.1) APTT Sodium (135-145) mmol/L Potassium (3.3-5.1) mmol/L Chloride (96-108) mmol/L Carbon Dioxide (22-29) mmol/L Anion Gap (12-20) BUN (9-16) mg/dL Creatinine (0.5-1.4) mg/dL Estim Creat Clear Calc Estimated GFR POC Glucose (60-115) mg/dL Random Glucose (60-115) mg/dL Lactic Acid (0.5-2.0) mmol/L Calcium (8.4-10.2) mg/dL Magnesium (1.6-2.6) mg/dL Total Bilirubin (0.0-1.0) mg/dL Direct Bilirubin (0.0-0.5) mg/dL AST (5-31) U/L ALT (0-31) U/L Alkaline Phosphatase (39-117) U/L Troponin I High Sens 4.6 (<3.5-17.0) ng/L Total Protein (6.5-8.0) g/dL Albumin (3.5-5.0) g/dL Lipase (8-78) U/L Urine Color YELLOW Urine Appearance HAZY Urine pH 6.5 (5.0-8.0) Ur Specific Ava 1.010 (1.005-1.025) Urine Protein NEG (NEG-TRACE) MG/DL Urine Glucose (UA) NEG (NEG) MG/DL Urine Ketones NEG (NEG) MG/DL Urine Blood 1+ H (NEG) Urine Nitrite NEG (NEG) Ur Leukocyte Esterase 1+ H (NEG) Urine RBC 5-9 H (0) /HPF Urine WBC 5-9 H (0-4) /HPF Urine WBC Clumps NOTED Ur Squamous Epith Cells 2+ /LPF Ur Renal Epithelial Cell TRACE /LPF Amorphous Sediment 2+ /LPF Urine Bacteria 3+ /LPF Urine Mucus 1+ /LPF Urine Yeast 2+ /HPF COVID-19 (LUCILA) (Negative) COVID-19 Clin Com Influenza Type A (MARVIN) (Negative) Influenza Type B (MARVIN) (Negative) Influenza A & B Note 01/02/22 01/02/22 Range/Units 19:17 19:17 WBC (4.8-10.8) X10*3/uL RBC (4.20-5.50) X10*6/uL Hgb (12.0-16.0) g/dl Hct (37.0-47.0) % MCV (80.0-98.0) fL MCH (27.0-33.0) pg MCHC (31.0-35.0) g/dl RDW (11.0-16.0) % Plt Count (160-400) X10*3/uL MPV (9.4-12.3) fL Immature Gran % (Auto) (0.0-0.4) % Neut % (Auto) (45-73) % Lymph % (Auto) (20-40) % [place] % (Auto) (2-11) % Eos % (Auto) (0-4) % Baso % (Auto) (0-2) % Lymph # (Auto) (1.2-4.9) X10*3/uL [place] # (Auto) (0.1-1.2) X10*3/uL Eos # (Auto) (0.0-0.4) X10*3/uL Baso # (Auto) (0.0-0.2) X10*3/uL Abs Immat Gran (auto) (0.00-0.03) X10*3/uL Absolute Neuts (auto) (2.0-8.3) x10*3/uL Absolute Nucleated RBC (0.0-0.012) X10*3/uL Nucleated RBC % (auto) (0.0-0.2) /100WBC ESR (0-20) MM/HR PT (9.9-13.0) SEC INR (0.9-1.1) APTT Sodium (135-145) mmol/L Potassium (3.3-5.1) mmol/L Chloride (96-108) mmol/L Carbon Dioxide (22-29) mmol/L Anion Gap (12-20) BUN (9-16) mg/dL Creatinine (0.5-1.4) mg/dL Estim Creat Clear Calc Estimated GFR POC Glucose (60-115) mg/dL Random Glucose (60-115) mg/dL Lactic Acid (0.5-2.0) mmol/L Calcium (8.4-10.2) mg/dL Magnesium (1.6-2.6) mg/dL Total Bilirubin (0.0-1.0) mg/dL Direct Bilirubin (0.0-0.5) mg/dL AST (5-31) U/L ALT (0-31) U/L Alkaline Phosphatase (39-117) U/L Troponin I High Sens (<3.5-17.0) ng/L Total Protein (6.5-8.0) g/dL Albumin (3.5-5.0) g/dL Lipase (8-78) U/L Urine Color Urine Appearance Urine pH (5.0-8.0) Ur Specific Ava (1.005-1.025) Urine Protein (NEG-TRACE) MG/DL Urine Glucose (UA) (NEG) MG/DL Urine Ketones (NEG) MG/DL Urine Blood (NEG) Urine Nitrite (NEG) Ur Leukocyte Esterase (NEG) Urine RBC (0) /HPF Urine WBC (0-4) /HPF Urine WBC Clumps Ur Squamous Epith Cells /LPF Ur Renal Epithelial Cell /LPF Amorphous Sediment /LPF Urine Bacteria /LPF Urine Mucus /LPF Urine Yeast /HPF COVID-19 (LUCILA) Negative (Negative) COVID-19 Clin Com See Note Influenza Type A (MARVIN) Negative (Negative) Influenza Type B (MARVIN) Negative (Negative) Influenza A & B Note See Note Imaging Data Knee x-ray: Attestation: I personally reviewed and interpreted this imaging study as follows: Radiologist's impression: EXAMINATION: LEFT KNEE AND CHEST. CLINICAL INFORMATION: Status post left knee replacement.? COMPARISON: None? TECHNIQUE: Left knee 2 views. Chest one view.? FINDINGS: Left knee: There is a total left knee replacement with prosthetic components in satisfactory alignment. There is moderate prepatellar anterior knee soft tissue swelling with mild joint effusion. CHEST: The lungs are hypoexpanded with clear. The heart size is enlarged. Pulmonary vascularity is normal. No gross bony abnormality seen.? XR/XR knee LT 2V IMPRESSION: Total left knee prosthesis with prosthetic components in satisfactory alignment. ? Moderate left anterior knee soft tissue swelling is seen. There is mild joint effusion as well.? Left duplex: Attestation: I personally reviewed and interpreted this imaging study as follows: Radiologist's impression: EXAMINATION: LEFT KNEE AND CHEST. CLINICAL INFORMATION: Status post left knee replacement.? COMPARISON: None? TECHNIQUE: Left knee 2 views. Chest one view.? FINDINGS: Left knee: There is a total left knee replacement with prosthetic components in satisfactory alignment. There is moderate prepatellar anterior knee soft tissue swelling with mild joint effusion. CHEST: The lungs are hypoexpanded with clear. The heart size is enlarged. Pulmonary vascularity is normal. No gross bony abnormality seen.? XR/XR knee LT 2V IMPRESSION: Total left knee prosthesis with prosthetic components in satisfactory alignment. ? Moderate left anterior knee soft tissue swelling is seen. There is mild joint effusion as well.? ECG Data Attestation: I personally reviewed and interpreted this ECG as follows: Prior ECG tracings: available for review Interpretation: Vent. Rate : 100 BPM ? ? Atrial Rate : 100 BPM ?? P-R Int : 198 ms? QRS Dur : 098 ms ? ? QT Int : 364 ms ? ? ? P-R-T Axes : 053 018 037 degrees ?? QTc Int : 469 ms ? Normal sinus rhythm Normal ECG When compared with ECG of 21-JUL-2021 17:27, No significant change was found 02-JAN-2022 18:23:44 Discharge Plan Discharge Clinical Impression: Postoperative pain, UTI (urinary tract infection) Patient Disposition: Home, Self-Care Instructions: Urinary Tract Infection in Women (ED), Pain Management (ED) Additional Instructions: You were evaluated for left lower extremity pain. DVT study is negative. X- rays show a Renee's cyst. Please follow-up with your orthopedic surgeon Dr. Nugent as scheduled, or call for earlier evaluation. Please take your pain management medications as directed. Urinalysis indicates UTI. Please take cefuroxime 500 mg twice a day for the next 7 days. Drink plenty of fluids. Thank you for choosing this emergency department for evaluation. Please follow-up with primary care physician as needed. Return to the emergency department for any new, concerning, or worsening symptoms. Prescriptions: New cefuroxime axetil 500 mg tablet 500 mg PO Q12H 7 Days Qty: 14 0RF No Action cetirizine 10 mg tablet 1 tab PO DAILY doxepin 25 mg capsule 1 cap PO BEDTIME chlorthalidone 25 mg tablet 1 tab PO QAM omeprazole 40 mg capsule,delayed release(DR/EC) 1 cap PO DAILY gabapentin 300 mg capsule 1 cap PO TID fluoxetine 20 mg capsule 1 cap PO QAM atenolol 50 mg tablet 1 tab PO DAILY potassium chloride 10 mEq tablet,ER particles/crystals 1 tab PO DAILY ondansetron HCl 4 mg tablet 1 tab PO Q6H PRN (Reason: Nausea) aspirin 81 mg Tablet,Chewable 81 mg PO DAILY levofloxacin 500 mg tablet 500 mg PO Q24H Qty: 2 0RF metronidazole 500 mg tablet 500 mg PO BID Qty: 4 0RF acetaminophen [Tylenol] 325 mg tablet 650 mg PO Q6H PRN (Reason: pain, mild) Qty: 10 0RF docusate sodium [Colace] 100 mg capsule 100 mg PO DAILY Qty: 30 0RF naproxen 500 mg tablet 500 mg PO BID PRN Suprep Bowel Prep Kit 17.5-3.13-1.6 gram recon soln See Rx Instructions PO .COMPLEX Qty: 354 0RF Rx Instructions: DILUTE; drink 1/2 at 6-8 pm and half at 11 PM- 1AM ondansetron 4 mg tablet,disintegrating 4 mg PO Q8H PRN (Reason: nausea and vomiting) Qty: 7 0RF Referrals: [facility] [Provider Group] (DR. NUGENT) Pallavi Escalante FNP [Primary Care Provider] - Interventions: ED Discharge Assessment Last Done: 01/02/22 22:07 Discharge Date/Time: 01/02/22 22:15
[2022-01-02] MEDS: 0.9 % Sodium Chloride 1,000 ML 999 ML IVCONT (18:30)
[2022-01-02 18:37] LABS: Glucose, Whole Blood 99 mg/dL (60-115)
[2022-01-02 18:58] LABS: MANUAL DIFF FLAG NO
[2022-01-02 19:00] LABS: Basophils Percent Auto 0.4 % (0-2); Eosinophils Absolute Auto 0.5 X10*3/uL (0.0-0.4); Eosinophils Percent Auto 4.3 % (0-4); Hematocrit 31.9 % (37.0-47.0); Hemoglobin 10.6 g/dl (12.0-16.0); Imm Gran Abs Auto 0.06 X10*3/uL (0.00-0.03); Imm Gran Pct Auto 0.5 % (0.0-0.4); Lymphocytes Absolute Auto 2.2 X10*3/uL (1.2-4.9); Lymphocytes Percent Auto 19.9 % (20-40); Mean Corpuscular HGB Conc 33.2 g/dl (31.0-35.0); Mean Corpuscular Hemoglobin 26.6 pg (27.0-33.0); Mean Corpuscular Volume 80.2 fL (80.0-98.0); Mean Platelet Volume 10.4 fL (9.4-12.3); Monocytes Absolute Auto 1.1 X10*3/uL (0.1-1.2); Monocytes Percent Auto 9.5 % (2-11); Neutrophils Absolute Auto 7.3 x10*3/uL (2.0-8.3); Neutrophils Percent Auto 65.4 % (45-73); Platelet Count 301 X10*3/uL (160-400); Red Blood Count 3.98 X10*6/uL (4.20-5.50); Red Cell Distribution Width 15.1 % (11.0-16.0); White Blood Count 11.2 X10*3/uL (4.8-10.8)
[2022-01-02 19:17] LABS: INTERNATIONAL NORM RATIO 1.2 (0.9-1.1); Prothrombin Time 14.1 SEC (9.9-13.0)
[2022-01-02 19:21] LABS: Troponin-I High Sensitivity 4.6 ng/L (<3.5-17.0)
[2022-01-02] MEDS: Acetaminophen 325 MG TABLET 975 MG PO (19:22)
[2022-01-02] MEDS: Morphine Sulfate 4 MG/ML CARTRIDGE IVPUSH (19:22)
[2022-01-02] MEDS: ondansetron HCL 4 MG/2 ML VIAL IVPUSH (19:22)
[2022-01-02 19:27] LABS: Appearance Urine HAZY; Color Urine YELLOW; Glucose Urine UA NEG (NEG); Leukocyte Esterase Urine 1+ (NEG); Nitrite Urine NEG (NEG); PH 6.5 (5.0-8.0); UACC Culture Trigger YES; Urine Blood 1+ (NEG); Urine Ketones NEG (NEG); Urine Protein NEG (NEG-TRACE)
[2022-01-02 19:34] LABS: Amorphous Sediment Urine 2+ /LPF; Bacteria Urine 3+ /LPF; Mucus Urine 1+ /LPF; Renal Epithelial Cells Urine TRACE /LPF; Squamous Epithelial Cell Urine 2+ /LPF; WBC Clumps Urine NOTED
[2022-01-02 19:48] LABS: IDNOW Serial# 16C4AD1C
[2022-01-02 19:49] LABS: COVID-19 Test Negative (Negative); Influenza A Negative (Negative); Influenza B2 Negative (Negative)
[2022-01-02 20:00] LABS: Erythrocyte Sedimentation Rate 74 MM/HR (0-20)
[2022-01-02 20:01] LABS: Alanine Aminotransferase 10 U/L (0-31); Albumin Level 3.3 g/dL (3.5-5.0); Alkaline Phosphatase 93 U/L (39-117); Anion Gap 11 (12-20); Aspartate Amino Transferase 21 U/L (5-31); Bilirubin Direct 0.5 mg/dL (0.0-0.5); Bilirubin Total 0.9 mg/dL (0.0-1.0); Blood Urea Nitrogen 14 mg/dL (9-16); Carbon Dioxide 26 mmol/L (22-29); Chloride 102 mmol/L (96-108); Creatinine Clr Calc Pharmacy 111.9; Estimated Glomerular Filt Rate > 60; Glucose Random 105 mg/dL (60-115); Lipase 21 U/L (8-78); Magnesium 1.4 mg/dL (1.6-2.6); Potassium 3.1 mmol/L (3.3-5.1); Sodium 136 mmol/L (135-145)
[2022-01-02] MEDS: Potassium Chloride Packet 20 MEQ PACKET 40 MEQ PO (21:23)
[2022-01-02] MEDS: cefTRIAXone sodium 1 GM in 0.9 % Sodium Chloride 50 ML IV (21:23)
[2022-01-02] MEDS: Magnesium Sulfate/H2O 2 GM/50 ML PIGGYBACK IV (21:23)
[2022-01-02 22:14] LABS: Partial Thromboplastin Time 29.9 SEC (24.1-38.0)
== END 2022-01-02 22:15 | disposition home or self-care (01) ==
PROVIDERS: Nurse Practitioner Family; Emergency Provider Emergency Medicine; PCP Nurse Practitioner Family
DX: G89.18 Other acute postprocedural pain (principal); N39.0 Urinary tract infection, site not specified; E87.6 Hypokalemia; I10 Essential (primary) hypertension; Z96.652 Presence of left artificial knee joint; Z20.822 Contact with and (suspected) exposure to COVID-19
CPT/HCPCS: 36415; 71045; 73560; 80048; 80076; 81001; 81003; 82947; 83605; 83690; 83735; 84484; 85025; 85610; 85652; 85730; 87040; 87086; 87502; 87635; 93005; 93971; 96361; 96365; 96366; 96375; 99284; J0696; J2270; J2405; J3475

== ENCOUNTER 2022-02-08 08:56 | Day surgery (SDC) | payer MEDICARE, MEDICAID, SELFPAY ==
[2022-02-02 14:03] VITALS: BMI 40.6
--- NOTE | 2022-02-07 09:31 | P.CONAN_ITS ---
Documented by User: Madeline John NP 02/07/22 09:37 HPI - Anesthesia Eval Consult details Narrative: 61yo F for Upper Endoscopy and Colonoscopy,with Pancreatic duct stent removal s/p TKA 12/2021 at [facility] s/p lap [place] 07/2021 with GA-LMA 7 s/p ERCP 07/2021 with GA-7.5 PMFSH Active Problems Active Problems: All Active Problems (Updated 01/03/22 @ 00:01 by Mary Reyes) Carpal tunnel syndrome of right wrist (Acute) Left hand pain (Acute) Acute diverticulitis (Acute) Gallstone (Acute) Acute metabolic encephalopathy (Acute) Cholelithiasis (Acute) Seizure-like activity (Acute) Loss of consciousness (Acute) Leukocytosis (Acute) ALFREDO (acute kidney injury) (Acute) Cholangitis (Acute) Dilated cbd, acquired (Acute) Abnormal LFTs (Acute) Perforated diverticulum (Acute) Sepsis (Acute) Acute cholecystitis due to biliary calculus (Acute) Anemia (Acute) S/P laparoscopic cholecystectomy (Acute) Displacement of pancreatic stent (Acute) Past Medical History Medical History Depression Hypertension Family History Family history of problems with anesthesia: No Surgical History Surgical History History of back surgery History of carpal tunnel release History of ERCP Hx laparoscopic cholecystectomy Hx of tubal ligation History of Problems with Anesthesia: No Social History Social History Housing: Other Do you presently have visiting nurse or other home services: Yes (aide 2x a week) Alcohol intake: former Patient Tobacco Use Status: Former Tobacco user Quit Date: 5 yrs ago Tobacco use type: Cigarette Are you DNR?: No Advance Directives: No Advance Directives Information Provided: Yes Nutrition Risks: No Nutritional Risk service: No Current occupational status: unemployed 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 Meds Allergies Allergy/AdvReac Type Severity Reaction Status Date / Time cortisone [CORTISONE] Allergy Intermediate RASH Verified 02/08/22 09:11 adhesive tape [ADHESIVE TAPE] AdvReac Unknown UNKNOWN Verified 02/08/22 09:11 Latex Allergy Intermediate redness Uncoded 02/02/22 14:00 [place] Allergy Unknown Unknown Uncoded 10/08/21 11:21 Home Medications Medication Instructions Recorded Confirmed Last Taken Type atenolol 50 mg tablet 1 tab PO DAILY 07/21/21 02/02/22 07/20/21 History cetirizine 10 mg tablet 1 tab PO DAILY 07/21/21 02/02/22 07/20/21 History chlorthalidone 25 mg tablet 1 tab PO QAM 07/21/21 02/02/22 07/20/21 History doxepin 25 mg capsule 1 cap PO BEDTIME 07/21/21 02/02/22 07/20/21 History fluoxetine 20 mg capsule 1 cap PO QAM 07/21/21 02/02/22 07/20/21 History gabapentin 300 mg capsule 1 cap PO TID 07/21/21 02/02/22 07/20/21 History omeprazole 40 mg capsule,delayed 1 cap PO DAILY 07/21/21 02/02/22 07/20/21 History release potassium chloride 10 mEq 1 tab PO DAILY 07/21/21 02/02/22 07/20/21 History tablet,extended release(part/cryst) aspirin 81 mg chewable tablet 81 mg PO DAILY 07/22/21 02/02/22 07/20/21 History ondansetron HCl 4 mg tablet 1 tab PO Q6H PRN Nausea 07/22/21 08/10/21 07/20/21 History naproxen 500 mg tablet 500 mg PO BID PRN Pain 08/10/21 02/02/22 Unknown History Exam Exam Date and Time: February 07, 2022 0931 Height,Weight and Vital Signs: Height 5 ft 7 in Weight 117.651 kg Pertinent Lab Results Pertinent Lab Results: Laboratory Tests 01/02/22 01/02/22 18:50 18:50 WBC 11.2 H Hgb 10.6 L Hct 31.9 L Plt Count 301 Sodium 136 Potassium 3.1 L Chloride 102 Carbon Dioxide 26 BUN 14 Creatinine 0.81 Narrative Narrative: EKG 12/2021 Vent. Rate : 100 BPM ? ? Atrial Rate : 100 BPM ?? P-R Int : 198 ms? QRS Dur : 098 ms ? ? QT Int : 364 ms ? ? ? P-R-T Axes : 053 018 037 degrees ?? QTc Int : 469 ms ? Normal sinus rhythm Normal ECG When compared with ECG of 21-JUL-2021 17:27, No significant change was found Assessment and Plan Assessment Anesthesia Assessment: Chart Reviewed Final Anesthetic Review Family History of Problems with Anesthesia: No History of Problems with Anesthesia: No Documented by User: Collin Slade MD 02/08/22 10:03 [facility] Past Medical History Medical History Depression Hypertension Surgical History Surgical History History of back surgery History of carpal tunnel release History of ERCP Hx laparoscopic cholecystectomy Hx of tubal ligation Social History Social History Housing: Other Do you presently have visiting nurse or other home services: Yes (aide 2x a week) Alcohol intake: former Patient Tobacco Use Status: Former Tobacco user Quit Date: 5 yrs ago Tobacco use type: Cigarette Are you DNR?: No Advance Directives: No Advance Directives Information Provided: Yes Nutrition Risks: No Nutritional Risk service: No Current occupational status: unemployed 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 Meds Allergies Allergy/AdvReac Type Severity Reaction Status Date / Time cortisone [CORTISONE] Allergy Intermediate RASH Verified 02/08/22 09:11 adhesive tape [ADHESIVE TAPE] AdvReac Unknown UNKNOWN Verified 02/08/22 09:11 Latex Allergy Intermediate redness Uncoded 02/02/22 14:00 [place] Allergy Unknown Unknown Uncoded 10/08/21 11:21 Home Medications Medication Instructions Recorded Confirmed Last Taken Type atenolol 50 mg tablet 1 tab PO DAILY 07/21/21 02/02/22 07/20/21 History cetirizine 10 mg tablet 1 tab PO DAILY 07/21/21 02/02/22 07/20/21 History chlorthalidone 25 mg tablet 1 tab PO QAM 07/21/21 02/02/22 07/20/21 History doxepin 25 mg capsule 1 cap PO BEDTIME 07/21/21 02/02/2222 History fluoxetine 20 mg capsule 1 cap PO QAM 07/21/21 02/02/22 07/20/21 History gabapentin 300 mg capsule 1 cap PO TID 07/21/21 02/02/22 07/20/21 History omeprazole 40 mg capsule,delayed 1 cap PO DAILY 07/21/21 02/02/22 07/20/21 History release potassium chloride 10 mEq 1 tab PO DAILY 07/21/21 02/02/22 07/20/21 History tablet,extended release(part/cryst) aspirin 81 mg chewable tablet 81 mg PO DAILY 07/22/21 02/02/22 07/20/21 History ondansetron HCl 4 mg tablet 1 tab PO Q6H PRN Nausea 07/22/21 08/10/21 07/20/21 History naproxen 500 mg tablet 500 mg PO BID PRN Pain 08/10/21 02/02/22 Unknown History Exam Airway Mallampati Class: IV TM Dist: >3cm Neck ROM: Full Denture: Upper Partial: Lower Loose/Missing/Broken Teeth: Lower Heart: rrr Lungs: clear Other: two teeth lower Assessment and Plan Final Anesthetic Review NPO: Yes ASA Class: II Final Preanesthetic Review: No Changes in Pt Med Stat, Meds/Allgs Chart Reviewed, Consent Obtained/Reviewed and Anes Risks/Benef Reviewed Patient Risk: Intermediate Procedure Risk: Low Anesthetic Plan Anesthetic Plan: MAC: Disposition: Standard PACU
--- NOTE | ~2022-02-08 | XR_ITS ---
EXAMINATION: XR ABDOMEN KUB CLINICAL INDICATION: Assess for pancreatic duct stent location. COMPARISON: KUB studies dated 08/29/2021 and 07/29/2021. TECHNIQUE: AP view of the abdomen. There is limitation the study secondary to difficulty with patient positioning. FINDINGS: The previously seen stent overlies the right upper quadrant lateral to L2. There is a nonobstructive bowel gas pattern. Mild atherosclerosis within the colon distally to the rectum. The osseous structures are unchanged. XR/XR KUB IMPRESSION: The pancreatic duct stent is seen more to the right of midline compared to previous studies. The exact location cannot be determined on this study. A CT scan may be needed to better assess location.
--- NOTE | 2022-02-08 09:10 | MHC.SHP ---
Pre-Procedural Eval Section A Date of Service: 02/08/22 Section B Chief Complaint: pancreatic duct stent in situ and diverticulitis Details of Present Illness: prio abn imaging with possible diverticulitis and ?micro perf many months ago, colonoscopy for further assessment Relevant Family History (Specify if Yes): No Relevant Social History: None Present Medications: see Short Stay Collaborative assessment Medical History: Significant History (Depression Hypertension) History of Previous Operations: Relevant previous surgery/procedure and date(s) (History of back surgery History of carpal tunnel release History of ERCP Hx laparoscopic cholecystectomy Hx of tubal ligation) Allergies: Allergies Allergy/AdvReac Type Severity Reaction Status Date / Time cortisone [CORTISONE] Allergy Intermediate RASH Verified 10/08/21 11:21 adhesive tape [ADHESIVE TAPE] AdvReac Unknown UNKNOWN Verified 10/08/21 11:21 Latex Allergy Intermediate redness Uncoded 02/02/22 14:00 [place] Allergy Unknown Unknown Uncoded 10/08/21 11:21 Review of Systems Sugical H&P ROS: Negative: Constitution, Cardiovascular, Respiratory, Neurological, Psychiatric, Hem-Onc, Allergic/Immunologic, Gastrointestinal, Genitourinary, Musculoskeletal, Integumentary, Endocrine and Eyes/Ears/Nose/Throat Exam Surgical H&P Exam: Normal: HEENT, Normal: Heart, Normal: Lungs, Normal: Extremities, Normal: Abdomen, Normal: Skin and Normal: Neurological Plan Diagnosis/Plan: Unchanged I have reviewed the history and physical and performed a pertinent physical examination on my patient. No changes have occurred unless specified.
[2022-02-08 09:22] VITALS: BP 98/60; PULSE 98; RESP 18; TEMP 36.6; O2SAT 96
[2022-02-08] MEDS: Lactated Ringers 1,000 ML 100 ML IVCONT (09:23)
--- NOTE | 2022-02-08 09:48 | W.PM.OPN ---
Operative Note Operative Note Date of Service: 02/08/22 Narrative: Operative Information Procedure Description: EGD, Colonoscopy Indication: pancreatic duct in situ, screening colonoscopy Anesthesia: MAC FLEXIBLE TRANSORAL UPPER GASTROINTESTINAL ENDOSCOPY AND COLONOSCOPY PROCEDURE NOTE UPPER ENDOSCOPY Consent: Indications for the procedure and potential complications of bleeding, perforation, reaction to medications and missed diagnosis were discussed with the patient and informed consent was obtained. Instrument: Olympus ERCP scope Monitoring: Vital signs and clinical assessment, continuous EKG monitoring, Pulse oximetry, Carbon Dioxide monitoring and blood pressure monitoring were done throughout the procedure. Procedure: The patient was placed in the left lateral decubitis position and pre-procedure medications were administered and a bite block was placed. The endoscope was inserted into the mouth and advanced under direct vision to the third part of duodenum. Limited exam of mucosa as side viewer scope was used Findings: Larynx:not seen Esophagus: appeared normal Stomach: Normal mucosa. Duodenum: Normal bulb and descending duodenum, papilla normal, no stent noted Intervention: none COLONOSCOPY Instrument: Olympus variable stiffness adult scope 190L Colonoscopy Monitoring: Vital signs and clinical assessment, continuous EKG monitoring, Pulse oximetry, Carbon Dioxide monitoring and blood pressure monitoring were done throughout the procedure. Colon withdrawal time was 12 minutes. Procedure: The patient was placed in the left lateral decubitis position and pre-procedure medications were administered. After a digital rectal examination of the ano-rectum, the video colonoscope was inserted into the rectum and advanced through the colon to the cecum/TI. The colonoscope was slowly withdrawn in a retrograde panoramic fashion and the colon mucosa was carefully examined including a retroflexed view of the rectum. Findings and interventions are described below. Procedure Difficulty:easy Findings: Terminal Ileum-normal Cecum:normal Ascending Colon: normal Transverse Colon -normal Descending Colon:normal Sigmoid Colon: moderate severe diverticulosis. 12-13 mm semi pedunculated polyp removed with hot snare and closed defect with on clip Rectum: Retroflexion with small internal hemorrhoids, grade I, x 2 sessile polyps 4-5 mm removed with cold forceps Anorectum - normal Colon preparation: [place] Bowel Preparation Scale Right colon; 2 Transverse colon: 2 Left colon; 2 (0 = Unprepared colon segment with mucosa not seen due to solid stool that cannot be cleared. 1 = Portion of mucosa of the colon segment seen, but other areas of the colon segment not well seen due to staining, residual stool and/or opaque liquid. 2 = Minor amount of residual staining, small fragments of stool and/or opaque liquid, but mucosa of colon segment seen well. 3 = Entire mucosa of colon segment seen well with no residual staining, small fragments of stool or opaque liquid) Impression and Post Procedure Diagnosis: Endoscopy Findings: normal papilla, no stent seen Colonoscopy Findings: polyps internal hemorrhoids diverticular disease Plan: Await Pathology results Repeat Colonoscopy in 3-5 years due to adenomatous appearing polyps or earlier if clinically indicated High fiber diet leaflet avoid straining at stool, epsom salts and sitz bath, anusol supps or cream get KUB make sure PD stent has not migrated up into the PD Above findings were reviewed with the patient and relevant handouts were provided if indicated.
[2022-02-08 10:57] VITALS: BP 111/92; PULSE 97; RESP 16; TEMP 36.2; O2SAT 96
[2022-02-08 11:12] VITALS: BP 104/73; PULSE 97; RESP 20; O2SAT 95
[2022-02-08 11:33] VITALS: BP 113/82; PULSE 82; RESP 18; TEMP 36.2; O2SAT 97
== END 2022-02-08 12:12 | disposition home or self-care (01) ==
PROVIDERS: PCP Internal Medicine Medical Oncology; Visit Provider Internal Medicine Gastroenterology
PROC: (CPT 45385; principal; 2022-02-08 10:00)
DX: Z12.11 Encounter for screening for malignant neoplasm of colon (principal); D12.5 Benign neoplasm of sigmoid colon; K62.1 Rectal polyp; K57.30 Diverticulosis of large intestine without perforation or abscess without bleeding; K64.0 First degree hemorrhoids; R10.11 Right upper quadrant pain; R10.32 Left lower quadrant pain; Z96.89 Presence of other specified functional implants; I10 Essential (primary) hypertension; F32.A Depression, unspecified; Z79.899 Other long term (current) drug therapy; Z79.1 Long term (current) use of non-steroidal anti-inflammatories (NSAID); Z79.82 Long term (current) use of aspirin; Z88.8 Allergy status to other drugs, medicaments and biological substances; Z91.040 Latex allergy status; Z90.49 Acquired absence of other specified parts of digestive tract; Z87.891 Personal history of nicotine dependence
CPT/HCPCS: 45385; 45380; 43235; 74018; 88305

== ENCOUNTER → 2022-05-13 10:08 | Outpatient (BNVA) | payer MEDICARE, MEDICAID, SELFPAY | PROVIDERS: PCP Internal Medicine Medical Oncology; Referring Provider Internal Medicine Medical Oncology; Visit Provider Internal Medicine Gastroenterology | DX: R68.81 Early satiety (principal); Z90.49 Acquired absence of other specified parts of digestive tract | CPT/HCPCS: 99212 ==

== ENCOUNTER → 2022-06-06 08:11 | Outpatient (REF) | payer MEDICARE, MEDICAID, SELFPAY ==
--- NOTE | ~2022-06-06 | NM_ITS ---
EXAMINATION: VA RADIONUCLIDE SOLID FOOD GASTRIC EMPTYING 4-HOUR STUDY CLINICAL INFORMATION: Early satiety. COMPARISON: None TECHNIQUE: A standard meal consisting of 4 oz of Egg Beaters brand tagged with 930 microcuries Tc-99m Sulfur Colloid, 8 oz water and 2 slices of toast with jelly was administered orally to the patient. Images were obtained using a dual head gamma camera in the anterior and posterior projections over of the stomach immediately post ingestion and at hourly intervals up to 4 hours post ingestion. The anterior and posterior counts at each time interval were averaged using the geometric mean and expressed as percentage of the immediate post ingestion counts. FINDINGS: There is good visualization of activity in the stomach immediately post ingestion. As the study progresses, there is good clearance of activity from the stomach and visualization of progressively increasing small bowel activity. By the end of the study, there is almost no retention noted in the stomach. Retention in the stomach at each time interval was: 1 hour 55% (normal 37%-90%) 2 hours 5% (normal 30%-60%) 3 hours 1% 4 hours 0% (normal 0%-10%) VA/VA gastric emptying study IMPRESSION: Normal 4-hour solid food gastric emptying study.
== END ==
LOC: HO.NUCMED 08:11
PROVIDERS: PCP Internal Medicine Medical Oncology; Visit Provider Internal Medicine Gastroenterology
DX: R68.81 Early satiety (principal)
CPT/HCPCS: 78264; A9541

== ENCOUNTER → 2022-09-09 11:06 | Outpatient (BNVA) | payer OTHER, SELFPAY | PROVIDERS: PCP Internal Medicine Medical Oncology; Visit Provider Internal Medicine Gastroenterology | DX: K57.90 Diverticulosis of intestine, part unspecified, without perforation or abscess without bleeding (principal); K63.5 Polyp of colon; K31.89 Other diseases of stomach and duodenum | CPT/HCPCS: Q3014 ==

== ENCOUNTER 2022-10-04 15:54 | Emergency (ER) | payer MEDICARE, MEDICAID, SELFPAY ==
[2022-10-04 16:11] VITALS: BP 122/74; BP 122/76; PULSE 72; PULSE 77; RESP 16; TEMP 36.8; O2SAT 95; O2SAT 98; BMI 41.8
[2022-10-04 16:12] LABS: Glucose, Whole Blood 491 mg/dL (60-115)
[2022-10-04] MEDS: 0.9 % Sodium Chloride 1,000 ML 999 ML IV (16:18)
--- NOTE | 2022-10-04 16:43 | PC.NURSE ---
45 sec absent seizure noticed by RN. SPO2 maintained in the 90s. ED provider to the bedside
[2022-10-04 16:44] LABS: Basophils Percent Auto 0.6 % (0-2); Eosinophils Absolute Auto 0.3 X10*3/uL (0.0-0.4); Eosinophils Percent Auto 3.7 % (0-4); Imm Gran Abs Auto 0.02 X10*3/uL (0.00-0.03); Imm Gran Pct Auto 0.3 % (0.0-0.4); Lymphocytes Absolute Auto 2.2 X10*3/uL (1.2-4.9); Lymphocytes Percent Auto 31.8 % (20-40); MANUAL DIFF FLAG NO; Mean Corpuscular HGB Conc 33.3 g/dl (31.0-35.0); Mean Corpuscular Hemoglobin 26.7 pg (27.0-33.0); Mean Corpuscular Volume 80.2 fL (80.0-98.0); Mean Platelet Volume 10.7 fL (9.4-12.3); Monocytes Absolute Auto 0.6 X10*3/uL (0.1-1.2); Monocytes Percent Auto 8.1 % (2-11); Neutrophils Absolute Auto 3.9 x10*3/uL (2.0-8.3); Neutrophils Percent Auto 55.5 % (45-73); Platelet Count 336 X10*3/uL (160-400); Red Blood Count 5.61 X10*6/uL (4.20-5.50); Red Cell Distribution Width 13.6 % (11.0-16.0); White Blood Count 6.9 X10*3/uL (4.8-10.8)
[2022-10-04 16:57] LABS: INTERNATIONAL NORM RATIO 1.1 (0.9-1.1); Prothrombin Time 12.3 SEC (10.0-13.1)
--- NOTE | 2022-10-04 17:07 | ED.SEIZURE ---
HPI - Seizure General Chief Complaint: Seizure Stated Complaint: DKA Seizure Time Seen by Provider: 10/04/22 16:08 Source: patient, family and EMS Mode of arrival: EMS History of Present Illness HPI Narrative: 62-year-old female with majority of history obtained on scalp our ring her pharmacy scripts and prior notation switch the last documentation is from February of last year. Patient is brought in by EMS for seizure and received Versed. She was also noted to be hyperglycemic. Patient herself does not remember the incident and on review of her prior documentation this has happened previously. At that time Neurology ordered an EEG which was noted to be within normal limits. Patient does have a significant depression history for which it appears that she takes fluoxetine, doxepin, and is noted to have recently received a prescription for gabapentin. Related Data Home Medications Medication Instructions Recorded Confirmed atenolol 50 mg tablet 1 tab PO DAILY 07/21/21 02/02/22 cetirizine 10 mg tablet 1 tab PO DAILY 07/21/21 02/02/22 chlorthalidone 25 mg tablet 1 tab PO QAM 07/21/21 02/02/22 doxepin 25 mg capsule 1 cap PO BEDTIME 07/21/21 02/02/22 omeprazole 40 mg capsule,delayed 1 cap PO DAILY 07/21/21 02/02/22 release potassium chloride 10 mEq 1 tab PO DAILY 07/21/21 02/02/22 tablet,extended release(part/cryst) aspirin 81 mg chewable tablet 81 mg PO DAILY 07/22/21 02/02/22 fluoxetine 40 mg capsule 40 mg PO DAILY 05/13/22 gabapentin 400 mg capsule 400 mg PO TID 05/13/22 meloxicam 15 mg tablet 15 mg PO DAILY 05/13/22 Previous Rx's Medication Instructions Recorded acetaminophen 325 mg tablet 650 mg PO Q6H PRN pain, mild #10 07/28/21 (Tylenol) tabs docusate sodium 100 mg capsule 100 mg PO DAILY #30 caps 07/28/21 (Colace) polyethylene glycol 3350 17 17 g PO DAILY #850 grams 05/13/22 gram/dose oral powder (Miralax) metformin 1,000 mg tablet 1,000 mg PO BIDWMEAL #60 tabs 10/04/22 Allergies Allergy/AdvReac Type Severity Reaction Status Date / Time cortisone [CORTISONE] Allergy Intermediate RASH Verified 09/09/22 11:06 adhesive tape [ADHESIVE TAPE] AdvReac Unknown UNKNOWN Verified 09/09/22 11:06 Latex Allergy Intermediate redness Uncoded 09/09/22 11:06 Chrisman Allergy Unknown Unknown Uncoded 09/09/22 11:06 Review of Systems Review of Systems: Pertinent positives and negatives as stated in [facility] Past Medical History Source: nursing notes reviewed Medical History Depression Hypertension Surgical History History of back surgery History of carpal tunnel release History of ERCP History of esophagogastroduodenoscopy (EGD) Hx laparoscopic cholecystectomy Hx of colonoscopy Hx of total knee replacement Hx of tubal ligation Social History Social History Housing: Other Do you presently have visiting nurse or other home services: Yes (aide 2x a week) Alcohol intake: former Patient Tobacco Use Status: Former Tobacco user Quit Date: 5 yrs ago Tobacco use type: Cigarette Advance Directives: No Advance Directives Information Provided: Yes service: No Current occupational status: unemployed 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 Physical Exam Vital Signs: Vital Signs: Last Vital Signs Temp 98.2 F 10/04/22 16:11 Pulse 72 10/04/22 18:26 Resp 17 10/04/22 18:26 BP 114/57 L 10/04/22 18:26 Pulse Ox 94 10/04/22 18:26 O2 Del Method Room Air 10/04/22 18:26 BMI result Body Mass Index 41.8 VITAL SIGNS: Reviewed. GENERAL: Well developed, well nourished, in no acute distress. HEAD: Normocephalic/atraumatic EYES: PERRLA, EOMI EARS: Ext canals without abnormality, TMs non-bulging and non-erythematous NOSE: Nares patent bilateral OROPHARYNX: no oral lesions noted, posterior pharynx clear NECK: Supple, no adenopathy LUNGS: Normal breath sounds. No adventitious sounds or accessory muscle use. SpO2<95> CARDIOVASCULAR: Regular rate and rhythm without noted murmurs, no JVD or lower extremity edema. ABDOMEN: Soft, non-tender, non-distended with bowel sounds. MUSCULOSKELETAL: No tenderness, deformities, or effusions noted on gross inspection. EXTREMITIES: No cyanosis, clubbing or edema. SKIN: Inspection of the skin reveals no rashes NEUROLOGIC: Alert and oriented x 4. Strength and sensation to light touch were grossly intact x 4, patient does appear to be postictal but somewhat unclear as there is some noted tension on evaluation but then patient also appears to turn towards voice. Medications Administered Discontinued Medications Generic Name Dose Route Start Last Admin Trade Name Jean Carlos PRN Reason Stop Dose Admin Sodium Chloride 1,000 mls @ 999 mls/hr 10/04/22 16:15 10/04/22 17:51 Ns IV 10/04/22 17:15 Infused .Q1H1M IRENA Infusion Lactated Ringer's 2,000 mls @ 999 mls/hr 10/04/22 17:45 10/04/22 20:55 Lr IV 10/04/22 19:45 Infused .Q2H1M IRENA Infusion Medical Decision Making Medical Decision Making MDM Narrative: 62-year-old female and after extensive review of pharmacy [facility] and prior documentation appears to been evaluated for seizure last year with a normal EEG and it appears recently has had prescriptions submitted to the pharmacy in the area for blood pressure medication and antidepressants. The hyperglycemia that was noted in route as well as here in the emergency room is new, does not appear to be associated with current antidepressant medications and no evidence to suggest DKA or HHS. Patient will receive multiple IV fluid boluses, the lactic acid-2.1 is attributable to patient's seizure-like activity. On review of all investigations based on patient's prior lab work I would suspect that she is somewhat hemoconcentrated and may have developed gradually over time due to frequent urination secondary to elevated glucose levels. Will continue to hydrate, check urinalysis and urine toxicology (although I suspect that this will be benign in nature). There is no evidence of acute infection, anemia, electrolyte abnormalities further supporting the possibility of dehydration with hyperglycemia. Repeat glucose levels have significantly improved after hydration, all results discussed with the patient at bedside and she understands that she is being diagnosed with new onset diabetes and will be started on a new medication and has been strongly encouraged to follow-up with Dr. patten by calling the office 1st thing in the morning. On review of the urinalysis it appears to be a dirty sample and will not initiate antibiotics at this time. Patient states that she is feeling much better and I will provide her with a follow-up referral to Neurology. Differential Diagnosis Please see the discussion above Lab Data Please see the discussion above 10/04/22 16:35 10/04/22 16:35 Labs: Lab Results 10/04/22 10/04/22 10/04/22 Range/Units 05:43 16:08 16:35 WBC 6.9 (4.8-10.8) X10*3/uL RBC 5.61 H D (4.20-5.50) X10*6/uL Hgb 15.0 D (12.0-16.0) g/dl Hct 45.0 D (37.0-47.0) % MCV 80.2 (80.0-98.0) fL MCH 26.7 L (27.0-33.0) pg MCHC 33.3 (31.0-35.0) g/dl RDW 13.6 (11.0-16.0) % Plt Count 336 (160-400) X10*3/uL MPV 10.7 (9.4-12.3) fL Immature Gran % (Auto) 0.3 (0.0-0.4) % Neut % (Auto) 55.5 (45-73) % Lymph % (Auto) 31.8 (20-40) % Dickenson % (Auto) 8.1 (2-11) % Eos % (Auto) 3.7 (0-4) % Baso % (Auto) 0.6 (0-2) % Lymph # (Auto) 2.2 (1.2-4.9) X10*3/uL Dickenson # (Auto) 0.6 (0.1-1.2) X10*3/uL Eos # (Auto) 0.3 (0.0-0.4) X10*3/uL Baso # (Auto) 0.0 (0.0-0.2) X10*3/uL Abs Immat Gran (auto) 0.02 (0.00-0.03) X10*3/uL Absolute Neuts (auto) 3.9 (2.0-8.3) x10*3/uL Absolute Nucleated RBC 0.000 (0.0-0.012) X10*3/uL Nucleated RBC % (auto) 0.0 (0.0-0.2) /100WBC PT (10.0-13.1) SEC INR (0.9-1.1) Sodium (135-145) mmol/L Potassium (3.3-5.1) mmol/L Chloride (96-108) mmol/L Carbon Dioxide (22-29) mmol/L Anion Gap (12-20) BUN (9-16) mg/dL Creatinine (0.5-1.4) mg/dL Estim Creat Clear Calc Estimated GFR POC Glucose 491 H* (60-115) mg/dL Random Glucose (60-115) mg/dL Lactic Acid 2.1 H* (0.5-2.0) mmol/L Lactic Acid F/U @ 2Hr (0.5-2.0) mmol/L Calcium (8.4-10.2) mg/dL Total Bilirubin (0.0-1.0) mg/dL AST (5-31) U/L ALT (0-31) U/L Alkaline Phosphatase (39-117) U/L Troponin I High Sens (<3.5-17.0) ng/L Total Protein (6.5-8.0) g/dL Albumin (3.5-5.0) g/dL Urine Color Urine Appearance Urine pH (5.0-9.0) Ur Specific Sumrall (1.005-1.025) Urine Protein (Neg-Trace) mg/dL Urine Glucose (UA) (Negative) mg/dL Urine Ketones (Negative) mg/dL Urine Blood (Negative) Urine Nitrite (Negative) Ur Leukocyte Esterase (Negative) Urine RBC (0-2) /HPF Urine WBC (0-5) /HPF Ur Squamous Epith Cells (0-2) /HPF Urine Bacteria (None Seen) Hyaline Casts (0-2) /LPF Urine Yeast Urine Opiates Screen (Not Detect) Urine Fentanyl Screen (Not Detect) Ur Barbiturates Screen (Not Detect) Ur Phencyclidine Scrn (Not Detect) Ur Amphetamines Screen (Not Detect) U Benzodiazepines Scrn (Not Detect) Urine Cocaine Screen (Not Detect) U Marijuana (THC) Screen (Not Detect) Acetone, Qual (Negative) COVID-19 (LUCILA) (Negative) COVID-19 Clin Com 03/28/23 03/28/23 03/28/23 Range/Units 16:35 16:35 16:35 WBC (4.8-10.8) X10*3/uL RBC (4.20-5.50) X10*6/uL Hgb (12.0-16.0) g/dl Hct (37.0-47.0) % MCV (80.0-98.0) fL MCH (27.0-33.0) pg MCHC (31.0-35.0) g/dl RDW (11.0-16.0) % Plt Count (160-400) X10*3/uL MPV (9.4-12.3) fL Immature Gran % (Auto) (0.0-0.4) % Neut % (Auto) (45-73) % Lymph % (Auto) (20-40) % Dickenson % (Auto) (2-11) % Eos % (Auto) (0-4) % Baso % (Auto) (0-2) % Lymph # (Auto) (1.2-4.9) X10*3/uL Dickenson # (Auto) (0.1-1.2) X10*3/uL Eos # (Auto) (0.0-0.4) X10*3/uL Baso # (Auto) (0.0-0.2) X10*3/uL Abs Immat Gran (auto) (0.00-0.03) X10*3/uL Absolute Neuts (auto) (2.0-8.3) x10*3/uL Absolute Nucleated RBC (0.0-0.012) X10*3/uL Nucleated RBC % (auto) (0.0-0.2) /100WBC PT 12.3 (10.0-13.1) SEC INR 1.1 (0.9-1.1) Sodium 135 (135-145) mmol/L Potassium 3.4 (3.3-5.1) mmol/L Chloride 94 L (96-108) mmol/L Carbon Dioxide 29 (22-29) mmol/L Anion Gap 15 (12-20) BUN 10 (9-16) mg/dL Creatinine 1.30 (0.5-1.4) mg/dL Estim Creat Clear Calc 66.8 Estimated GFR 41 POC Glucose (60-115) mg/dL Random Glucose 525 H* (60-115) mg/dL Lactic Acid (0.5-2.0) mmol/L Lactic Acid F/U @ 2Hr (0.5-2.0) mmol/L Calcium 9.4 D (8.4-10.2) mg/dL Total Bilirubin 0.5 (0.0-1.0) mg/dL AST 17 (5-31) U/L ALT 11 (0-31) U/L Alkaline Phosphatase 144 H (39-117) U/L Troponin I High Sens < 3.5 (<3.5-17.0) ng/L Total Protein 8.0 (6.5-8.0) g/dL Albumin 3.7 (3.5-5.0) g/dL Urine Color Urine Appearance Urine pH (5.0-9.0) Ur Specific Sumrall (1.005-1.025) Urine Protein (Neg-Trace) mg/dL Urine Glucose (UA) (Negative) mg/dL Urine Ketones (Negative) mg/dL Urine Blood (Negative) Urine Nitrite (Negative) Ur Leukocyte Esterase (Negative) Urine RBC (0-2) /HPF Urine WBC (0-5) /HPF Ur Squamous Epith Cells (0-2) /HPF Urine Bacteria (None Seen) Hyaline Casts (0-2) /LPF Urine Yeast Urine Opiates Screen (Not Detect) Urine Fentanyl Screen (Not Detect) Ur Barbiturates Screen (Not Detect) Ur Phencyclidine Scrn (Not Detect) Ur Amphetamines Screen (Not Detect) U Benzodiazepines Scrn (Not Detect) Urine Cocaine Screen (Not Detect) U Marijuana (THC) Screen (Not Detect) Acetone, Qual Negative (Negative) COVID-19 (LUCILA) (Negative) COVID-19 Clin Com 10/04/22 10/04/22 10/04/22 Range/Units 18:05 18:47 18:47 WBC (4.8-10.8) X10*3/uL RBC (4.20-5.50) X10*6/uL Hgb (12.0-16.0) g/dl Hct (37.0-47.0) % MCV (80.0-98.0) fL MCH (27.0-33.0) pg MCHC (31.0-35.0) g/dl RDW (11.0-16.0) % Plt Count (160-400) X10*3/uL MPV (9.4-12.3) fL Immature Gran % (Auto) (0.0-0.4) % Neut % (Auto) (45-73) % Lymph % (Auto) (20-40) % Dickenson % (Auto) (2-11) % Eos % (Auto) (0-4) % Baso % (Auto) (0-2) % Lymph # (Auto) (1.2-4.9) X10*3/uL Dickenson # (Auto) (0.1-1.2) X10*3/uL Eos # (Auto) (0.0-0.4) X10*3/uL Baso # (Auto) (0.0-0.2) X10*3/uL Abs Immat Gran (auto) (0.00-0.03) X10*3/uL Absolute Neuts (auto) (2.0-8.3) x10*3/uL Absolute Nucleated RBC (0.0-0.012) X10*3/uL Nucleated RBC % (auto) (0.0-0.2) /100WBC PT (10.0-13.1) SEC INR (0.9-1.1) Sodium (135-145) mmol/L Potassium (3.3-5.1) mmol/L Chloride (96-108) mmol/L Carbon Dioxide (22-29) mmol/L Anion Gap (12-20) BUN (9-16) mg/dL Creatinine (0.5-1.4) mg/dL Estim Creat Clear Calc Estimated GFR POC Glucose (60-115) mg/dL Random Glucose (60-115) mg/dL Lactic Acid (0.5-2.0) mmol/L Lactic Acid F/U @ 2Hr (0.5-2.0) mmol/L Calcium (8.4-10.2) mg/dL Total Bilirubin (0.0-1.0) mg/dL AST (5-31) U/L ALT (0-31) U/L Alkaline Phosphatase (39-117) U/L Troponin I High Sens (<3.5-17.0) ng/L Total Protein (6.5-8.0) g/dL Albumin (3.5-5.0) g/dL Urine Color Yellow Urine Appearance Clear Urine pH 6.5 (5.0-9.0) Ur Specific Sumrall >= 1.030 H (1.005-1.025) Urine Protein Negative (Neg-Trace) mg/dL Urine Glucose (UA) >=1000 H (Negative) mg/dL Urine Ketones Negative (Negative) mg/dL Urine Blood Negative (Negative) Urine Nitrite Negative (Negative) Ur Leukocyte Esterase Small (1+) H (Negative) Urine RBC 0-2 (0-2) /HPF Urine WBC 21-50 H (0-5) /HPF Ur Squamous Epith Cells 6-10 (0-2) /HPF Urine Bacteria 1+ (None Seen) Hyaline Casts 0-2 (0-2) /LPF Urine Yeast Present Urine Opiates Screen Not Detected (Not Detect) Urine Fentanyl Screen Not Detected (Not Detect) Ur Barbiturates Screen Not Detected (Not Detect) Ur Phencyclidine Scrn Not Detected (Not Detect) Ur Amphetamines Screen Not Detected (Not Detect) U Benzodiazepines Scrn POSITIVE H (Not Detect) Urine Cocaine Screen Not Detected (Not Detect) U Marijuana (THC) Screen Not Detected (Not Detect) Acetone, Qual (Negative) COVID-19 (LUCILA) Negative (Negative) COVID-19 Clin Com See Note 10/04/22 10/04/22 Range/Units 19:14 19:53 WBC (4.8-10.8) X10*3/uL RBC (4.20-5.50) X10*6/uL Hgb (12.0-16.0) g/dl Hct (37.0-47.0) % MCV (80.0-98.0) fL MCH (27.0-33.0) pg MCHC (31.0-35.0) g/dl RDW (11.0-16.0) % Plt Count (160-400) X10*3/uL MPV (9.4-12.3) fL Immature Gran % (Auto) (0.0-0.4) % Neut % (Auto) (45-73) % Lymph % (Auto) (20-40) % Dickenson % (Auto) (2-11) % Eos % (Auto) (0-4) % Baso % (Auto) (0-2) % Lymph # (Auto) (1.2-4.9) X10*3/uL Dickenson # (Auto) (0.1-1.2) X10*3/uL Eos # (Auto) (0.0-0.4) X10*3/uL Baso # (Auto) (0.0-0.2) X10*3/uL Abs Immat Gran (auto) (0.00-0.03) X10*3/uL Absolute Neuts (auto) (2.0-8.3) x10*3/uL Absolute Nucleated RBC (0.0-0.012) X10*3/uL Nucleated RBC % (auto) (0.0-0.2) /100WBC PT (10.0-13.1) SEC INR (0.9-1.1) Sodium (135-145) mmol/L Potassium (3.3-5.1) mmol/L Chloride (96-108) mmol/L Carbon Dioxide (22-29) mmol/L Anion Gap (12-20) BUN (9-16) mg/dL Creatinine (0.5-1.4) mg/dL Estim Creat Clear Calc Estimated GFR POC Glucose 372 H* (60-115) mg/dL Random Glucose (60-115) mg/dL Lactic Acid (0.5-2.0) mmol/L Lactic Acid F/U @ 2Hr 1.6 (0.5-2.0) mmol/L Calcium (8.4-10.2) mg/dL Total Bilirubin (0.0-1.0) mg/dL AST (5-31) U/L ALT (0-31) U/L Alkaline Phosphatase (39-117) U/L Troponin I High Sens (<3.5-17.0) ng/L Total Protein (6.5-8.0) g/dL Albumin (3.5-5.0) g/dL Urine Color Urine Appearance Urine pH (5.0-9.0) Ur Specific Sumrall (1.005-1.025) Urine Protein (Neg-Trace) mg/dL Urine Glucose (UA) (Negative) mg/dL Urine Ketones (Negative) mg/dL Urine Blood (Negative) Urine Nitrite (Negative) Ur Leukocyte Esterase (Negative) Urine RBC (0-2) /HPF Urine WBC (0-5) /HPF Ur Squamous Epith Cells (0-2) /HPF Urine Bacteria (None Seen) Hyaline Casts (0-2) /LPF Urine Yeast Urine Opiates Screen (Not Detect) Urine Fentanyl Screen (Not Detect) Ur Barbiturates Screen (Not Detect) Ur Phencyclidine Scrn (Not Detect) Ur Amphetamines Screen (Not Detect) U Benzodiazepines Scrn (Not Detect) Urine Cocaine Screen (Not Detect) U Marijuana (THC) Screen (Not Detect) Acetone, Qual (Negative) COVID-19 (LUCILA) (Negative) COVID-19 Clin Com External Record Review External record reviewed: Outpatient record and Prior outpatient labs Chronic Conditions Patient?s care impacted by: Diabetes and Hypertension Discharge Plan Discharge Clinical Impression: Seizure-like activity, Diabetes mellitus, new onset, Dehydration, Hyperglycemia Patient Disposition: Home, Self-Care Instructions: Dehydration (ED), Type 2 Diabetes in Adults: New Diagnosis (ED), Basic Carbohydrate Counting (DC), Diabetes and Nutrition (ED), Diabetes and Exercise (ED), How to Check your Blood Sugar (ED) Additional Instructions: 1. Resume all home medications as prescribed. 2. You have been started on metformin, initially you need to take 1 pill daily for 3 days and then begin taking 1 pill twice a day for the rest the days as prescribed. 3. Call the office of your primary care doctor in the morning to set up an appointment for re-evaluation especially because you have been recently diagnosed with diabetes. 4. There is a referral to follow-up with neurology. Return to the ER for any worsening symptoms. Prescriptions: New metformin 1,000 mg tablet 1,000 mg PO BIDWMEAL Qty: 60 0RF Rx Instructions: Take 1 pill, daily, for 3 days and then initiate twice daily No Action cetirizine 10 mg tablet 1 tab PO DAILY doxepin 25 mg capsule 1 cap PO BEDTIME chlorthalidone 25 mg tablet 1 tab PO QAM omeprazole 40 mg capsule,delayed release(DR/EC) 1 cap PO DAILY atenolol 50 mg tablet 1 tab PO DAILY potassium chloride 10 mEq tablet,ER particles/crystals 1 tab PO DAILY aspirin 81 mg Tablet,Chewable 81 mg PO DAILY acetaminophen [Tylenol] 325 mg tablet 650 mg PO Q6H PRN (Reason: pain, mild) Qty: 10 0RF docusate sodium [Colace] 100 mg capsule 100 mg PO DAILY Qty: 30 0RF meloxicam 15 mg tablet 15 mg PO DAILY gabapentin 400 mg capsule 400 mg PO TID fluoxetine 40 mg capsule 40 mg PO DAILY polyethylene glycol 3350 [Miralax] 17 gram/dose powder 17 g PO DAILY Qty: 850 2RF Referrals: Kiel Rice MD [Physician] -
[2022-10-04 17:10] LABS: Alanine Aminotransferase 11 U/L (0-31); Albumin Level 3.7 g/dL (3.5-5.0); Alkaline Phosphatase 144 U/L (39-117); Anion Gap 15 (12-20); Aspartate Amino Transferase 17 U/L (5-31); Bilirubin Total 0.5 mg/dL (0.0-1.0); Blood Urea Nitrogen 10 mg/dL (9-16); Calcium 9.4 mg/dL (8.4-10.2); Carbon Dioxide 29 mmol/L (22-29); Chloride 94 mmol/L (96-108); Creatinine Clr Calc Pharmacy 66.8; Estimated Glomerular Filt Rate 41; Glucose Random 525 mg/dL (60-115); Potassium 3.4 mmol/L (3.3-5.1); Sodium 135 mmol/L (135-145); Troponin-I High Sensitivity < 3.5 ng/L (<3.5-17.0)
[2022-10-04 17:11] LABS: Lactic Acid 2.1 mmol/L (0.5-2.0)
[2022-10-04 17:33] LABS: Acetone, serum QL Negative (Negative)
--- NOTE | 2022-10-04 17:44 | PC.NURSE ---
patient answering yes and no questions. sister at the bedside. VS stable, will CTM
[2022-10-04] MEDS: Lactated Ringers 2,000 ML 999 ML IV (17:51)
[2022-10-04 18:26] VITALS: BP 114/57; PULSE 72; RESP 17; O2SAT 94
[2022-10-04 18:37] LABS: COVID-19 Test Negative (Negative); IDNOW Serial# BCCEAD1C
[2022-10-04 18:39] LABS: Reflex Lactate? Lactic Acid Added
[2022-10-04 19:12] LABS: Amphetamine Screen Urine Not Detected (Not Detect); Appearance Urine Clear; Barbiturates, Urine Not Detected (Not Detect); Benzodiazepines Screen Urine POSITIVE (Not Detect); Cannabinoid Screen Urine Not Detected (Not Detect); Cocaine Screen Urine Not Detected (Not Detect); Color Urine Yellow; Fentanyl, urine Not Detected (Not Detect); Glucose Urine UA >=1000 mg/dL (Negative); Leukocyte Esterase Urine Small (1+) (Negative); Nitrite Urine Negative (Negative); Opiate Screen Urine Not Detected (Not Detect); PH 6.5 (5.0-9.0); Phencyclidine Screen Urine Not Detected (Not Detect); Specific Gravity - Urine >= 1.030 (1.005-1.025); UMIC TRIGGER UACC YES; Urine Blood Negative (Negative); Urine Ketones Negative (Negative); Urine Protein Negative (Neg-Trace)
--- NOTE | 2022-10-04 19:27 | PC.NURSE ---
assumed care of patient at 1900 - pt resting comfortably on stretcher. iv fluids running. pt on secured entrance monitor, has no current complaints. sister at bedside. will PERLAM
[2022-10-04 19:39] LABS: Bacteria Urine 1+ (None Seen); Hyaline Casts Urine 0-2 /LPF (0-2); RBC Urine 0-2 /HPF (0-2); UACC Culture Trigger YES; WBC Urine 21-50 /HPF (0-5)
[2022-10-04 19:49] LABS: ~Lactic Acid-LAB USE ONLY 1.6 mmol/L (0.5-2.0)
[2022-10-04 19:57] LABS: Glucose, Whole Blood 372 mg/dL (60-115)
[2022-10-04] MEDS: metFORMIN HCl 500 MG TABLET PO (22:08)
[2022-10-05 05:21] LABS: Estimated Average Glucose 306 mg/dL; Hemoglobin A1c % 12.3 %
== END 2022-10-04 22:16 | disposition home or self-care (01) ==
PROVIDERS: Emergency Provider Student in an Organized Health Care Education/Training Program
DX: R56.9 Unspecified convulsions (principal); E11.65 Type 2 diabetes mellitus with hyperglycemia; E86.0 Dehydration; R35.0 Frequency of micturition; Z20.822 Contact with and (suspected) exposure to COVID-19; I10 Essential (primary) hypertension; F32.A Depression, unspecified; Z87.891 Personal history of nicotine dependence; Z90.49 Acquired absence of other specified parts of digestive tract; Z79.899 Other long term (current) drug therapy
CPT/HCPCS: 36415; 80053; 80307; 81001; 81003; 82009; 82947; 83036; 83605; 84484; 85025; 85610; 87040; 87086; 87635; 96360; 96361; 99284; 99285

== ENCOUNTER 2022-10-06 07:41 | Outpatient (REF) | payer MEDICARE, MEDICAID, SELFPAY ==
--- NOTE | ~2022-10-06 | CT_ITS ---
EXAMINATION: CT HEAD WITHOUT CONTRAST CLINICAL INFORMATION: Seizures COMPARISON: CT head from 07/21/2021 TECHNIQUE: Contiguous axial imaging was performed from the skull base to vertex without intravenous administration of contrast. This CT examination was performed using dose optimization techniques as appropriate, variously including the following: *Automated exposure control *Adjustment of mA and/or kV according to patient size (this includes techniques or standardized protocols for targeted exams where dose is matched to indication/reason for exam; i.e. extremities or head) *Use of iterative reconstruction technique DLP: 906 mGy-cm FINDINGS: There is no evidence of acute intracranial hemorrhage or territorial infarction. No abnormal mass effect or midline shift is seen. Thapa to white matter differentiation is well preserved. No extra-axial fluid collections are identified. The ventricles are normal in size. There is no abnormal attenuation within the brain parenchyma. The osseous structures and soft tissues are normal. The mastoid air cells and visualized portions of the paranasal sinuses are well aerated. CT/CT head/brain wo IV con IMPRESSION: No acute intracranial pathology.
== END 2022-10-06 07:42 | disposition home or self-care (01) ==
LOC: HO.CT 07:41
PROVIDERS: PCP Internal Medicine Medical Oncology; Visit Provider Internal Medicine Medical Oncology
DX: R56.9 Unspecified convulsions (principal); E13.69 Other specified diabetes mellitus with other specified complication
CPT/HCPCS: 70450

== ENCOUNTER 2022-10-14 08:35 | Outpatient (REF) | payer MEDICARE, MEDICAID, SELFPAY ==
--- NOTE | ~2022-10-14 | MM_ITS ---
EXAMINATION: MM SCREENING DIGITAL BREAST TOMOSYNTHESIS, BILATERAL CLINICAL INFORMATION: Screening. Asymptomatic. The lifetime risk of breast cancer based on the Tyrer-Cuzick Model is 7%. COMPARISON: Mammography: 10/12/2021, 04/25/2019, 02/27/2018 TECHNIQUE: Digital breast tomosynthesis is performed in both the craniocaudal and mediolateral oblique views along with computer-aided detection (CAD). Synthesized 2D images are generated from the tomosynthesis. Additional bilateral MLO views are provided. FINDINGS: The breasts are almost entirely fatty (ACR BI-RADS breast composition Category a). Background stromal markings are similar to prior studies. No developing density or architectural abnormality. There are no significant masses, abnormal calcifications, or other abnormalities. The axilla and skin contours are unremarkable. MM/MM tomosynthesis screening BI IMPRESSION: No mammographic evidence of malignancy. ASSESSMENT: BI-RADS 1: Negative RECOMMENDATION: Routine annual mammography screening. This patient's information was entered into a reminder system with a target due date for their next mammogram.
== END 2022-10-14 08:36 | disposition home or self-care (01) ==
LOC: HO.MAMMO 08:35
PROVIDERS: PCP Internal Medicine Medical Oncology; Visit Provider Internal Medicine Medical Oncology
DX: Z12.31 Encounter for screening mammogram for malignant neoplasm of breast (principal)
CPT/HCPCS: 77063; 77067

== ENCOUNTER 2022-11-09 09:54 | Outpatient (REF) | payer MEDICARE, MEDICAID, SELFPAY ==
[2022-11-09 13:39] LABS: MANUAL DIFF FLAG NO
[2022-11-09 13:48] LABS: Basophils Percent Auto 0.6 % (0-2); Eosinophils Absolute Auto 0.3 X10*3/uL (0.0-0.4); Eosinophils Percent Auto 4.4 % (0-4); Hematocrit 41.8 % (37.0-47.0); Hemoglobin 13.6 g/dl (12.0-16.0); Imm Gran Abs Auto 0.02 X10*3/uL (0.00-0.03); Imm Gran Pct Auto 0.3 % (0.0-0.4); Lymphocytes Absolute Auto 2.1 X10*3/uL (1.2-4.9); Lymphocytes Percent Auto 31.5 % (20-40); Mean Corpuscular HGB Conc 32.5 g/dl (31.0-35.0); Mean Corpuscular Hemoglobin 26.4 pg (27.0-33.0); Mean Corpuscular Volume 81.2 fL (80.0-98.0); Mean Platelet Volume 10.4 fL (9.4-12.3); Monocytes Absolute Auto 0.6 X10*3/uL (0.1-1.2); Monocytes Percent Auto 9.8 % (2-11); Neutrophils Absolute Auto 3.5 x10*3/uL (2.0-8.3); Neutrophils Percent Auto 53.4 % (45-73); Platelet Count 370 X10*3/uL (160-400); Red Blood Count 5.15 X10*6/uL (4.20-5.50); Red Cell Distribution Width 14.1 % (11.0-16.0); White Blood Count 6.5 X10*3/uL (4.8-10.8)
[2022-11-09 13:59] LABS: Estimated Average Glucose 249 mg/dL; Hemoglobin A1c % 10.3 %
[2022-11-09 14:06] LABS: Alanine Aminotransferase 11 U/L (0-31); Albumin Level 3.7 g/dL (3.5-5.0); Alkaline Phosphatase 108 U/L (39-117); Anion Gap 12 (12-20); Aspartate Amino Transferase 18 U/L (5-31); Bilirubin Total 0.4 mg/dL (0.0-1.0); Blood Urea Nitrogen 15 mg/dL (9-16); Calcium 9.4 mg/dL (8.4-10.2); Carbon Dioxide 29 mmol/L (22-29); Chloride 102 mmol/L (96-108); Cholesterol 148 mg/dL; Estimated Glomerular Filt Rate > 60; Glucose Fasting 118 mg/dL (60-99); HDL Cholesterol 30 mg/dL; LDL Cholesterol Calculated 94 mg/dl; Potassium 3.7 mmol/L (3.3-5.1); Sodium 139 mmol/L (135-145); Total Protein 7.6 g/dL (6.5-8.0); Triglycerides 122 mg/dL
[2022-11-09 14:30] LABS: Microalbum/Creatinine Ratio Ur 4.5 ug/mg cr
== END 2022-11-09 09:55 | disposition home or self-care (01) ==
LOC: HO.10HDL 09:54
PROVIDERS: Visit Provider Internal Medicine Medical Oncology
DX: E11.9 Type 2 diabetes mellitus without complications (principal); E66.9 Obesity, unspecified; I10 Essential (primary) hypertension
CPT/HCPCS: 36415; 80053; 80061; 82043; 83036; 85025

== ENCOUNTER 2023-01-20 14:09 | Outpatient (REF) | payer MEDICARE, MEDICAID, SELFPAY ==
--- NOTE | 2023-01-20 | PFT_ITS ---
INDICATION: Dyspnea. SPIROMETRY: FEV1 to FVC of 84% with an FEV1 of 2.13 L, which is 95% predicted and an FVC of 2.55 L, which is 89% predicted. No significant response to bronchodilator is noted. Maximum voluntary ventilation 56% predicted. LUNG VOLUMES: Total lung capacity 75% predicted with an expiratory reserve volume of 3% predicted. DIFFUSION CAPACITY: DLCO of 72% predicted, although it corrects to 115% predicted when corrected for the alveolar volume. COMPARISON: None. INTERPRETATION: No obstructive ventilatory defect. No significant response to bronchodilators noted. There is a moderate decrease in the maximum voluntary ventilation secondary to likely deconditioning, although cannot rule out neuromuscular condition. The patient does have a restrictive ventilatory defect consistent with mild restrictive lung disease. In this case, likely the result of an elevated BMI. The patient does have severely decreased expiratory reserve volume secondary to also the elevated BMI affecting her lung expansion. The patient also has a mild diffusion impairment that does correct to normal and correcting for the alveolar volumes suggesting there is a hypoexpansion issue, and not an intrinsic lung issue. Clinical correlation warranted. MD BLANCHE Green/MODL / [id number]
== END 2023-01-20 14:10 | disposition home or self-care (01) ==
LOC: HO.RESP 14:09
PROVIDERS: PCP Internal Medicine Medical Oncology; Visit Provider Internal Medicine Medical Oncology
DX: R06.02 Shortness of breath (principal); Z87.891 Personal history of nicotine dependence
CPT/HCPCS: 94010; 94727; 94729

== ENCOUNTER → 2023-01-20 14:30 | Outpatient (BNV) | payer MEDICARE, MEDICAID, SELFPAY | PROVIDERS: PCP Internal Medicine Medical Oncology; Visit Provider Hospitalist | DX: R06.02 Shortness of breath (principal) | CPT/HCPCS: 94060; 94727; 94729 ==

== ENCOUNTER 2023-08-22 15:08 | Inpatient (IN) | payer OTHER, SELFPAY ==
[2023-08-22] VITALS (10 sets, daily range): BP systolic 84–139; BP diastolic 36–60; PULSE 79–112; RESP 15–22; TEMP 36.8–38.7; O2SAT 93–99; BMI 46.0; BMI 47.0
--- NOTE | 2023-08-22 | ECG_ITS ---
Test Reason : ?SEPSIS Blood Pressure : / mmHG Vent. Rate : 102 BPM Atrial Rate : 102 BPM P-R Int : 232 ms QRS Dur : 096 ms QT Int : 340 ms P-R-T Axes : 060 031 026 degrees QTc Int : 443 ms Sinus tachycardia with 1st degree A-V block ST & T wave abnormality, consider lateral ischemia Abnormal ECG When compared with ECG of 02-JAN-2022 18:23, NH interval has increased T wave inversion now evident in Lateral leads Referred By: Generic ED Physician Electronically Signed By:Dwight Ramírez
--- NOTE | ~2023-08-22 | XR_ITS ---
EXAMINATION: XR KNEE, LEFT CLINICAL INFORMATION: Left knee pain. COMPARISON: None available. TECHNIQUE: Four views of the left knee. FINDINGS: There is total left knee prosthesis with the prosthetic components in satisfactory alignment. No periprosthetic loosening or fracture seen. No abnormal joint effusion. XR/XR knee LT 4V IMPRESSION: Total left knee prosthesis in satisfactory alignment. No periprosthetic loosening or fracture seen.
--- NOTE | ~2023-08-22 | CT_ITS ---
CT HEAD WITHOUT IV CONTRAST INDICATION: Fall with headache. Rule out fracture/bleed. COMPARISON: Head CT 10/06/2022. TECHNIQUE: Multidetector CT acquisitions of the head was obtained without IV contrast. This CT examination was performed using dose optimization techniques as appropriate, variously including the following: *Automated exposure control *Adjustment of mA and/or kV according to patient size (this includes techniques or standardized protocols for targeted exams where dose is matched to indication/reason for exam; i.e. extremities or head) *Use of iterative reconstruction technique FINDINGS: There is no intracranial hemorrhage, hydrocephalus, extra-axial surface collection, midline shift, or other herniation pattern. Small parafalcine lipoma incidentally noted. [place] to white matter differentiation is diffusely maintained without evidence of an evolved acute territorial infarct. The basilar cisterns are preserved. No significant soft tissue abnormality. No acute osseous abnormality. The paranasal sinuses and the mastoid air cells are well aerated. CT/CT head/brain wo IV con IMPRESSION: No acute intracranial abnormality.
--- NOTE | ~2023-08-22 | XR_ITS ---
EXAMINATION: XR CHEST CLINICAL INFORMATION: Cough, weakness COMPARISON: 01/02/2022 TECHNIQUE: Frontal view of the chest was obtained. FINDINGS: Normal cardiomediastinal silhouette. There are low lung volumes. There is hazy opacity at the left lung base, favored to represent atelectasis. No pleural effusion or pneumothorax. No acute osseous abnormality. XR/XR chest 1V IMPRESSION: Low lung volumes with hazy opacity at the left lung base, favored to represent atelectasis. No dense focal consolidation.
--- NOTE | 2023-08-22 15:34 | PC.NURSE ---
20gIV placed in the left AC by EMS. labs obtained/sent to lab. ekg being performed by tech.
[2023-08-22 15:40] LABS: MANUAL DIFF FLAG NO
--- NOTE | 2023-08-22 15:40 | ED_ITS ---
HPI - Weakness General Chief complaint: Fall Stated complaint: cold/flu sx,foul urine per ems Time Seen by Provider: 08/22/23 15:38 Source: patient Mode of arrival: EMS Limitations: no limitations History of Present Illness HPI Narrative: 63-year-old female with a history of diabetes mellitus, hypertension, hyperlipidemia, diverticulitis who presents emergency department for evaluation of cough, weakness and fall out of bed. Patient states she has had a cough which is occasionally productive of phlegm over the last 2 days she states that when she woke up this afternoon she felt weak and fell out of bed. She was unable to get off the floor and called 911. She is uncertain if she hit her head or had any loss of consciousness. Paramedics reported that the patient had a fever of 103 degrees F and had a low blood pressure therefore they called the patient in as a sepsis alert. At the time my evaluation, the patient patient complained of weakness and pain in her left knee which she believes she injured when she fell. Review of systems was positive for shortness of breath and dyspnea on exertion only. Patient denied fever, chills, rhinorrhea, sore throat, nausea, vomiting, diarrhea, dysuria, frequency or abdominal pain Related Data Home Medications Medication Instructions Recorded Confirmed atenolol 50 mg tablet 1 tab PO DAILY 07/21/21 02/02/22 cetirizine 10 mg tablet 1 tab PO DAILY 07/21/21 02/02/22 chlorthalidone 25 mg tablet 1 tab PO QAM 07/21/21 02/02/22 doxepin 25 mg capsule 1 cap PO BEDTIME 07/21/21 02/02/22 omeprazole 40 mg capsule,delayed 1 cap PO DAILY 07/21/21 02/02/22 release potassium chloride 10 mEq 1 tab PO DAILY 07/21/21 02/02/22 tablet,extended release(part/cryst) aspirin 81 mg chewable tablet 81 mg PO DAILY 07/22/21 02/02/22 fluoxetine 40 mg capsule 40 mg PO DAILY 05/13/22 gabapentin 400 mg capsule 400 mg PO TID 05/13/22 meloxicam 15 mg tablet 15 mg PO DAILY 05/13/22 Previous Rx's Medication Instructions Recorded acetaminophen 325 mg tablet 650 mg (2 x 325 mg) PO Q6H PRN 07/28/21 (Tylenol) pain, mild #10 tabs docusate sodium 100 mg capsule 100 mg PO DAILY #30 caps 07/28/21 (Colace) polyethylene glycol 3350 17 17 g PO DAILY #850 grams 05/13/22 gram/dose oral powder (Miralax) metformin 1,000 mg tablet 1,000 mg PO BIDWMEAL #60 tabs 10/04/22 Allergies Allergy/AdvReac Type Severity Reaction Status Date / Time cortisone [CORTISONE] Allergy Intermediate RASH Verified 08/22/23 15:23 adhesive tape [ADHESIVE TAPE] AdvReac Unknown UNKNOWN Verified 08/22/23 15:23 Latex Allergy Intermediate redness Uncoded 08/22/23 15:23 Emerson Allergy Unknown Unknown Uncoded 08/22/23 15:23 Review of Systems 2 Review of Systems: Yes all other systems are reviewed and are negative [facility] Past Medical History [facility] Narrative: Social history: She states she lives alone. She denied tobacco, alcohol and drug use. Medical History Depression Hypertension Surgical History History of back surgery History of carpal tunnel release History of ERCP History of esophagogastroduodenoscopy (EGD) Hx laparoscopic cholecystectomy Hx of colonoscopy Hx of total knee replacement Hx of tubal ligation Social History Social History Housing: Other Do you presently have visiting nurse or other home services: Yes (aide 2x a week) Alcohol intake: former Patient Tobacco Use Status: Former Tobacco user Quit Date: 5 yrs ago Tobacco use type: Cigarette Smoked in Last 30 Days: No Use of substances other than those prescribed or required for medical reasons: No Advance Directives: Yes Advance Directives on File: Yes Advance Directives Date on File: 07/23/21 service: No Current occupational status: unemployed 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 Physical Exam 2 Vital Signs: Vital Signs: Last Vital Signs Temp 98.3 F 08/22/23 20:36 Pulse 86 08/22/23 20:36 Resp 15 08/22/23 20:36 BP 90/36 L 08/22/23 20:36 Pulse Ox 94 08/22/23 20:36 O2 Del Method Room Air 08/22/23 20:36 BMI result Body Mass Index 46.0 Vital signs revealed an elevated temperature of a 101.6 degrees, pulse was elevated 107, vital signs otherwise unremarkable Exam General: Awake, alert in no distress, elevated BMI 46 Head: Normocephalic, atraumatic EENT: PERRL, Lids normal, sclera normal, conjunctiva normal, nose normal , ears normal, throat without erythema or exudates Neck: Supple, no adenopathy Lung: breath sounds symmetric, no wheezing, rales or rhonchi Chest: symmetric movement, nontender Heart: regular rate and rhythm, normal S1, S2 no murmurs or rubs Abdomen: soft, non-tender, nondistended, normal bowel sounds Back: no vertebral tenderness, no CVAT Extremities: no deformities, patient does have evidence for left knee replacement, she has tenderness palpation over her left knee with increased pain with flexion extension of the knee, no erythema or increased warmth noted. Neuro: Awake, alert, oriented, normal speech, cranial nerves intact, moves all extremities symmetrically Psych: Pleasant, cooperative Medications Administered Discontinued Medications Generic Name Dose Route Start Last Admin Trade Name Marcialq PRN Reason Stop Dose Admin Acetaminophen 975 mg 08/22/23 15:52 08/22/23 16:12 Acetaminophen 325 Mg Tablet PO 08/22/23 15:53 975 mg ONCE ONE Administration Sodium Chloride 2,055 mls @ 2,055 mls/hr 08/22/23 15:52 08/22/23 17:39 Ns IV 08/22/23 16:51 Infused .Q1H STA Infusion Ceftriaxone Sodium 500 mg/ 50 mls @ 100 mls/hr 08/22/23 17:06 08/22/23 18:17 Sodium Chloride IV 08/22/23 17:35 Infused ONCE ONE Infusion Azithromycin 500 mg/ Sodium 250 mls @ 125 mls/hr 08/22/23 17:06 08/22/23 17:47 Chloride IV 08/22/23 19:05 125 mls/hr ONCE ONE Administration Lactated Ringer's 1,000 mls @ 999 mls/hr 08/22/23 18:15 08/22/23 19:34 Lr IV 08/22/23 19:15 Infused .Q1H1M IRENA Infusion Ketorolac Tromethamine 30 mg 08/22/23 19:05 08/22/23 19:17 Ketorolac Tromethamine 15 Mg/Ml Vial IVPUSH 08/22/23 19:06 30 mg ONCE STA Administration Oseltamivir Phosphate 75 mg 08/22/23 17:06 08/22/23 17:47 Oseltamivir Phosphate 75 Mg Capsule PO 08/22/23 17:07 75 mg ONCE ONE Administration Medical Decision Making Medical Decision Making [facility] Narrative: 63-year-old female with a history of diabetes mellitus, hypertension, hyperlipidemia, diverticulitis who presents emergency department for evaluation of cough times several days and weakness with fall out of bed prior to coming to emergency department. Paramedics reported that the patient had a fever of 103 degrees F and had a low blood pressure therefore they called the patient in as a sepsis alert. Patient's vital signs revealed a fever of 101.6, elevated heart rate of 107, otherwise unremarkable. Examination did reveal tenderness palpation over the left knee otherwise unremarkable. 16:01 Differential diagnosis: Includes was not limited to pneumonia, bronchitis, URI, viral syndrome, COVID-19, influenza, RSV, urinary tract infection, anemia, electrolyte abnormalities, dehydration, closed head injury, skull fracture, intracranial bleed, myocardial infarction, myocardial ischemia, myocarditis Following evaluation was ordered: CBC, BMP, liver panel, BNP, troponin, EKG, PTT, COVID-19, RSV, influenza, lactic acid, blood cultures x2 left knee x-rays, chest x-ray one view, CT scan head without IV contrast Patient was treated with the following: Normal saline bolus, Tylenol 975 mg orally The patient is obese based on BMI of 46, therefore the normal saline bolus was given based on ideal body weight. 20:35 My interpretation patient's laboratory evaluation as follows: CBC was normal. Potassium low 3.1. First troponin was 3.5, repeat 3 hour troponin was 6.0. LFTs were normal. COVID-19 was negative. Influenza was positive. First lactic acid was elevated 2.3 but normalized to 1.4 after fluid bolus. Influenza A was treated with Tamiflu 75 mg IV Chest x-ray was concerning for left lower lobe infiltrate. Initial EKG did reveal ST segment depression 2, AVF, V4 through V6, repeat EKG at 17:20 and 19:09 hours revealed resolution of the ST segment depression with no acute abnormalities. Patient did complain of chest pain which patient's chest pain is more pleuritic and I do not think that is cardiac, patient did get Toradol 30 mg IV with some improvement of her pain Patient's blood pressure was still slightly low after 2 L however after 3 L, her blood pressures improved to 94/42 and 90/36. Chest x-ray is concerning for left lower lobe infiltrate therefore the patient was given ceftriaxone 1 g IV and Zithromax 500 mg IV. I will discuss admission with the covering hospitalist, Dr. Jefferson who requested that I present the case to the steamfitter supervisor 21:01 I did discuss the patient's presentation with Dr. Alves and he states that he will accept the patient in the intensive care unit. Admission/Observation Consideration of admission/observation: Escalation of care including admission/observation considered Lab Data 08/22/23 15:34 08/22/23 15:34 Labs: Lab Results 08/22/23 08/22/23 08/22/23 Range/Units 15:34 15:46 17:51 WBC 7.5 (4.8-10.8) X10*3/uL RBC 4.64 (4.20-5.50) X10*6/uL Hgb 12.4 (12.0-16.0) g/dl Hct 37.8 (37.0-47.0) % MCV 81.5 (80.0-98.0) fL MCH 26.7 L (27.0-33.0) pg MCHC 32.8 (31.0-35.0) g/dl RDW 14.1 (11.0-16.0) % Plt Count 305 (160-400) X10*3/uL MPV 9.9 (9.4-12.3) fL Immature Gran % (Auto) 0.5 H (0.0-0.4) % Neut % (Auto) 75.1 H (45-73) % Lymph % (Auto) 10.1 L (20-40) % [place] % (Auto) 12.3 H (2-11) % Eos % (Auto) 1.6 (0-4) % Baso % (Auto) 0.4 (0-2) % Lymph # (Auto) 0.8 L (1.2-4.9) X10*3/uL [place] # (Auto) 0.9 (0.1-1.2) X10*3/uL Eos # (Auto) 0.1 (0.0-0.4) X10*3/uL Baso # (Auto) 0.0 (0.0-0.2) X10*3/uL Abs Immat Gran (auto) 0.04 H (0.00-0.03) X10*3/uL Absolute Neuts (auto) 5.7 (2.0-8.3) x10*3/uL Absolute Nucleated RBC 0.000 (0.0-0.012) X10*3/uL Nucleated RBC % (auto) 0.0 (0.0-0.2) /100WBC APTT 24.1 L (26.0-36.8) SEC Sodium 137 (135-145) mmol/L Potassium 3.1 L (3.3-5.1) mmol/L Chloride 98 (96-108) mmol/L Carbon Dioxide 28 (22-29) mmol/L Anion Gap 14 (12-20) BUN 11 (9-16) mg/dL Creatinine 1.10 (0.5-1.4) mg/dL Estim Creat Clear Calc 79.8 Estimated GFR 50 Random Glucose 108 (60-115) mg/dL Lactic Acid 2.3 H* (0.5-2.0) mmol/L Lactic Acid F/U @ 2Hr 1.4 (0.5-2.0) mmol/L Calcium 9.4 (8.4-10.2) mg/dL Total Bilirubin 0.3 (0.0-1.0) mg/dL Direct Bilirubin 0.2 (0.0-0.5) mg/dL AST 31 (5-31) U/L ALT 16 (0-31) U/L Alkaline Phosphatase 87 (39-117) U/L Troponin I High Sens 3.5 (<3.5-17.0) ng/L B-Natriuretic Peptide 26 (<100) pg/mL Total Protein 8.2 H (6.5-8.0) g/dL Albumin 3.8 (3.5-5.0) g/dL Influenza Type A (PCR) POSITIVE A (Negative) Influenza Type B (PCR) NEGATIVE (Negative) RSV RNA Qual (PCR) NEGATIVE (Negative) SARS-CoV-2 RNA (RT-PCR) NEGATIVE (Negative) 08/22/23 Range/Units 18:53 WBC (4.8-10.8) X10*3/uL RBC (4.20-5.50) X10*6/uL Hgb (12.0-16.0) g/dl Hct (37.0-47.0) % MCV (80.0-98.0) fL MCH (27.0-33.0) pg MCHC (31.0-35.0) g/dl RDW (11.0-16.0) % Plt Count (160-400) X10*3/uL MPV (9.4-12.3) fL Immature Gran % (Auto) (0.0-0.4) % Neut % (Auto) (45-73) % Lymph % (Auto) (20-40) % [place] % (Auto) (2-11) % Eos % (Auto) (0-4) % Baso % (Auto) (0-2) % Lymph # (Auto) (1.2-4.9) X10*3/uL [place] # (Auto) (0.1-1.2) X10*3/uL Eos # (Auto) (0.0-0.4) X10*3/uL Baso # (Auto) (0.0-0.2) X10*3/uL Abs Immat Gran (auto) (0.00-0.03) X10*3/uL Absolute Neuts (auto) (2.0-8.3) x10*3/uL Absolute Nucleated RBC (0.0-0.012) X10*3/uL Nucleated RBC % (auto) (0.0-0.2) /100WBC APTT (26.0-36.8) SEC Sodium (135-145) mmol/L Potassium (3.3-5.1) mmol/L Chloride (96-108) mmol/L Carbon Dioxide (22-29) mmol/L Anion Gap (12-20) BUN (9-16) mg/dL Creatinine (0.5-1.4) mg/dL Estim Creat Clear Calc Estimated GFR Random Glucose (60-115) mg/dL Lactic Acid (0.5-2.0) mmol/L Lactic Acid F/U @ 2Hr (0.5-2.0) mmol/L Calcium (8.4-10.2) mg/dL Total Bilirubin (0.0-1.0) mg/dL Direct Bilirubin (0.0-0.5) mg/dL AST (5-31) U/L ALT (0-31) U/L Alkaline Phosphatase (39-117) U/L Troponin I High Sens 6.0 D (<3.5-17.0) ng/L B-Natriuretic Peptide (<100) pg/mL Total Protein (6.5-8.0) g/dL Albumin (3.5-5.0) g/dL Influenza Type A (PCR) (Negative) Influenza Type B (PCR) (Negative) RSV RNA Qual (PCR) (Negative) SARS-CoV-2 RNA (RT-PCR) (Negative) Independent Interpretation I performed an independent interpretation of an: EKG and Plain X-Ray Interpretation: My interpretation patient's 12 EKG done at 15:35 hours is as follows: Sinus tachycardia with a first-degree AV block with a rate of 102 and a MO interval of 232 milliseconds, normal QRS duration and QTC interval, no ST segment elevation, less than [address] segment depression in leads 3 and AVF as well as in leads V4 through V6 no significant T-wave abnormalities, no PACs, no PVCs. Compared to EKG dated 01/02/[address] segment depressions are new, the first-degree AV block is new as well. My interpretation patient's one-view chest x-ray is as follows: Left lower lobe haziness My independent interpretation of the patient's left knee x-ray is as follows: Prosthesis is in place, no fracture noted Radiology Impression Discussion of test interpretation with radiology: I have reviewed the radiologist's reading. Radiologist Impression: XR chest 1V IMPRESSION: Low lung volumes with hazy opacity at the left lung base, favored to represent atelectasis. No dense focal consolidation. Dictated By: Savanah Xie MD XR knee LT 4V IMPRESSION: Total left knee prosthesis in satisfactory alignment. No periprosthetic loosening or fracture seen. Dictated By: Gerardo Cruz MD Critical Care Time Critical Care Time Critical Care Time: Yes Total Critical Care Time: 120 Attestation: Critical Care: The patient was critically ill with a high probability of imminent or life threatening deterioration. I spent greater than 30 minutes of discontinuous time evaluating the patient,delivering critical care at the bedside, discussing and evaluating pertinent data with consultants. Critical care time does not include time spent performing separately billable procedures or teaching. Total time spent performing critical care was 120 minutes. Discharge Plan Discharge Patient Disposition: Admitted As Inpatient
[2023-08-22 15:44] LABS: Basophils Percent Auto 0.4 % (0-2); Eosinophils Absolute Auto 0.1 X10*3/uL (0.0-0.4); Eosinophils Percent Auto 1.6 % (0-4); Hematocrit 37.8 % (37.0-47.0); Hemoglobin 12.4 g/dl (12.0-16.0); Imm Gran Abs Auto 0.04 X10*3/uL (0.00-0.03); Imm Gran Pct Auto 0.5 % (0.0-0.4); Lymphocytes Absolute Auto 0.8 X10*3/uL (1.2-4.9); Lymphocytes Percent Auto 10.1 % (20-40); Mean Corpuscular HGB Conc 32.8 g/dl (31.0-35.0); Mean Corpuscular Hemoglobin 26.7 pg (27.0-33.0); Mean Corpuscular Volume 81.5 fL (80.0-98.0); Mean Platelet Volume 9.9 fL (9.4-12.3); Monocytes Absolute Auto 0.9 X10*3/uL (0.1-1.2); Monocytes Percent Auto 12.3 % (2-11); Neutrophils Absolute Auto 5.7 x10*3/uL (2.0-8.3); Neutrophils Percent Auto 75.1 % (45-73); Platelet Count 305 X10*3/uL (160-400); Red Blood Count 4.64 X10*6/uL (4.20-5.50); Red Cell Distribution Width 14.1 % (11.0-16.0); White Blood Count 7.5 X10*3/uL (4.8-10.8)
[2023-08-22 15:56] LABS: Anion Gap 14 (12-20); Blood Urea Nitrogen 11 mg/dL (9-16); Calcium 9.4 mg/dL (8.4-10.2); Carbon Dioxide 28 mmol/L (22-29); Chloride 98 mmol/L (96-108); Creatinine Clr Calc Pharmacy 79.8; Estimated Glomerular Filt Rate 50; Glucose Random 108 mg/dL (60-115); Potassium 3.1 mmol/L (3.3-5.1); Sodium 137 mmol/L (135-145)
[2023-08-22 15:57] LABS: Lactic Acid 2.3 mmol/L (0.5-2.0)
[2023-08-22 15:59] LABS: Partial Thromboplastin Time 24.1 SEC (26.0-36.8)
[2023-08-22 16:03] LABS: B Type Natriuretic Peptide 26 pg/mL (<100)
[2023-08-22 16:04] LABS: Troponin-I High Sensitivity 3.5 ng/L (<3.5-17.0)
[2023-08-22] MEDS: Acetaminophen 325 MG TABLET 975 MG PO (16:12)
--- NOTE | 2023-08-22 16:12 | PC.NURSE ---
tylenol administered per provider order for pt's fever. will reassess temp shortly. IVF administered per provider order. pt going to CT at this time.
[2023-08-22 16:24] LABS: Alanine Aminotransferase 16 U/L (0-31); Albumin Level 3.8 g/dL (3.5-5.0); Alkaline Phosphatase 87 U/L (39-117); Aspartate Amino Transferase 31 U/L (5-31); Bilirubin Direct 0.2 mg/dL (0.0-0.5); Bilirubin Total 0.3 mg/dL (0.0-1.0); Total Protein 8.2 g/dL (6.5-8.0)
--- NOTE | 2023-08-22 16:32 | PC.NURSE ---
pt returned from CT at this time. respirations even and unlabored. plan of care ongoing.
[2023-08-22 16:38] LABS: Influenza A PCR POSITIVE (Negative); Influenza B PCR NEGATIVE (Negative); Resp Syncy Virus RNA Qual PCR NEGATIVE (Negative); SARS COV2 PCR INHOUSE NEGATIVE (Negative)
--- NOTE | 2023-08-22 17:05 | ECG_ITS ---
Test Reason : REPEAT Blood Pressure : / mmHG Vent. Rate : 101 BPM Atrial Rate : 101 BPM P-R Int : 196 ms QRS Dur : 092 ms QT Int : 344 ms P-R-T Axes : 063 031 037 degrees QTc Int : 446 ms Sinus tachycardia Nonspecific ST and T wave abnormality Abnormal ECG When compared with ECG of 22-AUG-2023 15:35, GA interval has decreased Nonspecific T wave abnormality has replaced inverted T waves in Lateral leads Referred By: Maximo House Electronically Signed By:Dwight Ramírez
[2023-08-22 17:39] LABS: Reflex Lactate? Lactic Acid Added
[2023-08-22] MEDS: Azithromycin 500 MG in 0.9 % Sodium Chloride 250 ML 125 MG IV (17:47)
[2023-08-22] MEDS: Oseltamivir Phosphate 75 MG CAPSULE PO (17:47)
--- NOTE | 2023-08-22 17:58 | PC.NURSE ---
medication administered per provide order repeat lactic obtained/sent to lab.
[2023-08-22 18:13] LABS: ~Lactic Acid-LAB USE ONLY 1.4 mmol/L (0.5-2.0)
[2023-08-22] MEDS: Lactated Ringers 1,000 ML 999 ML IV (18:26)
--- NOTE | 2023-08-22 18:28 | PC.NURSE ---
pt's temp decreased post medication administration. pt remains hypotensive at this time despite IVF administration. ED provider notified/aware. IVF administered per provider order. rspirations even/slightly labored. plan of care ongoing.
--- NOTE | 2023-08-22 18:38 | ECG_ITS ---
Test Reason : CHEST PAIN Blood Pressure : / mmHG Vent. Rate : 121 BPM Atrial Rate : 088 BPM P-R Int : 214 ms QRS Dur : 094 ms QT Int : 370 ms P-R-T Axes : 094 034 082 degrees QTc Int : 525 ms Artifact on tracing Sinus rhythm with 1st degree A-V block Nonspecific T wave changes Abnormal ECG When compared with ECG of 22-AUG-2023 17:20, Nonspecific T wave changes Referred By: Maximo House Electronically Signed By:Dwihgt Ramírez
[2023-08-22] MEDS: Ketorolac Tromethamine 15 MG/ML VIAL 30 MG IVPUSH (19:17)
--- NOTE | 2023-08-22 20:48 | MHC.EDTECH ---
This Tech assumed care of this pt upon arrival. Repeat EKG completes and handed to a provider. PT assisted to bathroom and urine was sent to the lab for processing
--- NOTE | 2023-08-22 21:21 | PHA.MEDREC ---
Pharmacy Consult ? Medication Reconciliation Pharmacy has completed the medication reconciliation. Patient and family do not know medications. Reported EMS brought the list but unsure where it is. Utilized claim history to complete med rec. Patient was able to confirm gabapentin dose is 600 mg QID and not 400 mg TID. Katie Ross, PharmD
[2023-08-22 21:31] LABS: Appearance Urine Clear; Color Urine Yellow; Glucose Urine UA Negative (Negative); Leukocyte Esterase Urine Negative (Negative); Nitrite Urine Negative (Negative); PH 6.5 (5.0-9.0); Specific Gravity - Urine 1.015 (1.005-1.025); Urine Blood Negative (Negative); Urine Ketones Negative (Negative); Urine Protein Negative (Neg-Trace)
[2023-08-22 21:34] LABS: Bacteria Urine None Seen (None Seen); Hyaline Casts Urine 0-2 /LPF (0-2); RBC Urine 0-2 /HPF (0-2); Squamous Epithelial Cell Urine 0-2 /HPF (0-2); WBC Urine 0-5 /HPF (0-5)
--- NOTE | 2023-08-22 21:43 | PC.NURSE ---
This filing writer assumed care of this Pt at 1900. Pt A&Ox4, reports 9/10 left sided CP, non radiating and worsens with deep breathing. Pt medicated per MAR with some effectiveness. BP systolic soft in the 90's after fluid completions. Pt ambulated to BR with walker use. Urine sample collected and sent to lab.
--- NOTE | 2023-08-22 21:50 | P.HPCC_ITS ---
History of Present Illness Date of Service: 08/22/23 <Carolina Cardenas NP - Last Filed: 08/22/23 22:15> Attending physician on admission: Zhen Alves <Carolina Cardenas NP - Last Filed: 08/22/23 22:15> Chief Complaint: Fall <Carolina Cardenas NP - Last Filed: 08/22/23 22:15> ?The patient is a 63-year-old female with a past medical history of ? diabetes mellitus, hypertension, hyperlipidemia, and diverticulitis who presented to the emergency? department after sustaining a fall.? Patient reported? she felt weak and fell out of bed.? She also reported a persistent cough with phlegm in the past 2 days.? EMS noted patient had a fever 103 and low blood pressure.?? On arrival to the emergency department,? temp was 101.6 degrees,? she was tachycardic to 107,? hypotensive 84/36.? Satting 93-95% on room air.? ?Laboratory data was significant for? potassium of 3.1, lactate of 2.3, and positive for? influenza A.? IMAGING:? ?Chest x-ray: no acute infectious process ?Left knee x-ray:? no acute findings ?HEAD CT: negative for acute findings ? ED course:? ?Patient received a total of 3 L in the emergency department, Tamiflu,? azithromycin 500 mg, ceftriaxone 500 mg,? Tylenol and ketorolac.? ?Despite fluid administration patient remained hypotensive,? will be admitted to? ICU for closely hemodynamic monitoring <Carolina Cardenas NP - Last Filed: 08/22/23 22:15> Review of Systems 2 Constitutional: Constitutional: Reports body ache(s), Reports chills, Reports fatigue, Reports fever(s), Denies headache(s), Reports lethargy and Reports weakness <Carolina Cardenas NP - Last Filed: 08/22/23 22:15> Eyes: Eyes: Denies blurry vision <Carolina Cardenas NP - Last Filed: 08/22/23 22:15> ENT: Denies dizziness and Denies headache(s) <Carolina Cardenas NP - Last Filed: 08/22/23 22:15> Cardiovascular: Cardiovascular: Denies chest pain and Denies dyspnea < Carolina Cardenas PUBLIC SERVICES LIBRARIAN - Last Filed: 08/22/23 22:15> Respiratory: Respiratory: Reports chest congestion, Reports cough and Denies dyspnea <Carolina Cardenas PUBLIC SERVICES LIBRARIAN - Last Filed: 08/22/23 22:15> Gastrointestinal: Gastrointestinal: Denies nausea and Denies vomiting < Carolina Cardenas PUBLIC SERVICES LIBRARIAN - Last Filed: 08/22/23 22:15> Comments: diffuse abdominal pain <Carolina Cardenas, PUBLIC SERVICES LIBRARIAN - Last Filed: 08/22/23 22:15> Musculoskeletal: Comments: left knee pain <Carolina Cardenas PUBLIC SERVICES LIBRARIAN - Last Filed: 08/22/23 22:15> Integumentary/Breasts: Skin/Breast: Denies wounds <Carolina Cardenas PUBLIC SERVICES LIBRARIAN - Last Filed: 08/22/23 22:15> Neurologic: Denies dizziness, Denies headache(s) and Reports weakness < Carolina Cardenas PUBLIC SERVICES LIBRARIAN - Last Filed: 08/22/23 22:15> Endocrine: Endocrine: Reports fatigue <Carolina Cardenas PUBLIC SERVICES LIBRARIAN - Last Filed: 08/22/23 22:15> PMFSH Past Medical History Medical History: Medical History Depression Hypertension <Carolina Cardenas PUBLIC SERVICES LIBRARIAN - Last Filed: 08/22/23 22:15> Surgical History Surgical History: Surgical History History of back surgery History of carpal tunnel release History of ERCP History of esophagogastroduodenoscopy (EGD) Hx laparoscopic cholecystectomy Hx of colonoscopy Hx of total knee replacement Hx of tubal ligation <Carolina Cardenas PUBLIC SERVICES LIBRARIAN - Last Filed: 08/22/23 22:15> Social History Social History: Social History Household Members: None Housing: Apartment Do you presently have visiting nurse or other home services: Yes Alcohol intake: former Patient Tobacco Use Status: Former Tobacco user Quit Date: 5 yrs ago Tobacco use type: Cigarette Smoked in Last 30 Days: No Patient Interested in Nicotine Replacement: No Patient Given Instructions on How to Stop Smoking: No Second Hand Smoke Exposure: No Use of substances other than those prescribed or required for medical reasons: No Currently Displaying Signs/Symptoms of Drug Intoxication Withdrawal: No Any prior treatment program specific to substance use: No Have you been hit, kicked, punched, or otherwise hurt by someone within the past year? If so, by whom?: No Do you feel safe in your current relationship?: Yes Is there a partner from a previous relationship who is making you feel unsafe now?: No Are you made to feel afraid or neglected: No Advance Directives: Yes Advance Directives on File: Yes Advance Directives Date on File: 07/23/21 Do you have thoughts of harming others: None Do you have a plan to hurt others: No Plan Recently lost weight without trying: No Nutrition Risks: No Nutritional Risk Patient : No : No Poor oral hygiene: No service: No Current occupational status: unemployed 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 <Carolina Cardenas NP - Last Filed: 08/22/23 22:15> Meds Allergies/Adverse reactions: Allergies Allergy/AdvReac Type Severity Reaction Status Date / Time cortisone [CORTISONE] Allergy Intermediate RASH Verified 08/22/23 15:23 adhesive tape [ADHESIVE TAPE] AdvReac Unknown UNKNOWN Verified 08/22/23 15:23 Latex Allergy Intermediate redness Uncoded 08/22/23 15:23 [place] Allergy Unknown Unknown Uncoded 08/22/23 15:23 <Carolina Cardenas NP - Last Filed: 08/22/23 22:15> Active Medications: Current Medications Enoxaparin Sodium (Enoxaparin Sodium 40 Mg/0.4 Ml Syringe) 40 mg SUBCUT Q12H IRENA <Carolina Cardenas NP - Last Filed: 08/22/23 22:15> Home medications: Home Medications Medication Instructions Recorded Confirmed Last Taken Type atenolol 50 mg tablet 1 tab PO DAILY 07/21/21 08/22/23 08/21/23 History cetirizine 10 mg tablet 1 tab PO DAILY 07/21/21 08/22/23 08/21/23 History chlorthalidone 25 mg tablet 1 tab PO QAM 07/21/21 08/22/2324 History doxepin 25 mg capsule 1 cap PO BEDTIME 07/21/21 08/22/23 08/21/23 History omeprazole 40 mg capsule,delayed 1 cap PO DAILY 07/21/21 08/22/23 08/21/23 History release potassium chloride 10 mEq 1 tab PO DAILY 07/21/21 08/22/23 08/21/23 History tablet,extended release(part/cryst) aspirin 81 mg chewable tablet 81 mg PO DAILY 07/22/21 08/22/23 08/21/23 History fluoxetine 40 mg capsule 40 mg PO DAILY 05/13/22 08/22/23 08/21/23 History atorvastatin 10 mg tablet 10 mg PO DAILY 08/22/23 08/22/23 08/21/23 History gabapentin 600 mg tablet 600 mg PO QID 08/22/23 08/22/23 08/21/23 History lisinopril 2.5 mg tablet 2.5 mg PO DAILY 08/22/23 08/22/23 08/21/23 History <Carolina Cardenas NP - Last Filed: 08/22/23 22:15> Physical Exam 2 Vital Signs: Vital Signs: Last Vital Signs Temp 98.3 F 08/22/23 20:36 Pulse 86 08/22/23 20:36 Resp 15 08/22/23 20:36 BP 112/60 08/22/23 21:35 Pulse Ox 94 08/22/23 20:36 O2 Del Method Room Air 08/22/23 20:36 BMI result Body Mass Index 46.0 <Carolina Cardenas NP - Last Filed: 08/22/23 22:15> ?General:? Alert oriented x3 no acute distress.? Speaking full sentences.? Speech is well articulated, thought process is coherent.? Following all commands. ?HEENT:? Head is normocephalic, atraumatic, pupils equal round reactive to light accommodation bilaterally.? Extraocular movements appear intact.? Buccal mucosa is dry, Neck is supple ?Cardiac:? Clear S1-S2, no murmurs rubs or gallops. ?Pulmonary:? Clear to auscultation, no wheezes, rales or rhonchi. ?Abdomen:? Diffuse abdominal tenderness (reports chronic), ?Abdomen soft, non- distended. Normal bowel sounds. ?Musculoskeletal:? Moving all 4 extremities upon request a major joints, there is no crepitus or tenderness.? The strength is 5/5 bilaterally and throughout all 4 extremities.? Gait not assessed at this point. ?Neurologic:? cranial nerves 2-12 are grossly intact.? No focal deficits noted.Motor strength as above.?? ?Skin:? Intact, no lesions, edema, erythema, clubbing or cyanosis.? No ulcers. Vascular:? 2+ pulses upper and lower extremities distally.? <Carolina Cardenas NP - Last Filed: 08/22/23 22:15> Results Labs CBC and Chem 7: 08/23/23 05:07 08/23/23 05:07 <Carolina Cardenas NP - Last Filed: 08/22/23 22:15> Labs: Laboratory Results - last 24 hr 08/22/23 08/22/23 08/22/23 15:34 15:46 17:51 MCV 81.5 MCH 26.7 L MCHC 32.8 RDW 14.1 Plt Count 305 MPV 9.9 Immature Gran % (Auto) 0.5 H Neut % (Auto) 75.1 H Lymph % (Auto) 10.1 L [place] % (Auto) 12.3 H Eos % (Auto) 1.6 Baso % (Auto) 0.4 Lymph # (Auto) 0.8 L [place] # (Auto) 0.9 Eos # (Auto) 0.1 Baso # (Auto) 0.0 Abs Immat Gran (auto) 0.04 H Absolute Neuts (auto) 5.7 Absolute Nucleated RBC 0.000 Nucleated RBC % (auto) 0.0 APTT 24.1 L Anion Gap 14 Estim Creat Clear Calc 79.8 Estimated GFR 50 Random Glucose 108 Lactic Acid 2.3 H* Lactic Acid F/U @ 2Hr 1.4 Calcium 9.4 Total Bilirubin 0.3 Direct Bilirubin 0.2 AST 31 ALT 16 Alkaline Phosphatase 87 Troponin I High Sens 3.5 B-Natriuretic Peptide 26 Total Protein 8.2 H Albumin 3.8 Urine Color Urine Appearance Urine pH Ur Specific [place] Urine Protein Urine Glucose (UA) Urine Ketones Urine Blood Urine Nitrite Ur Leukocyte Esterase Urine RBC Urine WBC Ur Squamous Epith Cells Urine Bacteria Hyaline Casts Influenza Type A (PCR) POSITIVE A Influenza Type B (PCR) NEGATIVE RSV RNA Qual (PCR) NEGATIVE SARS-CoV-2 RNA (RT-PCR) NEGATIVE 08/22/23 08/22/23 18:53 20:01 MCV MCH MCHC RDW Plt Count MPV Immature Gran % (Auto) Neut % (Auto) Lymph % (Auto) [place] % (Auto) Eos % (Auto) Baso % (Auto) Lymph # (Auto) [place] # (Auto) Eos # (Auto) Baso # (Auto) Abs Immat Gran (auto) Absolute Neuts (auto) Absolute Nucleated RBC Nucleated RBC % (auto) APTT Anion Gap Estim Creat Clear Calc Estimated GFR Random Glucose Lactic Acid Lactic Acid F/U @ 2Hr Calcium Total Bilirubin Direct Bilirubin AST ALT Alkaline Phosphatase Troponin I High Sens 6.0 D B-Natriuretic Peptide Total Protein Albumin Urine Color Yellow Urine Appearance Clear Urine pH 6.5 Ur Specific [place] 1.015 Urine Protein Negative Urine Glucose (UA) Negative Urine Ketones Negative Urine Blood Negative Urine Nitrite Negative Ur Leukocyte Esterase Negative Urine RBC 0-2 Urine WBC 0-5 Ur Squamous Epith Cells 0-2 Urine Bacteria None Seen Hyaline Casts 0-2 Influenza Type A (PCR) Influenza Type B (PCR) RSV RNA Qual (PCR) SARS-CoV-2 RNA (RT-PCR) <Carolina Cardenas NP - Last Filed: 08/22/23 22:15> Imaging Radiologist's Impressions: Impressions Chest X-Ray 08/22/23 16:10 IMPRESSION: Low lung volumes with hazy opacity at the left lung base, favored to represent atelectasis. No dense focal consolidation. Knee X-Ray 08/22/23 16:10 IMPRESSION: Total left knee prosthesis in satisfactory alignment. No periprosthetic loosening or fracture seen. Head CT 08/22/23 16:29 IMPRESSION: No acute intracranial abnormality. <Carolina Cardenas NP - Last Filed: 08/22/23 22:15> Assessment and Plan (1) Severe sepsis: Status: Acute <Carolina Cardenas NP - Last Filed: 08/22/23 22:15> (2) Hypotension: Status: Acute <Carolina Cardenas NP - Last Filed: 08/22/23 22:15> (3) Influenza A: Status: Acute <Carolina Cardenas NP - Last Filed: 08/22/23 22:15> (4) Acute dehydration: Status: Acute <Carolina Cardenas NP - Last Filed: 08/22/23 22:15> (5) Hypokalemia: Status: Acute <Carolina Cardenas NP - Last Filed: 08/22/23 22:15> (6) ALFREDO (acute kidney injury): Status: Acute <Carolina Cardenas NP - Last Filed: 08/22/23 22:15> 63-year-old female with a past medical history of ? diabetes mellitus, hypertension, hyperlipidemia, and diverticulitis admitted for severe sepsis due to influenza type a Neuro:? ?No acute issues Cardiac:?? Hypotension:? no evidence of septic shock,? patient lactic quickly? down trending after 2 L of fluids,? white count is not elevated hypotension is likely due to severe sepsis from? influenza type a.? Pulmonary:? ?Influenza type a-? patient reports 2 days of? cough, chills and weakness.? Positive for? influenza type a.? She is on room air.? She received ceftriaxone/azithromycin and Tamiflu in the emergency department.? No evidence of pneumonia.? We will continue Tamiflu Renal:?? ALFREDO- most likely related to dehydration from? influenza. ? 3 L in the ED.? Continue to check renal induces and urine output ?Hypokalemia-? patient chronically takes p.o. Potassium because she is on diuretics. ? No changes on EKG. Will replace K.? Endo:? No acute issues.?? GI:?No acute issues ID:?? ?Influenza-? see pulmonary plan? Heme/Onc:?? ?No acute issues? Psych:? No acute issues. Miscellaneous:? No acute issues? Prophylaxis: ? Lovenox Critical care time:? X 60 minutes of critical care time Code? status:? FULL code? Case discussed with attending Dr Alves <Carolina Cardenas NP - Last Filed: 08/22/23 22:15> 63-year-old female with a past medical history of ? diabetes mellitus, hypertension, hyperlipidemia, and diverticulitis admitted for severe sepsis due to influenza type a Neuro:? ?No acute issues Cardiac:?? Hypotension:? no evidence of septic shock,? patient lactic quickly? down trending after 2 L of fluids,? white count is not elevated hypotension is likely due to severe sepsis from? influenza type a.? Pulmonary:? ?Influenza type a-? patient reports 2 days of? cough, chills and weakness.? Positive for? influenza type a.? She is on room air.? She received ceftriaxone/azithromycin and Tamiflu in the emergency department.? No evidence of pneumonia.? We will continue Tamiflu Renal:?? ALFREDO- most likely related to dehydration from? influenza. ? 3 L in the ED.? Continue to check renal induces and urine output ?Hypokalemia-? patient chronically takes p.o. Potassium because she is on diuretics. ? No changes on EKG. Will replace K.? Endo:? No acute issues.?? GI:?No acute issues ID:?? ?Influenza-? see pulmonary plan? Heme/Onc:?? ?No acute issues? Psych:? No acute issues. Miscellaneous:? No acute issues? Prophylaxis: ? Lovenox Code? status:? FULL code? Case discussed with attending Dr Alves <Zhen Alves MD - Last Filed: 08/23/23 09:25>
[2023-08-22] MEDS: Enoxaparin Sodium 40 MG/0.4 ML SYRINGE SUBCUT (21:59)
[2023-08-22] MEDS: Potassium Chloride Packet 20 MEQ PACKET 40 MEQ PO (22:00)
--- NOTE | 2023-08-22 22:24 | PC.NURSE ---
Nurse to nurse given to Dheeraj,Pt and family aware of plan. Pt transported to room 459.
[2023-08-22] MEDS: Gabapentin 600 MG TABLET PO (22:50)
[2023-08-22] MEDS: Acetaminophen 325 MG TABLET 650 MG PO (22:50)
[2023-08-22 23:02] LABS: Glucose, Whole Blood 98 mg/dL (60-115)
[2023-08-23] VITALS (14 sets, daily range): BP systolic 92–137; BP diastolic 46–74; PULSE 66–83; RESP 15–20; TEMP 36.4–37.3; O2SAT 96–99; BMI 47.1
--- NOTE | 2023-08-23 03:44 | PC.NURSE ---
Addendum entered by Dheeraj Haskins RN 08/23/23 06:36: PER ER REPORT PATIENT OOB AND VOIDED PRIOR TO TRANSFER TO ICU Original Note: ADMIT TO ICU APPROX 10PM..ALERT..ORIENTED X3...SKIN WARM/DRY..RESPIRATIONS EASY..OCCASSIONAL HARSH COUGH..PATIENT ABLE TO STAND AND PIVOT FROM STRETCHER TO BED..REPOSITIONS SELF IN BED....NSR RARE TO ISOLATED PVC...SBP 90'S-100'S...C/O MODERATE HEADACHE AND CHRONIC BACK PAIN...TYLENOL 650MG PO X1 GIVEN...NEURONTIN 600MG PO GIVEN AND TO START NEURONTIN QID IN AM AT HOME..RESTFUL AFTERWARDS...POC 98...HS SNACK GIVEN...DOZING AT 01:00...SAO2 89-90% ASLEEP..O2 2 L/M CANNULA APPLIED WITH SAO2 96-97%...REPOSITIONS SELF AD-ROBERT IN BED..NO DISTRESS
[2023-08-23 05:13] LABS: VBG Base Excess 6.8 mmol/L; VBG HCO3 32 mmol/L (22-26); VBG pCO2 48 mmHg; VBG pH 7.42 (7.32-7.43); VBG pO2 27 mmHg
[2023-08-23 05:15] LABS: Venous Blood Gas Refer to POC result
[2023-08-23 05:46] LABS: Basophils Percent Auto 0.6 % (0-2); Eosinophils Absolute Auto 0.1 X10*3/uL (0.0-0.4); Eosinophils Percent Auto 1.7 % (0-4); Hematocrit 34.2 % (37.0-47.0); Imm Gran Abs Auto 0.03 X10*3/uL (0.00-0.03); Imm Gran Pct Auto 0.6 % (0.0-0.4); Lymphocytes Absolute Auto 1.6 X10*3/uL (1.2-4.9); Lymphocytes Percent Auto 33.1 % (20-40); MANUAL DIFF FLAG SCAN; Mean Corpuscular HGB Conc 32.2 g/dl (31.0-35.0); Mean Corpuscular Hemoglobin 26.4 pg (27.0-33.0); Mean Corpuscular Volume 82.2 fL (80.0-98.0); Mean Platelet Volume 10.1 fL (9.4-12.3); Monocytes Absolute Auto 1.2 X10*3/uL (0.1-1.2); Monocytes Percent Auto 25.4 % (2-11); Neutrophils Absolute Auto 1.8 x10*3/uL (2.0-8.3); Neutrophils Percent Auto 38.6 % (45-73); Platelet Count 259 X10*3/uL (160-400); Red Blood Count 4.16 X10*6/uL (4.20-5.50); Red Cell Distribution Width 14.6 % (11.0-16.0); SCAN SMEAR FLAG 1; White Blood Count 4.8 X10*3/uL (4.8-10.8)
[2023-08-23 06:07] LABS: Anion Gap 10 (12-20); Blood Urea Nitrogen 14 mg/dL (9-16); Calcium 8.3 mg/dL (8.4-10.2); Carbon Dioxide 28 mmol/L (22-29); Chloride 103 mmol/L (96-108); Estimated Glomerular Filt Rate 44; Glucose Random 119 mg/dL (60-115); Magnesium 1.5 mg/dL (1.6-2.6); Phosphorus 3.5 mg/dL (2.7-4.5); Potassium 3.2 mmol/L (3.3-5.1); Sodium 138 mmol/L (135-145)
[2023-08-23 06:18] LABS: Albumin Level 3.2 g/dL (3.5-5.0)
[2023-08-23 06:31] LABS: SLIDE REVIEW VERIFIED
[2023-08-23] MEDS: Omeprazole 40 MG CAPSULE.DR PO (06:52)
[2023-08-23] MEDS: Acetaminophen 325 MG TABLET 650 MG PO ×2 (06:52→20:48)
[2023-08-23 07:54] LABS: Glucose, Whole Blood 126 mg/dL (60-115)
[2023-08-23] MEDS: Gabapentin 600 MG TABLET PO ×4 (08:38→20:48)
[2023-08-23] MEDS: FLUoxetine HCl 20 MG CAPSULE 40 MG PO (08:38)
[2023-08-23] MEDS: Aspirin 81 MG TAB.CHEW PO (08:39)
[2023-08-23] MEDS: Atorvastatin Calcium 10 MG TABLET PO (08:39)
[2023-08-23] MEDS: Potassium Chloride Packet 20 MEQ PACKET 60 MEQ PO (08:40)
[2023-08-23] MEDS: Magnesium Sulfate/H2O 2 GM/50 ML PIGGYBACK IV (08:44)
[2023-08-23] MEDS: Albumin Human 25 % 100 ML IV ×2 (08:51→18:12)
--- NOTE | 2023-08-23 09:25 | PM.CCPN ---
Subjective Subjective Date of Service: 08/23/23 Interval History: 63-year-old lady with underlying history of diabetes mellitus, hypertension hyperlipidemia, diverticulitis admitted on 08/22/2023 with weakness resulting mechanical fall and upper respiratory symptoms for 2 days. On ER evaluation patient febrile and influenza A positive with hypotension with borderline response to initial IV fluid resuscitation admitted to intensive care unit for close monitoring. Started on Tamiflu. No events overnight. Did not require pressor support. Critical Care Time (minutes): 0 Physical Exam Vital Signs: Vital Signs: Last Vital Signs Temp 98.1 F 08/23/23 08:00 Pulse 82 08/23/23 09:00 Resp 20 08/23/23 09:00 BP 99/59 L 08/23/23 09:00 Pulse Ox 97 08/23/23 09:00 O2 Del Method Nasal Cannula 08/23/23 09:00 O2 Flow Rate 2 08/23/23 09:00 BMI result Body Mass Index 47.1 Const: General: no acute distress, alert and awake Eyes: Sclerae: sclerae normal EOM: EOMs intact bilaterally Neck: Neck: Yes no lymphadenopathy, Yes trachea midline and Yes supple Resp: Effort & Inspection: normal respiratory effort and no respiratory distress Auscultation: clear to auscultation bilaterally Cardio: Rate: regular rate Rhythm: regular rhythm Heart sounds: no gallops, no murmurs and no rubs GI: Palpation (GI): Soft to palpation and Other GI palpation findings present ( Nontender) Auscultation: normal bowel sounds Extrem: General: Yes no pedal edema, No clubbing and No cyanosis Objective Data Labs 08/23/23 05:07 08/23/23 05:07 Labs: Laboratory Results - last 24 hr 08/22/23 08/22/23 08/22/23 15:34 15:46 17:51 WBC 7.5 RBC 4.64 Hgb 12.4 Hct 37.8 MCV 81.5 MCH 26.7 L MCHC 32.8 RDW 14.1 Plt Count 305 MPV 9.9 Immature Gran % (Auto) 0.5 H Neut % (Auto) 75.1 H Lymph % (Auto) 10.1 L [place] % (Auto) 12.3 H Eos % (Auto) 1.6 Baso % (Auto) 0.4 Lymph # (Auto) 0.8 L [place] # (Auto) 0.9 Eos # (Auto) 0.1 Baso # (Auto) 0.0 Abs Immat Gran (auto) 0.04 H Absolute Neuts (auto) 5.7 Absolute Nucleated RBC 0.000 Nucleated RBC % (auto) 0.0 Smear Tech's Comments APTT 24.1 L VBG pH VBG pCO2 VBG pO2 VBG HCO3 VBG O2 Saturation VBG Base Excess Sodium 137 Potassium 3.1 L Chloride 98 Carbon Dioxide 28 Anion Gap 14 BUN 11 Creatinine 1.10 Estim Creat Clear Calc 79.8 Estimated GFR 50 POC Glucose Random Glucose 108 Lactic Acid 2.3 H* Lactic Acid F/U @ 2Hr 1.4 Calcium 9.4 Phosphorus Magnesium Total Bilirubin 0.3 Direct Bilirubin 0.2 AST 31 ALT 16 Alkaline Phosphatase 87 Troponin I High Sens 3.5 B-Natriuretic Peptide 26 Total Protein 8.2 H Albumin 3.8 Urine Color Urine Appearance Urine pH Ur Specific [place] Urine Protein Urine Glucose (UA) Urine Ketones Urine Blood Urine Nitrite Ur Leukocyte Esterase Urine RBC Urine WBC Ur Squamous Epith Cells Urine Bacteria Hyaline Casts Influenza Type A (PCR) POSITIVE A Influenza Type B (PCR) NEGATIVE RSV RNA Qual (PCR) NEGATIVE SARS-CoV-2 RNA (RT-PCR) NEGATIVE 08/22/23 08/22/23 08/22/23 18:53 20:01 22:58 WBC RBC Hgb Hct MCV MCH MCHC RDW Plt Count MPV Immature Gran % (Auto) Neut % (Auto) Lymph % (Auto) [place] % (Auto) Eos % (Auto) Baso % (Auto) Lymph # (Auto) [place] # (Auto) Eos # (Auto) Baso # (Auto) Abs Immat Gran (auto) Absolute Neuts (auto) Absolute Nucleated RBC Nucleated RBC % (auto) Smear Tech's Comments APTT VBG pH VBG pCO2 VBG pO2 VBG HCO3 VBG O2 Saturation VBG Base Excess Sodium Potassium Chloride Carbon Dioxide Anion Gap BUN Creatinine Estim Creat Clear Calc Estimated GFR POC Glucose 98 Random Glucose Lactic Acid Lactic Acid F/U @ 2Hr Calcium Phosphorus Magnesium Total Bilirubin Direct Bilirubin AST ALT Alkaline Phosphatase Troponin I High Sens 6.0 D B-Natriuretic Peptide Total Protein Albumin Urine Color Yellow Urine Appearance Clear Urine pH 6.5 Ur Specific [place] 1.015 Urine Protein Negative Urine Glucose (UA) Negative Urine Ketones Negative Urine Blood Negative Urine Nitrite Negative Ur Leukocyte Esterase Negative Urine RBC 0-2 Urine WBC 0-5 Ur Squamous Epith Cells 0-2 Urine Bacteria None Seen Hyaline Casts 0-2 Influenza Type A (PCR) Influenza Type B (PCR) RSV RNA Qual (PCR) SARS-CoV-2 RNA (RT-PCR) 08/23/23 08/23/23 08/23/23 05:06 05:07 07:51 WBC 4.8 RBC 4.16 L Hgb 11.0 L Hct 34.2 L MCV 82.2 MCH 26.4 L MCHC 32.2 RDW 14.6 Plt Count 259 MPV 10.1 Immature Gran % (Auto) 0.6 H Neut % (Auto) 38.6 L Lymph % (Auto) 33.1 [place] % (Auto) 25.4 H Eos % (Auto) 1.7 Baso % (Auto) 0.6 Lymph # (Auto) 1.6 [place] # (Auto) 1.2 Eos # (Auto) 0.1 Baso # (Auto) 0.0 Abs Immat Gran (auto) 0.03 Absolute Neuts (auto) 1.8 L Absolute Nucleated RBC 0.000 Nucleated RBC % (auto) 0.0 Smear Tech's Comments VERIFIED APTT VBG pH 7.42 VBG pCO2 48 VBG pO2 27 VBG HCO3 32 H VBG O2 Saturation 39.0 VBG Base Excess 6.8 Sodium 138 Potassium 3.2 L Chloride 103 Carbon Dioxide 28 Anion Gap 10 L BUN 14 Creatinine 1.22 Estim Creat Clear Calc 73.0 Estimated GFR 44 POC Glucose 126 H Random Glucose 119 H Lactic Acid Lactic Acid F/U @ 2Hr Calcium 8.3 L D Phosphorus 3.5 Magnesium 1.5 L Total Bilirubin Direct Bilirubin AST ALT Alkaline Phosphatase Troponin I High Sens B-Natriuretic Peptide Total Protein Albumin 3.2 L Urine Color Urine Appearance Urine pH Ur Specific [place] Urine Protein Urine Glucose (UA) Urine Ketones Urine Blood Urine Nitrite Ur Leukocyte Esterase Urine RBC Urine WBC Ur Squamous Epith Cells Urine Bacteria Hyaline Casts Influenza Type A (PCR) Influenza Type B (PCR) RSV RNA Qual (PCR) SARS-CoV-2 RNA (RT-PCR) Progress Note: A&P Assessment and plan (1) Influenza A: Status: Acute (2) Acute dehydration: Status: Acute Plan Assessment: 63-year-old lady admitted with intravascular volume and weakness secondary to influenza A Plan: Neuro: No acute issues. Cardiac: No acute issues. Underlying history of hypertension. Pulmonary: No acute issues. Renal: No acute issues. Endo: No acute issues. Underlying diabetes mellitus on metformin. GI: No acute issues. ID: Influenza A, continue Tamiflu. Heme/Onc: No acute issues. Psych: No acute issues. Miscellaneous: No acute issues. Prophylaxis: Lovenox Diet: Diabetic Quality Stroke Does the patient have a stroke diagnosis?: No VTE Prior VTE?: No VTE Risk Level:: Medical - moderate - high VTE Device Contraindication: Treatment Not Indicated VTE Drug Contraindication: N/A - Med Ordered
[2023-08-23] MEDS: Enoxaparin Sodium 40 MG/0.4 ML SYRINGE SUBCUT ×2 (10:10→20:49)
--- NOTE | 2023-08-23 10:30 | PC.NURSE ---
Patient transferring to [facility] surg from ICU. On droplet precautions for Flu. Received albumin, magnesium, and potassium replacement this morning. C/o 01/16 back pain, restarted her home Gabapentin and prn tylenol. Report given to next nurse.
[2023-08-23 11:07] LABS: Glucose, Whole Blood 147 mg/dL (60-115)
--- NOTE | 2023-08-23 13:34 | MHC.CM.PN ---
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 HCP ON FILE VERIFIED AND CORRECT, PCP PIERCE JO
[2023-08-23] MEDS: vancomycin/NS 2,000 MG/500 ML PLAST..BAG 250 MG IV (14:28)
--- NOTE | 2023-08-23 15:42 | PC.NURSE ---
ok for pt to come off tele after transfer from ICU per Dr Herrera
[2023-08-23 16:06] LABS: Glucose, Whole Blood 108 mg/dL (60-115)
--- NOTE | 2023-08-23 17:16 | PM.EVENT ---
Event Note Date of Service: 08/24/23 Event Note: Patient transfered out of ICU today, plan discussed with ICU MD. She is stable, blood culture 1/2 GPCCI, could be real or coag neg isaach. Adding vanco until cultures fully available. O/w A/P per ICU note from today Time Spent With Patient Time: Total time managing care of this patient today ____ minutes.
[2023-08-23] MEDS: guaiFEN/Codeine SF 200/20/10ML 10 ML LIQUID 5 ML PO (18:12)
[2023-08-23] MEDS: Oseltamivir Phosphate 75 MG CAPSULE PO (18:12)
[2023-08-23 19:38] LABS: Glucose, Whole Blood 149 mg/dL (60-115)
[2023-08-24 03:42] VITALS: BP 118/56; PULSE 83; RESP 16; TEMP 36.5; O2SAT 93
[2023-08-24 05:55] LABS: Basophils Percent Auto 0.6 % (0-2); Eosinophils Absolute Auto 0.2 X10*3/uL (0.0-0.4); Eosinophils Percent Auto 4.7 % (0-4); Hematocrit 34.7 % (37.0-47.0); Hemoglobin 11.3 g/dl (12.0-16.0); Imm Gran Abs Auto 0.02 X10*3/uL (0.00-0.03); Imm Gran Pct Auto 0.6 % (0.0-0.4); Lymphocytes Absolute Auto 1.5 X10*3/uL (1.2-4.9); Lymphocytes Percent Auto 48.1 % (20-40); MANUAL DIFF FLAG SCAN; Mean Corpuscular HGB Conc 32.6 g/dl (31.0-35.0); Mean Corpuscular Hemoglobin 26.5 pg (27.0-33.0); Mean Corpuscular Volume 81.5 fL (80.0-98.0); Mean Platelet Volume 10.5 fL (9.4-12.3); Monocytes Absolute Auto 0.6 X10*3/uL (0.1-1.2); Monocytes Percent Auto 18.8 % (2-11); Neutrophils Absolute Auto 0.9 x10*3/uL (2.0-8.3); Neutrophils Percent Auto 27.2 % (45-73); Platelet Count 284 X10*3/uL (160-400); Red Blood Count 4.26 X10*6/uL (4.20-5.50); Red Cell Distribution Width 14.5 % (11.0-16.0); SCAN SMEAR FLAG 1; White Blood Count 3.2 X10*3/uL (4.8-10.8)
[2023-08-24] MEDS: vancomycin HCL 1,000 MG in 0.9 % Sodium Chloride 250 ML 270 MG IV (05:57)
[2023-08-24] MEDS: guaiFEN/Codeine SF 200/20/10ML 10 ML LIQUID 5 ML PO ×3 (05:57→17:52)
[2023-08-24] MEDS: Omeprazole 40 MG CAPSULE.DR PO (05:58)
[2023-08-24 06:00] LABS: Albumin Level 3.7 g/dL (3.5-5.0); Anion Gap 11 (12-20); Blood Urea Nitrogen 9 mg/dL (9-16); Calcium 8.3 mg/dL (8.4-10.2); Carbon Dioxide 27 mmol/L (22-29); Chloride 103 mmol/L (96-108); Creatinine Clr Calc Pharmacy 91.8; Estimated Glomerular Filt Rate 58; Glucose Random 126 mg/dL (60-115); Magnesium 1.6 mg/dL (1.6-2.6); Phosphorus 3.1 mg/dL (2.7-4.5); Potassium 3.2 mmol/L (3.3-5.1); Sodium 138 mmol/L (135-145)
[2023-08-24 06:17] LABS: SLIDE REVIEW VERIFIED
[2023-08-24 07:27] VITALS: BP 110/54; PULSE 76; RESP 16; TEMP 37.1; O2SAT 95
[2023-08-24 07:34] LABS: Glucose, Whole Blood 139 mg/dL (60-115)
[2023-08-24] MEDS: Enoxaparin Sodium 40 MG/0.4 ML SYRINGE SUBCUT ×2 (09:07→21:15)
[2023-08-24] MEDS: Atorvastatin Calcium 10 MG TABLET PO (09:08)
[2023-08-24] MEDS: Potassium Chloride ER 20 MEQ TAB.ER.PRT 40 MEQ PO (09:08)
[2023-08-24] MEDS: FLUoxetine HCl 20 MG CAPSULE 40 MG PO (09:08)
[2023-08-24] MEDS: Gabapentin 600 MG TABLET PO ×4 (09:08→21:15)
[2023-08-24] MEDS: Aspirin 81 MG TAB.CHEW PO (09:08)
[2023-08-24 09:45] VITALS: BP 110/54; PULSE 76; O2SAT 95
--- NOTE | 2023-08-24 11:06 | P.DS_ITS ---
DS: Providers Provider Date of Service: 08/25/23 Date of admission: 08/22/23 21:03 Primary care physician: Kiel Rice MD DS: Diagnosis Discharge Diagnosis (1) Influenza A: Status: Acute (2) Acute dehydration: Status: Resolved DS: Summary Hospital Course Hospital Course: 63-year-old lady with underlying history of diabetes mellitus, hypertension hyperlipidemia, diverticulitis admitted on 08/22/2023 with weakness resulting mechanical fall and upper respiratory symptoms for 2 days. On ER evaluation patient febrile and influenza A positive with hypotension with borderline response to initial IV fluid resuscitation admitted to intensive care unit for close monitoring; she did not need pressors Started on Tamiflu. ALFREDO resolved with IVF and holding blood pressure medication, her blood pressure continues to be normal without meds. She had 1/2 coag negative staph in blood deemed contamination. ALFREDO resolved with IVF. Physical therapy evaluated her and recommends home with services. Since BPs have been low normal, stopping Chlorthalidone and Lisinopril, will send home on low-dose atenolol 25 mg, home dose 50 mg will discharge on 2 more days of Tamiflu 75 mg b.i.d. Resume Metformin for diabetes Time Attestation Discharge coordination time: Greater than 30 minutes Quality: Safe Use of Opioids Does Pt have an Active Cancer Diagnosis on the Problem List?: No Quality: Stroke Does the patient have a stroke diagnosis?: No Physical Exam Vital Signs: Vital Signs: Last Vital Signs Temp 98.8 F 08/24/23 07:27 Pulse 76 08/24/23 09:45 Resp 16 08/24/23 07:27 BP 110/54 L 08/24/23 09:45 Pulse Ox 95 08/24/23 09:45 O2 Del Method Room Air 08/24/23 07:27 O2 Flow Rate 1 08/23/23 15:15 BMI result Body Mass Index 47.1 DS: Data Data Completed and Pending Completed studies during hospitalization [Text1]: Procedures Dilation of Cystic Duct, Via Natural or Artificial Opening Endoscopic (07/21/21) Extraction of Cystic Duct, Via Natural or Artificial Opening Endoscopic, Diagnostic (07/21/21) Resection of Gallbladder, Percutaneous Endoscopic Approach (07/21/21) Labs on day of discharge: Laboratory Results - last 24 hr 08/23/23 08/23/23 08/23/23 11:00 15:56 19:35 WBC RBC Hgb Hct MCV MCH MCHC RDW Plt Count MPV Immature Gran % (Auto) Neut % (Auto) Lymph % (Auto) [place] % (Auto) Eos % (Auto) Baso % (Auto) Lymph # (Auto) [place] # (Auto) Eos # (Auto) Baso # (Auto) Abs Immat Gran (auto) Absolute Neuts (auto) Absolute Nucleated RBC Nucleated RBC % (auto) Smear Tech's Comments Sodium Potassium Chloride Carbon Dioxide Anion Gap BUN Creatinine Estim Creat Clear Calc Estimated GFR POC Glucose 147 H 108 149 H Random Glucose Calcium Phosphorus Magnesium Albumin 08/24/23 08/24/23 05:24 07:30 WBC 3.2 L RBC 4.26 Hgb 11.3 L Hct 34.7 L MCV 81.5 MCH 26.5 L MCHC 32.6 RDW 14.5 Plt Count 284 MPV 10.5 Immature Gran % (Auto) 0.6 H Neut % (Auto) 27.2 L Lymph % (Auto) 48.1 H [place] % (Auto) 18.8 H Eos % (Auto) 4.7 H Baso % (Auto) 0.6 Lymph # (Auto) 1.5 [place] # (Auto) 0.6 Eos # (Auto) 0.2 Baso # (Auto) 0.0 Abs Immat Gran (auto) 0.02 Absolute Neuts (auto) 0.9 L Absolute Nucleated RBC 0.000 Nucleated RBC % (auto) 0.0 Smear Tech's Comments VERIFIED Sodium 138 Potassium 3.2 L Chloride 103 Carbon Dioxide 27 Anion Gap 11 L BUN 9 Creatinine 0.97 Estim Creat Clear Calc 91.8 Estimated GFR 58 POC Glucose 139 H Random Glucose 126 H Calcium 8.3 L Phosphorus 3.1 Magnesium 1.6 Albumin 3.7 Preliminary micro results at discharge 08/22/23 01:00 Blood Culture - Preliminary Blood - Venous No growth after 24 hours. Discharge Plan Discharge Anticipated Discharge Date/Time: 08/24/23 10:57 Patient Disposition: Home Health Service Discharge Diagnosis: Influenza, hypotension, acute kidney injury Referrals: [facility] [Outside] ([facility] will provide start of care on Monday ) Kiel Rice MD [Primary Care Provider] - 1 Week Discharge Medications: New oseltamivir [Tamiflu] 75 mg capsule 75 mg PO BID 2 Days Qty: 4 0RF atenolol 25 mg tablet 25 mg PO DAILY Qty: 30 0RF Continued cetirizine 10 mg tablet 1 tab PO DAILY doxepin 25 mg capsule 1 cap PO BEDTIME omeprazole 40 mg capsule,delayed release(DR/EC) 1 cap PO DAILY potassium chloride 10 mEq tablet,ER particles/crystals 1 tab PO DAILY aspirin 81 mg Tablet,Chewable 81 mg PO DAILY metformin 1,000 mg tablet 1,000 mg PO BIDWMEAL Qty: 60 0RF Rx Instructions: Take 1 pill, daily, for 3 days and then initiate twice daily gabapentin 600 mg tablet 600 mg PO QID atorvastatin 10 mg tablet 10 mg PO DAILY fluoxetine 40 mg capsule 40 mg PO DAILY Discontinued chlorthalidone 25 mg tablet 1 tab PO QAM atenolol 50 mg tablet 1 tab PO DAILY lisinopril 2.5 mg tablet 2.5 mg PO DAILY Discharge Orders: Discharge Order (Routine); Ordered 08/25/23 Ordered By: Fabby Samson Diet: Diabetic diet Activity on Discharge: As tolerated Stand Alone Forms: Patient Portal Discharge page Print Language: Lithuanian Care Plan Goals: full recovery from influenza and hypotension Health Concerns: low blood pressure Influenza (flu) Plan of Treatment: stop taking these blood pressure medication (hydrochlorothiazide, lisinopril, atenolol.) Assessment: see above Patient Instructions: Viral Pneumonia (DC) Discharge Date/Time: 08/25/23 12:00
[2023-08-24 11:18] LABS: Glucose, Whole Blood 139 mg/dL (60-115)
--- NOTE | 2023-08-24 12:48 | MHC.CM.PN ---
REFERRAL TO [facility] BASED ON P.T. RECOMMENDATIONS FOR HOME WITH SERVICES.
[2023-08-24 15:21] VITALS: BP 138/80; PULSE 85; RESP 18; TEMP 36.6; O2SAT 98
[2023-08-24 16:35] LABS: Glucose, Whole Blood 85 mg/dL (60-115)
--- NOTE | 2023-08-24 17:30 | HO.PM.IMPN ---
Subjective Subjective Date of Service: 08/24/23 Interval History: f/ u on influenza, viral sepsis no hypoxia, and hypotension resolved Physical Exam Vital Signs: Vital Signs: Last Vital Signs Temp 97.8 F 08/24/23 15:21 Pulse 85 08/24/23 15:21 Resp 18 08/24/23 15:21 BP 138/80 08/24/23 15:21 Pulse Ox 98 08/24/23 15:21 O2 Del Method Room Air 08/24/23 15:21 O2 Flow Rate 1 08/23/23 15:15 BMI result Body Mass Index 47.1 General: AO X 3, no acute distress Resp: CTA bilateral CVS: S1,S2,RRR GI: +BS, NT, no distention Skin: No rash Neuro: motor grossly intact Psych: appropriate affect Objective Data Active Medications Acetaminophen (Acetaminophen 325 Mg Tablet) 650 mg PO Q6H PRN PRN Reason: Pain, Moderate(Pain Scale 4-6) Last Admin: 08/23/23 20:48 Dose: 650 mg Documented By: STEVO Aspirin (Aspirin 81 Mg Tab.Chew) 81 mg PO DAILY [facility] Last Admin: 08/24/23 09:08 Dose: 81 mg Documented By: FREDRICK Atorvastatin Calcium (Atorvastatin Calcium 10 Mg Tablet) 10 mg PO DAILY [facility] Last Admin: 08/24/23 09:08 Dose: 10 mg Documented By: FREDRICK Enoxaparin Sodium (Enoxaparin Sodium 40 Mg/0.4 Ml Syringe) 40 mg SUBCUT Q12H [facility] Last Admin: 08/24/23 09:07 Dose: 40 mg Documented By: FREDRICK Fluoxetine HCl (Fluoxetine Hcl 20 Mg Capsule) 40 mg PO DAILY [facility] Last Admin: 08/24/23 09:08 Dose: 40 mg Documented By: FREDRICK Gabapentin (Gabapentin 600 Mg Tablet) 600 mg PO QID [facility] Last Admin: 08/24/23 12:44 Dose: 600 mg Documented By: FREDRICK Guaifenesin/Codeine Phosphate (Guaifen/Codeine Sf 200/20/10ml 10 Ml Liquid) 5 ml PO Q6H [facility] Insulin Human Lispro (Insulin Lispro 100 Unit/Ml 3 Ml Vial) 0 unit SUBCUT QIDACHS [facility]; Protocol Last Admin: 08/24/23 16:39 Dose: Not Given Documented By: FREDRICK Non-Admin Reason: No Insulin Coverage Omeprazole (Omeprazole 40 Mg Capsule.) 40 mg PO DAILY@0630 [facility] Last Admin: 08/24/23 05:58 Dose: 40 mg Documented By: STEVO Oseltamivir Phosphate (Oseltamivir Phosphate 75 Mg Capsule) 75 mg PO Q24H [facility] Stop: 08/27/23 17:01 Last Admin: 08/23/23 18:12 Dose: 75 mg Documented By: FREDRICK Labs 08/24/23 05:24 08/24/23 05:24 Labs: Laboratory Results - last 24 hr 08/23/23 08/24/23 08/24/23 19:35 05:24 07:30 MCV 81.5 MCH 26.5 L MCHC 32.6 RDW 14.5 Plt Count 284 MPV 10.5 Immature Gran % (Auto) 0.6 H Neut % (Auto) 27.2 L Lymph % (Auto) 48.1 H [place] % (Auto) 18.8 H Eos % (Auto) 4.7 H Baso % (Auto) 0.6 Lymph # (Auto) 1.5 [place] # (Auto) 0.6 Eos # (Auto) 0.2 Baso # (Auto) 0.0 Abs Immat Gran (auto) 0.02 Absolute Neuts (auto) 0.9 L Absolute Nucleated RBC 0.000 Nucleated RBC % (auto) 0.0 Smear Tech's Comments VERIFIED Anion Gap 11 L Estim Creat Clear Calc 91.8 Estimated GFR 58 POC Glucose 149 H 139 H Random Glucose 126 H Calcium 8.3 L Phosphorus 3.1 Magnesium 1.6 Albumin 3.7 08/24/23 08/24/23 11:14 16:28 MCV MCH MCHC RDW Plt Count MPV Immature Gran % (Auto) Neut % (Auto) Lymph % (Auto) [place] % (Auto) Eos % (Auto) Baso % (Auto) Lymph # (Auto) [place] # (Auto) Eos # (Auto) Baso # (Auto) Abs Immat Gran (auto) Absolute Neuts (auto) Absolute Nucleated RBC Nucleated RBC % (auto) Smear Tech's Comments Anion Gap Estim Creat Clear Calc Estimated GFR POC Glucose 139 H 85 Random Glucose Calcium Phosphorus Magnesium Albumin Microbiology Microbiology Results: Microbiology 08/22/23 15:34 Blood Culture - Final Blood - Venous Coag negative Staphylococcus 08/22/23 01:00 Blood Culture - Preliminary Blood - Venous No growth after 24 hours. Assessment and Plan (1) Severe sepsis: Status: Acute (2) Hypotension: Status: Acute (3) Hypokalemia: Status: Acute Plan 63-year-old lady with underlying history of diabetes mellitus, hypertension hyperlipidemia, diverticulitis admitted on 08/22/2023 with weakness resulting mechanical fall and upper respiratory symptoms for 2 days. On ER evaluation patient febrile and influenza A positive with hypotension with borderline response to initial IV fluid resuscitation admitted to intensive care unit for close monitoring; she did not need pressors Started on Tamiflu. ALFREDO resolved with IVF and holding blood pressure medication, her blood pressure continues to be normal without meds. She had 1/2 coag negative staph in blood deemed contamination and therefore Vanco stppped. ALFREDO resolved with IVF. Influenza--Tamifly x 5 days Hypotension likely related dehydration and BP meds, resolved with IvF and hold meds, she never required pressors ALFREDO--pre renal, resolved with IVF Hypertension --hold Lisinopril, Chlorthalidone, resume BB upon dischare Physical therapy evaluated her and recommends home with services. need for inpt: hypOtenison, ALFREDO, viral sepsis and needing IVF and med adjustement diabetes--restart metformin since renal fnction isnormal Quality Stroke Does the patient have a stroke diagnosis?: No VTE Prior VTE?: No VTE Risk Level:: Medical - moderate - high VTE Device Contraindication: Treatment Not Indicated VTE Drug Contraindication: N/A - Med Ordered
[2023-08-24] MEDS: Oseltamivir Phosphate 75 MG CAPSULE PO (17:52)
[2023-08-24] MEDS: metFORMIN HCl 1,000 MG TABLET 1000 MG PO (17:52)
[2023-08-24 19:25] VITALS: BP 130/67; PULSE 86; RESP 18; TEMP 36.4; O2SAT 98
[2023-08-24 20:38] LABS: Glucose, Whole Blood 151 mg/dL (60-115)
[2023-08-25 03:30] VITALS: BP 97/53; PULSE 48; RESP 18; TEMP 36.3; O2SAT 92
[2023-08-25 07:15] VITALS: BP 111/51; PULSE 78; RESP 18; TEMP 36.4; O2SAT 94
[2023-08-25 07:29] LABS: Glucose, Whole Blood 133 mg/dL (60-115)
[2023-08-25 08:00] VITALS: BMI 45.6
[2023-08-25 09:00] LABS: Potassium 3.3 mmol/L (3.3-5.1)
[2023-08-25] MEDS: metFORMIN HCl 1,000 MG TABLET 1000 MG PO (09:33)
[2023-08-25] MEDS: atenoloL 25 MG TABLET PO (09:33)
[2023-08-25] MEDS: FLUoxetine HCl 20 MG CAPSULE 40 MG PO (09:33)
[2023-08-25] MEDS: Atorvastatin Calcium 10 MG TABLET PO (09:33)
[2023-08-25] MEDS: Gabapentin 600 MG TABLET PO ×2 (09:34→11:40)
[2023-08-25] MEDS: Aspirin 81 MG TAB.CHEW PO (09:34)
[2023-08-25] MEDS: Enoxaparin Sodium 40 MG/0.4 ML SYRINGE SUBCUT (09:34)
--- NOTE | 2023-08-25 11:03 | P.DS_ITS ---
DS: Providers Provider Date of Service: 08/25/23 Date of admission: 08/22/23 21:03 Primary care physician: Kiel Rice MD DS: Diagnosis Discharge Diagnosis (1) Influenza A: Status: Acute (2) Acute dehydration: Status: Acute DS: Summary Hospital Course Hospital Course: 63-year-old lady with underlying history of diabetes mellitus, hypertension hyperlipidemia, diverticulitis admitted on 08/22/2023 with weakness resulting me chanical fall and upper respiratory symptoms for 2 days. On ER evaluation patient febrile and influenza A positive with hypotension with borderline response to initial IV fluid resuscitation admitted to intensive care unit for close monitoring; she did not need pressors Started on Tamiflu. ALFREDO resolved with IVF and holding blood pressure medication, her blood pressure continues to be normal without meds. She had 1/2 coag negative staph in blood deemed contamination. ALFREDO resolved with IVF. Physical therapy evaluated her and recommends home with services. Since BPs have been low normal, stopping Chlorthalidone and Lisinopril, will send home on low-dose atenolol 25 mg, home dose 50 mg will discharge on 2 more days of Tamiflu 75 mg b.i.d. Resume Metformin for diabetes Time Attestation Discharge coordination time: Greater than 30 minutes Quality: Safe Use of Opioids Does Pt have an Active Cancer Diagnosis on the Problem List?: No Quality: Stroke Does the patient have a stroke diagnosis?: No Physical Exam Vital Signs: Vital Signs: Last Vital Signs Temp 97.6 F 08/25/23 07:15 Pulse 78 08/25/23 07:15 Resp 18 08/25/23 07:15 BP 111/51 L 08/25/23 07:15 Pulse Ox 94 08/25/23 07:15 O2 Del Method Room Air 08/25/23 07:15 O2 Flow Rate 1 08/23/23 15:15 BMI result Body Mass Index 45.6 Const: Other: General alert oriented x3, in no acute distress. Neck supple no JVD. CVS regular rate rhythm, Respiratory lungs clear to auscultation, no respiratory distress, no wheeze, no rhonchi. Gastrointestinal abdomen soft, non tender, bowel sounds audible, Extremities no edema. Neuro nonfocal Skin no rash DS: Data Data Completed and Pending Completed studies during hospitalization [Text1]: Procedures Dilation of Cystic Duct, Via Natural or Artificial Opening Endoscopic (07/21/21) Extraction of Cystic Duct, Via Natural or Artificial Opening Endoscopic, Diagnostic (07/21/21) Resection of Gallbladder, Percutaneous Endoscopic Approach (07/21/21) Labs on day of discharge: Laboratory Results - last 24 hr 08/24/23 08/24/23 08/24/23 11:14 16:28 20:27 Potassium POC Glucose 139 H 85 151 H 08/25/23 08/25/23 07:23 08:42 Potassium 3.3 POC Glucose 133 H Preliminary micro results at discharge 08/22/23 01:00 Blood Culture - Preliminary Blood - Venous No growth after 48 hours. Discharge Plan Discharge Anticipated Discharge Date/Time: 08/24/23 10:57 Patient Disposition: Home Health Service Discharge Diagnosis: Influenza, hypotension, acute kidney injury Referrals: Kiel Rice MD [Primary Care Provider] - 1 Week Discharge Medications: New oseltamivir [Tamiflu] 75 mg capsule 75 mg PO BID 2 Days Qty: 4 0RF atenolol 25 mg tablet 25 mg PO DAILY Qty: 30 0RF Continued cetirizine 10 mg tablet 1 tab PO DAILY doxepin 25 mg capsule 1 cap PO BEDTIME omeprazole 40 mg capsule,delayed release(DR/EC) 1 cap PO DAILY potassium chloride 10 mEq tablet,ER particles/crystals 1 tab PO DAILY aspirin 81 mg Tablet,Chewable 81 mg PO DAILY metformin 1,000 mg tablet 1,000 mg PO BIDWMEAL Qty: 60 0RF Rx Instructions: Take 1 pill, daily, for 3 days and then initiate twice daily gabapentin 600 mg tablet 600 mg PO QID atorvastatin 10 mg tablet 10 mg PO DAILY fluoxetine 40 mg capsule 40 mg PO DAILY Discontinued chlorthalidone 25 mg tablet 1 tab PO QAM atenolol 50 mg tablet 1 tab PO DAILY lisinopril 2.5 mg tablet 2.5 mg PO DAILY Discharge Orders: Discharge Order (Routine); Ordered 08/25/23 Ordered By: Fabby Samson Diet: Diabetic diet Activity on Discharge: As tolerated Stand Alone Forms: Patient Portal Discharge page Care Plan Goals: full recovery from influenza and hypotension Health Concerns: low blood pressure Influenza (flu) Plan of Treatment: stop taking these blood pressure medication (hydrochlorothiazide, lisinopril, atenolol.) Assessment: see above Patient Instructions: Viral Pneumonia (DC)
--- NOTE | 2023-08-25 11:09 | MHC.CM.PN ---
Addendum entered by Micaela Cho 08/25/23 14:34: [facility] HAS ACCEPTED AND WILL PROVIDE SOC ON MONDAY Addendum entered by Micaela Cho 08/25/23 14:29: CM RECEIVED A MESSAGE FROM [facility] THAT BECAUSE PT ONLY NEEDS PT, THEY WOULD NOT BE ABLE TO SEE HER BEFORE MONDAY SO WOULD NOT BE ABLE TO PROVIDE SERVICES REFERRAL MADE TO [facility], AWAITING RESPONSE Original Note: [facility]
--- NOTE | 2023-08-25 11:23 | P.F2F_ITS ---
Service Date Service Date: 08/25/23 Encounter Date of encounter: 08/25/23 Reasons for Services Signs and symptoms assessed: Impaired lower extremity strength/fatigue quickly with coughing Reason for physical therapy: home safety and mobility Homebound: Leaving the home is medically contraindicated at this time without the asist of a device and/or another person due th the listed conditions above and below. Reason homebound: weakness related to hospital stay Certification: Based on the above findings, I certify that this patient is confined to the home and needs intermittent longterm care, physical therapy and/or speech therapy, or continues to need occupational therapy. The patient is under my care, and I have initiated the establishment of the plan of care. The patient will be followed by a physician who will periodically review the plan of care. Time Spent With Patient Time: Total time managing care of this patient today ____ minutes.
[2023-08-25] MEDS: guaiFEN/Codeine SF 200/20/10ML 10 ML LIQUID 5 ML PO (11:40)
[2023-08-25 11:52] LABS: Glucose, Whole Blood 128 mg/dL (60-115)
== END 2023-08-25 12:00 | disposition home health service (06) | DRG 872 ==
LOC: HO.ED 21:00 → HO.EDOVER 21:41 → HO.ICU 21:59 → HO.S3 08-23 08:52
PROVIDERS: Internal Medicine; Internal Medicine Pulmonary Disease; Student in an Organized Health Care Education/Training Program; Admitting Provider Registered Nurse Community Health; Emergency Provider Emergency Medicine Emergency Medical Services; PCP Internal Medicine Medical Oncology; Visit Provider Hospitalist
DX: A41.89 Other specified sepsis (principal); N17.9 Acute kidney failure, unspecified; R65.20 Severe sepsis without septic shock; J10.1 Influenza due to other identified influenza virus with other respiratory manifestations; E87.6 Hypokalemia; I95.9 Hypotension, unspecified; E78.5 Hyperlipidemia, unspecified; Z87.891 Personal history of nicotine dependence; Z91.040 Latex allergy status; Z79.82 Long term (current) use of aspirin; Z79.84 Long term (current) use of oral hypoglycemic drugs; Z79.899 Other long term (current) drug therapy
CPT/HCPCS: 0241U; 36415; 70450; 71045; 73564; 80048; 80076; 81001; 82040; 82803; 82947; 83605; 83735; 83880; 84100; 84132; 84484; 85025; 85730; 87040; 87147; 87205; 93005; 97162; 99285; J0456; J0696; J1650; J1885; J3370; J3475; J7120; P9047

== ENCOUNTER → 2023-08-22 15:35 | Outpatient (BNV) | payer OTHER, SELFPAY | PROVIDERS: Admitting Provider Registered Nurse Community Health; Emergency Provider Emergency Medicine Emergency Medical Services; PCP Internal Medicine Medical Oncology; Visit Provider Internal Medicine Cardiovascular Disease | DX: R94.31 Abnormal electrocardiogram [ECG] [EKG] (principal) | CPT/HCPCS: 93010 ==

== ENCOUNTER → 2023-08-22 21:03 | Outpatient (BNV) | payer OTHER, SELFPAY | PROVIDERS: Admitting Provider Registered Nurse Community Health; Emergency Provider Emergency Medicine Emergency Medical Services; PCP Internal Medicine Medical Oncology; Visit Provider Registered Nurse Community Health | DX: A41.9 Sepsis, unspecified organism (principal); R65.20 Severe sepsis without septic shock; I95.9 Hypotension, unspecified; J10.1 Influenza due to other identified influenza virus with other respiratory manifestations; E86.0 Dehydration; E87.6 Hypokalemia; N17.9 Acute kidney failure, unspecified | CPT/HCPCS: 99223 ==

== ENCOUNTER → 2023-08-22 21:03 | Outpatient (BNV) | payer OTHER, SELFPAY | PROVIDERS: Admitting Provider Registered Nurse Community Health; Emergency Provider Emergency Medicine Emergency Medical Services; PCP Internal Medicine Medical Oncology; Visit Provider Internal Medicine | DX: J10.1 Influenza due to other identified influenza virus with other respiratory manifestations (principal); E86.0 Dehydration | CPT/HCPCS: 99232; 99238; 99239; 99499; G0180 ==

== ENCOUNTER → 2023-08-22 21:03 | Outpatient (BNV) | payer OTHER, SELFPAY | PROVIDERS: Admitting Provider Registered Nurse Community Health; Emergency Provider Emergency Medicine Emergency Medical Services; PCP Internal Medicine Medical Oncology; Visit Provider Internal Medicine Pulmonary Disease | DX: J10.1 Influenza due to other identified influenza virus with other respiratory manifestations (principal); E86.0 Dehydration | CPT/HCPCS: 99232 ==

== ENCOUNTER 2023-10-02 10:40 | Outpatient (REF) | payer OTHER, SELFPAY ==
--- NOTE | ~2023-10-02 | US_ITS ---
EXAMINATION: MM DIAGNOSTIC DIGITAL BREAST TOMOSYNTHESIS, BILATERAL US BREAST LIMITED, RIGHT MAMMOGRAPHY: CLINICAL INFORMATION: 63-year-old female complaining of palpable abnormality anterior right breast, upper inner quadrant. This was marked with a BB by the technologist with the aid of the patient. No additional complaints. Patient also due for screening bilaterally. COMPARISON: Mammography: 10/14/2022, 10/12/2021, 04/25/2019, 02/27/2018. TECHNIQUE: Digital breast tomosynthesis is performed in both the craniocaudal and mediolateral oblique views along with computer-aided detection (CAD). Synthesized 2D images are generated from the tomosynthesis. In addition, full-field 3-D right mediolateral view was obtained, as well as 3-D spot compression right CC and MLO views of the region of palpable concern. FINDINGS: The breasts are almost entirely fatty (ACR BI-RADS breast composition Category a). There are no significant masses, abnormal calcifications, or regions of architectural distortion. In the region of the BB marker, anterior right breast upper inner quadrant, no underlying mammographic correlate or abnormality is evident. ULTRASOUND: CLINICAL INFORMATION: As above. COMPARISON: None relevant. TECHNIQUE: Targeted sonographic evaluation was performed using a high frequency linear transducer. Attention was given to the upper inner quadrant of the right breast, anterior one third, with attention to the palpable focus. Selected archived documentation. FINDINGS: RIGHT BREAST: There is predominantly fatty breast tissue. New 1:00 axis, 4 cm from the nipple, in the region of palpable concern, there is a focus of echogenic fat with a small cystic focus present, fairly classic appearance of fat necrosis. This measures 2.8 x 3.0 x 0.9 cm. This correlates well with the palpable focus of concern. The patient does mention a bruise in this region a few weeks prior . This finding is benign. US/US breast RT limited mamm only IMPRESSION: There are no findings of malignancy in either breast. Palpable abnormality in the anterior right 1:00 axis is consistent with a region of fat necrosis as discussed above, and does not require follow-up. This is benign. Recommend returning to routine annual screening. OVERALL ASSESSMENT: Mammography: BI-RADS 2 - Benign Findings Ultrasound: BI-RADS 2 - Benign Findings RECOMMENDATION: 1 year F/U This patient's information was entered into a reminder system with a target due date for their next mammogram.
== END 2023-10-02 10:41 | disposition home or self-care (01) ==
LOC: HO.MAMMO 10:40
PROVIDERS: PCP Internal Medicine Medical Oncology; Visit Provider Internal Medicine Medical Oncology
DX: N63.12 Unspecified lump in the right breast, upper inner quadrant (principal)
CPT/HCPCS: 76642; 77062; 77066

== ENCOUNTER → 2023-10-02 11:00 | Outpatient (BNV) | payer OTHER, SELFPAY | PROVIDERS: PCP Internal Medicine Medical Oncology; Visit Provider Radiology Diagnostic Radiology | DX: N63.12 Unspecified lump in the right breast, upper inner quadrant (principal) | CPT/HCPCS: 76642; 77066; G0279 ==

== ENCOUNTER 2024-03-01 08:44 | Outpatient (REF) | payer OTHER, SELFPAY ==
--- NOTE | 2024-03-01 08:52 | ECG_ITS ---
Test Reason : HTN Blood Pressure : / mmHG Vent. Rate : 081 BPM Atrial Rate : 081 BPM P-R Int : 208 ms QRS Dur : 094 ms QT Int : 398 ms P-R-T Axes : 077 010 032 degrees QTc Int : 462 ms Normal sinus rhythm Nonspecific ST abnormality Abnormal ECG When compared with ECG of 22-AUG-2023 19:08, Vent. rate has decreased BY 40 BPM T wave amplitude has increased in Lateral leads Referred By: Kiel Rice Electronically Signed By:KIEL ALMONTE
[2024-03-01 09:15] LABS: MANUAL DIFF FLAG NO
[2024-03-01 09:33] LABS: Basophils Percent Auto 0.5 % (0-2); Eosinophils Absolute Auto 0.3 X10*3/uL (0.0-0.4); Eosinophils Percent Auto 3.4 % (0-4); Hematocrit 38.4 % (37.0-47.0); Hemoglobin 12.9 g/dl (12.0-16.0); Imm Gran Abs Auto 0.03 X10*3/uL (0.00-0.03); Imm Gran Pct Auto 0.4 % (0.0-0.4); Lymphocytes Absolute Auto 2.3 X10*3/uL (1.2-4.9); Lymphocytes Percent Auto 30.9 % (20-40); Mean Corpuscular HGB Conc 33.6 g/dl (31.0-35.0); Mean Corpuscular Hemoglobin 27.7 pg (27.0-33.0); Mean Corpuscular Volume 82.4 fL (80.0-98.0); Mean Platelet Volume 10.4 fL (9.4-12.3); Monocytes Absolute Auto 0.7 X10*3/uL (0.1-1.2); Monocytes Percent Auto 9.5 % (2-11); Neutrophils Absolute Auto 4.2 x10*3/uL (2.0-8.3); Neutrophils Percent Auto 55.3 % (45-73); Platelet Count 352 X10*3/uL (160-400); Red Blood Count 4.66 X10*6/uL (4.20-5.50); Red Cell Distribution Width 14.5 % (11.0-16.0); White Blood Count 7.6 X10*3/uL (4.8-10.8)
[2024-03-01 09:42] LABS: Estimated Average Glucose 154 mg/dL
[2024-03-01 10:11] LABS: Alanine Aminotransferase 20 U/L (0-31); Albumin Level 3.8 g/dL (3.5-5.0); Alkaline Phosphatase 123 U/L (39-117); Anion Gap 11 (12-20); Aspartate Amino Transferase 21 U/L (5-31); Bilirubin Total 0.5 mg/dL (0.0-1.0); Blood Urea Nitrogen 15 mg/dL (9-16); Calcium 10.1 mg/dL (8.4-10.2); Carbon Dioxide 27 mmol/L (22-29); Chloride 105 mmol/L (96-108); Cholesterol 132 mg/dL (<200); Estimated Glomerular Filt Rate > 60; Glucose Fasting 176 mg/dL (60-99); HDL Cholesterol 30 mg/dL (>40); LDL Cholesterol Calculated 78 mg/dL (<100); Potassium 3.4 mmol/L (3.3-5.1); Sodium 140 mmol/L (135-145); Total Protein 8.1 g/dL (6.5-8.0); Triglycerides 124 mg/dL (<150)
[2024-03-01 11:00] LABS: Creatinine Urine 268.24 mg/dL; Microalbum/Creatinine Ratio Ur 6.3 ug/mg cr (<30)
== END 2024-03-01 08:45 | disposition home or self-care (01) ==
LOC: HO.LAB 08:44
PROVIDERS: PCP Internal Medicine Medical Oncology; Visit Provider Internal Medicine Medical Oncology
DX: I10 Essential (primary) hypertension (principal); E66.9 Obesity, unspecified; E11.9 Type 2 diabetes mellitus without complications
CPT/HCPCS: 36415; 80053; 80061; 82043; 82570; 83036; 85025; 93005

== ENCOUNTER 2024-05-23 18:11 | Emergency (ER) | payer OTHER, SELFPAY ==
--- NOTE | ~2024-05-23 | XR_ITS ---
EXAMINATION: XR CHEST CLINICAL INFORMATION: Cough COMPARISON: 08/22/2023 TECHNIQUE: Frontal view of the chest was obtained. FINDINGS: No focal consolidation, pulmonary edema, or pleural effusion. Stable cardiomediastinal silhouette. XR/XR chest 1V IMPRESSION: No acute cardiopulmonary findings. Electronically signed by: Warner Heaton MD 05/23/2024 07:43 PM [facility] [place]
--- NOTE | ~2024-05-23 | CT_ITS ---
EXAMINATION: CT ABDOMEN AND PELVIS WITH CONTRAST CLINICAL INFORMATION: Lower abdominal pain, diarrhea COMPARISON: CT 07/23/2021 TECHNIQUE: Multidetector volumetric images were obtained from the superior aspect of the liver through the pubic symphysis following administration 85 mL of Omnipaque 350 intravenous contrast. Sagittal and coronal reformatted images were obtained on the technologist's workstation. Oral contrast: No This CT examination was performed using dose optimization techniques as appropriate, variously including the following: *Automated exposure control *Adjustment of mA and/or kV according to patient size (this includes techniques or standardized protocols for targeted exams where dose is matched to indication/reason for exam; i.e. extremities or head) *Use of iterative reconstruction technique DLP: 1303 mGy-cm FINDINGS: LUNG BASES: The visualized lung bases are unremarkable. LIVER, GALLBLADDER, AND BILIARY TREE: The liver is normal in size, shape, and attenuation. No focal hepatic lesion or biliary ductal dilatation is present. The gallbladder is surgically absent. PANCREAS: There appears to be a stent within the pancreatic head. No ductal dilatation. No obvious pancreatic mass or adjacent inflammatory stranding. SPLEEN: Unremarkable. ADRENAL GLANDS: Unremarkable. KIDNEYS AND URETERS: The kidneys are normal in size, shape, and attenuation. No hydronephrosis, hydroureter, or calculi seen. No perinephric stranding. BLADDER: Unremarkable. GASTROINTESTINAL TRACT: Mild scattered colonic diverticulosis. No focal inflammatory process or obstruction. Normal appendix. ABDOMINAL WALL: No significant hernia is appreciated. LYMPH NODES: There are mildly prominent para-aortic lymph nodes as well as mildly prominent lymph nodes and hazy attenuation of the fat of the small bowel mesentery which is similar to the previous study and is a nonspecific finding. VASCULAR: Unremarkable. PELVIC VISCERA: Unremarkable. OSSEOUS STRUCTURES: Severe degenerative disc disease at L1-L2 with chronic remodeling of the superior endplate of L2, degenerative sclerosis and vacuum phenomenon. L2-L3 interbody fusion. Advanced facet arthrosis of the lumbar spine, fused at L2-L3. CT/CT abdomen pelvis w IV con IMPRESSION: 1. No bowel obstruction or focal inflammatory process. 2. Mild colonic diverticulosis. 3. Mildly prominent para-aortic lymph nodes and hazy attenuation of the fat of the small bowel mesentery which is similar to the previous study and is a nonspecific finding. 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 Fleischner guidelines were followed. Electronically signed by: Warner Heaton MD 05/23/2024 09:53 PM [facility]
[2024-05-23 18:21] VITALS: BP 159/88; PULSE 82; O2SAT 99
[2024-05-23 18:24] VITALS: BP 116/43; PULSE 84; RESP 16; TEMP 36.9; O2SAT 98; BMI 45.4
--- NOTE | 2024-05-23 18:43 | ECG_ITS ---
Test Reason : cp Blood Pressure : / mmHG Vent. Rate : 076 BPM Atrial Rate : 076 BPM P-R Int : 232 ms QRS Dur : 098 ms QT Int : 418 ms P-R-T Axes : 057 018 035 degrees QTc Int : 470 ms Sinus rhythm with 1st degree A-V block with occasional Premature ventricular complexes Otherwise normal ECG When compared with ECG of 01-MAR-2024 09:01, Premature ventricular complexes are now Present Referred By: Kamila Johnson Electronically Signed By:Dwight Ramírez
--- NOTE | 2024-05-23 19:10 | ED_ITS ---
HPI - Weakness General Chief complaint: Seizure Stated complaint: POSSIBLE SEIZURE PER EMS Time Seen by Provider: 05/23/24 18:14 Source: patient, EMS and old records reviewed Mode of arrival: EMS Limitations: no limitations History of Present Illness ED Provider: KIET HPI Narrative: 63 yo female with PMH of diverticulitis, seizure like activity not on AEDs and EEG negative 2021, anemia, HTN, HLD who states she has not felt well and been very weak for 2 days. She had diarrhea that resolved 2 days ago, cough, not feeling well, lower abdominal pain. I asked about her seizure activity with EMS and she states I only get it when I am sick. she denies n/v, she denies travel, she lives alone. Complaint: generalized weakness Onset (ago): day(s) (2) Duration: constant Location: generalized Migration: none Severity: severe Relieving factors: rest Exacerbating factors: movement and exertion Context: recent illness Associated symptoms: loss of appetite, myalgias and other (cough) Related Data Home Medications ?Medication ?Instructions ?Recorded ?Confirmed cetirizine 10 mg tablet 1 tab PO DAILY 07/21/21 08/22/23 doxepin 25 mg capsule 1 cap PO BEDTIME 07/21/21 08/22/23 omeprazole 40 mg capsule,delayed 1 cap PO DAILY 07/21/21 08/22/23 release potassium chloride 10 mEq 1 tab PO DAILY 07/21/21 08/22/23 tablet,extended release(part/cryst) aspirin 81 mg chewable tablet 81 mg PO DAILY 07/22/21 08/22/23 fluoxetine 40 mg capsule 40 mg PO DAILY 05/13/22 08/22/23 atorvastatin 10 mg tablet 10 mg PO DAILY 08/22/23 08/22/23 gabapentin 600 mg tablet 600 mg PO QID 08/22/23 08/22/23 Previous Rx's ?Medication ?Instructions ?Recorded metformin 1,000 mg tablet 1,000 mg PO BIDWMEAL #60 tabs 10/04/22 atenolol 25 mg tablet 25 mg PO DAILY #30 tabs 08/25/23 oseltamivir 75 mg capsule (Tamiflu) 75 mg PO BID 2 days #4 caps 08/25/23 Allergies Allergy/AdvReac Type Severity Reaction Status Date / Time cortisone [CORTISONE] Allergy Intermediate RASH Verified 05/23/24 18:28 adhesive tape [ADHESIVE TAPE] AdvReac Unknown UNKNOWN Verified 05/23/24 18:28 Latex Allergy Intermediate redness Uncoded 05/23/24 18:28 [place] Allergy Unknown Unknown Uncoded 05/23/24 18:28 Review of Systems 2 Review of Systems: Constitutional : No Fever, pos Chills, pos Fatigue ENT/Mouth : No sore throat, pos Rhinorrhea Eyes: No Eye Pain, No Swelling, No Redness Cardiovascular : No Chest Pain, No SOB, No Dyspnea on Exertion Respiratory : No Cough, No Sputum Gastrointestinal : No Nausea, No Vomiting, pos Diarrhea, pos abdominal Pain Genitourinary : No Dysuria, No Urinary Frequency, No Hematuria, Musculoskeletal : No joint pain, No Myalgias, No Joint Swelling Skin : No Skin Lesions, No rash Neuro : pos Weakness, No Numbness, No Dizziness, no Headache All other systems reviewed and are negative [facility] Past Medical History Attestation statement: The following information was validated with the patient. Source: old records reviewed Medical History Hypokalemia Depression Hypertension Surgical History Hx of total knee replacement History of esophagogastroduodenoscopy (EGD) Hx of colonoscopy Hx laparoscopic cholecystectomy History of ERCP History of back surgery Hx of tubal ligation History of carpal tunnel release Social History Social History Household Members: None Housing: Apartment Do you presently have visiting nurse or other home services: Yes Alcohol intake: former Comment: refuses bed alarm Patient Tobacco Use Status: Former Tobacco user Tobacco use type: Cigarette Second Hand Smoke Exposure: No Advance Directives: Yes Advance Directives on File: Yes Advance Directives Date on File: 07/23/21 Do you have a plan to hurt others: No Plan service: No Current occupational status: unemployed 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 Physical Exam 2 Vital Signs: Vital Signs: Last Vital Signs Temp 97.8 F 05/23/24 22:32 Pulse 79 05/23/24 22:32 Resp 15 05/23/24 22:32 BP 105/53 L 05/23/24 22:32 Pulse Ox 97 05/23/24 22:32 O2 Del Method Room Air 05/23/24 22:32 BMI result Body Mass Index 45.4 Appearance: Alert. Oriented X3. No acute distress. Eyes: Pupils equal, round and reactive to light. ENT: Pharynx normal. no tongue biting Neck: Normal inspection. Neck supple. CVS: Normal heart rate and rhythm. Pulses normal. Respiratory: No respiratory distress. Breath sounds normal. Abdomen: Soft and nontender. Skin: Skin warm and dry. Normal skin color. Normal skin turgor. Extremities: No lower extremity edema. No calf ttp Neuro: Oriented X 3. No motor deficit. No sensory deficit. Course Course Course Narrative: potassium, mag repletion IVF bolus possible infection suspected IV zosyn ordered 752pm Reevaluation(s) Reevaluation #1: lactic acidosis is from metformin and not infection or severe sepsis Medications Administered Discontinued Medications Generic Name Dose Route Start Last Admin Trade Name Freq PRN Reason Stop Dose Admin Magnesium Sulfate 2 gm in 50 mls @ 25 mls/hr 05/23/24 19:50 05/23/24 22:03 Magnesium Sulfate/H2o IV 05/23/24 21:49 Infused ONCE ONE Infusion Piperacillin Sod/Tazobactam 50 mls @ 100 mls/hr 05/23/24 19:50 05/23/24 20:35 Sod 3.375 gm/ Sodium Chloride IV 05/23/24 20:19 Infused ONCE ONE Infusion Sodium Chloride 1,000 mls @ 999 mls/hr 05/23/24 19:51 05/23/24 21:36 Ns IV 05/23/24 20:51 Infused .Q1H1M ONE Infusion Iohexol 85 ml 05/23/24 21:03 05/23/24 21:04 Iohexol 350 Mg/Ml 100 Ml Infus..Btl IV 05/23/24 21:04 85 ml ONCE ONE Administration Ondansetron HCl 4 mg 05/23/24 20:11 05/23/24 20:15 Ondansetron Hcl 4 Mg/2 Ml Vial IVPUSH 05/23/24 20:12 4 mg ONCE ONE Administration Potassium Chloride 40 meq 05/23/24 19:50 05/23/24 20:03 Potassium Chloride Packet 20 Meq Packet PO 05/23/24 19:51 40 meq ONCE ONE Administration Potassium Chloride 20 meq 05/23/24 20:11 05/23/24 20:22 Potassium Chloride Er 20 Meq Tab.Er.Prt PO 05/23/24 20:12 20 meq ONCE ONE Administration Medical Decision Making Medical Decision Making [facility] Narrative: 63 yo female with PMH of diverticulitis, seizure like activity not on AEDs and EEG negative 2021, anemia, HTN, HLD here with c/o weakness, cough, diarrhea that resolved, abdominal pain at this time she also notes she had seizure activity but it seems atypical for seizure had negative EEG in the past - seizure activity was with EMS. At this time labs, UA, CXR, CT scan for diverticulitis. Differential Diagnosis Differential Diagnoses: The differential diagnosis associated with the presentation includes URI, viral syndrome, metabolic derangement, anemia Admission/Observation Consideration of admission/observation: Escalation of care including admission/observation considered offered her rehab she declines - full workup repleted lytes normal VS MAP normal no hypoxia CT Scan no infection, no pneumonia, no UTI Lab Data [facility] Lab Attestation statement: I reviewed the patient's lab results. 05/23/24 19:08 05/23/24 19:08 Labs: Lab Results 05/23/24 05/23/24 05/23/24 Range/Units 19:08 21:14 21:38 WBC 7.3 (4.8-10.8) X10*3/uL RBC 4.76 (4.20-5.50) X10*6/uL Hgb 13.0 (12.0-16.0) g/dl Hct 38.9 (37.0-47.0) % MCV 81.7 (80.0-98.0) fL MCH 27.3 (27.0-33.0) pg MCHC 33.4 (31.0-35.0) g/dl RDW 14.2 (11.0-16.0) % Plt Count 387 (160-400) X10*3/uL MPV 10.0 (9.4-12.3) fL Immature Gran % (Auto) 0.4 (0.0-0.4) % Neut % (Auto) 58.2 (45-73) % Lymph % (Auto) 26.0 (20-40) % [place] % (Auto) 8.7 (2-11) % Eos % (Auto) 5.9 H (0-4) % Baso % (Auto) 0.8 (0-2) % Lymph # (Auto) 1.9 (1.2-4.9) X10*3/uL [place] # (Auto) 0.6 (0.1-1.2) X10*3/uL Eos # (Auto) 0.4 (0.0-0.4) X10*3/uL Baso # (Auto) 0.1 (0.0-0.2) X10*3/uL Abs Immat Gran (auto) 0.03 (0.00-0.03) X10*3/uL Absolute Neuts (auto) 4.2 (2.0-8.3) x10*3/uL Absolute Nucleated RBC 0.000 (0.0-0.012) X10*3/uL Nucleated RBC % (auto) 0.0 (0.0-0.2) /100WBC Sodium 138 (135-145) mmol/L Potassium 3.2 L (3.3-5.1) mmol/L Chloride 102 (96-108) mmol/L Carbon Dioxide 26 (22-29) mmol/L Anion Gap 13 (12-20) BUN 12 (9-16) mg/dL Creatinine 0.90 (0.5-1.4) mg/dL Estim Creat Clear Calc 96.9 Estimated GFR > 60 Random Glucose 124 H (60-115) mg/dL Lactic Acid 2.7 H* (0.5-2.0) mmol/L Lactic Acid F/U @ 2Hr 2.4 H* (0.5-2.0) mmol/L Calcium 9.4 D (8.4-10.2) mg/dL Magnesium 1.5 L (1.6-2.6) mg/dL Total Bilirubin 0.3 (0.0-1.0) mg/dL Direct Bilirubin 0.1 (0.0-0.5) mg/dL AST 30 (5-31) U/L ALT 16 (0-31) U/L Alkaline Phosphatase 102 (39-117) U/L Troponin I High Sens < 2.7 D (<3.5-17.0) ng/L Total Protein 8.2 H (6.5-8.0) g/dL Albumin 3.9 (3.5-5.0) g/dL Lipase 39 (8-78) U/L Urine Color Yellow Urine Appearance Clear Urine pH 6.5 (5.0-9.0) Ur Specific [place] 1.010 (1.005-1.025) Urine Protein Negative (Neg-Trace) mg/dL Urine Glucose (UA) Negative (Negative) mg/dL Urine Ketones Negative (Negative) mg/dL Urine Blood Negative (Negative) Urine Nitrite Negative (Negative) Ur Leukocyte Esterase Negative (Negative) Influenza Type A (PCR) NEGATIVE (Negative) Influenza Type B (PCR) NEGATIVE (Negative) RSV RNA Qual (PCR) NEGATIVE (Negative) SARS-CoV-2 RNA (RT-PCR) NEGATIVE (Negative) Independent Interpretation I performed an independent interpretation of an: EKG, Plain X-Ray (no pneumonia) and CT Scan (no infection) Interpretation: Rate: 76 Rhythm: NSR with 1st degree AVB [place]: normal Normal P waves. 1t degree avb Normal QRS complex. ST T wave : normal no AKBAR qTC: 470 prior studies: no acute ischemia The study has been interpreted contemporaneously by me. . Radiology Impression Discussion of test interpretation with radiology: I have reviewed the radiologist's reading. Independent Historian Clinical information obtained from an independent historian. History obtained from or confirmed by: EMS External Record Review External record reviewed: Inpatient record Discharge Plan Discharge Clinical Impression: Weakness Patient Disposition: Home, Self-Care Instructions: Weakness (ED) Additional Instructions: urine and chest xray no infection CT abdomen no infection magnesium low and potassium low we repleted it negative for COVID, flu, rsv please return for any worsening symptoms or concerns follow up with your doctor Prescriptions: No Action cetirizine 10 mg tablet 1 tab PO DAILY doxepin 25 mg capsule 1 cap PO BEDTIME omeprazole 40 mg capsule,delayed release(DR/EC) 1 cap PO DAILY potassium chloride 10 mEq tablet,ER particles/crystals 1 tab PO DAILY aspirin 81 mg Tablet,Chewable 81 mg PO DAILY metformin 1,000 mg tablet 1,000 mg PO BIDWMEAL Qty: 60 0RF Rx Instructions: Take 1 pill, daily, for 3 days and then initiate twice daily gabapentin 600 mg tablet 600 mg PO QID atorvastatin 10 mg tablet 10 mg PO DAILY oseltamivir [Tamiflu] 75 mg capsule 75 mg PO BID 2 Days Qty: 4 0RF atenolol 25 mg tablet 25 mg PO DAILY Qty: 30 0RF fluoxetine 40 mg capsule 40 mg PO DAILY Print Language: [place]
[2024-05-23 19:25] LABS: MANUAL DIFF FLAG NO
[2024-05-23 19:26] LABS: Basophils Absolute Auto 0.1 X10*3/uL (0.0-0.2); Basophils Percent Auto 0.8 % (0-2); Eosinophils Absolute Auto 0.4 X10*3/uL (0.0-0.4); Eosinophils Percent Auto 5.9 % (0-4); Hematocrit 38.9 % (37.0-47.0); Imm Gran Abs Auto 0.03 X10*3/uL (0.00-0.03); Imm Gran Pct Auto 0.4 % (0.0-0.4); Lymphocytes Absolute Auto 1.9 X10*3/uL (1.2-4.9); Mean Corpuscular HGB Conc 33.4 g/dl (31.0-35.0); Mean Corpuscular Hemoglobin 27.3 pg (27.0-33.0); Mean Corpuscular Volume 81.7 fL (80.0-98.0); Monocytes Absolute Auto 0.6 X10*3/uL (0.1-1.2); Monocytes Percent Auto 8.7 % (2-11); Neutrophils Absolute Auto 4.2 x10*3/uL (2.0-8.3); Neutrophils Percent Auto 58.2 % (45-73); Platelet Count 387 X10*3/uL (160-400); Red Blood Count 4.76 X10*6/uL (4.20-5.50); Red Cell Distribution Width 14.2 % (11.0-16.0); White Blood Count 7.3 X10*3/uL (4.8-10.8)
[2024-05-23 19:49] LABS: Alanine Aminotransferase 16 U/L (0-31); Albumin Level 3.9 g/dL (3.5-5.0); Alkaline Phosphatase 102 U/L (39-117); Anion Gap 13 (12-20); Aspartate Amino Transferase 30 U/L (5-31); Bilirubin Direct 0.1 mg/dL (0.0-0.5); Bilirubin Total 0.3 mg/dL (0.0-1.0); Blood Urea Nitrogen 12 mg/dL (9-16); Calcium 9.4 mg/dL (8.4-10.2); Carbon Dioxide 26 mmol/L (22-29); Chloride 102 mmol/L (96-108); Creatinine Clr Calc Pharmacy 96.9; Estimated Glomerular Filt Rate > 60; Glucose Random 124 mg/dL (60-115); Lipase 39 U/L (8-78); Magnesium 1.5 mg/dL (1.6-2.6); Potassium 3.2 mmol/L (3.3-5.1); Sodium 138 mmol/L (135-145); Total Protein 8.2 g/dL (6.5-8.0)
[2024-05-23 19:52] LABS: Lactic Acid 2.7 mmol/L (0.5-2.0)
[2024-05-23 19:59] LABS: Troponin-I High Sensitivity < 2.7 ng/L (<3.5-17.0)
[2024-05-23] MEDS: Magnesium Sulfate/H2O 2 GM/50 ML PIGGYBACK IV (20:02)
[2024-05-23] MEDS: Potassium Chloride Packet 20 MEQ PACKET 40 MEQ PO (20:03)
[2024-05-23] MEDS: 0.9 % Sodium Chloride 1,000 ML 999 ML IV (20:03)
[2024-05-23] MEDS: Piperacillin Sodium/Tazobactam 3.375 GM in 0.9 % Sodium Chloride 50 ML IV (20:03)
[2024-05-23 20:07] LABS: Influenza A PCR NEGATIVE (Negative); Influenza B PCR NEGATIVE (Negative); Resp Syncy Virus RNA Qual PCR NEGATIVE (Negative); SARS COV2 PCR INHOUSE NEGATIVE (Negative)
[2024-05-23 20:14] VITALS: BP 117/66; PULSE 79; RESP 17; TEMP 36.8; O2SAT 98
[2024-05-23] MEDS: ondansetron HCL 4 MG/2 ML VIAL IVPUSH (20:15)
[2024-05-23] MEDS: Potassium Chloride ER 20 MEQ TAB.ER.PRT PO (20:22)
[2024-05-23] MEDS: iohexoL 350 MG/ML 100 ML INFUS..BTL 85 ML IV (21:04)
[2024-05-23 21:23] LABS: Reflex Lactate? Lactic Acid Added
[2024-05-23 21:24] LABS: Appearance Urine Clear; Color Urine Yellow; Glucose Urine UA Negative (Negative); Leukocyte Esterase Urine Negative (Negative); Nitrite Urine Negative (Negative); PH 6.5 (5.0-9.0); Urine Blood Negative (Negative); Urine Ketones Negative (Negative); Urine Protein Negative (Neg-Trace)
[2024-05-23 22:10] LABS: ~Lactic Acid-LAB USE ONLY 2.4 mmol/L (0.5-2.0)
[2024-05-23 22:32] VITALS: BP 105/53; PULSE 79; RESP 15; TEMP 36.6; O2SAT 97
[2024-05-23 22:35] LABS: Cancel Lactic Acid Canceled
--- NOTE | 2024-05-23 23:29 | MHC.EDTECH ---
late entry: this tech assumed care of pt at 2300, when runding the pt was witnessed resting quietly in stretcher, at bedside. Inquired if the pt or visitor was in need of anything in which they stated that they did not. Encouraged pt to use call light if needs arise.
--- NOTE | 2024-05-23 23:47 | MHC.EDTECH ---
late entry: this tech assumed care of pt at 2300, when rounding the pt was witnessed to be resting quietly in stretcher, call light within reach and appeared t the be in apparent distress. No needs made aware at this time, verbal reassurance given.
[2024-05-23 23:52] VITALS: BP 105/53; PULSE 79; RESP 15; TEMP 36.6; O2SAT 97
== END 2024-05-23 23:53 | disposition home or self-care (01) ==
PROVIDERS: Emergency Provider Emergency Medicine
DX: R56.9 Unspecified convulsions (principal); R53.1 Weakness; R10.2 Pelvic and perineal pain; R07.89 Other chest pain; Z03.818 Encounter for observation for suspected exposure to other biological agents ruled out; Z79.899 Other long term (current) drug therapy; Z87.891 Personal history of nicotine dependence
CPT/HCPCS: 0241U; 36415; 71045; 74177; 80048; 80076; 81003; 83605; 83690; 83735; 84484; 85025; 87040; 93005; 96365; 96366; 96375; 99284; J2405; J2543; J3475; Q9967

== ENCOUNTER → 2024-05-23 18:43 | Outpatient (BNV) | payer OTHER, SELFPAY | PROVIDERS: Emergency Provider Emergency Medicine; Visit Provider Internal Medicine Cardiovascular Disease | DX: I44.0 Atrioventricular block, first degree (principal) | CPT/HCPCS: 93010 ==

== ENCOUNTER 2024-08-06 11:34 | Outpatient (AMB) | payer OTHER, SELFPAY ==
--- NOTE | 2024-08-06 11:38 | A.OFFVIS_ITS ---
Vital Signs 08/06/24 11:44 Height 5 ft 10 in Weight 309 lb BMI 44.3 BP 136/82 Blood Pressure Location Lt brachial Position Sitting Pulse 102 H Pulse Source Pulse Oximeter Intake Visit Reasons: Back pain Intake Note: Pain today 9.11/16 Allergies cortisone [CORTISONE] Allergy (Intermediate, Verified 05/23/24 18:28) RASH adhesive tape [ADHESIVE TAPE] Adverse Reaction (Unknown, Verified 05/23/24 18:28) UNKNOWN Latex Allergy (Intermediate, Uncoded 05/23/24 18:28) redness [place] Allergy (Unknown, Uncoded 05/23/24 18:28) Unknown HPI HPI Back pain: Details: Patient is a 64 years old female with history of lumbar degenerative disc disease, morbid obesity, depression, left knee arthroplasty ([facility], Dr. Casarez, 2021), right knee OA, chronic low back pain, decompressive laminectomies L3-L4 in 2014 and redo in 2017 (Dr. Morataya, [facility]), presents today for initial evaluation low back pain with bilateral radiculopathy. Denies any recent trauma, injury, or falls. Back pain is axial and also radiates to bilateral thighs and lateral lower legs in into the feet with associated numbness and tingling. Patient reports left leg pain is worse than the right leg. She is due for foot surgery and also needs to loose weight for right TKR per patient. She started Ozempic injections and reports positive weight loss. Patient reports she frequently loses her balance and is unsteady due to back and knee pain. She completed physical therapy over 2 years ago with minimal improvement. Currently she can not pursue formal PT due to [id number] daily low back pain with radicular symptoms. She has been managing her symptoms with NSAIDs, Tylenol, gabapentin, and muscle relaxant with minimal effect. Pain affects her daily activities and functioning, mobility, walking capacity, sleep, mood, and social interactions. Denies any fever or chills, abdominal or groin pain, bladder or bowel dysfunction or saddle anesthesia. Patient is currently unemployed and has been disabled due to her chronic back pain. 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 Patient lives alone. Denies alcohol, tobacco or recreational drugs use. Oswestry Low Back Disability Score=27 (severe disability) Location: Lower back radiates down bilateral legs, left>right Duration: Chronic pain for many years Characteristics of symptom or complaint: Aching, stabbing, sharp, hurting, radiating, numbness, tingling, sore Aggravating or associated factors: Walking, standing, prolonged sitting, movements, bending, lifting, climbing Relieving factors: Minimal relief with Tylenol, NSAIDs, gabapentin, muscle relaxant, heat Treatment: Physical therapy in 2021, back surgeries x3 PFSH Medical History (Updated 08/06/24 @ 20:33 by ANNI Marshall) GERD (gastroesophageal reflux disease) Eczema Atypical chest pain Osteoarthritis of right knee Hypokalemia Depression Hypertension Surgical History (Updated 08/06/24 @ 15:09 by ANNI Marshall) Hx of total knee replacement History of esophagogastroduodenoscopy (EGD) Hx of colonoscopy Hx laparoscopic cholecystectomy History of ERCP History of back surgery (~06/2015) Hx of tubal ligation History of carpal tunnel release Social History Household Members: None Housing: Apartment Do you presently have visiting nurse or other home services: Yes Alcohol intake: former Comment: refuses bed alarm Patient Tobacco Use Status: Former Tobacco user Tobacco use type: Cigarette Second Hand Smoke Exposure: No Advance Directives Date on File: 07/23/21 service: No Current occupational status: unemployed 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 Review of Systems Const All systems reviewed & are unremarkable except as noted in HPI and below Physical Exam Vital Signs: Last Vital Signs Pulse 102 H 08/06/24 11:44 BP 136/82 08/06/24 11:44 BMI result Body Mass Index 44.3 General: Appears afebrile. Alert and oriented. Mood and affect appropriate. Follows and participates in conversation appropriately. Respiratory effort is unlabored. No cough. Able to transition from sit to stand unassisted. Ambulates with bilaterally normal heel strike and toe off, reports increased pain on the left. General: Yes no CVA tenderness Back/Spine/Pelvis Other: Limited lumbar ROM. Antalgic gait with mild limping. Lumbar flexion and extension reproduce moderate-severe lumbar pain. Demonstrates 5/5 strength of quadriceps bilaterally as well as flexion/dorsiflexion of bilateral feet against resistance. 2+ pedal pulses bilaterally. Straight leg rise with dorsiflexion positive on the left. Diminished patellar and achilles reflexes bilaterally. Facet loading test positive bilaterally. Luz sign, Roland?s, and Stinchfield tests are negative bilaterally. No groin pain with I/E hip rotations. Valsalva maneuver is negative. Back: no CVA tenderness Cervical Spine: cervical ROM normal, cervical muscular tenderness, No Cervical spine scars present and No Cervical spine tenderness Thoracic/Lumbar Spine: thoracic and lumbar spine normal to inspection, Thoracic/lumbar spine scar(s), Lasegue's sign positive on the left and diffuse, pain with thoraco-lumbar ROM, paraspinal muscle tenderness, thoraco-lumbar ROM limited, No thoracic spinal tenderness and lumbar spinal tenderness (L3-S1) Pelvis: buttock tenderness on the left and no sciatic notch tenderness Sacroiliac joints: bilaterally nontender Extrem General: Yes capillary refill normal, Yes no clubbing, cyanosis or edema and Yes no calf tenderness Results Reviewed Results Reviewed: CT abdomen pelvis w IV con 05/23/24 OSSEOUS STRUCTURES: Severe degenerative disc disease at L1-L2 with chronic remodeling of the superior endplate of L2, degenerative sclerosis and vacuum phenomenon. L2-L3 interbody fusion. Advanced facet arthrosis of the lumbar spine, fused at L2-L3. MR LUMBAR SPINE WITHOUT AND WITH CONTRAST 2017 CLINICAL INFORMATION: Lumbar radiculopathy. History of L3-L4 decompression. COMPARISON: Plain films 08/29/2015 and MRI scan 04/02/2015. TECHNIQUE: MRI of the lumbar spine was obtained using routine sequences with and without contrast. Intravenous contrast: Gadavist 10 mL. FINDINGS: VERTEBRAL BODIES AND PARASPINAL STRUCTURES: The study redemonstrates the transitional vertebra at the lumbosacral junction with partial lumbarization of S1. There is narrowing of intervertebral disc height at the levels of T11-T12, L3-L4, L4-L5 and L5-S1 with loss of signal, demonstrated on prior imaging. There are multilevel Schmorl's nodes at adjacent endplates in the mid and upper lumbar spine. The edematous Modic type I endplate changes at L3-L4 have largely resolved. Moderate fatty endplate changes toward the right at L5-S1 appear stable. There are no compression fractures and vertebral body heights are maintained. Overall, marrow signal is homogenous. There are small retroperitoneal lymph nodes on the left, which are unchanged compared to the prior study. The visualized pelvic structures are unremarkable. CONUS MEDULLARIS AND CAUDA EQUINA: Normal, terminating at the level of L1-L2. SPINAL LEVELS: T11-T12: There is a diffuse disc bulge. There is mild effacement of CSF ventral to the spinal cord but there is no spinal cord compression. There is facet arthropathy. The neural foramina are patent. L1-L2: There is mild bilateral facet arthropathy. Disc contour is normal. There is no central stenosis or foraminal narrowing. L2-L3: There is moderate bilateral facet arthropathy with ligamenta flava hypertrophy. There is a diffuse disc bulge. This is more prominent on the left. There is no central stenosis. L3-L4: Since the prior study, there has been a posterior decompression. Residual facets are noted and there is some thickening of the residual ligamenta flava. There is fluid along the surgical track extending between the facets of the facet joints bilaterally. No loculations are demonstrated. There are moderate edematous signal changes in the right-sided L3 and L4 facets, which demonstrate relatively intense enhancement. Milder changes are seen on the left. Fluid along the surgical track distorts the dorsal thecal sac. There is moderate enhancement within the fluid in the paraspinal soft tissues along the surgical track, and enhancement extends cephalad behind the spinous processes of L2 and L3. There is a broad-based posterior disc protrusion extending into the inferior neural foramina bilaterally, similar compared to the prior study. There is moderate central stenosis. L4-L5: There is tnihjnef-oa-ztxbnx bilateral facet arthropathy and ligamenta flava hypertrophy, similar compared to the prior study. There is a broad-based posterior disc protrusion extending into the inferior neural foramina without definite nerve root impingement. There is vinm-ke-owfqqwms central stenosis. L5-S1: There is severe bilateral facet arthropathy. There is a broad-based posterior disc protrusion extending into the neural foramina bilaterally with impingement on the exiting left greater than right L5 nerve roots. A more focal right paracentral disc protrusion distorts the thecal sac. There is no definite traversing nerve root impingement on the current study. IMPRESSION: 1. Since the prior MRI scan, there has been a posterior decompression at L3-L4. There is fluid noted along the surgical track which demonstrates enhancement. No loculations are demonstrated. The fluid distorts the dorsal thecal sac. There is persistent moderate central stenosis. 2. There is increased STIR signal with enhancement around the right L3-L4 facet joint, which may be consistent with an inflammatory/infective arthrosis. There are milder changes on the left. 3. Spondylosis with disc protrusions and facet arthropathic changes are redemonstrated at multiple levels, not significantly changed compared to the prior study. In particular, there is a left foraminal disc protrusion at L5-S1 with compression of the exiting left L5 nerve root. Assessment & Plan Assessment & Plan (1) Lumbar post-laminectomy syndrome: Code(s): M96.1 - Postlaminectomy syndrome, not elsewhere classified Category: Medical (2) Lumbar radiculopathy: Code(s): M54.16 - Radiculopathy, lumbar region Category: Medical (3) Lumbar degenerative disc disease: Code(s): M51.369 - Other intervertebral disc degeneration, lumbar region without mention of lumbar back pain or lower extremity pain Category: Medical (4) Lumbosacral spondylosis: Code(s): M47.817 - Spondylosis without myelopathy or radiculopathy, lumbosacral region Category: Medical (5) Chronic low back pain: Code(s): M54.50 - Low back pain, unspecified; G89.29 - Other chronic pain Category: Medical Plan Discussed interventional treatments for chronic low back pain with radicular symptoms. Patient is also suffers from lumbar post laminectomy syndrome. She reports allergy to cortisone injections. We discussed neuromodulation with SCS trial vs implant and diagnostic injections for potential lumbar medial branch RFA. Patient is not candidate for Sprint PNS trial due to BMI>40. We will update MRI of the lumbar spine to assess for neural integrity and compression and follow up on previous MRI findings. Patient is encouraged for daily physical activity, weight loss, adequate hydration, good posture, and activity modifications. All questions and concerns have been answered and patient agreed with the treatment plan. Follow up for MRI results and sooner as needed. Orders: Orders MR lumbar spine wo/w con Today M47.817 - Spondylosis without myelopathy or radiculopathy, lumbosacral region, M51.369 - Other intervertebral disc degeneration, lumbar region without mention of lumbar back pain or lower extremity pain, M54.16 - Radiculopathy, lumbar region, M96.1 - Postlaminectomy syndrome, not elsewhere classified Coding Level of Care Code New Pt Level 4 (59571) Complex EM visit Add On G2211 Diagnoses Lumbar post-laminectomy syndrome M96.1 Lumbar radiculopathy M54.16 Lumbar degenerative disc disease M51.369 Lumbosacral spondylosis M47.817 Chronic low back pain M54.50; G89.29
[2024-08-06 11:44] VITALS: BP 136/82; PULSE 102; BMI 44.3
--- OUTSIDE RECORDS SUMMARY | 2024-08-06 12:49 | XMS_ITS | Encounter Summary ---
Author Organization [facility] Address [address] [place] [address] Care Team Providers Care Gin Operator Name Role Phone Jaswant Hyatt MD Primary Care Provider Un available Encounter Details Date Type Department Care Team ([facility] st Contact Info) Description 07/30/2024 10:00 AM EST Office Visit Orthopedic Surgery [facility] [address] [phone] Bishop White DPM [address] [address] Acquired hammer toe of right foot (Primary Dx); Follow-up exam; Arthritis of right ankle; Exostosis of right foot; Ingrowing nail; Contracture of joint of right foot Social History Tobacco Use Types Packs/Day Years Used Date Smoking Tobacco: Never Smokeless Tobacco: Never Alcohol Use Standard Drinks/Week Comments No 0 (1 standard drink = 0.6 oz pur e alcohol) Sex and Gender Information Value Date Recorded Sex Assigned at Not on file Gender Identity Not on file Sexual Orientation Not on file Job Start Date Occupation Industry Not on file Not on file Not on file documented as of this encounter Progress Notes * Bishop White DPM - 07/30/2024 10:00 AM EST S Patient status post surgery on 03/29/2024 doing very well at this time states she is well controlledpain medication denies other pedal complaints left foot removal of tarsal bone X ptosis Patient has no complaints of her right foot she states that her right foot has been painful she is getting ingrown nail of her right great toe has been constant bother she also notes her right secondtoe is curling and she also notes she is getting some bony growth in her midfoot of her right foot just like her left foot she states she would like to know if these things can be fixed she would like further discussion of surgical options has been bothering her more often now that her left foot isno longer hurting her pain discomfort is a 7 out of 10 on a visual analog scale patient to get x-ray today's appointment has further discussion questions about her surgical options would like to pursue ROS: GENERAL: Pt denies nausea, fever, vomiting, chills, or shortness of breath. Pt in NAD. CARDIOLOGY: pt denies chest pain, palpitations LUNGS: pt denies shortness of breath MUSCULOSKELETAL: See HPI, otherwise no joint pain or swelling, back pain, or muscle pain. SKIN: see HPI, otherwise no lesions, rash or itching NEURO: No persistent headache, weakness or numbness The remainder of the review of systems is noncontributory PAST MEDICAL HISTORY: Patient Active Problem List Diagnosis Code Osteoarthritis of right knee M17.11 Hx of chest pain Z87.898 Lumbar radiculopathy M54.16 Essential hypertension I10 Obesity E66.9 Former smoker Z87.891 Obesity morbid obesity type 2 diabetes without complication history of decompression laminectomy L3-4-5 and carpal tunnel release bilateral left knee arthroplasty Dr. Casarez on 12/27/2021 SOCIAL HISTORY: Social History Tobacco Use Smoking status: Never Smokeless tobacco: Never Substance Use Topics Alcohol use: No History Last Reviewed by Emely Condon MD on 09/19/2018 at 2:58 PM Sections Reviewed Medical, Surgical, Family ACTIVE MEDICATIONS: Current Outpatient Medications Medication Sig Dispense Refill oxycodone (ROXICODONE) 5 MG immediate release tablet Take one tablet every 4 hours as needed for pain 35 Tablet 0 acetaminophen (Tylenol) 325 MG tablet Take 2 Tablets by mouth every 6 hours as needed for Pain (mild to moderate pain) for up to 10 days. 80 Tablet 0 gabapentin (NEURONTIN) 400 MG capsule Take 1 Capsule by mouth 3 times daily. Diclofenac Sodium 1 % Gel Apply 4 g topically 2 times daily. 100 g 2 fluoxetine (PROZAC) 20 MG capsule Take 20 mg by mouth daily. omeprazole (PRILOSEC) 40 MG capsule Take 40 mg by mouth daily. chlorthalidone (HYGROTEN) 25 MG tablet Take 25 mg by mouth daily. atenolol (TENORMIN) 50 MG tablet Take 50 mg by mouth daily. Aspirin (ASPIR-81 OR) Take by mouth. Magnesium 400 MG Cap Take by mouth. meloxicam (MOBIC) 15 MG tablet Take 15 mg by mouth daily. sulfamethoxazole-trimethoprim (BACTRIM DS,SEPTRA DS) 800-160 MG per tablet Take 1 tablet by mouth 2times daily. 60 tablet 11 No current facility-administered medications for this visit. ALLERGIES: Patient has no allergy information on record. PHYSICAL EXAM: Height 5' 9 (1.753 m), weight 280 lb (127 kg). Estimated body mass index is 41.35 kg/m?? as calculated from the following: Height as of this encounter: 5' 9 (1.753 m). Weight as of this encounter: 280 lb (127 kg). PODIATRIC EXAMINATION: GENERAL: Patient appears well nourished, with NAD. VASCULAR: Dorsalis pedis pulses are 2/4 bilaterally and Posterior tibial pulses are 2/4 bilaterally. Capillary filling time within normal limits the digits. No pallor on elevation or rubor on dependency. Positive hair growth. No varicosities. Denies rest pain or claudication pain. NEUROLOGICAL: Sharp/dull sensation intact, protective sensation intact 10/10 with 5.07 semmes beatrice bilaterally, vibratory sensation with tuning fork intact to the tibial tuberosity. ORTHOPEDIC: Good muscle strength 5/5 of all flexors and extensors. Dorsi flexion of ankle ,10 degrees, plantar flexion WNL. No muscle atrophy. DERMATOLOGICAL:.Normal scar tissue formation. Abnormal curvature right great toe with ingrowth medial lateral nail fold and nail plate right great toenail BIOMECHANICS: STJ ROM wnl, MTJ ROM crepitation right midfoot midtarsal midtarsal joint X ptosis left foot has resolved with normal scar tissue formation midtarsal joint X ptosis noted, 1st MPJ ROM wnl. Semireducible hammertoe contracture of the right second digit IMAGING: IMPRESSION: 1. Acquired hammer toe of right foot 2. Follow-up exam XR Foot 3+ Views bilat 3. Arthritis of right ankle 4. Exostosis of right foot 5. Ingrowing nail 6. Contracture of joint of right foot PLAN: Pt was seen and examined, history reviewed. During today???s visit we discussed at great length the etiology, prognosis, and treatment options for the patient???s condition. Risks and benefits of operative and non operative treatment options were discussed. Treatment options for 1. right foot permanent nail removal great toe 2. arthrodesis hammertoe correction right second digit 3. Right second MPJ contracture release 4. excision midfoot X ptosis right foot correction were discussed, non-operative treatment would involve tapping, strapping, adjustments in shoe gear, orthotics insoles, rest, bracing and edema control. There is potential for the deformities to stabilize without surgery yet there may still be a need for delayed surgery and joint distructive procedures. There is potential for non-union with surgery and non-operative care would avoidincision problems, fixation complications and anesthesia risks. Surgery has added risks including but not limited to infection, incision pain, neuritis or numbness reoccurance of deformity, scar tissue contracture, worsening of deformity and eventual need for removal of hardware. 1. right foot permanent nail removal great toe 2. arthrodesis hammertoe correction right second digit 3. Right second MPJ contracture release 4. excision midfoot X ptosis right foot healing was discussed in relation tooperative treatment. Recovery and post operative immobilization was discussed based on the various treatment options. Weight bearing status: NWB x 2 weeks followed by progressive WB x 10 weeks in a below the knee boot. Work&Activity restrictions: Impact of undergoing surgery to work and daily activity was discussed today Pain management: Postoperative pain regiment were discussed in great detail with the patient. The patient was also encouraged to aggressively elevate and ice postoperatively to help with swelling andpain control. The patient was in agreement with this plan. The patient will be prescribed IbuprofenTylenol Oxycodone for postoperative pain management. VTE Risk assessment: Risk of DVT/ PE were discussed in relation to immobilization, inactivity, injury, surgery, medication and personal risk factors. Signs and symptoms of a blood clot were discussedincluding action plan if the patient experiences these signs or symptoms. Methods of prevention and risk reduction were explained. Mechanical prophylaxis including ROM and mobilization is encouraged as much as possible. The patient???s risk for deep vein thrombosis was also assessed today. In regards to major risk factors they: Do not have personal history of DVT Do not have known active cancer Do not have known clotting disorder Do not have family history of DVT Pending foot surgery and current level of immobilization are risk factors. Measure taken to decrease their risk of deep vein thrombosis will consist of detailed education, as well as lower extremity range of motion. Chemical prophylaxis is not recommended based on patients history, procedure and postoperative plan Planned procedure(s): 1. right foot permanent nail removal great toe 2. arthrodesis hammertoe correction right second digit 3. Right second MPJ contracture release 4. excision midfoot X ptosis right foot surgery WB status: NWB x 2 weeks followed by progressive WB x 10 weeks in a below the knee boot. Pain medication: Ibuprofen Tylenol Oxycodone Bishop White DPM documented in this encounter Plan of Treatment Scheduled Procedures Name Priority Associated Diagnoses Date/Ti me EXCISION BONE SPUR LOWER EXTREMITY Arthritis of right ankle Exostosis of right foot Acquired hammer toe of right foot Ingrowing nail Contracture of joint of right foot documented as of this encounter Results * XR Foot 3+ Views bilat (07/30/2024 10:41 AM EST) Anatomical Region Laterality Modality Lower Extremities, Foot Bilateral Computed Radiography Narrative 07/30/2024 12:00 PM EST Left foot 3 views Diffuse hindfoot midfoot forefoot arthritis diffuse hammertoe contractures 2 through 5 Previous exostectomy noted of midfoot Right foot 3 views Severe midfoot arthritis severe hindfoot arthritis Moderate hammertoe contractures 2 through 5 Bishop White DPM IMG XR PROCEDURES documented in this encounter Visit Diagnoses Diagnosis Acquired hammer toe of right foot- Primary Follow-up exam Unspecified follow-up examination Arthritis of right ankle Exostosis of right foot Ingrowing nail Contracture of joint of right foot documented in this encounter Orders Case Request Count Last Ordered Date First Orde red Date CASE REQUEST OPERATING ROOM 1 07/30/2024 documented in this encounter Care Teams Gin Operator Relationship Specialty Start Date End Date Jaswant Hyatt MD Need Additional Information PCP - General Internal Medicine 03/28/18 documented as of this encounter
--- OUTSIDE RECORDS SUMMARY | 2024-08-06 12:49 | XMS_ITS ---
Author Organization Kiel Rice III, MD Address [address] [place] [address] Care Team Providers Care Patient Information Coordinator Name Role Phone Kiel Rice Primary Care Provider Allergies Allergen (clinical drug ingredient) Drug/Non Drug Allergy documented on EMR Reaction Allergy Type Onset Date Status Latex Latex Unknown Allergy Active cortisone Cortisone Unknown Drug Allergy Active won (uncoded) Unknown Allergy Ac tive Reason For Referral Reason Evaluate and Treat Diagnosis 1 Lumbosacral radiculo lux due to degenerative joint disease of spine (M47.27) Diagnosis 2 Carpal tunnel syndro me, bilateral (G56.03) Diagnosis 3 Back pain (M54.9) Referral Organization Kiel Rice III, MD Referring Provider First Name Kiel Referring Provider Last Name Krystal Referring Provider Speciality Internal M edicine Referred Provider [facility], Pain Management Referred Provider Specialty Pain Medicin e General Notes D, Fior 07/29/2024 11:22:40 AM >Referral faxed with progress note Referral Priority Routine REASON FOR VISIT records, [facility] [address] [facility], 10/18, no testing done pt forgot, muscle spasm, d/c denis, needs cyclobenzarine, will have foot surg in future needs clearance Medications Medication SIG (Take, Route, Frequency, Duration) Notes Start Date End Date Status Ozempic (0.25 or 0.5 MG/DOSE) 2 MG/3ML 0.25 mg Subcutaneous weekly 03/14/2024 Active Alcohol Swabs - USE DIRECTED Active Cyclobenzaprine HCl 10 MG 1 tablet Orall y three times a day 12/11/2023 Active Contour Next EZ w/Device as directed - u se to check glucose 10/06/2022 Active Contour Next Test - as directed In Vitro use to check glucose 10/06/2022 Active Gauze Pads 2 X2 as directed - use to check glucose 10/05/2022 Active Aspir-81 81 MG 1 tablet Orally Once a day Active FreeStyle [place] Lite w/Device as directed - test glucose fasting 10/05/2022 Active Naproxen 500 MG 1 tablet with food o r milk as needed Orally Twice a day 05/25/2020 Active Chlorhexidine Gluconate 4 % Externally Active Terbinafine 1 % 1 application Externally twice a day 11/09/2022 Active Docusate Sodium 100 MG 1 capsule as need ed Orally Once a day Active Potassium Chloride Tracey ER 10 MEQ TAKE ONE TABLET BY MOUTH EVERY DAY WITH FOOD Active Omeprazole 40 MG TAKE 1 CAPSULE BY MO UT ONCE A DAY 30 MINUTES BEFORE YOUR MORNING MEAL Active Doxepin HCl 25 MG TAKE ONE CAPSULE BY MOUTH AT BEDTIME Active Atenolol 50 MG TAKE ONE TABLET BY MOUTH EVERY DAY Active Atorvastatin Calcium 10 MG TAKE ONE TABL ET BY MOUTH EVERY DAY Active metFORMIN HCl 1000 MG TAKE ONE TABLET BY MOUTH TWICE A DAY WITH A MEAL Active Chlorthalidone 25 MG TAKE ONE TABLET BY MOUTH EVERY DAY IN THE MORNING WITH FOOD Active FLUoxetine HCl 40 MG TAKE ONE CAPSULE BY MOUTH EVERY DAY Active FreeStyle Lite Test - USE TO TEST BLOOD SUGARS THREE TIMES A DAY DIRECTED Active FreeStyle Lancets - USE ONCE A DAY TO TE ST GLUCOSE Active Gabapentin 600 MG TAKE ONE TABLET BY MOUTH FOUR TIMES A DAY Active Cyclobenzaprine HCl 10 MG 1 tablet Orall y three times for 10 days 07/23/2024 09/21/2024 Active Lisinopril 2.5 MG TAKE ONE TABLET BY MOUTH EVERY DAY Active Doxycycline Hyclate 100 MG 1 capsule Ora lly Twice a day 03/04/2024 Active Cetirizine HCl 10 MG TAKE ONE TABLET BY MOUTH EVERY DAY Active Social History Tobacco Use: Social History Observation Description Date Details (start date - stop date) Former Smoker NA - NA Sex Assigned At : Social History Observation Description Sex Assigned At Female Tobacco Use/Smoking Question Answer Notes Patient is a former smoker How long has it been since you last smoked? 5-10 years Additional Findings: Tobacco Non-User Ex-cigaret te smoker Tobacco Control (Standard) Question Answer Notes Tobacco use: Former smoker How long has it been since you last smoked? 5-10 years Additional Findings: Tobacco non-user Ex-cigaret te smoker Problems Problem Type SNOMED Code ICD Code Onset Dates Problem Status W/U Status Risk Notes Problem Screening for malignant neoplasm of breast (075411018) Encounter for screening mammogram for malignant neoplasm of breast (Z12.31) Active confirmed She is due for her annual mammogram in September of this year. It was scheduled for her today. Vital Signs Temperature 97.2 degrees Fahrenheit 07/23/19 25 Blood pressure systolic 134 mm Hg 07/23/19 25 Blood pressure diastolic 77 mm Hg 025 Heart Rate 89 /min 07/23/2024 Height 71 in 07/23/2024 Weight 310 lbs 07/23/2024 BMI 43.23 kg/m2 07/23/2024 Encounters Encounter Location Date Provider Diagnosis Kiel Rice III, MD [address] [place] [address] [place] [address] 07/23/2024 Kiel Rice GERD without esophag itis K21.9 ; Morbid obesity E66.01 ; Encounter for screening mammogram for malignant neoplasm of breast Z12.31 ; Essential hypertension I10 ; Former smoker Z87.891 ; Lumbosacral radiculopathy due to degenerative joint disease of spine M47.27 ; Primary osteoarthritis of right knee M17.11 ; History of depression Z86.59 and Eczema, unspecified type L30.9 Assessments Encounter Date Diagnosis (ICD Code) Assessment Notes Treat ment Notes Treatment Clinical Notes 07/23/2024 GERD without esophagitis (ICD-10 - K21.9) Her heartburn is well controlled with [id number] medications and no change in her regimen was necessary. 07/23/2024 Morbid obesity (ICD-10 - E66.01) She has lost 13 pounds from her peak of 326 and her body mass index is now 42. She was continued on the Ozempic at the same dose. She is having no side effects. She injected herself today under my supervision and made no error. She is using the device correctly.He is now taking Ozempic weekly. She will be seen monthly. 07/23/2024 Encounter for screening mammogram for malignant neoplasm of breast (ICD-10 - Z12.31) She is due for her annual mammogram in September of this year. It was scheduled for her today. 07/23/2024 Essential hypertension (ICD-10 - I10) Her blood pressure today is 134/77. No change in her regimen was made. 07/23/2024 Former smoker (ICD-1 0 - Z87.891) She has a plan to prevent relapse in times of stress. 07/23/2024 Lumbosacral radiculopathy due to degenerative joint disease of spine (ICD-10 - M47.27) The discomfort is mild and does not affect her ability to continue daily living. No change in her regimen was made today. She will continue with pain management. 07/23/2024 Primary osteoarthritis of right knee (ICD-10 - M17.11) There has been no change in the discomfort in the knees with walking. She will continue on current therapy. 07/23/2024 History of depressio n (ICD-10 - Z86.59) Her depression and her depressive symptoms are mild but present. She is coping well and is able to conduct all of the activities of daily life. 07/23/2024 Eczema, unspecified type (ICD-10 - L30.9) She has been to the senior mechanical designer recently and has received treatment. She has not yet responded but encouraged her to have patients.. Plan Of Treatment Medication Medication Name Sig Start Date Stop Date Notes Ozempic (0.25 or 0.5 MG/DOSE ) 2 MG/3ML 0.25 mg Subcutaneous weekly 03/14/2024 Alcohol Swabs - USE DIRECTED Cyclobenzaprine HCl 10 MG 1 tablet Orall y three times a day 12/11/2023 Contour Next EZ w/Device as directed - u se to check glucose Mon/Mon/Monday10/06/2022 Contour Next Test - as directed In Vitro use to check glucose Mon/Mon/Mon10/06/2022 Gauze Pads 2 X2 as directed - use to check glucose Mon/Mon/Fri 10/05/2022 Aspir-81 81 MG 1 tablet Orally Once a day FreeStyle [place] Lite w/Device as directed - test glucose Mon/Mon/Mon fasting 10/05/2022 Naproxen 500 MG 1 tablet with food o r milk as needed Orally Twice a day 05/25/2020 Chlorhexidine Gluconate 4 % Externally Terbinafine 1 % 1 application [employer] Supervisor ally twice a day 11/09/2022 Docusate Sodium 100 MG 1 capsule as need ed Orally Once a day Potassium Chloride Tracey ER 1 0 MEQ TAKE ONE TABLET BY MOUTH EVERY DAY WITH FOOD Omeprazole 40 MG TAKE 1 CAPSULE BY MO UTH ONCE A DAY 30 MINUTES BEFORE YOUR MORNING MEAL Doxepin HCl 25 MG TAKE ONE CAPSULE BY MOUTH AT BEDTIME Atenolol 50 MG TAKE ONE TABLET BY M OUTH EVERY DAY Atorvastatin Calcium 10 MG TAKE ONE TABL ET BY MOUTH EVERY DAY metFORMIN HCl 1000 MG TAKE ONE TABLET BY MOUTH TWICE A DAY WITH A MEAL Chlorthalidone 25 MG TAKE ONE TABLET BY MOUTH EVERY DAY IN THE MORNING WITH FOOD FLUoxetine HCl 40 MG TAKE ONE CAPSULE BY MOUTH EVERY DAY FreeStyle Lite Test - USE TO TEST BLOOD SUGARS THREE TIMES A DAY DIRECTED FreeStyle Lancets - USE ONCE A DAY TO TE ST GLUCOSE Gabapentin 600 MG TAKE ONE TABLET BY M OUTH FOUR TIMES A DAY Cyclobenzaprine HCl 10 MG 1 tablet Orall y three times for 10 days 07/23/2024 09/21/2024 Lisinopril 2.5 MG TAKE ONE TABLET BY M OUTH EVERY DAY Doxycycline Hyclate 100 MG 1 capsule Ora lly Twice a day 03/04/2024 Cetirizine HCl 10 MG TAKE ONE TABLET BY MOUTH EVERY DAY Pending Test Test Name Order Date MAMMOGRAM DIGITAL BILATERAL SCREEN 07/23 Referrals Referral Date Details 07/23/2024 07/23/2024, Evaluate and Treat, Pain Management [facility] Next Appt Details Follow Up: 3 Months, Reason: OV Provider Name:Kiel Rice, 10/08/2024 09:30:00 AM, [address] [place] [address] [address], [place], [id number], Provider Name:Kiel Rice, 05/01/2025 10:30:00 AM, [address] [place] [address] [address], [place], [phone], Progress Notes * Reji ARRIAGAOB:1960 (64 yo F)Acc No.[id number]:07/23/2024 Progress Notes Patient:?Ibis ARRIAGA Provider:?Kiel Rice MD :1960???Age:64 Y???Sex:Female D ate:07/23/2024 Address:[address] , [id number] Subjective: * Chief Complaints: * ???Records, [facility] [address] [facility], 10/18No testing done pt forgotMuscle spasmD/c denis, needs cyclobenzarineWill have foot surg in future needs clearance * HPI: ???COVID-19 Screening:?Questions?Have you had any new onset fever, chills, cough, congestion, sore throat, shortness of breath, muscle aches??No ???:?The patient, a 64-year-old female, presented with multiple complaints. She has stopped taking gabapentin as it was not providing any relief. She also complained of severe back muscle spasms that lasted for about 10 minutes. The patient also mentioned having a knee issue and was scheduled to see a specialist on October 18. She also reported having a foot issue and was scheduled for foot surgery, but the date was not yet determined. The patient also expressed a desire to go to pain management. She also reported experiencing severe stomach pain during bowel movements, which the doctor attributed to spasms in her colon. The patient also mentioned a lump in her breast, which had been previously identified as fat necrosis. She has not been able to have her blood work done.? Her insurance has changed.? End signed her a new primary care provider in [place], [place], Dr. Shelly Reed. Her cad technician also she will need surgery on her foot, but it has not yet been scheduled.? She would like a prescription for cyclobenzaprine now that she has stopped her gabapentin.? This was done for her. * ROS:?General/Constitutional:?Admits?pain,?Bones of her foot, knees, Chronic low back pain.?Chills?denies.?Fatigue?admits.?Fever?denies.?ENT:?Decreased hearing?denies.?Respiratory:?Cough?denies.?Cardiovascular:?Chest pain with exertion?denies.?Dyspnea on exertion?denies.?Shortness of breath?denies.?Gastrointestinal:?Constipation?occasional.?Decreased appetite?denies.?Diarrhea?denies.?Heartburn?denies.?Nausea?denies.?Rectal bleeding?denies.?Vomiting?denies.?Hematology:?bruising?denies.?petechiae?denies.?Swollen glands?none have been noted.?Genitourinary:?Frequent urination?denies.?Musculoskeletal:?Muscle aches?denies.?Painful joints?denies.?Sciatica?denies.?Weakness?denies.?Skin:?Itching?denies.?Rash?denies.?Skin lesion(s)?denies.?Neurologic:?Difficulty speaking?denies.?Dizziness?denies.?Headache?denies.?Low back pain?that is chronic.?Psychiatric:?Depressed mood?which is mild.? * Medical History:? * Surgical History:?excision o f ganglion cyst of left wrist 2012decompression laminectomy L3-L4 06/2015L3 - L4 redo decompressive laminectomy and mesial facetectomy, L3 - L4 posteriolateral arthrodesis fusion and nonsegmental fixation with harvest of local bone 08/22/2016hysterectomy > 10 yearsLeft Transverse Carpal Tunnel Syndrome [id number], Dr. Feliciano 07/2021ER[facility], Dr. Limon 07/2021Left knee arthroplasty, [facility], Dr. Casarez 12/2021 * Hospitalization/Major Diagno stic Procedure:?Sepsis secondary to acute cholecystitis 07/2021 * Family History:?Father: dece ased 72 yrs, lung cancer.?Mother: 50 yrs, natural cause.?Son(s): alive.?Siblings: alive.?1 brother(s) , 1 sister(s) . 1 son(s) - healthy. .? Her brothers have a history of diabetes and some kind of cancer. Her son is alive and well and healthy. She is not aware of any family history of substance abuse or addiction or mental illness. * Social History:?Tobacco Use:?Tobacco Use/Smoking?Patient is a?former smoker ?How long has it been since you last smoked??5-10 years ?Additional Findings: Tobacco Non-User?Ex-cigarette smoker ?Tobacco Control (Standard)?Tobacco use:?Former smoker ?How long has it been since you last smoked??5-10 years ?Additional Findings: Tobacco non-user?Ex-cigarette smoker ???She was born in [place], [place]. She is and has a son Shravan Escamilla. She is disabled on the basis of her back. 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 Not Found. * Medications:?TakingCetirizin e HCl 10 MG Tablet TAKE ONE TABLET BY MOUTH EVERY DAY FreeStyle Lite Test - Strip USE TO TEST BLOOD SUGARS THREE TIMES A DAY DIRECTED FreeStyle Lancets - Miscellaneous USE ONCE A DAY TO TEST GLUCOSE Lisinopril 2.5 MG Tablet TAKE ONE TABLET BY MOUTH EVERY DAY FLUoxetine HCl 40 MG Capsule TAKE ONE CAPSULE BY MOUTH EVERY DAY metFORMIN HCl 1000 MG Tablet TAKE ONE TABLET BY MOUTH TWICE A DAY WITH A MEAL Chlorthalidone 25 MG Tablet TAKE ONE TABLET BY MOUTH EVERY DAY IN THE MORNING WITH FOOD Atorvastatin Calcium 10 MG Tablet TAKE ONE TABLET BY MOUTH EVERY DAY Doxepin HCl 25 MG Capsule TAKE ONE CAPSULE BY MOUTH AT BEDTIME Potassium Chloride Tracey ER 10 MEQ Tablet Extended Release TAKE ONE TABLET BY MOUTH EVERY DAY WITH FOOD Omeprazole 40 MG Capsule Delayed Release TAKE 1 CAPSULE BY MOUTH ONCE A DAY 30 MINUTES BEFORE YOUR MORNING MEAL Naproxen 500 MG Tablet 1 tablet with food or milk as needed Orally Twice a day Aspir-81 81 MG Tablet Delayed Release 1 tablet Orally Once a day FreeStyle [place] Lite w/Device Kit as directed - test glucose Mon/Mon/Mon fasting Gauze Pads 2 X2 Pad as directed - use to check glucose Mon/Mon/Mon Alcohol Swabs - Pad USE DIRECTED Ozempic (0.25 or 0.5 MG/DOSE) 2 MG/3ML Solution Pen-injector 0.25 mg Subcutaneous weekly Cyclobenzaprine HCl 10 MG Tablet 1 tablet Orally three times a day Taking Cetirizine HCl 10 MG Tablet TAKE ONE TABLET BY MOUTH EVERY DAY Taking FreeStyle Lite Test - Strip USE TO TEST BLOOD SUGARS THREE TIMES A DAY DIRECTED Taking FreeStyle Lancets - Miscellaneous USE ONCE A DAY TO TEST GLUCOSE Taking Lisinopril 2.5 MG Tablet TAKE ONE TABLET BY MOUTH EVERY DAY Taking FLUoxetine HCl 40 MG Capsule TAKE ONE CAPSULE BY MOUTH EVERY DAY Taking metFORMIN HCl 1000 MG Tablet TAKE ONE TABLET BY MOUTH TWICE A DAY WITH A MEAL Taking Chlorthalidone 25 MG Tablet TAKE ONE TABLET BY MOUTH EVERY DAY IN THE MORNING WITH FOOD Taking Atorvastatin Calcium 10 MG Tablet TAKE ONE TABLET BY MOUTH EVERY DAY Taking Doxepin HCl 25 MG Capsule TAKE ONE CAPSULE BY MOUTH AT BEDTIME Taking Potassium Chloride Tracey ER 10 MEQ Tablet Extended Release TAKE ONE TABLET BY MOUTH EVERY DAY WITH FOOD Taking Omeprazole 40 MG Capsule Delayed Release TAKE 1 CAPSULE BY MOUTH ONCE A DAY 30 MINUTES BEFORE YOUR MORNING MEAL Taking Naproxen 500 MG Tablet 1 tablet with food or milk as needed Orally Twice a day Taking Aspir-81 81 MG Tablet Delayed Release 1 tablet Orally Once a day Taking FreeStyle [place] Lite w/Device Kit as directed - test glucose Mon/Mon/Mon fasting Taking Gauze Pads 2 X2 Pad as directed - use to check glucose Mon/ Taking Alcohol Swabs - Pad USE DIRECTED Taking Ozempic (0.25 or 0.5 MG/DOSE) 2 MG/3ML Solution Pen-injector 0.25 mg Subcutaneous weekly Taking Cyclobenzaprine HCl 10 MG Tablet 1 tablet Orally three times a day Not-Taking/PRNGabapentin 600 MG Tablet TAKE ONE TABLET BY MOUTH FOUR TIMES A DAY Not-Taking/PRN Gabapentin 600 MG Tablet TAKE ONE TABLET BY MOUTH FOUR TIMES A DAY DiscontinuedDoxycycline Hyclate 100 MG Capsule 1 capsule Orally Twice a day Atenolol 50 MG Tablet TAKE ONE TABLET BY MOUTH EVERY DAY Terbinafine 1 % Cream 1 application Externally twice a day Docusate Sodium 100 MG Capsule 1 capsule as needed Orally Once a day Chlorhexidine Gluconate 4 % Solution Externally Contour Next EZ w/Device Kit as directed - use to check glucose /Monday Contour Next Test - Strip as directed In Vitro use to check glucose Mon/ Medication List reviewed and reconciled with the patientDiscontinued Doxycycline Hyclate 100 MG Capsule 1 capsule Orally Twice a day Discontinued Atenolol 50 MG Tablet TAKE ONE TABLET BY MOUTH EVERY DAY Discontinued Terbinafine 1 % Cream 1 application Externally twice a day Discontinued Docusate Sodium 100 MG Capsule 1 capsule as needed Orally Once a day Discontinued Chlorhexidine Gluconate 4 % Solution Externally Discontinued Contour Next EZ w/Device Kit as directed - use to check glucose /Monday Discontinued Contour Next Test - Strip as directed In Vitro use to check glucose Mon/ Medication List reviewed and reconciled with the patient * Allergies:?CortisoneLameresta marcella[Allergies Verified] Objective: * Vitals:?Ht: 71, Wt:310, BMI: 43.23, BP:134/77, HR:89, Temp:97.2, Wt-k.61. * ???Past Orders: Lab:URINE DIP STICK * Collection Date 04/30/2024 04/26/2023 Order Date 04/30/2024 04/26/2023 SG 1.010 (Ref Range: 1.005 - 1.025) 1.015 (Ref Range: 1.005 - 1.025) pH 7.0 (Ref Range: 5.0 - 9.0) 6.0 (Ref Range: 5.0 - 9.0) SUSAN 70 (Ref Range: Negative -) Negative (Ref Range: Negative -) NIT Negative (Ref Range: Negative -) Negative (Ref Range: Negative -) PRO 15 (Ref Range: Negative - Trace) 15 (Ref Range: Negative - Trace) GLU 250 (Ref Range: Negative -) 500 (Ref Range: Negative -) KET 5 (Ref Range: Negative -) 5 (Ref Range: Negative -) UBG 0.2 (Ref Range: 0.1 - 1.8) 0.2 (Ref Range: 0.1 - 1.8) ALLA Negative (Ref Range: 0.2 - 1.3) Negative (Ref Range: 0.2 - 1.3) BLD Negative (Ref Range: Negative -) Negative (Ref Range: Negative -) * Examination: ???General Examination: ?GENERAL APPEARANCE:?pleasant, well nourished, well developed, in no acute distress, calm and relaxed, morbidly obese, woman.?HEAD:?atraumatic, normocephalic.?EYES:?eomi, perrla, anicteric, conjugate.?EARS:?normal.?NOSE:?septum intact.?ORAL CAVITY:?normal, unremarkable.?NECK/THYROID:?no jugular venous distention, no carotid bruit, thyroid normal.?LYMPH NODES:?no enlarged lymph nodes,spleen normal.?SKIN:?no suspicious lesions, anicteric.?HEART:?no clicks, gallops, murmurs, or rubs, regular rhythm, S1, S2 normal, no s3, or vascular bruits.?LUNGS:?clear to auscultation .?BREASTS:?Left breast unremarkable, 1 cm palpable lump above the right nipple unchanged from previous examinations, slightly tender.?ABDOMEN:?bowel sounds normal, no ascites, no organomegaly, no mass, morbid obesity.?RECTAL EXAM:?not examined.?MUSCULOSKELETAL:?extremities unremarkable, no clubbing, cyanosis or edema, Pain to range of motion of the metatarsal bones, bilateral knee, crepitus.?PERIPHERAL PULSES:?normal.?NEUROLOGIC:?alert and oriented, cranial nerves 2-12 grossly intact, deep tendon reflexes 2+ symmetrical, motor strength normal upper and lower extremities, sensory exam intact.?PSYCH:?alert, oriented.? : ???undefined. ??? Assessment: * Assessment: 1.?Morbid obesity - E66.01 ( Primary)???Notes :She has lost 13 pounds from her peak of 326 and her body mass index is now 42. She was continued on the Ozempic at the same dose. She is having no side effects. She injected herself today under my supervision and made no error. She is using the device correctly.He is now taking Ozempic weekly. She will be seen monthly.???2.?GERD without esophagitis - K21.9???Notes :Her heartburn is well controlled with [id number] medications and no change in her regimen was necessary.???3.?Encounter for screening mammogram for malignant neoplasm of breast - Z12.31???Notes :She is due for her annual mammogram in September of this year.? It was scheduled for her today.???4.?Essential hypertension - I10???Notes :Her blood pressure today is 134/77. No change in her regimen was made.???5.?Former smoker - Z87.891???Notes :She has a plan to prevent relapse in times of stress.???6.?Lumbosacral radiculopathy due to degenerative joint disease of spine - M47.27???Notes :The discomfort is mild and does not affect her ability to continue daily living. No change in her regimen was made today. She will continue with pain management.???7.?Primary osteoarthritis of right knee - M17.11???Notes :There has been no change in the discomfort in the knees with walking. She will continue on current therapy.???8.?History of depression - Z86.59???Notes :Her depression and her depressive symptoms are mild but present. She is coping well and is able to conduct all of the activities of daily life.???9.?Eczema, unspecified type - L30.9???Notes :She has been to the senior mechanical designer recently and has received treatment. She has not yet responded but encouraged her to have patients..??? Plan: * Treatment: 2.?Encounter for screening m ammogram for malignant neoplasm of breast?Imaging: MAMMOGRAM DIGITAL BILATERAL SCREEN 3.?Lumbosacral radiculopathy due to degenerative joint disease of spine? Referral To:Pain Management [facility]??Pain Medicine ?Reason:Evaluate and Treat 4.?Others? Continue Cetirizine HCl Tablet, 10 MG, TAKE ONE TABLET BY MOUTH EVERY DAY;?Continue Doxycycline Hyclate Capsule, 100 MG, 1 capsule, Orally, Twice a day;?Continue Gabapentin Tablet, 600 MG, TAKE ONE TABLET BY MOUTH FOUR TIMES A DAY;?Continue FreeStyle Lite Test Strip, -, USE TO TEST BLOOD SUGARS THREE TIMES A DAY DIRECTED;?Continue FreeStyle Lancets Miscellaneous, -, USE ONCE A DAY TO TEST GLUCOSE;?Continue Lisinopril Tablet, 2.5 MG, TAKE ONE TABLET BY MOUTH EVERY DAY;?Continue FLUoxetine HCl Capsule, 40 MG, TAKE ONE CAPSULE BY MOUTH EVERY DAY;?Continue metFORMIN HCl Tablet, 1000 MG, TAKE ONE TABLET BY MOUTH TWICE A DAY WITH A MEAL;?Continue Chlorthalidone Tablet, 25 MG, TAKE ONE TABLET BY MOUTH EVERY DAY IN THE MORNING WITH FOOD;?Continue Atorvastatin Calcium Tablet, 10 MG, TAKE ONE TABLET BY MOUTH EVERY DAY;?Continue Atenolol Tablet, 50 MG, TAKE ONE TABLET BY MOUTH EVERY DAY;?Continue Doxepin HCl Capsule, 25 MG, TAKE ONE CAPSULE BY MOUTH AT BEDTIME;?Continue Potassium Chloride Tracey ER Tablet Extended Release, 10 MEQ, TAKE ONE TABLET BY MOUTH EVERY DAY WITH FOOD;?Continue Omeprazole Capsule Delayed Release, 40 MG, TAKE 1 CAPSULE BY MOUTH ONCE A DAY 30 MINUTES BEFORE YOUR MORNING MEAL;?Continue Terbinafine Cream, 1 %, 1 application, Externally, twice a day;?Continue Docusate Sodium Capsule, 100 MG, 1 capsule as needed, Orally, Once a day;?Continue Naproxen Tablet, 500 MG, 1 tablet with food or milk as needed, Orally, Twice a day;?Continue Chlorhexidine Gluconate Solution, 4 %, Externally;?Continue Aspir-81 Tablet Delayed Release, 81 MG, 1 tablet, Orally, Once a day;?Continue FreeStyle [place] Lite Kit, w/Device, as directed, -, test glucose Mon/Wed/Fri fasting;?Continue Gauze Pads Pad, 2 X2 , as directed, -, use to check glucose Mon/Mon/Mon;?Continue Contour Next EZ Kit, w/Device, as directed, -, use to check glucose Mon/Mon/Monday;?Continue Contour Next Test Strip, -, as directed, In Vitro, use to check glucose Mon/Mon/Mon;?Continue Alcohol Swabs Pad, -, USE DIRECTED;?Continue Cyclobenzaprine HCl Tablet, 10 MG, 1 tablet, Orally, three times a day.? Referral To:Pain Management [facility]??Pain Medicine ?Reason:Evaluate and Treat * Procedure Codes:? * Preventive Medicine:? ??Counseling:?Care goal follow-up plan:?Counseling for abnormal BMI given?Yes ?Above Normal BMI Follow-up?Dietary management education, guidance, and counseling, Dietary needs education ?Smoking/Tobacco Use?Patient counseled on the dangers of tobacco use and urged to quit.?07/23/2024 * Follow Up:?3 Months (Reason: OV) * Images: * Sign off status: Completed true * Provider:?Kiel Rice MD Date:?07/10 Generated for Shantelli oma/Donis/eTransmitting on:?08/06/2024 12:49 PM EST History and Physical Notes * HPI (History of Present Illness) Category Sub-Category Detail Notes COVID-19 Screening Questions Have you had any new onset fever, chills, cough, congestion, sore throat, shortness of breath, muscle aches?: No Examination Category Sub-Category Detail Notes General Examination GENERAL APPEARANCE: pleasant , well nourished, well developed, in no acute distress, calm and relaxed, morbidly obese, woman HEAD: atraumatic, normocep halic EYES: eomi, perrla, anicte deanna, conjugate EARS: normal NOSE: septum intact NECK/THYROID: no jugular venous di stention, no carotid bruit, thyroid normal HEART: no clicks, gallops, murmurs, or rubs, regular rhythm, S1, S2 normal, no s3, or vascular bruits LUNGS: clear to auscultatio n ABDOMEN: bowel sounds normal, no ascites, no organomegaly, no mass, morbid obesity NEUROLOGIC: alert and oriented, cranial nerves 2-12 grossly intact, deep tendon reflexes 2+ symmetrical, motor strength normal upper and lower extremities, sensory exam intact SKIN: no suspicious lesion s, anicteric PERIPHERAL PULSES: normal BREASTS: Left breast unremark able, 1 cm palpable lump above the right nipple unchanged from previous examinations, slightly tender MUSCULOSKELETAL: extremities unremark able, no clubbing, cyanosis or edema, Pain to range of motion of the metatarsal bones, bilateral knee, crepitus LYMPH NODES: no enlarged lymph no biju,spleen normal RECTAL EXAM: not examined PSYCH: alert, oriented ORAL CAVITY: normal, unremarkable Consultation Request Notes Referral Date Referring Provider Referred Provider Not es 07/23/2024 Krystal [facility], Pain Management Evaluate and Treat
--- OUTSIDE RECORDS SUMMARY | 2024-08-06 12:49 | XMS_ITS ---
Author Organization Kiel Rice III, MD Address [address] [place] [address] Care Team Providers Care Newspaper Manager Name Role Phone Kiel Rice Primary Care Provider [phone] Allergies Allergen (clinical drug ingredient) Drug/Non Drug Allergy documented on EMR Reaction Allergy Type Onset Date Status Latex Latex Unknown Allergy Active cortisone Cortisone Unknown Drug Allergy Active won (uncoded) Unknown Allergy Ac tive REASON FOR VISIT Recent [facility] emergency room visit, Lumbar radiculopathy, Osteoarthritis right knee, hypertension, GERD, Eczema, Diabetes, Obesity, Depression Medications Medication SIG (Take, Route, Frequency, Duration) Notes Start Date End Date Status Gauze Pads 2 X2 as directed - use to check glucose Mon/Mon/Mon10/05/2022 Active Contour Next EZ w/Device as directed - u se to check glucose Mon/Mon/Monday10/06/2022 Active Contour Next Test - as directed In Vitro use to check glucose /Mon10/06/2022 Active Alcohol Swabs - USE DIRECTED Active Cyclobenzaprine HCl 10 MG 1 tablet Orall y three times a day 12/11/2023 Active FreeStyle [place] Lite w/Device as directed - test glucose Mon/Mon/Mon fasting 10/05/2022 Active Docusate Sodium 100 MG 1 capsule as need ed Orally Once a day Active Naproxen 500 MG 1 tablet with food o r milk as needed Orally Twice a day 05/25/2020 Active Chlorhexidine Gluconate 4 % Externally Active Aspir-81 81 MG 1 tablet Orally Once a day Active Atenolol 50 MG TAKE ONE TABLET BY MOUTH EVERY DAY Active Doxepin HCl 25 MG TAKE ONE CAPSULE BY MOUTH AT BEDTIME Active Potassium Chloride Tracey ER 10 MEQ TAKE ONE TABLET BY MOUTH EVERY DAY WITH FOOD Active Omeprazole 40 MG TAKE 1 CAPSULE BY SD UT ONCE A DAY 30 MINUTES BEFORE YOUR MORNING MEAL Active Terbinafine 1 % 1 application Externally twice a day 11/09/2022 Active Chlorthalidone 25 MG TAKE ONE TABLET BY MOUTH EVERY DAY IN THE MORNING WITH FOOD Active Atorvastatin Calcium 10 MG TAKE ONE TABL ET BY MOUTH EVERY DAY Active Lisinopril 2.5 MG TAKE ONE TABLET BY MOUTH EVERY DAY Active FLUoxetine HCl 40 MG TAKE ONE CAPSULE BY MOUTH EVERY DAY Active metFORMIN HCl 1000 MG TAKE ONE TABLET BY MOUTH TWICE A DAY WITH A MEAL Active Cetirizine HCl 10 MG TAKE ONE TABLET BY MOUTH EVERY DAY Active Doxycycline Hyclate 100 MG 1 capsule Ora lly Twice a day 03/04/2024 Active Gabapentin 600 MG TAKE ONE TABLET BY MOUTH FOUR TIMES A DAY Active FreeStyle Lite Test - USE TO TEST BLOOD SUGARS THREE TIMES A DAY DIRECTED Active FreeStyle Lancets - USE ONCE A DAY TO TE ST GLUCOSE Active Ozempic (0.25 or 0.5 MG/DOSE) 2 MG/3ML 0.25 mg Subcutaneous weekly 03/14/2024 Active Ozempic (0.25 or 0.5 MG/DOSE) 2 MG/3ML 0.5 mg Subcutaneous weekly for 28 days 06/04/2024 07/02/2024 Active Social History Tobacco Use: Social History [...] Additional Findings: Tobacco non-user Ex-cigaret te smoker AUDIT-C (Standard) Question Answer Notes Did you have a drink containing alcohol in the p ast year? No Points 0 Interpretation Negative Vital Signs Temperature 97.9 degrees Fahrenheit 06/04/20 24 Blood pressure systolic 131 mm Hg 06/04/20 24 Blood pressure diastolic 68 mm Hg 024 Heart Rate 85 /min 06/04/2024 Height 71 in 06/04/2024 Weight 313 lbs 06/04/2024 BMI 43.65 kg/m2 06/04/2024 Encounters Encounter Location Date Provider Diagnosis Kiel Rice III, MD [address] [place] [address] [address] [place], [place] [id number] 06/04/2024 Kiel Rice GERD without esophag itis K21.9 ; Type 2 diabetes mellitus without complication, without long-term current use of insulin E11.9 ; Essential hypertension I10 ; Primary osteoarthritis of right knee M17.11 ; Morbid obesity E66.01 and Former smoker Z87.891 Assessments Encounter Date Diagnosis (ICD Code) Assessment Notes Treat ment Notes Treatment Clinical Notes 06/04/2024 GERD without esophagitis (ICD-10 - K21.9) Her heartburn is well controlled with [id number] medications and no change in her regimen was necessary. 06/04/2024 Type 2 diabetes mellitus without complication, without long-term current use of insulin (ICD-10 - E11.9) Comprehensive blood work with her hemoglobin A1c has been ordered. She continues on current medication as well as the Ozempic. 06/04/2024 Essential hypertension (ICD-10 - I10) Her blood pressure today is 131/68. No change in her regimen was made. 06/04/2024 Primary osteoarthritis of right knee (ICD-10 - M17.11) There has been no change in the discomfort in the knees with walking. She will continue on current therapy. 06/04/2024 Morbid obesity (ICD-10 - E66.01) She has [...] Ozempic weekly. She will be seen monthly. 06/04/2024 Former smoker (ICD-1 0 - Z87.891) She has a plan to prevent relapse in times of stress. Plan Of Treatment Medication Medication Name Sig Start Date Stop Date Notes Gauze Pads 2 X2 as directed - use to check glucose Mon/Mon/Mon10/05/2022 Contour Next EZ w/Device as directed - u se to check glucose Mon/Mon/Monday10/06/2022 Contour Next Test - as directed In Vitro use to check glucose 10/06/2022 Alcohol Swabs - USE DIRECTED Cyclobenzaprine HCl 10 MG 1 tablet Orall y three times a day 12/11/2023 FreeStyle [place] Lite w/Device as directed - test glucose fasting 10/05/2022 Docusate Sodium 100 MG 1 capsule as need ed Orally Once a day Naproxen 500 MG 1 tablet with food o r milk as needed Orally Twice a day 05/25/2020 Chlorhexidine Gluconate 4 % Externally Aspir-81 81 MG 1 tablet Orally Once a day Atenolol 50 MG TAKE ONE TABLET BY M OUTH EVERY DAY Doxepin HCl 25 MG TAKE ONE CAPSULE BY MOUTH AT BEDTIME Potassium Chloride Tracey ER 1 0 MEQ TAKE ONE TABLET BY MOUTH EVERY DAY WITH FOOD Omeprazole 40 MG TAKE 1 CAPSULE BY MO UTH ONCE A DAY 30 MINUTES BEFORE YOUR MORNING MEAL Terbinafine 1 % 1 application Water Conservationist ally twice a day 11/09/2022 Chlorthalidone 25 MG TAKE ONE TABLET BY MOUTH EVERY DAY IN THE MORNING WITH FOOD Atorvastatin Calcium 10 MG TAKE ONE TABL ET BY MOUTH EVERY DAY Lisinopril 2.5 MG TAKE ONE TABLET BY M OUTH EVERY DAY FLUoxetine HCl 40 MG TAKE ONE CAPSULE BY MOUTH EVERY DAY metFORMIN HCl 1000 MG TAKE ONE TABLET BY MOUTH TWICE A DAY WITH A MEAL Cetirizine HCl 10 MG TAKE ONE TABLET BY MOUTH EVERY DAY Doxycycline Hyclate 100 MG 1 capsule Ora lly Twice a day 03/04/2024 Gabapentin 600 MG TAKE ONE TABLET BY M OUTH FOUR TIMES A DAY FreeStyle Lite Test - USE TO TEST BLOOD SUGARS THREE TIMES A DAY DIRECTED FreeStyle Lancets - USE ONCE A DAY TO TE ST GLUCOSE Ozempic (0.25 or 0.5 MG/DOSE ) 2 MG/3ML 0.25 mg Subcutaneous weekly 03/14/2024 Ozempic (0.25 or 0.5 MG/DOSE ) 2 MG/3ML 0.5 mg Subcutaneous weekly for 28 days 06/04/2024 07/02/2024 Pending Test Test Name Order Date PROFILE, FASTING (COMPREHENSIVE METABOLI C) 06/04/2024 CBC w DIFF 06/04/2024 Lipid Panel 06/04/2024 Microalbumin, Random 06/04/2024 Hemoglobin A1c 06/04/2024 Next Appt Details Follow Up: 6 Weeks, Reason: OV review labs Provider Name:Kiel Munguiane, 10/08/2024 09:30:00 AM, [address] [place] [address] [address], [place], [id number], Provider Name:Kiel Munguiane, 05/01/2025 10:30:00 AM, [address] [place] [address] [address], [place], [id number], Progress Notes * Reji ARRIAGAOB:1960 (63 yo F)Acc No.[id number]:06/04/2024 Progress Notes Patient:?Ibis ARRIAGA Provider:?Kiel Rice MD :1960???Age:63 Y???Sex:Female D ate:06/04/2024 Address:[address] [place] [address] [id number] Subjective: * Chief Complaints: * ???Recent [facility] emergency room visitLumbar radiculopathyOsteoarthritis right kneeHypertensionGERDEczemaDiabetesObesityDepression * HPI: ???COVID-19 Screening:?Questions?Have you experienced fever, chills, cough, sore throat, shortness of breath, difficulty breathing, muscle aches, loss of taste or smell??No ?Have you been exposed to the virus within the last 10 days??No ?Have you travelled internationally in the last 10 days??No ?Have you been exposed to COVID-19 in the past??No ???:? The patient, a 63-year-old female, reported feeling unwell about a week ago and was rushed to the hospital. She described feeling as if she was having a seizure, but tests ruled this out. She also reported having a slight fever. At the hospital, she was given an orange drink, which she was unable to keep down, and was subsequently given a pill. Despite various tests including a CT scan, urine test, X-ray, and a COVID test, the doctors were unable to find anything wrong. The patient was suggested to go to a rehab place, but she declined. She also reported feeling tired quickly. She has been experiencing trouble with her left knee and constant back pain. She has diabetes and her A1C was 7 in February. She has been taking a shot to lose weight and has lost 13 lbs so far. Blood Sugar Level is Not Found. Pain Scale is Not Found. * ROS:?General/Constitutional:?pain?Low back, right knee.?Chills?denies.?Fatigue?admits.?Admits?Fever,?denies.?ENT:?Decreased hearing?denies.?Respiratory:?Cough?denies.?Cardiovascular:?Chest pain with exertion?denies.?Dyspnea on exertion?denies.?Shortness of [...] > 10 yearsLeft Transverse Carpal Tunnel Syndrome [id number], Dr. Feliciano 07/2021ERCP, Dr. Limon 07/2021Left knee arthroplasty, [facility], Dr. Casarez 12/2021 * Hospitalization/Major Diagno stic Procedure:?Sepsis secondary to acute cholecystitis 07/2021 * Family History:?Father: dece ased 72 yrs, lung cancer.?Mother: 50 yrs, natural cause.?Siblings: alive.?1 brother(s) , 1 sister(s) . 1 [...] smoked??5-10 years ?Additional Findings: Tobacco non-user?Ex-cigarette smoker ???Drugs/Alcohol:?Drugs?Have you used drugs other than those for medical reasons in the past 12 months??No ???Miscellaneous:?Domestic violence: no. ???Drug/Alcohol:?AUDIT-C (Standard)?Did you have a drink containing alcohol in the past year??No ?Points?0 ?Interpretation?Negative ???She was born in [place], [place]. She is and has a son Shravan Escamilla. She is disabled on the basis of her back. 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 Not Found. * Medications:?TakingCetirizin e HCl 10 MG Tablet TAKE ONE TABLET BY MOUTH EVERY DAY Doxycycline Hyclate 100 MG Capsule 1 capsule Orally Twice a day Gabapentin 600 MG Tablet TAKE ONE TABLET BY MOUTH FOUR TIMES A DAY FreeStyle Lite Test - Strip USE [...] TAKE ONE TABLET BY MOUTH EVERY DAY Atenolol 50 MG Tablet TAKE ONE TABLET BY MOUTH EVERY DAY Doxepin HCl 25 MG Capsule TAKE ONE CAPSULE BY MOUTH AT BEDTIME Potassium Chloride Tracey ER 10 MEQ Tablet Extended Release TAKE ONE TABLET BY MOUTH EVERY DAY WITH FOOD Omeprazole 40 MG Capsule Delayed Release TAKE 1 CAPSULE BY MOUTH ONCE A DAY 30 MINUTES BEFORE YOUR MORNING MEAL Terbinafine 1 % Cream 1 application Externally twice a day Docusate Sodium 100 MG Capsule 1 capsule as needed Orally Once a day Naproxen 500 MG Tablet 1 tablet with food or milk as needed Orally Twice a day Chlorhexidine Gluconate 4 % Solution Externally Aspir-81 81 MG Tablet Delayed Release 1 tablet Orally Once a day FreeStyle [place] Lite w/Device Kit as directed - test glucose Mon/Wed/Mon fasting Gauze Pads 2 X2 Pad as directed - use to check glucose Mon/Mon/Mon Contour Next EZ w/Device Kit as directed - use to check glucose Mon/Mon/Monday Contour Next Test - Strip as directed In Vitro use to check glucose Mon/Mon/Mon Alcohol Swabs - Pad USE DIRECTED Cyclobenzaprine HCl 10 MG Tablet 1 tablet Orally three times a day Ozempic (0.25 or 0.5 MG/DOSE) 2 MG/3ML Solution Pen-injector 0.25 mg Subcutaneous weekly Medication List reviewed and reconciled with the patientTaking Cetirizine HCl 10 MG Tablet TAKE ONE TABLET BY MOUTH EVERY DAY Taking Doxycycline Hyclate 100 MG Capsule 1 capsule Orally Twice a day Taking Gabapentin 600 MG Tablet TAKE ONE TABLET BY MOUTH FOUR TIMES A DAY Taking FreeStyle Lite Test - Strip [...] ONE TABLET BY MOUTH EVERY DAY Taking Atenolol 50 MG Tablet TAKE ONE TABLET [...] 30 MINUTES BEFORE YOUR MORNING MEAL Taking Terbinafine 1 % Cream 1 application Externally twice a day Taking Docusate Sodium 100 MG Capsule 1 capsule as needed Orally Once a day Taking Naproxen 500 MG Tablet 1 tablet with food or milk as needed Orally Twice a day Taking Chlorhexidine Gluconate 4 % Solution Externally Taking Aspir-81 81 MG Tablet Delayed Release 1 tablet Orally Once a day Taking FreeStyle [place] Lite w/Device Kit as directed - test glucose Mon/Mon/Mon fasting Taking Gauze Pads 2 X2 Pad as directed - use to check glucose Mon/Mon/Mon Taking Contour Next EZ w/Device Kit as directed - use to check glucose Mon/Mon/Monday Taking Contour Next Test - Strip as directed In Vitro use to check glucose Mon/Mon/Mon Taking Alcohol Swabs - Pad USE DIRECTED Taking Cyclobenzaprine HCl 10 MG Tablet 1 tablet Orally three times a day Taking Ozempic (0.25 or 0.5 MG/DOSE) 2 MG/3ML Solution Pen-injector 0.25 mg Subcutaneous weekly Medication List reviewed and reconciled with the patient * Allergies:?CortisoneLatexevangelist naranjo[Allergies Verified] Objective: * Vitals:?Ht: 71, Wt:313, BMI: 43.65, BP:131/68, HR:85, Temp:97.9, Wt-k.97. * ???Past Orders: Lab:URINE DIP STICK * [...] no s3, or vascular bruits.?LUNGS:?clear to auscultation .?BREASTS:?Not examined.?ABDOMEN:?bowel sounds normal, no ascites, no organomegaly, no mass, morbid obesity.?RECTAL EXAM:?not examined.?MUSCULOSKELETAL:?extremities unremarkable, no clubbing, cyanosis or edema, Crepitus both knees.?PERIPHERAL PULSES:?normal.?NEUROLOGIC:?alert and oriented, cranial nerves 2-12 grossly intact, deep tendon reflexes 2+ symmetrical, motor strength normal upper and lower extremities, sensory exam intact.?PSYCH:?alert, oriented, mood depressed.? Assessment: * Assessment: 1.?Type 2 diabetes mellitus without complication, without long-term current use of insulin - E11.9 (Primary)???Notes :Comprehensive blood work with her hemoglobin A1c has been ordered.? She continues on current medication as well as the Ozempic.???2.?GERD without esophagitis - K21.9???Notes :Her heartburn is well controlled with wvzz-qdd-nokaqbd medications and no change in her regimen was necessary.???3.?Essential hypertension - I10???Notes :Her blood pressure today is 131/68.? No change in her regimen was made.???4.?Primary osteoarthritis of right knee - M17.11???Notes :There has been no change in the discomfort in the knees with walking.? She will continue on current therapy.???5.?Morbid obesity - E66.01???Notes :She has lost 13 pounds from her peak of 326 and her body mass index is now 42. She was continued on the Ozempic at the same dose. She is having no side effects. She injected herself today under my supervision and made no error. She is using the device correctly.He is now taking Ozempic weekly.? She will be seen monthly.???6.?Former smoker - Z87.891???Notes :She has a plan to prevent relapse in times of stress.??? Plan: * Treatment: 2.?GERD without esophagitis? Start Ozempic (0.25 or 0.5 MG/DOSE) Solution Pen-injector, 2 MG/3ML, 0.5 mg, Subcutaneous, weekly, 28 days, 11;?Continue Ozempic (0.25 or 0.5 MG/DOSE) Solution Pen-injector, 2 MG/3ML, 0.25 mg, Subcutaneous, weekly.?LAB: PROFILE, FASTING (COMPREHENSIVE METABOLIC) ?LAB: CBC w DIFF ?LAB: Lipid Panel ?LAB: Microalbumin, Random ?LAB: Hemoglobin A1c 3.?Essential hypertension?LAB: PROFILE, FASTING (COMPREHENSIVE METABOLIC) ?LAB: CBC w DIFF ?LAB: Lipid Panel ?LAB: Microalbumin, Random ?LAB: Hemoglobin A1c 4.?Primary osteoarthritis of right knee?LAB: PROFILE, FASTING (COMPREHENSIVE METABOLIC) ?LAB: CBC w DIFF ?LAB: Lipid Panel ?LAB: Microalbumin, Random ?LAB: Hemoglobin A1c 5.?Others? Continue Cetirizine HCl Tablet, 10 MG, TAKE [...] 1 tablet, Orally, Once a day;?Continue FreeStyle [place] Lite Kit, w/Device, as directed, -, test glucose Mon/Mon/Mon fasting;?Continue Gauze Pads Pad, 2 X2 , as directed, -, use to check glucose Mon/Mon/Mon;?Continue Contour Next EZ Kit, w/Device, as directed, -, use to check glucose /Monday;?Continue Contour Next Test Strip, -, as directed, In Vitro, use to check glucose Mon/Mon/Mon;?Continue Alcohol Swabs Pad, -, USE DIRECTED;?Continue Cyclobenzaprine HCl Tablet, 10 MG, 1 tablet, Orally, three times a day.?? * Procedure Codes:? * Preventive Medicine:? ??Counseling:?Care goal follow-up plan:?Counseling for abnormal BMI given?Yes ?Above Normal BMI Follow-up?Dietary management education, guidance, and counseling, Dietary needs education, Exercise promotion: strength training, Exercise promotion: stretching, Feeding regime, Giving encouragement to exercise, Lifestyle education regarding diet, Nutrition / feeding management, Nutrition therapy, Prescribed activity/exercise education, Prescribed diet education, Prescribed dietary intake, Special diet education, Weight monitoring , Intervention, Order not done: Medical or Other reason not done ?Smoking/Tobacco Use?Patient counseled on the dangers of tobacco use and urged to quit.?06/04/2024 ??DM Care Plan:?Patient Lifestyle Goals?Patient wants to be able to manage diabetes without too much effort.?Treatment Goals?Blood Sugars less than < 115, HbA1C < 7.0.?Barriers?no barriers.?Self-Managment Goals?Work on weight loss, with a goal of losing 1 lb per week.? * Follow Up:?6 Weeks (Reason: OV review labs) * Images: * Sign off status: Completed true * Provider:?Kiel Rice MD Date:?05/11 Generated for Printi ng/Donis/eTransmitting on:?08/06/2024 12:48 PM EST History and Physical Notes * HPI (History of Present Illness) Category Sub-Category Detail Notes COVID-19 Screening Questions Have you had any new onset fever, chills, cough, congestion, sore throat, shortness of breath, muscle aches?: No Have you been exposed to the virus withi n the last 10 days?: No Have you travelled internationally in [facility] last 10 days?: No Have you been exposed to COVID-19 in the past?: No Examination Category Sub-Category Detail Notes General [...] lesion s, anicteric PERIPHERAL PULSES: normal BREASTS: Not examined MUSCULOSKELETAL: extremities unremark able, no clubbing, cyanosis or edema, Crepitus both knees LYMPH NODES: no enlarged lymph no biju,spleen normal RECTAL EXAM: not examined PSYCH: alert, oriented, moo d depressed ORAL CAVITY: normal, unremarkable
--- OUTSIDE RECORDS SUMMARY | 2024-08-06 12:49 | XMS_ITS | Clinical Summary ---
Author Organization 175 [facility] Address [address] [place] [address] Phone Care Team Providers Care Film Cutter Name Role Phone Jaswant Hyatt MD Primary Care Provider Un available Medications Medication Sig Dispensed Refills Start Date End Date Status aspirin (ASPIR-81 ORAL) Take by mouth. Active atenoloL (TENORMIN) 50 mg tablet Take 50 mg by mouth daily. Active chlorthalidone (HYGROTON) 25 mg tablet Take 25 mg by mouth daily. Active diclofenac (VOLTAREN) 1 % topical gel Apply 4 g topically 2 times daily. 12/11/2023 Active FLUoxetine (PROzac) 20 mg capsule Take 20 mg by mouth daily. Active gabapentin (NEURONTIN) 400 mg capsule Take 1 Capsule by mouth 3 times daily. Active magnesium aspart,citrate,oxide (Triple Magnesium Complex) 400 mg magnesium capsule Take by mouth. Act alejandro meloxicam (MOBIC) 15 mg tablet Take 15 mg by mouth daily. Active omeprazole (PriLOSEC) [address] capsule Take 40 mg by mouth daily. Active oxyCODONE (ROXICODONE) 5 mg immediate release tablet Take one tablet every 4 hours as needed for pain 03/28/2024 Active sulfamethoxazole-trim ethoprim (BACTRIM DS,SEPTRA DS) 800-160 mg per tablet Take 1 tablet by mouth 2 times daily. 09/19/2018 Active Active Problems Problem Noted Date Diagnosed Date Arthritis of right ankle 07/30/2024 Exostosis of right foot 07/30/2024 Acquired hammer toe of right foot 07/30/2024 Ingrowing nail 07/30/2024 Contracture of joint of right foot 07/30/2024 Essential hypertension 12/29/2023 Lumbar radiculopathy 12/29/2023 Obesity 12/29/2023 Osteoarthritis of right knee 12/29/2023 Encounters Date Type Department Care Team Description 07/30/2024 10:00 AM EST Office Visit Orthopedic Surgery [facility] [address] [phone] Bishop White DPM Acquired hammer toe of right foot (Primary Dx); Follow-up exam; Arthritis of right ankle; Exostosis of right foot; Ingrowing nail; Contracture of joint of right foot 06/18/2024 10:00 AM EST Office Visit Orthopedic Surgery [facility] [address] [phone] Bishop White DPM Arthritis of right ankle (Primary Dx); Exostosis of right foot; Acquired hammer toe of right foot; Ingrowing nail from Last 3 Months Surgical History Surgery Date Site/Laterality Comments TUBAL LIGATION PROCEDURE: HISTORICAL TUBAL LIGATION BREAST LUMPECTOMY PROCEDURE: HISTORICAL BREAST LUMPECTOMY LUMBAR LAMINECTOMY PROCEDURE: HISTORICAL LUMB LAMINECTOMY Medical History Medical History Date Comments Essential hypertension DX:Essent ial hypertension GERD (gastroesophageal reflux disease) DX:GERD (gastroesophageal reflux disease) Depression DX:Depression Spinal stenosis DX:Spinal stenos is Family History Medical History Relation Name Comments Hypertension Father Relation Name Status Comments Father Social History Tobacco Use Types Packs/Day Years [...] file Not on file Not on file Obstetrics History Last Filed Vital Signs Vital Sign Reading Time Taken Comments Blood Pressure - - Pulse - - Temperature - - Respiratory Rate - - Oxygen Saturation - - Inhaled Oxygen Concentration - - Weight 127 kg (281 lb) 06/18/2024 10:17 AM EST Height 175.3 cm (5' 9 ) 06/18/2024 10:17 AM EST Body Mass Index 41.5 06/18/2024 10:17 AM EST Plan of Treatment Scheduled Procedures Name Priority Associated Diagnoses Date/Ti me EXCISION BONE SPUR LOWER EXTREMITY Arthritis of right ankle Exostosis of right foot Acquired hammer toe of right foot Ingrowing nail Contracture of joint of right foot Health Maintenance Due Date Last Done Comments Breast Cancer Screening 1960 DTaP,Tdap,and Td Vaccines (1 - Tdap) 1977 Zoster Vaccines (1 of 2) 2008 RSV Immunization Patients 60 + Years Old (1 - Risk 60-74 years 1-dose series) 2018 Pneumococcal Vaccine: 65+ Ye ars (1 of 1 - PCV) 2023 COVID-19 Vaccine (2 - 2023-2 5 season) 2024 02/22/2021 Influenza Vaccine (#1) 2024 Cholesterol Screening (Lipid Panel) 04/17/2024 Colorectal Cancer Screening: Colonoscopy 04/17/2024 Depression Screening 04/17/2024 Falls Risk Assessment 04/17/2024 Hepatitis C Screening 04/17/2024 Hypertension/CHF/CAD Annual BMP Blood Test 04/17/2024 Medicare Annual Wellness Visit 04/17/2024 Osteoporosis Screening (Bone Density Screening) 04/17/2024 Social Influencers of Health Screening 04/17/2024 HIB Vaccines Aged Out No longer eligi ble based on patient's age to complete this topic HPV Vaccines Aged Out No longer eligi ble based on patient's age to complete this topic Hepatitis A Vaccines Aged Out No long er eligible based on patient's age to complete this topic Hepatitis B Vaccines Aged Out No long er eligible based on patient's age to complete this topic IPV Vaccines Aged Out No longer eligi ble based on patient's age to complete this topic MMR Vaccines Aged Out No longer eligi ble based on patient's age to complete this topic Meningococcal ACWY Vaccine Aged Out N o longer eligible based on patient's age to complete this topic RSV Immunization Patients Un jhon 20 months Aged Out No longer eligible b ased on patient's age to complete this topic Varicella Vaccines Aged Out No longer eligible based on patient's age to complete this topic Procedures Procedure Name Priority Date/Time Associated Diagnosis Comments XR FOOT 3+ VIEWS BILAT Routine 07/30/2024 10:41 AM EST Follow-up exam from Last 3 Months Results * XR Foot 3+ Views bilat (07/30/2024 10:41 AM EST) Anatomical Region Laterality Modality Lower Extremities, Foot Bilateral Computed Radiography Narrative 07/30/2024 12:00 PM EST Left foot 3 views Diffuse hindfoot midfoot forefoot arthritis diffuse hammertoe contractures 2 through 5 Previous exostectomy noted of midfoot Right foot 3 views Severe midfoot arthritis severe hindfoot arthritis Moderate hammertoe contractures 2 through 5 Bishop Whiet DPM IMG XR PROCEDURES from Last 3 Months Care Teams Film Cutter Relationship Specialty Start Date End Date Jaswant Hyatt MD Need Additional Information PCP - General Internal Medicine 03/28/18
--- OUTSIDE RECORDS SUMMARY | 2024-08-06 12:49 | XMS_ITS ---
Author Organization Kiel Rice III, MD Address [address] [place] [address] Care Team Providers Care Applications Support Engineer Name Role Phone Kiel Rice Primary Care Provider [phone] REASON FOR VISIT CCA Forms Filled Out Social History Sex Assigned At : Social History Observation Description Sex Assigned At Female Encounters Encounter Location Date Provider Diagnosis Kiel Rice III, MD [address] [place] [address] [place] [address] 06/13/2024 Kiel Rice Plan Of Treatment Next Appt Details Provider Name:Kiel Rice, 10/08/2024 09:30:00 AM, [address] [place] [address] [place], [phone], Provider Name:Kiel Rice, 05/01/2025 10:30:00 AM, [address] [place] [address] [place], [phone], Progress Notes * ARRIAGATani WALTERVjOB:1960 (64 yo F)Acc No.[id number]:06/13/2024 Patient:?Ibis ARRIAGA :1960???Age:64 Y???Sex:Female Address:[address] [place], [address] * true * Date:? Generated for Printi ng/Faxing/eTransmitting on:?08/06/2024 12:48 PM EST
== END 2024-08-06 12:10 | disposition home or self-care (01) ==
PROVIDERS: PCP Internal Medicine Medical Oncology; Referring Provider Internal Medicine Medical Oncology; Visit Provider Nurse Practitioner Family
DX: M96.1 Postlaminectomy syndrome, not elsewhere classified (principal); M54.16 Radiculopathy, lumbar region; M51.369 Other intervertebral disc degeneration, lumbar region without mention of lumbar back pain or lower extremity pain; M47.817 Spondylosis without myelopathy or radiculopathy, lumbosacral region; M54.50 Low back pain, unspecified; G89.29 Other chronic pain
CPT/HCPCS: 99204; G2211

== ENCOUNTER → 2024-08-06 11:34 | Outpatient (BNVA) | payer OTHER, SELFPAY | PROVIDERS: PCP Internal Medicine Medical Oncology; Referring Provider Internal Medicine Medical Oncology; Visit Provider Nurse Practitioner Family | DX: M96.1 Postlaminectomy syndrome, not elsewhere classified (principal); M54.16 Radiculopathy, lumbar region; M51.369 Other intervertebral disc degeneration, lumbar region without mention of lumbar back pain or lower extremity pain; M47.817 Spondylosis without myelopathy or radiculopathy, lumbosacral region; M54.50 Low back pain, unspecified; G89.29 Other chronic pain | CPT/HCPCS: 99202 ==

== ENCOUNTER 2024-10-01 08:28 | Outpatient (AMB) | payer OTHER, SELFPAY ==
--- NOTE | 2024-10-01 08:30 | MHC.OFFVIS ---
Vital Signs 10/01/24 08:35 Height 5 ft 10 in Weight 301 lb 4 oz BMI 43.2 BP 168/84 H Blood Pressure Location Lt brachial Position Sitting Pulse 98 Pulse Source Pulse Oximeter Pulse Oximetry (%) 96 Oxygen Delivery Method Room Air Intake Visit Reasons: follow up MRI results Intake Note: Pain today .11/16 Ecommerce Marketing Manager Required: No Accompanied by: Self / Same As Patient Allergies cortisone [CORTISONE] Allergy (Intermediate, Verified 10/01/24 08:36) RASH adhesive tape [ADHESIVE TAPE] Adverse Reaction (Unknown, Verified 10/01/24 08:36) UNKNOWN Latex Allergy (Intermediate, Uncoded 05/23/24 18:28) redness Emerson Allergy (Unknown, Uncoded 05/23/24 18:28) Unknown HPI Comments Details: Patient presents today for follow up to discuss recent lumbar spine MRI results. She continues to endorse chronic low back pain radiating to both legs, more severely on the left, extending to the back of both legs and sometimes to the front of the left thigh but not groin. Symptoms include stabbing and shooting pain as well as numbness in the feet. She has undergone multiple back surgeries, receiving a laminectomies at L2-L4, but continues to experience ongoing issues attributed to post-laminectomy syndrome and lumbar spine stenosis and significant arthritis. Lumbar spine MRI results were discussed today and results are noted below. Denies any fever or chills, abdominal or groin pain, bladder or bowel dysfunction or saddle anesthesia. The patient's medical history includes type 2 diabetes mellitus and morbid obesity, with a BMI over 43. Her current pain management regimen includes only Tylenol, and previous treatments such as gabapentin and cyclobenzaprine have been discontinued due to inefficacy and prescription changes. The pain affects her daily life, limiting her ability to stand or walk for extended periods without symptoms worsening. She uses a cane or walker occasionally and applies heat at times for some relief. The patient does not take any opioids and is interested in alternative pain management options, expressing a preference to avoid further surgeries. - Onset & Timing: Chronic, ongoing since at least July. - Quality & Character: Stabbing and shooting pain. - Primary Location: Lumbar region. - Radiation: Radiates to both legs, worse on the left; also affects the back of the legs, occasionally to the front of the left thigh and groin. - Exacerbating Factors: Prolonged standing and walking. - Relieving Factors: Use of heat application, Tylenol. - Interference: Limits ability to engage in prolonged standing or walking activities. - Affect: Pain impacts activities such as prolonged standing or walking, occasionally interferes with sleep. - Analgesia: Currently taking Tylenol; no gabapentin or cyclobenzaprine use as these were discontinued. - Adverse Effects: Previous treatments (gabapentin) stopped due to inefficacy. - Activities of Daily Living: Pain limits ability to stand or walk for prolonged periods; occasionally uses a cane or walker. - Aberrant Drug-Related Behaviors: None reported or observed. PRIOR: Patient is a 64 years old female with history of lumbar degenerative disc disease, morbid obesity, depression, left knee arthroplasty ([facility], Dr. Casarez, 2021), right knee OA, chronic low back pain, decompressive laminectomies L3-L4 in 2014 and redo in 2017 (Dr. Morataya, [facility]), presents today for initial evaluation low back pain with bilateral radiculopathy. Denies any recent trauma, injury, or falls. Back pain is axial and also radiates to bilateral thighs and lateral lower legs in into the feet with associated numbness and tingling. Patient reports left leg pain is worse than the right leg. She is due for foot surgery and also needs to loose weight for right TKR per patient. She started Ozempic injections and reports positive weight loss. Patient reports she frequently loses her balance and is unsteady due to back and knee pain. She completed physical therapy over 2 years ago with minimal improvement. Currently she can not pursue formal PT due to zloshhxm-by-fosrbk daily low back pain with radicular symptoms. She has been managing her symptoms with NSAIDs, Tylenol, gabapentin, and muscle relaxant with minimal effect. Pain affects her daily activities and functioning, mobility, walking capacity, sleep, mood, and social interactions. Denies any fever or chills, abdominal or groin pain, bladder or bowel dysfunction or saddle anesthesia. Patient is currently unemployed and has been disabled due to her chronic back pain. 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 Patient lives alone. Denies alcohol, tobacco or recreational drugs use. Oswestry Low Back Disability Score=27 (severe disability) Location: Lower back radiates down bilateral legs, left>right Duration: Chronic pain for many years Characteristics of symptom or complaint: Aching, stabbing, sharp, hurting, radiating, numbness, tingling, sore Aggravating or associated factors: Walking, standing, prolonged sitting, movements, bending, lifting, climbing Relieving factors: Minimal relief with Tylenol, NSAIDs, gabapentin, muscle relaxant, heat Treatment: Physical therapy in 2021, back surgeries x3 [facility] Medical History GERD (gastroesophageal reflux disease) Eczema Atypical chest pain Osteoarthritis of right knee Hypokalemia Depression Hypertension Surgical History Hx of total knee replacement History of esophagogastroduodenoscopy (EGD) Hx of colonoscopy Hx laparoscopic cholecystectomy History of ERCP History of back surgery (~06/2015) Hx of tubal ligation History of carpal tunnel release Social History Household Members: None Housing: Apartment Do you presently have visiting nurse or other home services: Yes Alcohol intake: former Comment: refuses bed alarm Patient Tobacco Use Status: Former Tobacco user Tobacco use type: Cigarette Second Hand Smoke Exposure: No Advance Directives Date on File: 07/23/21 service: No Current occupational status: unemployed 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 Review of Systems Const Details: - Neurological: Reports numbness and tingling in both feet. - Musculoskeletal: Reports chronic low back pain radiating to both legs, worse on the left side. All systems reviewed & are unremarkable except as noted in HPI and below Physical Exam Vital Signs: Last Vital Signs Pulse 98 10/01/24 08:35 BP 168/84 H 10/01/24 08:35 Pulse Ox 96 10/01/24 08:35 Oxygen Delivery Method Room Air 10/01/24 08:35 BMI result Body Mass Index 43.2 General: Appears afebrile. Alert and oriented. Mood and affect appropriate. Follows and participates in conversation appropriately. Respiratory effort is unlabored. No cough. Able to transition from sit to stand unassisted. Ambulates with bilaterally normal heel strike and toe off, reports increased pain on the left. General: Yes no CVA tenderness Back/Spine/Pelvis Other: Limited lumbar ROM. Antalgic gait with mild limping. Lumbar flexion and extension reproduce moderate-severe lumbar pain. Demonstrates 5/5 right and 4/5 left strength of quadriceps bilaterally as well as flexion/dorsiflexion of bilateral feet against resistance. 2+ pedal pulses bilaterally. Straight leg rise with dorsiflexion positive on the left. Diminished patellar and achilles reflexes bilaterally. Facet loading test positive bilaterally. Luz sign, Roland?s, and Stinchfield tests are positive bilaterally. No groin pain with I/E hip rotations. Valsalva maneuver is negative. Back: no CVA tenderness Cervical Spine: cervical ROM normal, cervical muscular tenderness, pain with cervical ROM, No Cervical spine scars present and No Cervical spine tenderness Thoracic/Lumbar Spine: thoracic and lumbar spine normal to inspection, Thoracic/lumbar spine scar(s), Lasegue's sign positive on the left and diffuse, pain with thoraco-lumbar ROM, paraspinal muscle tenderness, thoraco-lumbar ROM limited, No thoracic spinal tenderness and lumbar spinal tenderness (L3-S1) Pelvis: buttock tenderness on the left and no sciatic notch tenderness Sacroiliac joints: bilaterally nontender Extrem General: Yes capillary refill normal, Yes no clubbing, cyanosis or edema and Yes no calf tenderness Results Reviewed Results Reviewed: MR LUMBAR SPINE WITHOUT CONTRAST 09/17/24 at [facility] INDICATION: postlaminectomy syndrome, not elsewhere classified. Radiculopathy, lumbar region. Spondylosis without myelopathy or radiculopathy, lumbosacral region, TECHNIQUE: MRI lumbar spine was performed according to routine protocol with multiplanar fast spin echo imaging and sagittal fat-suppressed T2 imaging. COMPARISON: None. FINDINGS: There is transitional lumbosacral anatomy with possible sacralized L5. For purposes of numbering, the first axial image is obtained at lower T12 endplate and the last axial image is obtained at S1 level. Alignment and Curvature: Status post decompressive laminectomies at L3-L4. Mild grade 1 retrolisthesis of L1 on L2. Conus and Cauda Equina: The conus terminates at the L1 level and demonstrates no signal abnormality. Vertebral Body Heights: No significant height loss. Marrow Signal: There is T1, T2 and STIR hypointense signal at L1 vertebral body with mild surrounding edema. Discs: There are varying degrees of degenerative disc desiccation and height loss. There is a disc spacer at L2-L3. Incompletely visualized disc bulge at T10-T11 effacing the ventral thecal sac with ventral impression upon the cord. Multilevel degenerative endplate changes with Schmorl's nodes, largest at the superior L2 endplate with surrounding edema. T12-L1: There is no significant canal or foraminal stenosis. Bilateral facet arthropathy and ligamentum flavum thickening. L1-L2: Disc bulge and posterior endplate spurring, facet arthropathy and ligamentum flavum thickening. Moderate to severe spinal canal stenosis, mild to moderate right and mild left foraminal stenosis. L2-L3: Status post laminectomy. Disc spacer in place. No significant spinal canal or foraminal stenosis. L3-L4: Status post laminectomy. Disc bulge, facet arthropathy and ligamentum flavum thickening. Mild spinal canal stenosis. Narrowing of subarticular zones, at least contacting descending nerve roots. Mild right and severe left foraminal stenosis. L4-L5: Small central protrusion, facet arthropathy and ligamentum flavum thickening. Mild spinal canal and mild bilateral foraminal stenosis. L5-S1: There is no significant canal or foraminal stenosis. No abnormality is identified at the visualized portion of the sacrum. Incompletely evaluated lobulated and possibly septated T2 hyperintense structure in the pelvis. IMPRESSION: Transitional lumbosacral anatomy possibly with sacralized L5. The first axial image is obtained at lower T12 endplate. Status post decompressive laminectomies at L3-L4. Multilevel degenerative changes as described, most pronounced at L1-L2 where there is moderate to severe spinal canal stenosis. Severe left foraminal stenosis at L3-L4. Nonspecific T1, T2, and STIR hypointense signal at the L1 vertebral body, with mild surrounding edema and no significant loss of height. The absence of prior imaging in the PACS limits evaluation. This appearance could represent post-augmentation changes, with fracture and Modic type III signal changes also in the differential diagnosis. Correlation with patient's history and physical examination and prior imaging is recommended. Incompletely evaluated lobulated and possibly septated T2 hyperintense structure in the right hemipelvis. Further evaluation with pelvic ultrasound is recommended. Assessment & Plan Assessment & Plan (1) Lumbar post-laminectomy syndrome: Code(s): M96.1 - Postlaminectomy syndrome, not elsewhere classified Category: Medical (2) Lumbar radiculopathy: Code(s): M54.16 - Radiculopathy, lumbar region Category: Medical (3) Lumbar degenerative disc disease: Code(s): M51.369 - Other intervertebral disc degeneration, lumbar region without mention of lumbar back pain or lower extremity pain Category: Medical (4) Lumbar spinal stenosis: Code(s): M48.061 - Spinal stenosis, lumbar region without neurogenic claudication Category: Medical Plan The patient will be referred to a Neurosurgeon for further evaluation of her lumbar spinal stenosis related pain. Non-surgical pain management options, such as diagnostic nerve blocks and radiofrequency ablation and neuromodulation with Sprint PNS trial, will be considered for her arthritis. We discussed with her the possibility of utilizing pregabalin to manage her neuropathic symptoms, in light of previous inadequate responses to gabapentin. The option of spinal cord stimulation will also be presented should surgical interventions not be pursued. Consideration of her diabetes and morbid obesity will inform any treatment strategies. Follow-ups to assess treatment efficacy and adjustment will be planned. Patient was informed and verbally consented to the use of an ambient scribe for clinic note documentation during this visit. Orders: Referrals Neuro Spine Referral M48.061 - Spinal stenosis, lumbar region without neurogenic claudication, M51.369 - Other intervertebral disc degeneration, lumbar region without mention of lumbar back pain or lower extremity pain, M54.16 - Radiculopathy, lumbar region Medications: New pregabalin 50 mg PO BID 30 days 60 caps 0RF pain M51.369 - Other intervertebral disc degeneration, lumbar region without mention of lumbar back pain or lower extremity pain, M54.16 - Radiculopathy, lumbar region, M96.1 - Postlaminectomy syndrome, not elsewhere classified Patient Instructions: - Follow up with Neurosurgeon as scheduled for evaluation of lumbar spine. - Consider information provided on spinal cord stimulation, RFA and Sprint PNS and review at home. - Start pregabalin 50 mg at bedtime and advance to BID if well tolerated. Monitory for side effects. - Monitor pain and any changes in symptoms; report any significant changes or concerns. - Avoid driving or alcohol consumption when pregabalin. Patient reports she does not drive and does not consume alcohol or illicit drugs, or cannabis. - Return to the clinic for follow-up appointments as planned or sooner if symptoms worsen. Coding Level of Care Code Est Pt Level 4 (25497) Complex EM visit Add On G2211 Diagnoses Lumbar post-laminectomy syndrome M96.1 Lumbar radiculopathy M54.16 Lumbar degenerative disc disease M51.369 Lumbar spinal stenosis M48.061
[2024-10-01 08:35] VITALS: BP 168/84; PULSE 98; O2SAT 96; BMI 43.2
--- OUTSIDE RECORDS SUMMARY | 2024-10-01 09:03 | XMS_ITS ---
Author Organization Kiel Rice III, MD Address [address] [place] [address] Care Team Providers Care Aircraft Engine Mechanic Supervisor Name Role Phone Kiel Rice Primary Care Provider REASON FOR VISIT Refills Social History Sex Assigned At : Social History Observation Description Sex Assigned At Female Encounters Encounter Location Date Provider Diagnosis Kiel Rice III, MD [address] [place] [address] [place] [address] 09/04/2024 Kiel Rice Plan Of Treatment Next Appt Details Provider Name:Kiel Rice, 10/08/2024 09:30:00 AM, [address] [place] [address] [place], [address], Provider Name:Kiel Rice, 05/01/2025 10:30:00 AM, [address] [place] [address] [place], [phone], Progress Notes * ARRIAGAReji WALTEROB:1960 (64 yo F)Acc No.[id number]:09/04/2024 Patient:?Ibis ARRIAGA :1960???Age:64 Y???Sex:Female Address:[address] [place], [address] * true * Date:? Generated for Printi ng/Faalexg/eTransmitting on:?10/01/2024 09:03 AM EDT
--- OUTSIDE RECORDS SUMMARY | 2024-10-01 09:03 | XMS_ITS | Clinical Summary ---
Author Organization 175 [facility] Address 175 [place] [address] Phone Care Team Providers Care Diagram Clerk Name Role Phone Jaswant Hyatt MD Primary Care Provider Un available Medications aspirin (ASPIR-81 ORAL) Take by mouth. Active atenoloL (TENORMIN) 50 mg tablet Take 50 mg by mouth daily. Active chlorthalidone (HYGROTON) 25 mg tablet Take 25 mg by mouth daily. Active diclofenac (VOLTAREN) 1 % topical gel Apply 4 g topically 2 times daily. 4 Active FLUoxetine (PROzac) 20 mg capsule Take 20 mg by mouth daily. Active gabapentin (NEURONTIN) 400 mg capsule Take 1 Capsule by mouth 3 times daily. Active magnesium aspart,citrate, oxide (Triple Magnesium Complex) 400 mg magnesium capsule Take by mouth. Activ e meloxicam (MOBIC) 15 mg tablet Take 15 mg by mouth daily. Active omeprazole (PriLOSEC) [address] capsule Take 40 mg by mouth daily. Active oxyCODONE (ROXICODONE) 5 mg immediate release tablet Take one tablet every 4 hours as needed for pain 4 Active sulfamethoxazol e-trimethoprim (BACTRIM DS,SEPTRA DS) 800-160 mg per tablet Take 1 tablet by mouth 2 times daily. 9 Active Active Problems Problem Noted Date Diagnosed Date Arthritis of right ankle 07/30/2024 Exostosis of right foot 07/30/2024 Acquired hammer toe of right foot 07/30/2024 Ingrowing nail 07/30/2024 Contracture of joint of right foot 07/30/2024 Essential hypertension 12/29/2023 Lumbar radiculopathy 12/29/2023 Obesity 12/29/2023 Osteoarthritis of right knee 12/29/2023 Encounters Date Type Department Care Team Description 07/30/2024 10:00 AM EST Office Visit Orthopedic Surgery [place] [address] [phone] Bishop White DPM Acquired hammer toe of right foot (Primary Dx); Follow-up exam; Arthritis of right ankle; Exostosis of right foot; Ingrowing nail; Contracture of joint of right foot from Last 3 Months Surgical History Surgery [...] drink = 0.6 oz pur e alcohol) Comments Unknown Sex and Gender Information Value Date Recorded Sex Assigned at Not on file Legal Sex Female 10:01 AM EST Gender Identity Not on file Sexual Orientation Not on file Obstetrics History Last Filed [...] 06/18/2024 10:17 AM EST Plan of Treatment Upcoming Encounters Date Type Department Care Team (Late st Contact Info) Description 11/05/2024 8:30 AM EDT Consult Orthopedic Surgery [facility] [address] [phone] Bishop White DPM [address] [address] 11/08/2024 10:15 AM EDT Hospital Encounter [facility] Main OR [address] [place] [phone] Bsihop White DPM [address] [address] 11/08/2024 10:15 AM EDT - 11/08/2024 12:15 PM EDT Surgery [facility] Main OR [address] [place] [phone] Bishop White DPM [address] [address] EXCISION BONE SPUR RIGHT LOWER EXTREMITY [80775 (CPT??) +3 more] 11/21/2024 1:30 PM EDT Office Visit Orthopedic Surgery - [place] [address] [phone] Bishop White DPM [address] [address] Scheduled Procedures Name Priority Associated Diagnoses Date/Ti me EXCISION BONE SPUR LOWER EXTREMITY Arthritis of right ankle Exostosis of right foot Acquired hammer toe of right foot Ingrowing nail Contracture of joint of right foot 11/08/2024 10:15 AM EDT Health Maintenance Due Date Last Done Comments Breast Cancer Screening 1960 DTaP,Tdap,and Td Vaccines (1 - Tdap) 1977 Pneumococcal Vaccine: 50+ Ye ars (1 of 1 - PCV) 2008 Zoster Vaccines (1 of 2) 2008 RSV Immunization Patients 60 + Years Old (1 - Risk 60-74 years 1-dose series) 2018 COVID-19 Vaccine (2 - 2023-2 5 season) [...] patient's age to complete this topic Meningococcal B Vacine Aged Out No lo nger eligible based on patient's age to complete [...] arthritis Moderate hammertoe contractures 2 through 5 us Bishop White DPM IMG XR PROCEDURES Final R esult from Last 3 Months Insurance [employer] MEDICARE Member Subscriber Plan / Payer (Ef fective 2023-Present) Name:Ibis Arriaga Abhi Relation to Subscriber:Self Name:Ibis Arriaga Abhi Payer ID:[id number] Group ID:[id number] Type:Not on file Address: [place] [address] [place] [phone] Care Teams Diagram Clerk Relationship Specialty Start Date End Date Jaswant Hyatt MD Need Additional Information PCP - General Internal Medicine 03/28/18
--- OUTSIDE RECORDS SUMMARY | 2024-10-01 09:04 | XMS_ITS ---
Author Organization Kiel Rice III, MD Address [address] [place] [address] Care Team Providers Care Auto Travel Counselor Name Role Phone Kiel Rice Primary Care Provider REASON FOR VISIT Rx Refill Social History Sex Assigned At : Social History Observation Description Sex Assigned At Female Encounters Encounter Location Date Provider Diagnosis Kiel Rice III, MD [address] [place] [address] [place] [address] 09/30/2024 Kiel Rice Plan Of Treatment Next Appt Details Provider Name:Kiel Rice, 10/08/2024 09:30:00 AM, [address] [place] [address] [place], [address], Provider Name:Kiel Rice, 05/01/2025 10:30:00 AM, [address] [place] [address] [place], [address], Progress Notes * ARRIAGAReji WALTEROB:1960 (64 yo F)Acc No.[id number]:09/30/2024 Patient:?Ibis ARRIAGA :1960???Age:64 Y???Sex:Female Address:[address] [place], [address] * * Date:?
--- OUTSIDE RECORDS SUMMARY | 2024-10-01 09:04 | XMS_ITS ---
Author Organization Kiel Rice III, MD Address [address] [place] [address] Care Team Providers Care Demographic Analyst Name Role Phone Kiel Rice Primary Care Provider [phone] Allergies Allergen (clinical drug ingredient) Drug/Non Drug [...] Provider Speciality Internal M edicine Referred Provider [facility] er, Pain Management Referred Provider Specialty Pain Medicin e General Notes D, Fior 07/29/2024 11:22:40 AM >Referral faxed with progress note Referral Priority Routine Referral Appointment Date 08/06/2024 REASON FOR VISIT muscle spasm, up coming podiatric surgery, Lumbar radiculopathy Medications Medication SIG (Take, Route, Frequency, Duration) [...] tablet Orally Once a day Active FreeStyle Franklin Lite w/Device as directed - test glucose [...] Problem Screening for malignant neoplasm of breast ([id number]) Encounter for screening mammogram for malignant neoplasm [...] Date Provider Diagnosis Kiel Rice III, MD [address] [place] [address] [place] [address] 07/23/2024 Kiel Rice GERD without esophag itis [...] K21.9) Her heartburn is well controlled with qnvr-nyx-yzbmtwv medications and no change in her regimen [...] is due for her annual mammogram in March of this year. It was scheduled for [...] - L30.9) [facility] and has received treatment. She has [...] directed - use to check glucose Mon/Mon/Mon10/05/2022 Aspir-81 81 MG 1 tablet Orally Once a day FreeStyle Franklin Lite w/Device as directed - test glucose Mon/Mon/Mon fasting 10/05/2022 Naproxen 500 MG 1 tablet with food o r milk as needed Orally Twice a day 05/25/2020 Chlorhexidine Gluconate 4 % Externally Terbinafine 1 % 1 application Server Developer ally twice a day 11/09/2022 Docusate Sodium [...] 07/23/2024 07/23/2024, Evaluate and Treat, Pain Management [facility] Next Appt Details Follow Up: 3 Months, Reason: OV Provider Name:Kiel Rice, 10/08/2024 09:30:00 AM, [address] [place] [address] [address], [place], [address], Provider Name:Kiel Rice, 05/01/2025 10:30:00 AM, [address] [place] [address] [address], [place], [address], Progress Notes * CINDY TaniVjOB:1960 (64 yo F)Acc No.[id number]:07/23/2024 Progress Notes Patient:?CINDY Ibis Provider:?Kiel Rice MD :1960???Age:64 Y???Sex:Female D ate:07/23/2024 Address:[address], [place], [place]-[phone] Subjective: * Chief Complaints: * ???Muscle spasmUp coming pod iatric surgeryLumbar radiculopathy * HPI: ???COVID-19 Screening:?Questions?Have you had any [...] her a new primary care provider in [place], [place], Dr. Shelly Forrest. 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 Feliciano 07/2021ERCP, Dr. Limon 07/2021Left knee arthroplasty, [facility], Dr. Casarez 12/2021 * Hospitalization/Major Diagno stic [...] Tobacco non-user?Ex-cigarette smoker ???She was born in [place], [place]. She is and has a son Shravan Escamilla. She is disabled on the basis of her back. 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 Not Found. * Medications:?TakingCetirizin [...] 1 tablet Orally Once a day FreeStyle Franklin Lite w/Device Kit as directed - test glucose Mon/Wed/Fri fasting Gauze Pads 2 X2 Pad as directed - use to check glucose Mon/ Alcohol Swabs - Pad USE DIRECTED Ozempic [...] tablet Orally Once a day Taking FreeStyle Franklin Lite w/Device Kit as directed - test glucose Mon/ fasting Taking Gauze Pads 2 X2 Pad as directed - use to check glucose Taking Alcohol Swabs - Pad USE DIRECTED [...] reviewed and reconciled with the patient * Allergies:?Miguel AisoneLanawaf naranjo[Allergies Verified] Objective: * Vitals:?Ht: 71, Wt:310, BMI: [...] K21.9???Notes :Her heartburn is well controlled with dfvm-xfn-lfhsilz medications and no change in her regimen [...] - L30.9???Notes :[facility] and has received treatment. She has not yet responded but encouraged her to have patients..??? Plan: * Treatment: 2.?Encounter for screening m ammogram for malignant neoplasm of breast?Imaging: MAMMOGRAM DIGITAL BILATERAL SCREEN 3.?Lumbosacral radiculopathy due to degenerative joint disease of spine? Referral To:Pain Management [facility]??Pain Medicine ?Reason:Evaluate and Treat 4.?Others? Continue Cetirizine [...] 1 tablet, Orally, Once a day;?Continue FreeStyle Franklin Lite Kit, w/Device, as directed, -, test [...] three times a day.? Referral To:Pain Management [facility]??Pain Medicine ?Reason:Evaluate and Treat * Procedure Codes:? [...] * Provider:?Kiel Rice MD Date:?07/10 Generated for Mika ernandez/Donis/eTwessmitting on:?10/01/2024 09:03 AM EDT History and Physical Notes * HPI (History [...] Referring Provider Referred Provider Not es 07/23/2024 Kiel Rice [facility], Pain Management Evaluate and Treat
== END 2024-10-01 09:02 | disposition home or self-care (01) ==
LOC: HO.PMC 08:29
PROVIDERS: PCP Internal Medicine Medical Oncology; Visit Provider Nurse Practitioner Family
DX: M96.1 Postlaminectomy syndrome, not elsewhere classified (principal); M54.16 Radiculopathy, lumbar region; M51.369 Other intervertebral disc degeneration, lumbar region without mention of lumbar back pain or lower extremity pain; M48.061 Spinal stenosis, lumbar region without neurogenic claudication
CPT/HCPCS: 99214; G2211

== ENCOUNTER → 2024-10-01 08:28 | Outpatient (BNVA) | payer OTHER, SELFPAY | PROVIDERS: PCP Internal Medicine Medical Oncology; Visit Provider Nurse Practitioner Family | DX: M96.1 Postlaminectomy syndrome, not elsewhere classified (principal); M54.16 Radiculopathy, lumbar region; M51.369 Other intervertebral disc degeneration, lumbar region without mention of lumbar back pain or lower extremity pain; M48.061 Spinal stenosis, lumbar region without neurogenic claudication | CPT/HCPCS: 99212 ==

== ENCOUNTER 2024-10-04 12:51 | Outpatient (AMB) | payer OTHER, SELFPAY ==
--- NOTE | 2024-10-04 12:57 | HO.SPINEOV ---
Intake Visit Reasons: LBP Intake Note: Ms. Arriaga is here today c/o Low back pain. Regulatory Affairs Portfolio Leader Required: No Allergies cortisone [CORTISONE] Allergy (Intermediate, Verified 10/04/24 13:08) RASH adhesive tape [ADHESIVE TAPE] Adverse Reaction (Unknown, Verified 10/04/24 13:08) UNKNOWN Latex Allergy (Intermediate, Uncoded 05/23/24 18:28) redness Emerson Allergy (Unknown, Uncoded 05/23/24 18:28) Unknown Assessment & Plan Assessment & Plan (1) Lumbar spinal stenosis: Code(s): M48.061 - Spinal stenosis, lumbar region without neurogenic claudication Category: Medical Plan Mrs Arriaga is a patient known to us from [facility]. She is a 64-year-old female who underwent an L3-4 posterior lumbar interbody fusion with Dr. Ellis in 2018, subsequent pseudoarthrosis, revision by Dr. Morataya with an oblique lumbar interbody fusion. At the time of surgery, he found that there was pus coming out of the pedicle screw holes, she was placed on long-term suppressive antibiotics. A few years later, she developed stenosis at L4-5 and underwent subsequent L4-5 decompression and removal of screws, so that she could get off the long-term suppressive antibiotics. She had on and off back pain for quite some time, but over the last few years has developed debilitating centralized back pain that is radiating down both of her legs when she stands and walks. It has gotten to the point now where she can barely walk even short distances without having to sit down. She does get some of the pain when she sits as well. She is very frustrated with her quality of life. She has been on meloxicam, gabapentin, patches, Flexeril etc.. She did physical therapy a few years back without any success. At this point she has gotten to where she is having trouble with any mobility or quality of life at all because of the pain. She underwent an MRI at the [facility] and this showed severe stenosis at L2-3 above the level of the fusion with severe disc collapse. She came today to see us see if there was any surgery that could be done. PMH: She is prediabetic, history of hypertension, high cholesterol, cholecystectomy, recently had heel spur surgery, but other than that denies any major issues with her heart, lungs, liver, major abdominal surgeries or bleeding/blood clots. Social hx: She does not smoke Medications: Updated medication list obtained for the patient includes aspirin, atenolol, chlorthalidone, fluoxetine, magnesium, meloxicam, omeprazole, oxycodone Allergies: Please see the [facility] list Physical exam: Awake alert oriented no acute distress, walks with a flexed posture, strength normal in the bilateral lower extremities with absent reflexes bilaterally at the patella and Achilles. She has a well healed central scar in her lower back. Imaging review: Lumbar MRI done at [facility] reveals evidence of previous surgery at L3-4. For sake of reference, she has transitional anatomy, and the level of stenosis where it is severe with the disc collapses L2-3. The radiologist describes it as L1-2 for reasons I am not sure, but the strictly anatomical level would be L2-3. This was reviewed with Dr. Morataya who agrees that this is the L2-3 level. There is severe disc collapse and Modic endplate changes as well as a spondylolisthesis. There is some movement with flexion-extension on standing. There is an abdominal CT from last year here at [place] as well and this shows folv-jw-pyhh contact. Impression: 64-year-old female with previous history of L3-4 oblique lumbar interbody fusion done by Dr. Morataya after pseudoarthrosis from surgery by Dr. Ellis in 2018, found to have staph aureus in the pedicle screw sites at that time. She was on suppressive antibiotics for a long time, which were discontinued after we removed her screws and did an L4-5 decompression in 2019. She was doing okay until a few years ago which she has developed progressive back pain and bilateral lower extremity claudicating pain which seems consistent with her severe disc collapse, Modic endplate changes and severe stenosis at L2-3. She has been through conservative management as outlined above. Dr. Morataya is willing to offer her an L2-3 oblique lumbar interbody fusion. Although her physical therapy was not done within the last 6 months. I do not see how that is going to change anything so I do not feel the need to put her through that again. Often the insurance as will deny fusion and make the patient's repeat physical therapy. We will submit for the surgery anyway hoping that they do not delay things for that. We have tentatively scheduled her for 11/12/2024. We will put the patient on preoperative and postoperative vanco for prophylaxis given her previous history of suspected MRSA in her pedicle screws during Dr. Morataya 1st operation. Pt was given risk and benefits of surgery including but not limited to infection, hematoma , nerve injury,durotomy, weakness,bowel/bladder injury, persistent pain, hardware failure as well as the option to continue with conservative treatment and patient wishes to proceed with surgery. Pt is aware they should stop their meloxicam, aspirin 7 days prior to surgery. All questions were answered to the best of our ability. If there is anything about this patients medical history that we have overlooked or concerns you have about us proceeding with surgery we would appreciate any input you can offer. Thank you for allowing us to care for your patient. The total time spent with this visit with this patient was 45 minutes reviewing history, physical exam, lumbar imaging review, and implementation of treatment plan or further diagnostic testing Jose Daniel Morataya MD,PhD [facility] Orders: Orders XR lumbar spine 4V min Today M48.061 - Spinal stenosis, lumbar region without neurogenic claudication Coding Level of Care Code New Pt Level 4 (89773) Diagnoses Lumbar spinal stenosis M48.061
== END 2024-10-04 14:07 | disposition home or self-care (01) ==
LOC: HO.HNS 12:51
PROVIDERS: PCP Internal Medicine Medical Oncology; Referring Provider Nurse Practitioner Family; Visit Provider Physician Assistant
DX: M48.061 Spinal stenosis, lumbar region without neurogenic claudication (principal)
CPT/HCPCS: 99204

== ENCOUNTER 2024-10-04 12:51 | Outpatient (REF) | payer OTHER, SELFPAY ==
--- NOTE | ~2024-10-04 | XR_ITS ---
EXAMINATION: X-RAY LUMBAR SPINE 4 VIEWS. CLINICAL INFORMATION: Spinal stenosis, lumbar region without neurogenic claudication. TECHNIQUE: Duplex Doppler techniques with waveform analysis and measurement of velocities in the bilateral common femoral, profunda femoris, superficial femoral, popliteal and tibial arteries were performed. Additionally, ankle pulse volume recordings, ankle pressure measurements and ankle brachial indices were obtained of the lower extremity arterial system bilaterally. The study was performed only at rest. COMPARISON: August 29, 2015. FINDINGS: Multilevel marginal osteophyte formation and disc desiccation more conspicuous at L2-3 and to a lesser extent L4-5 and L5-S1 level. Intervertebral disc spacer placement at L3-4. Grade 1 anterolisthesis L3-4 in neutral position which persists during flexion and extension position. Vascular calcifications abdominal aorta and likely iliac arteries. Vascular clips right upper quadrant abdomen. XR/XR lumbar spine 4V min IMPRESSION: Multilevel thoracolumbar spondylosis more conspicuous at L2-3. Grade 1 anterolisthesis L3-4 without instability. Status post intervertebral disc spacer placement at L3-4. Electronically signed by: Sixto Russell MD 10/04/2024 04:00 PM EDT
== END 2024-10-04 12:52 | disposition home or self-care (01) ==
LOC: HO.HOSX 12:51
PROVIDERS: PCP Internal Medicine Medical Oncology; Referring Provider Nurse Practitioner Family; Visit Provider Physician Assistant
DX: M48.061 Spinal stenosis, lumbar region without neurogenic claudication (principal)
CPT/HCPCS: 72110; 99202

== ENCOUNTER → 2024-10-04 13:46 | Outpatient (BNV) | payer OTHER, SELFPAY | PROVIDERS: PCP Internal Medicine Medical Oncology; Referring Provider Nurse Practitioner Family; Visit Provider Radiology Diagnostic Radiology | DX: M54.50 Low back pain, unspecified (principal) | CPT/HCPCS: 72110 ==

== ENCOUNTER 2024-10-15 11:08 | Outpatient (REF) | payer OTHER, SELFPAY ==
--- OUTSIDE RECORDS SUMMARY | 2024-10-15 13:34 | XMS_ITS | Clinical Summary ---
Author Organization 175 [facility] Address 175 [place] [address] Phone Care Team Providers Care Logistics Specialist Name Role Phone Jaswant Hyatt MD Primary [...] Encounters Date Type Department Care Team Description 10/14/2024 Telephone Orthopedic Surgery [place] [address] [address] [phone] Bishop White DPM [facility] [facility] with Dr White 07/30/2024 10:00 AM EST Office Visit Orthopedic Surgery [facility] [address] [phone] Bishop White DPM Acquired hammer toe of [...] 11/05/2024 8:30 AM EDT Consult Orthopedic Surgery [facility] [address] [phone] Bishop White DPM [address] [address] 11/21/2024 1:30 PM EDT Office Visit Orthopedic Surgery - [place] [address] [phone] Bishop White DPM [address] [address] Scheduled Procedures Name Priority Associated Diagnoses Date/Ti [...] Vaccines (1 of 2) 2008 RSV Immunization Adult Patie nts (1 - Risk 60-74 years 1-dose series) 2018 COVID-19 Vaccine (2 - 2023-2 5 season) 2024 02/22/2021 Cholesterol Screening (Lipid Panel) 04/17/2024 Colorectal Cancer Screening: Colonoscopy 04/17/2024 Depression Screening 04/17/2024 Falls Risk Assessment 04/17/2024 Hepatitis C Screening 04/17/2024 Hypertension/CHF/CAD Annual BMP Blood Test 04/17/2024 Medicare Annual Wellness Visit 04/17/2024 Osteoporosis Screening (Bone Density Screening) 04/17/2024 Social Influencers of Health Screening 04/17/2024 Influenza Vaccine (Season Ended) 2025 HIB Vaccines Aged Out No longer eligi [...] age to complete this topic Meningococcal B Vaccine Aged Out No l onger eligible based on patient's age to complete [...] R esult from Last 3 Months Insurance [facility] MEDICARE Member Subscriber Plan / Payer (Ef fective 2023-Present) Name:Ibis Arriaga Relation to Subscriber:Self Name:Ibis Arriaga Payer ID:[id number] Group ID:[id number] Type:Not on file Address: [place] [address] [place] [phone] Care Teams Logistics Specialist Relationship Specialty Start Date End Date Jaswant Hyatt MD Need Additional Information PCP - General Internal Medicine 03/28/18
--- OUTSIDE RECORDS SUMMARY | 2024-10-15 13:34 | XMS_ITS | Encounter Summary ---
Author Organization [facility] Address [address] [place] [address] Care Team Providers Care Java Security Engineer Name Role Phone Jaswant Hyatt MD Primary Care Provider Un available Reason for Visit * Reason Onset Date Comments [place] Surgery with Dr White 10/14/2024 Encounter Details Date Type Department Care Team (Late Contact Info) Description 10/14/2024 Telephone Orthopedic Surgery - [place] [address] [address] Bishop White, DPM [address] [address] [place] [address] White Social History Tobacco Use Types Packs/Day Years Used Date Smoking Tobacco: Never Smokeless Tobacco: Never Alcohol Use Standard Drinks/Week Comments No 0 (1 standard drink = 0.6 oz pur e alcohol) Comments Unknown Sex and Gender Information Value Date Recorded Sex Assigned at Not on file Legal Sex Female 10:01 AM EST Gender Identity Not on file Sexual Orientation Not on file documented as of this encounter Progress Notes * Estela Hooks - 10/14/2024 10:33 AM EDT Patient is calling to Cancel her upcoming Surgery on 11/[address] White, as she states she is goingto be having Neck Surgery. She will RS for a later date. Please call patient back @ [phone]. Thanks. documented in this encounter Plan of Treatment Upcoming Encounters Date Type Department Care Team (Late st Contact Info) Description 11/05/2024 8:30 AM EDT Consult Orthopedic Surgery - [place] [address] [address] Bishop White DPM [address] [address] 11/21/2024 1:30 PM EDT Office Visit Orthopedic Surgery [place] [address] [phone] Bishop White DPM [address] [address] Scheduled Procedures Name Priority Associated Diagnoses Date/Ti me EXCISION BONE SPUR LOWER EXTREMITY Arthritis of right ankle Exostosis of right foot Acquired hammer toe of right foot Ingrowing nail Contracture of joint of right foot documented as of this encounter Visit Diagnoses Not on filedocumented in this encounter Care Teams Java Security Engineer Relationship Specialty Start Date End Date Jaswant Hyatt MD Need Additional Information PCP - General Internal Medicine 03/28/18 documented as of this encounter
== END 2024-10-15 11:09 | disposition home or self-care (01) ==
LOC: HO.MAMMO 11:08
PROVIDERS: PCP Internal Medicine Medical Oncology; Visit Provider Internal Medicine Medical Oncology
DX: Z12.31 Encounter for screening mammogram for malignant neoplasm of breast (principal)
CPT/HCPCS: 77063; 77067

== ENCOUNTER → 2024-10-15 11:30 | Outpatient (BNV) | payer OTHER, SELFPAY | PROVIDERS: PCP Internal Medicine Medical Oncology; Visit Provider Internal Medicine | DX: Z12.31 Encounter for screening mammogram for malignant neoplasm of breast (principal) | CPT/HCPCS: 77063; 77067 ==

== ENCOUNTER 2024-11-12 08:52 | Inpatient (IN) | payer OTHER, SELFPAY ==
--- OUTSIDE RECORDS SUMMARY | 2024-10-22 15:45 | XMS_ITS | Encounter Summary ---
Author Organization [facility] Address [address] [place] [address] Care Team Providers Care Core Drill Operator Name Role Phone Jaswant Hyatt MD Primary Care Provider Un available Reason for Visit * Reason Onset Date Comments [place] Surgery with Dr White 10/14/2024 Encounter Details Date Type Department Care Team (Late st Contact Info) Description 10/14/2024 Telephone Orthopedic Surgery - [place] [address] [phone] Bishop White, DPIsidoro [address] [address] [place] [address] White Social History [...] encounter Progress Notes * Estela Hooks - 10/21/2024 10:16 AM EDT Patient is returning call to office to RS her upcoming Surgery with Dr White. She can be reached @ [phone]. Thanks. * Estela Hooks - 10/14/2024 10:33 AM EDT Patient is calling to Cancel her upcoming Surgery on 11/[address] White, as she states she is goingto be having Neck Surgery. She will RS for a later date. Please call patient back @ [phone]. Thanks. documented in this encounter Plan of Treatment Upcoming Encounters Date Type Department Care Team (Late st Contact Info) Description 11/05/2024 8:30 AM EDT Consult Orthopedic Surgery [place] [phone] [phone] Bishop White DPM [address] [address] 11/21/2024 1:30 PM EDT Office Visit Orthopedic Surgery [address] [phone] Bishop White DPM [address] [address] 04/11/2025 9:30 AM EDT Hospital Encounter [facility] Main OR [address] [place] [phone] Bishop White DPM [address] [address] 04/11/2025 9:30 AM EDT - 04/11/2025 11:30 AM EDT Surgery [facility] OR [address] [place] [phone] Bishop White DPM [address] [address] EXCISION BONE SPUR RIGHT LOWER EXTREMITY [86637 (CPT??) +3 more] Scheduled Procedures Name Priority Associated Diagnoses Date/Ti me EXCISION BONE SPUR LOWER EXTREMITY Arthritis of right ankle Exostosis of right foot Acquired hammer toe of right foot Ingrowing nail Contracture of joint of right foot 04/11/2025 9:30 AM EDT documented as of this encounter Visit Diagnoses Not on filedocumented in this encounter Care Teams Core Drill Operator Relationship Specialty Start Date End Date Jaswant Hyatt MD Need Additional Information PCP - General Internal Medicine 03/28/18 documented as of this encounter
--- OUTSIDE RECORDS SUMMARY | 2024-10-22 15:45 | XMS_ITS | Clinical Summary ---
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 Name Role Phone Jaswant Hyatt MD [...] Care Team Description 10/14/2024 Telephone Orthopedic Surgery [place] [address] [phone] Bishop White DPM [place] [facility] with Dr White 07/30/2024 10:00 AM EST Office Visit Orthopedic Surgery [facility] [address] [phone] Bishop White DPM Acquired hammer [...] 11/05/2024 8:30 AM EDT Consult Orthopedic Surgery [facility] [address] [phone] Bishop White DPM [address] [address] 11/21/2024 1:30 PM EDT Office Visit Orthopedic Surgery - [place] [address] [phone] Bishop White DPM [address] [address] 04/11/2025 9:30 AM EDT Hospital Encounter [facility] Main OR [address] [place] [phone] Bishop White DPM [address] [address] 04/11/2025 9:30 AM EDT - 04/11/2025 11:30 AM EDT Surgery [facility] Main OR [address] [place] [phone] Bishop White DPM [address] [address] EXCISION BONE SPUR RIGHT LOWER EXTREMITY [[address] (CPT??) +3 more] Scheduled Procedures Name Priority Associated Diagnoses Date/Ti me EXCISION BONE SPUR LOWER EXTREMITY Arthritis of right ankle Exostosis of right foot Acquired hammer toe of right foot Ingrowing nail Contracture of joint of right foot 04/11/2025 9:30 AM EDT Health Maintenance Due Date Last [...] hammertoe contractures 2 through 5 Bishop White DPIsidoro IMG XR PROCEDURES Final R esult from Last 3 Months Insurance [employer] MEDICARE Member Subscriber Plan / Payer (Ef fective 2023-Present) Name:Ibis Arriaga Relation to Subscriber:Self Name:Ibis Arriaga Payer ID:[id number] Group ID:[id number] Type:Not on file Address: [facility] [address] [address] Care Teams Landfill Gas Collection Operator Relationship Specialty Start Date End Date Jaswant Hyatt MD Need Additional Information PCP - General Internal Medicine 03/28/18
[2024-11-05 10:31] VITALS: BP 121/72; PULSE 70; RESP 16; O2SAT 96; BMI 44.3
--- NOTE | 2024-11-05 10:46 | HO.ANESPROP2 ---
Documented by User: Madeline John NP 11/11/24 10:42 HPI - Anesthesia Eval Consult details Narrative: 64yo F for L2-3 Oblique Lumbar Interbody Fusion, 11/12/24 No recent illness No CP/SOB with shopping, limited by back pain 2021 - ? seizure like activity - more likely rigor r/t sepsis. Seen by neurology outpt f/u, but no neuro f/u required Anesthesia Pre-Procedure Meds Is the patient on any of the following meds?: GLP1/DPP4 PMFSH Active Problems Active Problems: All Active Problems Lumbar spinal stenosis (Acute) Chronic low back pain (Acute) Lumbosacral spondylosis (Acute) Lumbar degenerative disc disease (Acute) Lumbar radiculopathy (Acute) Lumbar post-laminectomy syndrome (Acute) Influenza A (Acute) Displacement of pancreatic stent (Acute) S/P laparoscopic cholecystectomy (Acute) Anemia (Acute) Acute cholecystitis due to biliary calculus (Acute) Sepsis (Acute) Perforated diverticulum (Acute) Abnormal LFTs (Acute) Dilated cbd, acquired (Acute) Cholangitis (Acute) Leukocytosis (Acute) Loss of consciousness (Acute) Seizure-like activity (Acute) Cholelithiasis (Acute) Acute metabolic encephalopathy (Acute) Gallstone (Acute) Acute diverticulitis (Acute) Left hand pain (Acute) Carpal tunnel syndrome of right wrist (Acute) Past Medical History Medical History MRSA (methicillin resistant Staphylococcus aureus) Chronic pruritus Allergic rhinitis Back pain Cough Elevated cholesterol Cholecystitis Bile duct obstruction Obesity GERD (gastroesophageal reflux disease) Eczema Atypical chest pain Osteoarthritis of right knee Hypokalemia Depression Hypertension Family History Family history of problems with anesthesia: No Surgical History Surgical History Hx of foot surgery History of back surgery History of hysterectomy Hx of total knee replacement History of esophagogastroduodenoscopy (EGD) Hx of colonoscopy Hx laparoscopic cholecystectomy History of ERCP History of back surgery (~06/2015) Hx of tubal ligation History of carpal tunnel release History of Problems with Anesthesia: No Social History Social History Household Members: None Housing: Apartment Are you a primary healthcare consultant to a significant other at home: No Do you presently have visiting nurse or other home services: Yes (homemakers) Alcohol intake: former Comment: refuses bed alarm Patient Tobacco Use Status: Former Tobacco user Tobacco use type: Cigarette Second Hand Smoke Exposure: No Use of substances other than those prescribed or required for medical reasons: No Have you been hit, kicked, punched, or otherwise hurt by someone within the past year? If so, by whom?: No Are you DNR?: No Advance Directives: Yes Advance Directives Information Provided: No Advance Directives on File: Yes Advance Directives Date on File: 07/23/21 Patient : No : No Poor oral hygiene: Yes service: No Current occupational status: unemployed 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 Meds Allergies Allergy/AdvReac Type Severity Reaction Status Date / Time cortisone [CORTISONE] Allergy Intermediate RASH Verified 11/12/24 09:16 adhesive tape [ADHESIVE TAPE] AdvReac Unknown UNKNOWN Verified 11/12/24 09:16 Latex Allergy Intermediate redness Uncoded 11/12/24 09:16 Emerson Allergy Unknown Unknown Uncoded 11/12/24 09:16 Home Medications ?Medication ?Instructions ?Recorded ?Confirmed ?Last Taken ?Type cetirizine 10 mg tablet 1 tab PO DAILY 07/21/21 11/05/24 08/21/23 History doxepin 25 mg capsule 1 cap PO BEDTIME 07/21/21 11/05/24 08/21/23 History omeprazole 40 mg capsule,delayed 1 cap PO DAILY 07/21/21 11/05/24 11/12/24 History release potassium chloride 10 mEq 1 tab PO DAILY 07/21/21 11/05/24 08/21/23 History tablet,extended release(part/cryst) fluoxetine 40 mg capsule 40 mg PO DAILY 05/13/22 11/05/24 11/12/24 History atorvastatin 10 mg tablet 10 mg PO DAILY 08/22/23 11/05/24 08/21/23 History chlorthalidone 25 mg tablet 25 mg PO DAILY 08/06/24 11/05/24 11/12/24 History lisinopril 2.5 mg tablet 2.5 mg PO DAILY 08/06/24 11/05/24 Unknown History atenolol 50 mg tablet 50 mg PO DAILY 10/01/24 11/05/24 11/12/24 History polyethylene glycol 3350 17 gram 17 g PO DAILY PRN Constipation 11/05/24 11/05/24 Unknown History oral powder packet (Miralax) pregabalin 50 mg capsule 75 mg PO BID pain 11/05/24 11/05/24 11/12/24 History semaglutide 1 mg/dose (4 mg/3 mL) 4 mg subcut QWEEK 11/05/24 11/05/24 10/31/24 History subcutaneous pen injector (Ozempic) sennosides 8.6 mg tablet (senna) 8.6 mg PO BEDTIME PRN Constipation 11/05/24 11/05/24 Unknown History atenolol 25 mg tablet 25 mg PO DAILY 11/12/24 11/12/24 Unknown History meloxicam 15 mg tablet 15 mg PO DAILY 11/12/24 Unknown History Exam Height,Weight and Vital Signs: Height 5 ft 9 in Weight 136.078 kg Last Vital Signs Pulse 70 11/05/24 10:31 Resp 16 11/05/24 10:31 BP 121/72 11/05/24 10:31 Pulse Ox 96 11/05/24 10:31 O2 Del Method Room Air 11/05/24 10:31 Pertinent Lab Results Pertinent Lab Results: 10/2024 CBC, BMP, A1C from [facility] Narrative Narrative: EKG 05/2024 Vent. Rate : 076 BPM Atrial Rate : 076 BPM P-R Int : 232 ms QRS Dur : 098 ms QT Int : 418 ms P-R-T Axes : 057 018 035 degrees QTc Int : 470 ms Sinus rhythm with 1st degree A-V block with occasional Premature ventricular complexes Otherwise normal ECG When compared with ECG of 01-MAR-2024 09:01, Premature ventricular complexes are now Present Airway Mallampati Class: II TM Dist: >3cm Neck ROM: Full Loose/Missing/Broken Teeth: Yes (only 2 teeth remain - not loose, broken) Heart: RRR Lungs: CTAB Assessment and Plan Assessment Anesthesia Assessment: Anesthesia Plan Discussed and PAT Visit Final Anesthetic Review Family History of Problems with Anesthesia: No History of Problems with Anesthesia: No Documented by User: Tayla Molina MD 11/12/24 13:06 PMF Past Medical History Medical History MRSA (methicillin resistant Staphylococcus aureus) Chronic pruritus Allergic rhinitis Back pain Cough Elevated cholesterol Cholecystitis Bile duct obstruction Obesity GERD (gastroesophageal reflux disease) Eczema Atypical chest pain Osteoarthritis of right knee Hypokalemia Depression Hypertension Surgical History Surgical History Hx of foot surgery History of back surgery History of hysterectomy Hx of total knee replacement History of esophagogastroduodenoscopy (EGD) Hx of colonoscopy Hx laparoscopic cholecystectomy History of ERCP History of back surgery (~06/2015) Hx of tubal ligation History of carpal tunnel release Social History Social History Household Members: None Housing: Apartment Are you a primary healthcare consultant to a significant other at home: No Do you presently have visiting nurse or other home services: Yes (homemakers) Alcohol intake: former Comment: refuses bed alarm Patient Tobacco Use Status: Former Tobacco user Tobacco use type: Cigarette Second Hand Smoke Exposure: No Use of substances other than those prescribed or required for medical reasons: No Have you been hit, kicked, punched, or otherwise hurt by someone within the past year? If so, by whom?: No Are you DNR?: No Advance Directives: Yes Advance Directives Information Provided: No Advance Directives on File: Yes Advance Directives Date on File: 07/23/21 Patient : No : No Poor oral hygiene: Yes service: No Current occupational status: unemployed 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 Meds Allergies Allergy/AdvReac Type Severity Reaction Status Date / Time cortisone [CORTISONE] Allergy Intermediate RASH Verified 11/12/24 09:16 adhesive tape [ADHESIVE TAPE] AdvReac Unknown UNKNOWN Verified 11/12/24 09:16 Latex Allergy Intermediate redness Uncoded 11/12/24 09:16 Emerson Allergy Unknown Unknown Uncoded 11/12/24 09:16 Home Medications ?Medication ?Instructions ?Recorded ?Confirmed ?Last Taken ?Type cetirizine 10 mg tablet 1 tab PO DAILY 07/21/21 11/05/24 08/21/23 History doxepin 25 mg capsule 1 cap PO BEDTIME 07/21/21 11/05/24 08/21/23 History omeprazole 40 mg capsule,delayed 1 cap PO DAILY 07/21/21 11/05/24 11/12/24 History release potassium chloride 10 mEq 1 tab PO DAILY 07/21/21 11/05/24 08/21/23 History tablet,extended release(part/cryst) fluoxetine 40 mg capsule 40 mg PO DAILY 05/13/22 11/05/24 11/12/24 History atorvastatin 10 mg tablet 10 mg PO DAILY 08/22/23 11/05/24 08/21/23 History chlorthalidone 25 mg tablet 25 mg PO DAILY 08/06/24 11/05/24 11/12/24 History lisinopril 2.5 mg tablet 2.5 mg PO DAILY 08/06/24 11/05/24 Unknown History atenolol 50 mg tablet 50 mg PO DAILY 10/01/24 11/05/24 11/12/24 History polyethylene glycol 3350 17 gram 17 g PO DAILY PRN Constipation 11/05/24 11/05/24 Unknown History oral powder packet (Miralax) pregabalin 50 mg capsule 75 mg PO BID pain 11/05/24 11/05/24 11/12/24 History semaglutide 1 mg/dose (4 mg/3 mL) 4 mg subcut QWEEK 11/05/24 11/05/24 10/31/24 History subcutaneous pen injector (Ozempic) sennosides 8.6 mg tablet (senna) 8.6 mg PO BEDTIME PRN Constipation 11/05/24 11/05/24 Unknown History atenolol 25 mg tablet 25 mg PO DAILY 11/12/24 11/12/24 Unknown History meloxicam 15 mg tablet 15 mg PO DAILY 11/12/24 Unknown History Exam Airway Mallampati Class: IV Assessment and Plan Assessment Anesthesia Assessment: Chart Reviewed Final Anesthetic Review NPO: Yes ASA Class: III Final Preanesthetic Review: No Changes in Pt Med Stat, Meds/Allgs Chart Reviewed, Consent Obtained/Reviewed and Anes Risks/Benef Reviewed Patient Risk: Intermediate Procedure Risk: Intermediate Anesthetic Plan Anesthetic Plan: GA Disposition: Standard PACU
[2024-11-12] VITALS (7 sets, daily range): BP systolic 92–111; BP diastolic 52–62; PULSE 69–77; RESP 12–20; TEMP 36.4–36.7; O2SAT 92–100; BMI 44.3
--- NOTE | ~2024-11-12 | FL_ITS ---
EXAMINATION: XR FLUOROSCOPY WITH IMAGES CLINICAL INFORMATION: L2-3 OLIF COMPARISON: None available. TECHNIQUE: Fluoroscopy provided to: Dr. Morataya Fluoroscopy time: 15.6 seconds DAP: 5.1867 Gycm2 Images: 2 FINDINGS: 2 fluoroscopic spot images lumbar spine taken during L2-3 OLIF. Please refer to the full operative report for details. FL/FL guidance in OR IMPRESSION: Fluoroscopic guidance. Electronically signed by: Jose Mccullough MD 11/12/2024 03:03 PM EDT
[2024-11-12 09:40] LABS: Glucose, Whole Blood 108 mg/dL (60-115)
[2024-11-12] MEDS: Lactated Ringers 1,000 ML 100 ML IVCONT (09:51)
[2024-11-12] MEDS: methocarbamoL 750 MG TABLET PO (12:00)
--- NOTE | 2024-11-12 12:03 | PC.NURSE ---
dion carranza aware that patient took lyrica at home and gabapentin will not be given preop. ok per dion.
--- NOTE | 2024-11-12 12:55 | MHC.SHP ---
Pre-Procedural Eval Section A - 24 Hr Update-Section A only Date of Service: 11/12/24 The patient is an INPATIENT: Yes Section B - Complete if H&P > 30 days Chief Complaint: s/p L2--3 OLIF Details of Present Illness: Back pain Allergies: Allergies Allergy/AdvReac Type Severity Reaction Status Date / Time cortisone [CORTISONE] Allergy Intermediate RASH Verified 11/12/24 09:16 adhesive tape [ADHESIVE TAPE] AdvReac Unknown UNKNOWN Verified 11/12/24 09:16 Latex Allergy Intermediate redness Uncoded 11/12/24 09:16 [place]ham Allergy Unknown Unknown Uncoded 11/12/24 09:16 Review of Systems Sugical H&P ROS: Negative: Constitution, Cardiovascular, Respiratory, Neurological, Psychiatric, Hem-Onc, Allergic/Immunologic, Gastrointestinal, Genitourinary, Musculoskeletal, Integumentary, Endocrine and Eyes/Ears/Nose/Throat Exam Surgical H&P Exam: Normal: HEENT, Normal: Heart, Normal: Lungs, Normal: Extremities, Normal: Abdomen, Normal: Skin and Normal: Neurological (Awake, alert) Plan Diagnosis/Plan: Unchanged I have reviewed the history and physical and performed a pertinent physical examination on my patient. No changes have occurred unless specified. Oblique lumbar interbody fusion at L2-3 Time Spent With Patient Time: Total time managing care of this patient today _5___ minutes.
[2024-11-12 13:20] LABS: Glucose, Whole Blood 74 mg/dL (60-115)
--- NOTE | 2024-11-12 13:36 | PHA.MEDREC ---
Pharmacy Consult ? Medication Reconciliation RN has completed the medication reconciliation, [facility] reviewed.
--- NOTE | 2024-11-12 13:55 | PC.NURSE ---
dr. gaston updated that patient poc was rechecked due to time and result was 74. patient is asymptomatic. kelley young was updated as well and will document on anesthesia record if anything is given.
[2024-11-12] MEDS: ceFAZolin Sodium/Dextrose,Iso 2 GM/50 ML PIGGYBACK IV (14:10)
--- NOTE | 2024-11-12 14:53 | P.DS_ITS ---
DS: Providers Provider Date of Service: 11/12/24 Date of admission: 11/12/24 08:52 Date of discharge: 11/12/24 Primary care physician: Kiel Rice MD Admitting clinician: Blanco Morataya DS: Diagnosis Discharge Diagnosis (1) Lumbar spinal stenosis: Status: Acute DS: Summary Time Attestation Discharge Coordination Time (in mins): 5 Quality: Safe Use of Opioids Does Pt have an Active Cancer Diagnosis on the Problem List?: No Quality: Stroke Does the patient have a stroke diagnosis?: No Physical Exam Vital Signs: Vital Signs: Last Vital Signs Temp 98.0 F 11/12/24 10:03 Pulse 73 11/12/24 10:03 Resp 18 11/12/24 10:03 BP 109/60 11/12/24 10:03 Pulse Ox 96 11/12/24 10:03 O2 Del Method Room Air 11/12/24 10:03 BMI result Body Mass Index 44.3 DS: Data Data Completed and Pending Completed studies during hospitalization [Text1]: Procedures Dilation of Cystic Duct, Via Natural or Artificial Opening Endoscopic (07/21/21) Extraction of Cystic Duct, Via Natural or Artificial Opening Endoscopic, Diagnostic (07/21/21) Resection of Gallbladder, Percutaneous Endoscopic Approach (07/21/21) Labs on day of discharge: Laboratory Results - last 24 hr 11/12/24 11/12/24 11/12/24 09:24 09:37 13:16 POC Glucose 108 74 Blood Type B Positive Antibody Screen NEGATIVE Discharge Plan Discharge Anticipated Discharge Date/Time: 11/12/24 15:01 Patient Disposition: Home, Self-Care Discharge Diagnosis: L2-3 stenosis DDD Referrals: Kiel Rice MD [Primary Care Provider] - 1 Week Discharge Medications: New oxycodone 5 mg tablet 5 mg PO Q4H PRN (Reason: pain) Qty: 15 0RF Rx Instructions: Partial Fill upon patient request. Continued cetirizine 10 mg tablet 1 tab PO DAILY doxepin 25 mg capsule 1 cap PO BEDTIME omeprazole 40 mg capsule,delayed release(DR/EC) 1 cap PO DAILY potassium chloride 10 mEq tablet,ER particles/crystals 1 tab PO DAILY metformin 1,000 mg tablet 1,000 mg PO BIDWMEAL Qty: 60 0RF Rx Instructions: Take 1 pill, daily, for 3 days and then initiate twice daily atorvastatin 10 mg tablet 10 mg PO DAILY pregabalin 50 mg capsule 75 mg PO BID polyethylene glycol 3350 [Miralax] 17 gram Powder In Packet 17 g PO DAILY PRN (Reason: Constipation) sennosides [senna] 8.6 mg Tablet 8.6 mg PO BEDTIME PRN (Reason: Constipation) Ozempic 1 mg/dose (4 mg/3 mL) pen injector 4 mg SUBCUT QWEEK Patient Comments: patient takes every meloxicam 15 mg tablet 15 mg PO DAILY atenolol 25 mg tablet 25 mg PO DAILY fluoxetine 40 mg capsule 40 mg PO DAILY lisinopril 2.5 mg tablet 2.5 mg PO DAILY chlorthalidone 25 mg tablet 25 mg PO DAILY Discharge Orders: Discharge Order (Routine); Ordered 11/12/24 Ordered By: Jose Daniel Hayes Diet: Advance to usual diet Activity on Discharge: As tolerated Stand Alone Forms: Patient Portal Discharge page Print Language: Slovak Activity Restrictions/Additional Instructions: We were unable to complete your surgery as planned because of scar tissue and anatomical challenges that made getting access to the spine too difficult. Therefore we had to abort the surgery. We can attempt another surgery at a later date using a different approach. We can discuss this with you in the clinic. We will arrange that follow up for you to discuss. We will give you a one time prescription for oxycodone for incisional pain, but will not be prescribing after that. If you need medication after that you will have to go to your PCP. You have steri strips on your wound, those can be taken off in one week. You can shower tommorrow. Please do not scrub the wound. You can drive and resume activities as tolerated. Care Plan Goals: home Health Concerns: none Plan of Treatment: f/u in office to review alternate procedure to fix your spine Assessment: stable
--- NOTE | 2024-11-12 14:54 | W.PM.OPN ---
Operative Note Operative Note Date of Service: 11/12/24 Narrative: Preop Diagnosis: 1.) Adjacent lumbar degenerative disc disease L2-3 2.) Status post L3-4 lumbar fusion Procedure: 1) attempted oblique lumbar interbody fusion through an anterolateral, retroperitoneal approach Consent Informed Consent was obtained for this operation. I have explained the nature, purpose and benefits of the operation. I have discussed the risks and benefit of the operation including possible complications or adverse events with patient/family. Alternative(s) were discussed with the patient with their relative benefits and risks as well as the consequences of not accepting the operation were included in obtaining consent. Surgeon: JOHANN GARCIA MD, PHD Procedure Assisted By: raoul Burton Description of Procedure This morbidly obese patient underwent a transforaminal lumbar interbody fusion by another surgeon. I had to do a revision 8 years ago through an oblique lumbar interbody fusion and during this procedure a slow grade infection was discovered. She now returned to my clinic with adjacent degenerative disc disease L2-3. She was offered another oblique lumbar interbody fusion. She is aware that scar tissue may prevent me from performing the procedure. However due to her obesity this would be the preferred approach. The procedure and complications were explained. The patient was consented. The patient was brought to the operating room and endotracheally intubated. The patient was turned in a lateral position with the left side up. Prep and drape was done followed by timeout. A small incision was made in the left upper abdominal quadrant. The muscle fascia was opened after which the 3 muscle layer was split to enter the retroperitoneal space. I was unable to create a plane between the peritoneum and retroperitoneal space. I placed dilators to get better view of the anatomy. X-rays showed that we were still approximately 2 cm from the vertebral column. I carefully dissected and after I lifted my retractor up I could see bowel loops moving. I decided to abort the procedure as the risk of injuring bowel structures are other structures are high due to scar tissue from the previous procedure. The incision was closed in 2 layers. Steri-Strips used to approximate incision. An OpSite with Tegaderm was used to cover the incision. Anesthesia: General Estimated Blood Loss (ml): Minimal Duration of Surgery: 15 minutes Complications: None Postoperative Plan: Discharged home
--- NOTE | 2024-11-12 15:55 | MHC.CM.PN ---
PT DCD HOME SELF CARE PRIOR TO BEING SEEN BY CM
== END 2024-11-12 16:07 | disposition home or self-care (01) | DRG 982 ==
LOC: HO.SSSA 09:07 → HO.S3 15:01
PROVIDERS: Neurological Surgery; Admitting Provider Physician Assistant; PCP Internal Medicine Medical Oncology; Visit Provider Physician Assistant
PROC: 0WJH0ZZ Inspection of Retroperitoneum, Open Approach (ICD-10-PCS; principal; 2024-11-12 12:00)
DX: M48.061 Spinal stenosis, lumbar region without neurogenic claudication (principal); Z68.41 Body mass index [BMI] 40.0-44.9, adult; E66.01 Morbid (severe) obesity due to excess calories; Z87.891 Personal history of nicotine dependence; Z79.84 Long term (current) use of oral hypoglycemic drugs; Z79.899 Other long term (current) drug therapy
CPT/HCPCS: 82947; 86850; 86900; 86901; J0131; J0665; J0666; J0690; J1100; J2250; J2371; J2405; J2704; J3010

== ENCOUNTER → 2024-11-12 08:52 | Outpatient (BNV) | payer OTHER, SELFPAY | PROVIDERS: Admitting Provider Physician Assistant; PCP Internal Medicine Medical Oncology; Visit Provider Neurological Surgery | DX: M48.061 Spinal stenosis, lumbar region without neurogenic claudication (principal) | CPT/HCPCS: 22558; 99499 ==

== ENCOUNTER 2024-11-22 11:25 | Outpatient (AMB) | payer OTHER, SELFPAY ==
--- NOTE | 2024-11-22 11:36 | HO.SPINEOV ---
Intake Visit Reasons: Discuss other surgical options Intake Note: Ms. Arriaga is here today to discuss surgical options. 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 Allergies cortisone [CORTISONE] Allergy (Intermediate, Verified 11/12/24 09:16) RASH adhesive tape [ADHESIVE TAPE] Adverse Reaction (Unknown, Verified 11/12/24 09:16) UNKNOWN Latex Allergy (Intermediate, Uncoded 11/12/24 09:16) redness [place] Allergy (Unknown, Uncoded 11/12/24 09:16) Unknown Assessment & Plan Assessment & Plan (1) Lumbar spinal stenosis due to adjacent segment disease after fusion procedure: Code(s): M48.061 - Spinal stenosis, lumbar region without neurogenic claudication; M51.369 - Other intervertebral disc degeneration, lumbar region without mention of lumbar back pain or lower extremity pain; Z98.1 - Arthrodesis status Category: Medical Plan Dear colleague On 11/22/2024 I saw for preoperative visit Ibis Arriaga. She was undergoing an oblique lumbar interbody fusion last week for adjacent lumbar degenerative disc disease L2-3. I had to abort the procedure as I could not get access to the retroperitoneal space due to scar tissue. Unfortunately, I did not consent her for an alternative. Today she comes in to discuss further options. I advised her to undergo a trans Kambin L2-L3 lumbar fusion. I described the procedure and possible complications which include nerve root irritation that usually last for 6 weeks. Also for disc procedure there is a chance that it can not be performed if the nerve prevents me from entering the foramen safely. She wants to proceed. I scheduled her for 12/04/2024. Blanco Morataya MD, PhD Spine Fellowship Trained Neurosurgeon Director, [facility] Coding Level of Care Code Est Pt Level 3 (55991) Diagnoses Lumbar spinal stenosis due to adjacent segment disease after fusion procedure M48.061; M51.369; Z98.1
--- OUTSIDE RECORDS SUMMARY | 2024-11-22 11:44 | XMS_ITS | Clinical Summary ---
Author Organization 175 [facility] Address [address] [place] [address] Phone Care Team Providers Care Fruit Bar Maker Name Role Phone Jaswant Hyatt MD Primary [...] Date Type Department Care Team Description 10/14/[address] [place] [facility] [address] [facility] [address] [phone] Bishop White DPM [place] Surgery with Dr White from Last 3 Months Surgical History Surgery [...] Care Team (Late st Contact Info) Description 04/11/2025 9:30 AM EDT Hospital Encounter [facility] Main OR [address] [place] [phone] Bishop White DPM [address] [address] 04/11/2025 9:30 AM EDT - 04/11/2025 11:30 AM EDT Surgery [facility] Main OR [address] [place] [phone] Bishop White, DPM 175 [facility] [address] [place] [address] EXCISION BONE SPUR RIGHT LOWER EXTREMITY [90828 (CPT??) +3 more] Scheduled Procedures Name Priority [...] on patient's age to complete this topic Insurance [employer] MEDICARE Member Subscriber Plan / Payer (Ef fective 2023-Present) Name:Ibis Arriaga Relation to Subscriber:Self Name:Ibis Arriaga Payer ID:[id number] Group ID:[id number] Type:Not on file Address: [facility] [address] [id number] Care Teams Fruit Bar Maker Relationship Specialty Start Date End Date Jaswant Hyatt MD Need Additional Information PCP - General Internal Medicine 03/28/18
== END 2024-11-22 11:46 | disposition home or self-care (01) ==
LOC: HO.HNS 11:25
PROVIDERS: PCP Internal Medicine Medical Oncology; Visit Provider Neurological Surgery
DX: M48.061 Spinal stenosis, lumbar region without neurogenic claudication (principal); M51.369 Other intervertebral disc degeneration, lumbar region without mention of lumbar back pain or lower extremity pain; Z98.1 Arthrodesis status
CPT/HCPCS: 99024

== ENCOUNTER → 2024-11-22 11:25 | Outpatient (BNVA) | payer OTHER, SELFPAY | PROVIDERS: PCP Internal Medicine Medical Oncology; Visit Provider Neurological Surgery | DX: M48.061 Spinal stenosis, lumbar region without neurogenic claudication (principal); M51.369 Other intervertebral disc degeneration, lumbar region without mention of lumbar back pain or lower extremity pain; Z98.1 Arthrodesis status | CPT/HCPCS: 99212 ==

== ENCOUNTER 2024-12-03 09:12 | Inpatient (IN) | payer OTHER, SELFPAY ==
[2024-11-29 09:14] VITALS: BMI 44.3
[2024-12-03] VITALS (23 sets, daily range): BP systolic 90–114; BP diastolic 45–64; PULSE 55–68; RESP 12–20; TEMP 36.2–36.6; O2SAT 93–98; BMI 44.1
--- NOTE | ~2024-12-03 | FL_ITS ---
EXAMINATION: FL GUIDANCE ONLY HISTORY: L2-3 Transkambin Lumbar Interbody Fusion COMPARISON: None available. TECHNIQUE: Fluoroscopy time: 2 minutes, 26 seconds. Cumulative Dose: 191.44 mGy. DAP: 56.79 mGym2 Images: 3. FINDINGS: Fluoroscopic spot films of the lumbar spine demonstrate posterior fusion of L2 and L3 with pedicle screws, spinal stabilization rods, and intervertebral spacers. An additional spacer is seen at L3-4. FL/FL guidance in OR IMPRESSION: Fluoroscopy during procedure. Please see procedure report for additional information. Electronically signed by: Kiel Maynard MD 12/03/2024 02:27 PM EDT
--- OUTSIDE RECORDS SUMMARY | 2024-12-03 09:47 | XMS_ITS | Clinical Summary ---
Author Organization 175 [facility] Address [address] [place] [address] Phone Care Team Providers Care Engagement Liaison Name Role Phone Jaswant Hyatt MD Primary [...] Date Type Department Care Team Description 10/14/2024 [place] [facility] [address] [phone] Bishop White DPM [place] Surgery with Dr [...] Description 04/11/2025 9:30 AM EDT Hospital Encounter [facility] Main OR [address] [place] [phone] Bishop White DPM [address] [address] 04/11/2025 9:30 AM EDT - 04/11/2025 11:30 AM EDT Surgery [facility] Main OR [address] [place] [phone] Bishop White, DPM 175 [facility] [address] [place] [address] EXCISION BONE SPUR RIGHT LOWER EXTREMITY [82943 (CPT??) +3 more] Scheduled Procedures Name Priority [...] ID:[id number] Group ID:[id number] Type:Not on file Address: [facility] [address] [phone] Care Teams Engagement Liaison Relationship Specialty Start Date End Date Jaswant Hyatt MD Need Additional Information PCP - General Internal Medicine 03/28/18
--- NOTE | 2024-12-03 09:51 | PHA.MEDREC ---
Pharmacy Consult ? Medication Reconciliation Pharmacy has reviewed the medication reconciliation completed by nursing.
[2024-12-03] MEDS: Gabapentin 300 MG CAPSULE PO (09:54)
[2024-12-03] MEDS: methocarbamoL 750 MG TABLET PO (09:54)
[2024-12-03] MEDS: Lactated Ringers 1,000 ML 50 ML IVCONT (10:07)
[2024-12-03 10:11] LABS: Glucose, Whole Blood 114 mg/dL (60-115)
--- NOTE | 2024-12-03 10:31 | MHC.SHP ---
Pre-Procedural Eval Section A - 24 Hr Update-Section A only Date of Service: 12/03/24 The patient is an INPATIENT: Yes Section B - Complete if H&P > 30 days Chief Complaint: s/p L2-3 transkambin lumbar transfusion Allergies: Allergies Allergy/AdvReac Type Severity Reaction Status Date / Time cortisone [CORTISONE] Allergy Intermediate RASH Verified 11/12/24 09:16 adhesive tape [ADHESIVE TAPE] AdvReac Unknown UNKNOWN Verified 11/12/24 09:16 [place] Allergy Severe Unknown Uncoded 12/03/24 09:19 Latex Allergy Intermediate redness Uncoded 11/12/24 09:16 Review of Systems Sugical H&P ROS: Negative: Constitution, Cardiovascular, Respiratory, Neurological, Psychiatric, Hem-Onc, Allergic/Immunologic, Gastrointestinal, Genitourinary, Musculoskeletal, Integumentary, Endocrine and Eyes/Ears/Nose/Throat Exam Surgical H&P Exam: Normal: HEENT, Normal: Heart, Normal: Lungs, Normal: Extremities, Normal: Abdomen, Normal: Skin and Normal: Neurological (awake, alert) Plan Diagnosis/Plan: Unchanged I have reviewed the history and physical and performed a pertinent physical examination on my patient. No changes have occurred unless specified. L2-3 Transkambin fusion Time Spent With Patient Time: Total time managing care of this patient today ____ minutes.
--- NOTE | 2024-12-03 10:52 | PHA.MEDREC ---
Pharmacy Consult ? Medication Reconciliation Pharmacy has reviewed the medication reconciliation completed by nursing. Pt takes Ozempic on , and takes Clorthalidone and Potassium with food.
[2024-12-03] MEDS: ceFAZolin Sodium/Dextrose,Iso 2 GM/50 ML PIGGYBACK IV (11:34)
--- NOTE | 2024-12-03 13:26 | P.OP_ITS ---
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 2) status post L3-4 lumbar fusion Postprocedure diagnosis: 1) same as above Procedure: 1) L2-3 oblique lateral lumbar interbody fusion with discectomy, preparation of the endplates and placement of a titanium bullet cage packed with allograft, anterior to the transverse process in modified prone position, with intraoperative biplanar fluoroscopy imaging and electrophysiological monitoring 2) L2-3 posterior minimally invasive pedicle screw placement and posterior lateral instrumentation and fusion with intraoperative biplanar fluoroscopic imaging and electrophysiological monitoring 3 Injection of 10 cc of Exparel at the transverse process for a muscular erector spinae block and additional Exparel in paravertebral tissue for postop management Consent Informed Consent was obtained for this operation. I have explained the nature, purpose and benefits of the operation. I have discussed the risks and benefit of the operation including possible complications or adverse events with patient/family. Alternative(s) were discussed with the patient with their relative benefits and risks as well as the consequences of not accepting the operation were included in obtaining consent. Surgeon: JOHANN GARCIA MD, PHD Procedure Assisted By: raoul Burton Description of Procedure: This is a complex surgery on the lumbar spine and an bilingual sales assistant as needed for safety of the surgery for setup of instrumentation, retraction and closing. 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 The patient was offered an oblique lumbar lateral interbody fusion followed by a posterior lateral instrumented fusion L2-3. The procedure and complications were explained and the patient was consented. Procedure: The patient was brought to the operating room and endotracheally intubated. The patient was positioned on the Jaden spine table in a modified prone position for ease of access from the left side.. 2C arms were installed for fluoroscopy. Prepping and draping was done followed by timeout. The landmarks, including spinal processes, transverse processes, disc space, endplates and pedicles are identified and marked. The following steps are taken for each specified level: L2-3 level: Cage size 10 mm high and 33 mm long titanium . The patient was turned using the rotation of the surgical table so a near direct anterior lateral approach to the lumbar spine could be achieved. A small incision was then made superior to the mid iliac crest and then using biplanar fluoroscopy visualization, under electrophysiological monitoring and stimulation, we introduced an electrophysiological probe through the retroperitoneal space into the desired disc anterior to the transverse process and then passed it into the disc space after finding a silent window. The sleeve was retained and the probe was removed, then the K wire was passed sequentially into the disc space. A dilating tube was then passed along the same route. Following this, a working channel, a working channel was then passed sequentially into the disc space. The working channel was manually held in position while a series of disc cleaning tools were passed through the channel to remove the affected disc under clear and direct biplanar fluoroscopic visualization, decompress the nerve roots and equal corticated vertebral endplates at this segment. Arthrodesis of the intervertebral space via an anterior retroperitoneal exposure was achieved through Kambin's [place] and lateral extraforaminal space. Allograft was added into the anterior disc space. The working channel was then removed. A titanium interbody cage tightly packed with allograft was then inserted into the midportion of the intervertebral disc space over a K-wire under biplanar fluoroscopic visualization and intraoperative neuro monitoring. The inter pedicular and intradiscal space was significantly enlarged and disc height was restored to worked normal anatomy there for releasing pressure on the nerve roots visual largely the spinal canal and lateral recess as well as foramen were bilateral decompressed and all bones were confined to the borders of the disc space . The following steps are then taken for each specified level: L2-3 level: Bilateral L2 and L3 screws with a diameter of 6.5 x 45 mm. The posterolateral fusion is initiated after the patient is rotated to a true prone position. The entry point to the pedicle is identified in the AP and lateral views and then the skin incision is injected with local anesthetic. We entered the pedicle with the pediguard tap after which a K-wire was introduced into the vertebral body. Additionally, I used a small periosteal decorticator along the screws to refresh the surface of the bone and facet and I put some amount of allograft for additional stability for the posterolateral fusion. Over the K-wire we insert pedicle screws bilaterally. After the screws were placed, we put the ibeth in place and under fluoroscopic imaging, we locked the ibeth in place and removed the screw tops and then each incision has been closed with 0 Vicryl for the fascia and a 3-0 Vicryl for the subdermal layer. Steri- Strips were used to approximate the incisions. An OpSite with Tegaderm was used to cover the incision. Final x-rays and AP and lateral projection showed good position of the interbody device and instrumentation. All sponge and needle counts were correct. The patient was extubated and transported in a stable condition to the recovery room. 2-0 Vicryl This procedure was done with the aid of a physician bilingual sales assistant as a qualified resident was not available. Anesthesia: General Estimated Blood Loss (ml): 20 Specimen: None Duration of Surgery: 1 hour and 15 minutes Postoperative Plan: Admit to inpatient for clinical observation.
[2024-12-03] MEDS: fentaNYL citrate/PF 100 MCG/2 ML VIAL 50 MCG IVPUSH ×2 (14:53→15:08)
[2024-12-03] MEDS: HYDROmorphone HCl 0.5 MG/0.5 ML SYRINGE IVPUSH (15:22)
[2024-12-03] MEDS: oxyCODONE HCl Immed Release 5 MG TABLET 10 MG PO (15:32)
[2024-12-03 16:21] LABS: Glucose, Whole Blood 122 mg/dL (60-115)
[2024-12-03] MEDS: metFORMIN HCl 1,000 MG TABLET 1000 MG PO (16:25)
[2024-12-03] MEDS: Ketorolac Tromethamine 15 MG/ML VIAL IVPUSH ×2 (16:25→22:26)
[2024-12-03] MEDS: 0.9 % Sodium Chloride 1,000 ML 75 ML IVCONT (16:25)
[2024-12-03] MEDS: ceFAZolin Sodium 3 GM in 0.9 % Sodium Chloride 100 ML IV ×2 (18:16→23:33)
--- NOTE | 2024-12-03 18:36 | PC.NURSE ---
Patient felt urge to void. Ambulated to bathroom 2 assist with walker. Unable to void. Bladder scanned for 71cc. IV fluids infusing and encouraged po fluids.
[2024-12-03] MEDS: HYDROmorphone HCl 1 MG/ML SYRINGE IVPUSH (18:59)
[2024-12-03 20:26] LABS: Glucose, Whole Blood 155 mg/dL (60-115)
[2024-12-03] MEDS: Acetaminophen 1,000 MG/100 ML PIGGYBACK 400 MG IV (20:42)
[2024-12-03] MEDS: Pregabalin 75 MG CAPSULE PO (21:13)
[2024-12-03] MEDS: Doxepin HCl 25 MG CAPSULE PO (21:13)
[2024-12-03] MEDS: Docusate Sodium 100 MG CAPSULE PO (21:13)
[2024-12-04] VITALS (10 sets, daily range): BP systolic 96–110; BP diastolic 48–59; PULSE 69–93; RESP 16–20; TEMP 36.3–36.8; O2SAT 92–98
[2024-12-04] MEDS: oxyCODONE HCl Immed Release 5 MG TABLET 10 MG PO ×2 (00:22→21:07)
[2024-12-04] MEDS: Acetaminophen 1,000 MG/100 ML PIGGYBACK 400 MG IV ×4 (02:11→21:16)
--- NOTE | 2024-12-04 02:33 | PC.NURSE ---
Late entry: Bedtime POC 155, pt refused 2 units of Lispro insulin per sliding scale, see MAR. Per pt doesn't take insulin, takes PO Metformin at home. Will continue to monitor pt's POC.
[2024-12-04] MEDS: Omeprazole 40 MG CAPSULE.DR PO (05:51)
[2024-12-04] MEDS: ceFAZolin Sodium 3 GM in 0.9 % Sodium Chloride 100 ML IV (05:54)
--- NOTE | 2024-12-04 06:16 | PC.NURSE ---
late entry: Pt assisted to the bathroom w/ walker, voided twice, each 100mls yellow urine. Pt was bladder scan after each void, one for 150ml at 22:00 and the last one for 129ml at 05:30. Will continue to monitor pt's output.
--- NOTE | 2024-12-04 07:35 | HO.NEURO.PN ---
Neurosurgery Operative Note Date of Service: 12/04/24 Narrative: POD: 1 Procedure: L2-3 Transkambin Lumbar Fusion Ibis is a pleasant 64-year-old female who underwent L2-3 Transkambin lumbar interbody fusion yesterday with Dr. Morataya. She reports that she is still suffering from quite a bit of low back pain despite her current pain regimen. She reports some transient hypoesthesia over the lateral aspect of her left leg, which is currently not present. She states that she has been up out of bed to the bathroom, but needed some assistance to do so. She is tolerating her current diet, no Ding. Afebrile, vital signs stable. Full strength noted 5/5 in bilateral LE's. Back dressings have some staining without signs of hematoma. No active sanguineous drainage. Area is dry. Plan: Patient will remain admitted to [address] [place] [address] for recovery, pain management, and further evaluation. We would like to see her get up out of bed and work with physical therapy today. She was evaluated alongside the attending neurosurgeon Dr. Morataya who understands and agrees to this plan. Casey Morataya MD,PhD [facility]
[2024-12-04 07:49] LABS: Glucose, Whole Blood 116 mg/dL (60-115)
[2024-12-04] MEDS: Pregabalin 75 MG CAPSULE PO ×2 (08:08→21:08)
[2024-12-04] MEDS: Potassium Chloride ER 10 MEQ TABLET.ER PO (08:08)
[2024-12-04] MEDS: oxyCODONE HCl Immed Release 5 MG TABLET PO ×2 (08:09→12:28)
[2024-12-04] MEDS: FLUoxetine HCl 20 MG CAPSULE 40 MG PO (08:10)
[2024-12-04] MEDS: metFORMIN HCl 1,000 MG TABLET 1000 MG PO ×2 (08:10→17:11)
[2024-12-04] MEDS: Ketorolac Tromethamine 15 MG/ML VIAL IVPUSH ×3 (08:10→22:56)
[2024-12-04] MEDS: Loratadine 10 MG TABLET PO (08:10)
[2024-12-04] MEDS: Docusate Sodium 100 MG CAPSULE PO ×2 (08:12→21:07)
[2024-12-04] MEDS: Atorvastatin Calcium 10 MG TABLET PO (09:00)
[2024-12-04 09:10] LABS: Creatinine Clr Calc Pharmacy 81.3; Estimated Glomerular Filt Rate 55
[2024-12-04] MEDS: lisinopriL 2.5 MG TABLET PO (10:42)
[2024-12-04] MEDS: atenoloL 25 MG TABLET PO (10:43)
[2024-12-04 11:26] LABS: Glucose, Whole Blood 88 mg/dL (60-115)
--- NOTE | 2024-12-04 11:56 | HO.POSTANES ---
Post Anesthesia Evaluation Post Anesthesia Evaluation Date of Service: 12/04/24 Vital Signs: Vital Signs Temp Pulse Resp BP Pulse Ox O2 Del Method 12/04/24 10:59 78 100/55 L 12/04/24 10:43 78 100/55 L 12/04/24 10:42 100/55 L 12/04/24 09:43 74 97/52 L 95 Room Air 12/04/24 07:11 97.9 F 70 16 100/52 L 93 Room Air 12/04/24 03:31 97.4 F 69 20 110/55 L 92 Room Air 12/03/24 23:57 97.6 F 62 20 101/55 L 93 Room Air Anesthesia: General Endotracheal-GETA Mental Status: Awake Pain Control: Satisfactory Nausea/Vomiting: None Hydration: Adequate Anesthesia-Related Issues: No Anes. Related Issues
--- NOTE | 2024-12-04 12:46 | MHC.CM.PN ---
PT LIVES ALONE ,HAS 2 DEVOPS DEVELOPER HAS ARIDE HOME WHEN DCD DC PLAN HOME NO SERVICES
[2024-12-04 16:17] LABS: Glucose, Whole Blood 95 mg/dL (60-115)
[2024-12-04 20:26] LABS: Glucose, Whole Blood 77 mg/dL (60-115)
[2024-12-04] MEDS: Doxepin HCl 25 MG CAPSULE PO (21:08)
[2024-12-05] MEDS: Acetaminophen 1,000 MG/100 ML PIGGYBACK 400 MG IV ×2 (02:35→07:47)
[2024-12-05 03:19] VITALS: BP 110/60; PULSE 83; RESP 18; TEMP 36.3; O2SAT 94
[2024-12-05] MEDS: Omeprazole 40 MG CAPSULE.DR PO (06:19)
[2024-12-05 07:17] VITALS: BP 104/55; PULSE 77; RESP 16; TEMP 36.2; O2SAT 94
[2024-12-05 07:43] LABS: Glucose, Whole Blood 94 mg/dL (60-115)
[2024-12-05] MEDS: oxyCODONE HCl Immed Release 5 MG TABLET PO ×2 (07:45→12:31)
[2024-12-05] MEDS: Pregabalin 75 MG CAPSULE PO (07:46)
[2024-12-05] MEDS: Docusate Sodium 100 MG CAPSULE PO (07:46)
[2024-12-05] MEDS: Potassium Chloride ER 10 MEQ TABLET.ER PO (07:46)
[2024-12-05] MEDS: hydroCHLOROthiazide 25 MG TABLET PO (07:46)
[2024-12-05] MEDS: metFORMIN HCl 1,000 MG TABLET 1000 MG PO (07:46)
[2024-12-05] MEDS: FLUoxetine HCl 20 MG CAPSULE 40 MG PO (07:46)
[2024-12-05] MEDS: Atorvastatin Calcium 10 MG TABLET PO (07:46)
[2024-12-05] MEDS: atenoloL 25 MG TABLET PO (07:47)
[2024-12-05] MEDS: Loratadine 10 MG TABLET PO (07:47)
[2024-12-05] MEDS: Ketorolac Tromethamine 15 MG/ML VIAL IVPUSH (07:47)
[2024-12-05] MEDS: lisinopriL 2.5 MG TABLET PO (07:47)
--- NOTE | 2024-12-05 08:10 | PC.NURSE ---
patient c/o burning at IV site with Tylenol administration. Infusion stopped and flushed - IV site patent, no redness or swelling noted. Patient did not want to continue with IV infusion.
[2024-12-05 08:56] VITALS: BP 104/55; PULSE 77; O2SAT 94
--- NOTE | 2024-12-05 09:20 | PM.DS ---
DS: Providers Provider Date of Service: 12/05/24 Date of admission: 12/03/24 09:12 Date of discharge: 12/05/24 Primary care physician: Kiel Rice MD DS: Summary Time Attestation Discharge Coordination Time (in mins): 12 Quality: Safe Use of Opioids Does Pt have an Active Cancer Diagnosis on the Problem List?: No Quality: Stroke Does the patient have a stroke diagnosis?: No Physical Exam Vital Signs: Vital Signs: Last Vital Signs Temp 97.1 F 12/05/24 07:17 Pulse 77 12/05/24 08:56 Resp 16 12/05/24 07:17 BP 104/55 L 12/05/24 08:56 Pulse Ox 94 12/05/24 08:56 O2 Del Method Room Air 12/05/24 07:17 O2 Flow Rate 1 12/03/24 20:16 BMI result Body Mass Index 44.1 DS: Data Data Completed and Pending Completed studies during hospitalization [Text1]: Procedures Dilation of Cystic Duct, Via Natural or Artificial Opening Endoscopic (07/21/21) Extraction of Cystic Duct, Via Natural or Artificial Opening Endoscopic, Diagnostic (07/21/21) Inspection of Retroperitoneum, Open Approach (11/12/24) Resection of Gallbladder, Percutaneous Endoscopic Approach (07/21/21) Labs on day of discharge: Laboratory Results - last 24 hr 12/04/24 12/04/24 12/04/24 11:17 16:14 20:11 POC Glucose 88 95 77 12/05/24 07:10 POC Glucose 94 Discharge Plan Discharge Anticipated Discharge Date/Time: 12/05/24 09:20 Patient Disposition: Home Health Service Discharge Diagnosis: s/p L2-3 Transkambin lumbar fusion Referrals: Kiel Rice MD [Primary Care Provider] - 1 Week Discharge Medications: New oxycodone 5 mg tablet See Rx Instructions .ROUTE .COMPLEX PRN (Reason: pain) Qty: 30 0RF Rx Instructions: Take 1-2 tablets by mouth every 4 hours. Partial Fill upon patient request. methocarbamol 750 mg tablet 750 mg PO TID Qty: 30 0RF hydroxyzine HCl 25 mg tablet 25 mg PO TID Qty: 30 0RF Continued cetirizine 10 mg tablet 1 tab PO DAILY doxepin 25 mg capsule 1 cap PO BEDTIME omeprazole 40 mg capsule,delayed release(DR/EC) 1 cap PO DAILY potassium chloride 10 mEq tablet,ER particles/crystals 1 tab PO DAILY@0800 metformin 1,000 mg tablet 1,000 mg PO BIDWMEAL Qty: 60 0RF Rx Instructions: Take 1 pill, daily, for 3 days and then initiate twice daily atorvastatin 10 mg tablet 10 mg PO DAILY pregabalin 50 mg capsule 75 mg PO BID polyethylene glycol 3350 [Miralax] 17 gram Powder In Packet 17 g PO DAILY PRN (Reason: Constipation) sennosides [senna] 8.6 mg Tablet 8.6 mg PO BEDTIME PRN (Reason: Constipation) Ozempic 1 mg/dose (4 mg/3 mL) pen injector 4 mg SUBCUT TH Patient Comments: patient takes every meloxicam 15 mg tablet 15 mg PO DAILY Rx Instructions: hasnt taken in weeks atenolol 25 mg tablet 25 mg PO DAILY fluoxetine 40 mg capsule 40 mg PO DAILY lisinopril 2.5 mg tablet 2.5 mg PO DAILY chlorthalidone 25 mg tablet 25 mg PO DAILY@0800 Discharge Orders: Discharge Order (Routine); Ordered 12/05/24 Ordered By: Casey Walker Diet: Advance to usual diet Activity on Discharge: As tolerated Stand Alone Forms: Patient Portal Discharge page Print Language: Citizen Of [place] Activity Restrictions/Additional Instructions: After your spinal surgery we ask you to observe the following restrictions/guidelines: Activity: It is normal to feel some discomfort as you increase your activity, but that will improve with time. We ask you avoid heavy lifting or acitivities that cause pain. As a general rule, 8lbs is a safe limit for lifting right after surgery. Walk as much as you feel comfortable but not to exhaustion. You will feel extra tired the first few days after surgery. Stay well hydrated. It is OK to walk up and down stairs You may return to driving when you are off narcotics (such as vicodin, oxycodone, dilaudid, etc), and you are back to normal functional capacity. If you have any concerns please check with office before driving. Return to work is specific to each patient and each surgery, so please speak with your doctor/PA at first follow up. Please bring paperwork such as FMLA at that time if you need it filled out. Medications: We will be sending in 3 medications for you after surgery. Oxycodone 5mg 1-2 tablets q4h as needed for pain. Please take gabapentin 300 mg 3 times daily, alongside hydroxyzine 25 mg 3 times daily, and continue to take your prescribed Lyrica. We recommend you take 1,000mg Tylenol every 8 hours for the first few weeks after surgery, if you do not have any liver issues and can tolerate this medication. Do not exceed 4,000mg daily. We will give you a short supply of narcotics after surgery (usually one weeks worth). If you need more please call the office but do not use more than prescribed. You will need to give our office 48 hours notice if you need narcotics refilled and we do not fill narcotics on weekends or evenings. If you are on a narcotic, it is a good idea to take a stool softener such as colace or senna to avoid constipation If you take blood thinner such as aspirin, Plavix, Coumadin, Effient, Eliquis etc for conditions such as Afib, DVT, Pulmonary embolus, coronary disease, stents etc please speak with your surgeon about specific details as to when you can resume these medications. You can resume NSAIDs on post op day 1 (eg: Motrin, Naproxen, etc). Follow up: Please call the office, , after surgery to arrange a 3 week follow up for wound check. Wound Care: You may remove your dressing on the first day after surgery. ?You may ?leave open to air. Please do not remove the steri strips underneath. they will fall off on their own in one week. IT IS NORMAL FOR THE WOUND TO OOZE OR BE BLOODY FOR A FEW DAYS AFTER SURGERY. ?IF THIS HAPPENS JUST PLACE NEW DRESSING OVER IT TO AVOID STAINING CLOTHES. You may shower on post op day # 1 We ask that you do not let the water soak the wound. If it does get wet, just towel dry lightly. Please do not scrub your incision or place any type of chemical/ointment on the wound. No tub baths, pools or jacuzzis for one month. If you have any leaking or redness from your wound, or fevers, please call the office. Care Plan Goals: Return to normal activity as tolerated Health Concerns: None Plan of Treatment: Follow-up in clinic in 2-3 weeks Assessment: POD: 2 Procedure: L2-3 TKLIF Ibis is a pleasant 64-year-old female who underwent L2-[address] Morataya two days ago. She had some difficulties with pain control mobility, therefore she was kept for an extra night in the hospital to work with physical therapy and get her pain under control. Today, she states that her left-sided leg pain has overall improved, and is only complaining of low back pain near the incision sites. She has continued to mobilize with Physical therapy is currently recommending at home PT. Afebrile, vital signs stable. Full strength 5/5 bilateral LE's. Back dressings have some staining without signs of hematoma. They were removed before DC. No active sanguineous drainage. Area is dry. Plan: Gabi 64-year-old female who underwent L2-[address] Morataya two days ago. She is progressing normally, but still having some low back pain. Her transient left leg pain is not a current complaint / issue. Patient meets criteria to be medically discharged home. She was seen and evaluated at bedside this morning by Dr. Morataya. Casey Morataya MD,PhD [facility]
--- NOTE | 2024-12-05 09:29 | W.MHC.F2F ---
Service Date Service Date: 12/05/24 Encounter Date of encounter: 12/05/24 Reasons for Services Signs and symptoms assessed: s/p L2-3 TKLIF Reason for physical therapy: home safety and mobility, therapeutic exercises, gait/transfer training and ADL training Homebound: Leaving the home is medically contraindicated at this time without the asist of a device and/or another person due th the listed conditions above and below. Reason homebound: unsteady gait / fall risk, leg weakness, pain with ambulation and weakness related to hospital stay Certification: Based on the above findings, I certify that this patient is confined to the home and needs intermittent correction care, physical therapy and/or speech therapy, or continues to need occupational therapy. The patient is under my care, and I have initiated the establishment of the plan of care. The patient will be followed by a physician who will periodically review the plan of care. Time Spent With Patient Time: Total time managing care of this patient today _22__ minutes.
--- NOTE | 2024-12-05 09:29 | HO.NEURO.PN ---
Neurosurgery Operative Note Date of Service: 12/05/24 Narrative: POD: 2 Procedure: L2-3 TKLIF Ibis is a pleasant 64-year-old female who underwent L2-[address] Morataya two days ago. She had some difficulties with pain control mobility, therefore she was kept for an extra night in the hospital to work with physical therapy and get her pain under control. Today, she states that her left-sided leg pain has overall improved, and is only complaining of low back pain near the incision sites. She has continued to mobilize with Physical therapy is currently recommending at home PT. Afebrile, vital signs stable. Full strength 5/5 bilateral LE's. Back dressings have some staining without signs of hematoma. They were removed before DC. No active sanguineous drainage. Area is dry. Plan: Pleasant 64-year-old female who underwent L2-[address] Morataya two days ago. She is progressing normally, but still having some low back pain. Her transient left leg pain is not a current complaint / issue. Patient meets criteria to be medically discharged home. She was seen and evaluated at bedside this morning by Dr. Morataya. Casey Morataya MD,PhD [facility]
--- NOTE | 2024-12-05 11:11 | MHC.CM.PN ---
Addendum entered by Micaela Cho 12/05/24 14:04: [facility] IS THE ONLY [facility] WILLING TO ACCEPT PT, THEY ARE BOOKING OUT 10-14 DAYS FOR PT CM CALLED [facility] FERNANDA RN WHO STATED [facility] NO LONGER HAS PT OR SN SERVICES PTS [facility] PROVIDER AND PT ARE AWARE PT ALSO HAS TWO MANAGER OF SALES FOR DAILY ASSISTANCE AT HOME [employer]UGH[facility] WILL PROVIDE TRANSPORT Original Note: PT CLEARED TO DC HOME TODAY WITH [facility] FOR HOME PT REFERRALS PLACED, AWAITING RESPONSES
[2024-12-05 11:37] LABS: Glucose, Whole Blood 86 mg/dL (60-115)
[2024-12-05 12:00] VITALS: BP 101/57; PULSE 70; RESP 18; TEMP 36.2; O2SAT 98
[2024-12-05 14:54] VITALS: BP 147/67; PULSE 80; RESP 14; TEMP 36.7; O2SAT 97
--- NOTE | 2024-12-05 15:08 | MHC.CM.PN ---
[facility] has accepted and can see patient within 48hrs. [facility] updated.
== END 2024-12-05 15:05 | disposition home health service (06) | DRG 451 ==
LOC: HO.SSSA 09:13 → HO.S3 14:00
PROVIDERS: Physician Assistant; Admitting Provider Neurological Surgery; PCP Internal Medicine Medical Oncology; Visit Provider Neurological Surgery
PROC: 0SG00A0 Fusion of Lumbar Vertebral Joint with Interbody Fusion Device, Anterior Approach, Anterior Column, Open Approach (ICD-10-PCS; principal; 2024-12-03 11:30)
DX: M48.061 Spinal stenosis, lumbar region without neurogenic claudication (principal); M51.369 Other intervertebral disc degeneration, lumbar region without mention of lumbar back pain or lower extremity pain; Z98.1 Arthrodesis status; Z87.891 Personal history of nicotine dependence; Z79.899 Other long term (current) drug therapy
CPT/HCPCS: 36415; 82565; 82947; 86850; 86900; 86901; 97116; 97161; C1713; C1889; J0131; J0330; J0665; J0666; J0690; J1171; J1885; J2003; J2371; J2704; J3010; L8699

== ENCOUNTER → 2024-12-03 09:12 | Outpatient (BNV) | payer OTHER, SELFPAY | PROVIDERS: Admitting Provider Neurological Surgery; PCP Internal Medicine Medical Oncology; Visit Provider Neurological Surgery | DX: Z48.89 Encounter for other specified surgical aftercare (principal) | CPT/HCPCS: 20930; 22558; 22612; 22840; 22853; 63056; 99024; 99499; G0180 ==

== ENCOUNTER 2024-12-24 13:16 | Outpatient (AMB) | payer OTHER, SELFPAY ==
--- NOTE | 2024-12-24 13:27 | HO.SPINEOV ---
Intake Visit Reasons: 1st post op Intake Note: Ms. Arriaga is here today for her 1st post op. [employer] Support Planner Required: No Allergies cortisone [CORTISONE] Allergy (Intermediate, Verified 11/12/24 09:16) RASH adhesive tape [ADHESIVE TAPE] Adverse Reaction (Unknown, Verified 11/12/24 09:16) UNKNOWN Emerson Allergy (Severe, Uncoded 12/03/24 09:19) Unknown Latex Allergy (Intermediate, Uncoded 11/12/24 09:16) redness Assessment & Plan Assessment & Plan (1) S/P lumbar fusion: Code(s): Z98.1 - Arthrodesis status Category: Surgical Plan L2-3 oblique lateral lumbar interbody fusion Ibis is a pleasant 64 year old female who comes in today for her 1st postoperative appointment. She underwent L2-[address] Morataya a few weeks ago. She reports that overall she has been doing very well since the surgery, but is still having quite a bit of posterior back pain. She reports that she has not been taking the oxycodone that we sent in for her as she feels it does not help with her pain. She instead has been utilizing [id number] medications. She has been working with home physical therapy to help with mobilization and basic ADLs. She asked several questions regarding the postoperative healing course all of which I answered to the best of my ability. No new neurological deficits. The patient ambulates well and rises from a seated position without difficulty. Her posterior & lateral incision sites are closed and well healing. I would like to follow up with Ibis again in 6 weeks and obtain a set of x-rays. Casye Morataya MD,PhD [facility] Orders: Orders XR lumbar spine 4V min Today Z98.1 - Arthrodesis status Coding Level of Care Code Global (43070) Diagnoses S/P lumbar fusion Z98.1
--- OUTSIDE RECORDS SUMMARY | 2024-12-24 15:09 | XMS_ITS | Clinical Summary ---
Author Organization 175 [facility] Address [address] [place] [address] Phone Care Team Providers Care Iron Pourer Name Role Phone Jaswant Hyatt MD Primary [...] Date Type Department Care Team Description 10/14/2024 [place] [facility] [address] [phone] Bishop White DPM [facility] Surgery with Dr [...] Description 04/11/2025 9:30 AM EDT Hospital Encounter [facility] Main OR [address] [place] [phone] Bishop White DPM [address] [address] 04/11/2025 9:30 AM EDT - 04/11/2025 11:30 AM EDT Surgery [facility] Main OR [address] [place] [phone] Bishop White, DPM 175 [facility] [address] [place] [address] EXCISION BONE SPUR RIGHT LOWER EXTREMITY [77167 (CPT??) +3 more] Scheduled Procedures Name Priority [...] ID:[id number] Group ID:[id number] Type:Not on file Address: [facility] [address] [id number] Care Teams Iron Pourer Relationship Specialty Start Date End Date Jaswant Hyatt MD Need Additional Information PCP - General Internal Medicine 03/28/18
== END 2024-12-24 13:43 | disposition home or self-care (01) ==
LOC: HO.HNS 13:17
PROVIDERS: PCP Internal Medicine Medical Oncology; Visit Provider Physician Assistant
DX: Z98.1 Arthrodesis status (principal)
CPT/HCPCS: 99024

== ENCOUNTER 2024-12-24 13:16 | Outpatient (REF) | payer OTHER, SELFPAY | END 2024-12-24 13:17 | disposition home or self-care (01) | LOC: HO.HOSX 13:16 | PROVIDERS: PCP Internal Medicine Medical Oncology; Visit Provider Physician Assistant | DX: Z98.1 Arthrodesis status (principal) | CPT/HCPCS: 99212 ==

== ENCOUNTER 2025-02-03 09:09 | Outpatient (REF) | payer OTHER, SELFPAY ==
--- NOTE | ~2025-02-03 | XR_ITS ---
EXAMINATION: X-ray lumbar spine. CLINICAL INFORMATION: Arthrodesis status. TECHNIQUE: AP and lateral views. Lateral views during flexion and extension.. COMPARISON: October 04, 2024. FINDINGS: Metallic hardware placed through the chest pedicle is screws L2 and L3, bilaterally. Intervertebral disc spacer placement at L2-3 and L3-4 levels. Multilevel endplate sclerosis and marginal osteophyte formation throughout the axial skeleton. 1 mm retrolisthesis at L2-3 in neutral position which maintains during flexion and extension position. Vascular clips right upper quadrant abdomen likely cholecystectomy. Vascular calcifications, aorta and iliac arteries. XR/XR lumbar spine 4V min IMPRESSION: Status post posterior lumbar fusion L2-3 and intervertebral disc spacer at L2-3 and L3-4. No gross instability. Multilevel thoracolumbar spondylosis. Electronically signed by: Sixto Russell MD 02/03/2025 02:18 PM EDT
--- OUTSIDE RECORDS SUMMARY | 2025-02-04 09:35 | XMS_ITS | Clinical Summary ---
Author Organization [facility] Address [address] [place] [address] [place] [phone] Phone Care Team Providers Care Fish Tender Name Role Phone Pcp, Unknown Primary Care [...] 01/02/2025 11:30 AM EDT Home Care Visit [facility] [address] [place] [phone] Sonja Gallegos, PT PT OASIS DISCHARGE VISIT 12/25/2024 9:30 AM EDT Home Care Visit [facility] [address] [place] [address] Sonja Gallegos, PT PT HOME VISIT 12/23/2024 9:00 AM EDT Home Care Visit [facility] [address] [place] [phone] Sonja Gallegos, PT PT HOME VISIT 12/23/2024 Episode Documentatio n [facility] [address] [place] [phone] Gina Mann 12/20/2024 12:00 PM EDT [facility] [address] [place] [address] Sonja Gallegos, PT PT HOME VISIT 12/19/2024 Episode Documentatio n Update [facility] [address] [place] [phone] Gina Mannn 12/17/2024 10:15 AM EDT [facility] [address] [place] [address] Sonja Gallegos, PT PT HOME VISIT 12/12/2024 10:15 AM EDT [facility] [address] [place] [address] Sonja Gallegos, PT PT HOME VISIT 12/09/2024 12:45 PM EDT Home [facility] Visit [facility] [address] [place] [address] Sonja Gallegos, PT PT HOME VISIT 12/07/2024 Episode Documentatio n Update [facility] [address] [place] [address] 12/06/2024 10:00 AM EDT [facility] [address] [place] [address] Sonja Gallegos, PT PT OASIS START OF CARE (SOC) 12/06/2024 Plan of Care Documentation [facility] [address] [place] [address] 12/05/2024 Orders Only [facility] [address] [place] [address] Homehealth, Interface ProviderMD from Last 3 Months [...] file Medical Devices Not on file Insurance [facility] MEDICARE REPLACEMENT [address] [id number] [facility] [place] [address] [facility] [place] [address] [facility] [place] [address] [facility] MEDICARE REPLACEMENT [facility] [employer] MEDICARE REPLACEMENT Care Teams Fish Tender Relationship Specialty Start Date End Date Pcp, Unknown PCP - General 07/17/24 Additional Source Comments The information contained in this document represents components of the legal health record. It is not the complete legal health record.[facility]
--- OUTSIDE RECORDS SUMMARY | 2025-02-04 09:35 | XMS_ITS | Encounter Summary ---
Author Organization [facility] Address [address] [place] [address] Care Team Providers Care Contact Centre Supervisor Name Role Phone Jaswant Hyatt MD Primary Care Provider Un available Reason for Visit * Reason Onset Date Comments Prior Authorization 02/03/2025 02/14/25 Dr. Cr White Encounter Details Date Type Department Care Team (Late st Contact Info) Description 02/03/2025 Telephone Orthopedic Surgery - [place] [address] [phone] Bishop White, DPM [address] [address] Prior Authorization (02/14/25 Dr. Bishop White) Social History Tobacco Use Types Packs/Day Years [...] as of this encounter Progress Notes * Leigha White - 02/03/2025 2:26 PM EDT She is having surgery with Dr. White on 02/14/25 at [facility]. She has [facility] for insurance. I faxed info to them for prior auth. documented in this encounter Plan of Treatment Upcoming Encounters Date Type Department Care Team (Late st Contact Info) Description 02/10/2025 8:00 AM EDT Consult Orthopedic Surgery - [place] [address] [phone] Bishop White DPM [address] [address] 02/14/2025 11:45 AM EDT Hospital Encounter [facility] Main [place] [address] [place] [phone] Bishop White DPM [address] [address] 02/14/2025 11:45 AM EDT - 02/14/2025 1:45 PM EDT Surgery [facility] OR [address] [place] [phone] Bishop White DPM [address] [address] EXCISION BONE SPUR RIGHT LOWER EXTREMITY [55309 (CPT ) +3 more] 02/27/2025 1:15 PM EDT Office Visit Orthopedic Surgery [place] [address] [phone] Bishop White DPM [address] [address] Scheduled Procedures Name Priority Associated Diagnoses Date/Ti me EXCISION BONE SPUR LOWER EXTREMITY Arthritis of right ankle Exostosis of right foot Acquired hammer toe of right foot Ingrowing nail Contracture of joint of right foot 02/14/2025 11:45 AM EDT documented as of this encounter Visit Diagnoses Not on filedocumented in this encounter Care Teams Contact Centre Supervisor Relationship Specialty Start Date End Date Jaswant Hyatt MD Need Additional Information PCP - General Internal Medicine 03/28/18 documented as of this encounter
== END 2025-02-03 09:10 | disposition home or self-care (01) ==
LOC: HO.HOSX 09:09
PROVIDERS: Visit Provider Physician Assistant
DX: Z47.89 Encounter for other orthopedic aftercare (principal); G89.29 Other chronic pain; M54.50 Low back pain, unspecified; M79.605 Pain in left leg; Z98.1 Arthrodesis status
CPT/HCPCS: 72110; 99212

== ENCOUNTER 2025-02-03 13:12 | Outpatient (AMB) | payer OTHER, SELFPAY ==
--- NOTE | 2025-02-03 13:19 | A.SPINEOV_ITS ---
Intake Visit Reasons: 2nd post op with Xrays Intake Note: Ms. Arriaga is here today for a 2nd post op with xrays. Director Of Billing Required: No Allergies cortisone (CORTISONE) Allergy (Intermediate, Verified 11/12/24 09:16) RASH adhesive tape (ADHESIVE TAPE) Adverse Reaction (Unknown, Verified 11/12/24 09:16) UNKNOWN Emerson Allergy (Severe, Uncoded 12/03/24 09:19) Unknown Latex Allergy (Intermediate, Uncoded 11/12/24 09:16) redness Assessment & Plan Assessment & Plan (1) Chronic low back pain: Code(s): M54.50 - Low back pain, unspecified; G89.29 - Other chronic pain Category: Medical Plan Mrs Arriaga is 2 months out from her L2-3 a trans Kambin lumbar interbody fusion. Unfortunately she still has back pain with muscle spasms and has been having ongoing leg pain, mostly in the left side down by her ankle. She has been doing physical therapy at home, but is interested in doing more activity with outpatient PT. her wounds have healed up beautifully. Her x-rays look great. If she is not feeling better in another few months and still having the pain going down the legs I will order a new MRI but I am optimistic this might improve with time and some therapy. I will see her back in 2 months. Jose Daniel Morataya MD, PhD [facility] Orders: Orders XR lumbar spine 4V min Today Z98.1 - Arthrodesis status PT Evaluation and Treatment Today G89.29 - Other chronic pain, M54.50 - Low back pain, unspecified Coding Level of Care Code Global (63376) Diagnoses Chronic low back pain M54.50; G89.29
--- OUTSIDE RECORDS SUMMARY | 2025-02-03 13:57 | XMS_ITS | Clinical Summary ---
Author Organization 175 [facility] Address [address] [place] [address] Phone Care Team Providers Care Embedded Hardware Engineer Name Role Phone Jaswant Hyatt MD Primary Care Provider Un available Allergies Active Allergy Reactions Criticality Noted Date Comments Cortisone Hives,Skin Problems High 03/18/2024 Latex Rash 03/18/2024 Medications atenoloL (TENORMIN) 50 mg tablet Take 50 mg by mouth daily. Active chlorthalidone (HYGROTON) 25 mg tablet Take 25 mg by mouth daily. Active diclofenac (VOLTAREN) 1 % topical gel Apply 4 g topically 2 times daily. 12/11/19 24 Active FLUoxetine (PROzac) 20 mg capsule Take 20 mg by mouth daily. Active magnesium aspart,citrate ,oxide (Triple Magnesium Complex) 400 mg magnesium capsule Take by mouth. Active meloxicam (MOBIC) 15 mg tablet Take 15 mg by mouth daily. Active omeprazole (PriLOSEC) [address] capsule Take 40 mg by mouth daily. Active pregabalin (LYRICA) 75 mg capsule Take 1 capsule (75 mg total) by mouth 2 (two) times a day. Max Daily Amount: 150 mg Active aspirin (ASPIR-81 ORAL) Take by mouth. 025 Discontinued gabapentin (NEURONTIN) 400 mg capsule Take 1 Capsule by mouth 3 times daily. 025 Discontinued oxyCODONE (ROXICODONE) 5 mg immediate release tablet Take one tablet every 4 hours as needed for pain 03/28/20 24 025 Discontinued sulfamethoxazo le-trimethopri m (BACTRIM DS,SEPTRA DS) 800-160 mg per tablet Take 1 tablet by mouth 2 times daily. 09/20/19 19 025 Discontinued Active Problems Problem Noted Date Diagnosed Date Arthritis of right ankle 07/30/2024 Exostosis of right foot 07/30/2024 Acquired hammer toe of right foot 07/30/2024 Ingrowing nail 07/30/2024 Contracture of joint of right foot 07/30/2024 Essential hypertension 12/29/2023 Lumbar radiculopathy 12/29/2023 Obesity 12/29/2023 Osteoarthritis of right knee 12/29/2023 Encounters Date Type Department Care Team Description 01/02/2025 Telephone Orthopedic Surgery - [place] [address] [phone] Bishop White DPM schedule surgery sooner than April from Last 3 Months Surgical History Surgery [...] - Inhaled Oxygen Concentration - - Weight 135 kg (297 lb) 01/28/2025 4:00 PM EDT Height 175.3 cm (5' 9 ) 06/18/2024 10:17 AM EST Body Mass Index 43.86 06/18/2024 10:17 AM EST Plan of Treatment Upcoming Encounters Date Type Department Care Team (Late st Contact Info) Description 02/10/2025 8:00 AM EDT Consult Orthopedic Surgery [facility] [address] [phone] Bishop White DPM [address] [address] 02/14/2025 11:45 AM EDT Hospital Encounter [facility] Main OR [address] [place] [phone] Bishop White DPM [address] [address] 02/14/2025 11:45 AM EDT - 02/14/2025 1:45 PM EDT Surgery [facility] Main OR [address] [place] [phone] Bishop White DPM [address] [address] EXCISION BONE SPUR RIGHT LOWER EXTREMITY [50527 (CPT ) +3 more] 02/27/2025 1:15 PM EDT Office Visit Orthopedic Surgery - [place] [address] [phone] Bishop White DPM [address] [address] Scheduled Procedures Name Priority Associated Diagnoses Date/Ti me EXCISION BONE SPUR LOWER EXTREMITY Arthritis of right ankle Exostosis of right foot Acquired hammer toe of right foot Ingrowing nail Contracture of joint of right foot 02/14/2025 11:45 AM EDT Health Maintenance Due Date Last [...] Panel) 04/17/2024 Colorectal Cancer Screening: Colonoscopy 04/17/2024 Falls Risk Assessment 04/17/2024 Hepatitis C Screening 04/17/2024 Hypertension/CHF/CAD Annual BMP Blood Test 04/17/2024 Medicare Annual Wellness Visit 04/17/2024 Osteoporosis Screening (Bone Density Screening) 04/17/2024 Social Influencers of Health Screening 04/17/2024 Depression Screening 07/10/2024 Influenza Vaccine (#1) 2025 HIB Vaccines Aged Out No longer [...] patient's age to complete this topic Insurance [facility] MEDICARE Member Subscriber Plan / Payer (Ef fective 2023-Present) Name:Ibis Arriaga Relation to Subscriber:Self Name:Ibis Arriaga Payer ID:[id number] Group ID:[id number] Type:Not on file Address: [place] [address] [id number] Care Teams Embedded Hardware Engineer Relationship Specialty Start Date End Date Jaswant Hyatt MD Need Additional Information PCP - General Internal Medicine 03/28/18
--- OUTSIDE RECORDS SUMMARY | 2025-02-03 13:57 | XMS_ITS | Clinical Summary ---
Author Organization [facility] Address [address] [place] [address] [place] [address] Phone Care Team Providers Care Motor Assembler Name Role Phone Pcp, Unknown Primary Care Provider Unavailabl e Allergies Active Allergy Reactions Criticality Noted Date Comments Adhesive Tape-Silicones 12/06/2024 Cortisone 12/06/2024 Latex 12/06/2024 Other 12/06/2024 won Medications methocarbamoL (ROBAXIN) 750 MG tablet Take 750 mg by mouth 3 (three) times a day. 5 Active hydrOXYzine (ATARAX) 25 MG tablet Take 25 mg by mouth 3 (three) times a day. 5 Active cetirizine (ZYRTEC) 10 MG tablet Take 10 mg by mouth daily. 5 Active doxepin (SINEQUAN) 25 MG capsule Take 25 mg by mouth nightly at bedtime. 5 Active omeprazole (PRILOSEC) 40 MG capsule Take 40 mg by mouth daily. 5 Active potassium chloride SA (KLOR-CON M20) 20 MEQ ER tablet Take 10 mEq by mouth daily. 5 Active metFORMIN (GLUCOPHAGE) 1000 MG tablet Take 1,000 mg by mouth 2 (two) times a day with meals. 5 Active atorvastatin (LIPITOR) 10 MG tablet Take 10 mg by mouth daily. 5 Active pregabalin (LYRICA) 75 MG capsule Take 75 mg by mouth 2 (two) times a day. Active semaglutide (OZEMPIC) 1 mg/dose (4 mg/3 mL) subcutaneous injection pen Inject 4 mg under the skin every 7 days. on Active meloxicam (MOBIC) 15 MG tablet Take 15 mg by mouth daily. Active atenolol (TENORMIN) 25 MG tablet Take 25 mg by mouth daily. Active FLUoxetine (PROZAC) 40 MG capsule Take 40 mg by mouth daily. Active lisinopril (PRINIVIL,ZESTRIL ) 2.5 MG tablet Take 2.5 mg by mouth daily. Active chlorthalidone (HYGROTON) 25 MG tablet Take 25 mg by mouth daily. Active magnesium oxide (MAG-OX) 400 mg (241.3 mg elemental) tablet Take 400 mg by mouth 2 (two) times a day. Active docusate sodium (COLACE) 50 MG capsule Take 50 mg by mouth 2 (two) times a day as needed for mild constipation. Active Encounters Date Type Department Care Team Description 01/02/2025 11:30 AM EDT Home Care Visit [facility] [address] [place] [phone] Sonja Gallegos, PT PT OASIS DISCHARGE VISIT 12/25/2024 9:30 AM EDT Home Care Visit [facility] [address] [place] [address] Sonja Gallegos, PT PT HOME VISIT 12/23/2024 9:00 AM EDT Home Care Visit [facility] [address] [place] [phone] Sonja Galelgos, PT PT HOME VISIT 12/23/2024 Episode Documentatio n [facility] [address] [place] [phone] Gina Mann 12/20/2024 12:00 PM EDT [facility] [address] [place] [address] Sonja Gallegos, PT PT HOME VISIT 12/19/2024 Episode Documentatio n Update [facility] [address] [place] [phone] Gina Mannn 12/17/2024 10:15 AM EDT [facility] [address] [place] [address] Sonja Gallegos, PT PT HOME VISIT 12/12/2024 10:15 AM EDT Home Care Visit [facility] [address] [place] [address] Sonja Gallegos, PT PT HOME VISIT 12/09/2024 12:45 PM EDT Home [facility] Visit [facility] [address] [place] [address] Sonja Gallegos, PT PT HOME VISIT 12/07/2024 Episode Documentatio n Update [facility] [address] [place] [address] 12/06/2024 10:00 AM EDT Home [facility] [address] [place] [address] Sonja Gallegos, PT PT OASIS START OF CARE (SOC) 12/06/2024 Plan of Care Documentation [facility] [address] [place] [address] 12/05/2024 Orders Only [facility] [address] [place] [address] Homehealth, Interface ProviderMD from Last 3 Months Social History Tobacco Use Types Packs/Day Years Used Date Smoking Tobacco: Never Assessed Home Health Assessment: Transportation Answer Date Recorded Lack of Transportation (Medical) No 01/02/2025 Lack of Transportation (Non-Medical) No 01/02/2025 Patient Unable or Declines to Respond No 01/02/2025 Education Answer Date Recorded Are you interested in more education? Not on mckenna e 11/05/2022 Are you concerned about learning? Not on file 11/05/2022 No 11/05/2022 No 11/05/2022 Digital Access Answer Date Recorded No 12/06/2022 No 12/06/2022 Reliable internet access at home? Not on file 12/06/2022 Device with a working camera? Not on file Comments Unknown Sex and Gender Information Value Date Recorded Sex Assigned at Not on file Legal Sex Female 1:42 PM EST Gender Identity Not on file Sexual Orientation Not on file Last Filed Vital Signs Vital Sign Reading Time Taken Comments Blood Pressure 106/64 12/25/2024 9:40 AM EDT Pulse 78 12/25/2024 9:40 AM EDT Temperature 36.4 C (97.5 F) 12/25/2024 9:40 AM EDT Respiratory Rate - - Oxygen Saturation 97% 12/25/2024 9:40 AM EDT Inhaled Oxygen Concentration - - Weight - - Height - - Body Mass Index - - Plan of Treatment Not on file Medical Devices Not on file Insurance [facility] REPLACEMENT Member Subscriber Plan / Payer (Ef fective 2023-Present) Name:Ibis Arriaga Relation to Subscriber:Self Name:Ibis Arriaga Payer ID:[id number] (NAIC) [id number] [place]icare Address: [place] [address] [address] [id number] [facility] [place] [place] [address] [facility] [place] [address] [facility] [place] [address] [facility] MED[facility] REPLACEMENT [facility] [employer] MEDICARE REPLACEMENT Care Teams Motor Assembler Relationship Specialty Start Date End Date Pcp, Unknown PCP - General 07/17/24 Additional Source Comments The information contained in this document represents components of the legal health record. It is not the complete legal health record.[facility]
== END 2025-02-03 14:15 | disposition home or self-care (01) ==
LOC: HO.HNS 13:12
PROVIDERS: PCP Nurse Practitioner Family; Visit Provider Physician Assistant
DX: M54.50 Low back pain, unspecified (principal); G89.29 Other chronic pain
CPT/HCPCS: 99024

== ENCOUNTER → 2025-02-03 13:20 | Outpatient (BNV) | payer OTHER, SELFPAY | PROVIDERS: Visit Provider Radiology Diagnostic Radiology | DX: Z98.1 Arthrodesis status (principal); M47.815 Spondylosis without myelopathy or radiculopathy, thoracolumbar region | CPT/HCPCS: 72110 ==

== ENCOUNTER 2025-04-04 13:20 | Outpatient (AMB) | payer OTHER, SELFPAY ==
--- OUTSIDE RECORDS SUMMARY | 2025-04-02 13:00 | XMS_ITS | Encounter Summary ---
Author Organization [facility] Address [address] [place] [address] Care Team Providers Care Reproduction Technician Name Role Phone Jaswant Hyatt MD Primary Care Provider Un available Reason for Visit * Reason Comments Post-op Excision of bone spu r Encounter Details Date Type Department Care Team (Late st Contact Info) Description 04/02/2025 1:00 PM EDT Office Visit Orthopedic Surgery - [place] [address] [phone] Bishop White DPM [address] [phone] Post-operative state (Primary Dx) Social History Tobacco Use Types Packs/Day Years Used Date Smoking Tobacco: Former Cigarettes Q uit: 2014 Smokeless Tobacco: Never Alcohol Use Standard Drinks/Week Comments Yes 0 (1 standard drink = 0.6 oz pur e alcohol) rarely Interpersonal Safety Answer Date Record ed Physical Abuse 03/07/2025 Verbal Abuse 03/07/2025 Comments No Sex and Gender Information Value Date Recorded Sex Assigned at Not on file Legal Sex Female 10:01 AM EST Gender Identity Not on file Sexual Orientation Not on file documented as of this encounter Progress Notes * Bishop White DPM - 04/02/2025 1:00 PM EDT S Patient status post surgery on 03/07/2025 right foot hammertoe correction exostectomy permanent nailremoval. Patient is she has been heavily active on right foot against medical recommendations states she has not been using crutches or assistive walking devices notes her pain is well-controlled states that she is very frustrated with the pain and stitches and is ready to get her foot wet ROS: GENERAL: Pt denies nausea, fever, vomiting, [...] degrees, plantar flexion WNL. No muscle atrophy. DERMATOLOGICAL:.Sutures are intact wires intact BIOMECHANICS: STJ ROM wnl, MTJ ROM restriction noted right improved position right second digit IMAGING: Wire bedtime radiographs secondary to activity IMPRESSION: 1. Post-operative state PLAN: Pt was seen and examined, history reviewed. Sutures removed wire removedas wire is getting bent with patient's heavy activity against recommendations Encourage patient to minimize heavy activity utilize crutches and keep her weight to the heel and through the ball of her foot Follow-up in 1 month return to normal bathing habits in 5 days Bishop White DPM documented in this encounter Plan of Treatment Upcoming Encounters Date Type Department Care Team (Late st Contact Info) Description 04/30/2025 11:00 AM EDT Office Visit Orthopedic Surgery - [place] [address] [phone] Bishop White DPM [address] [phone] documented as of this encounter Visit Diagnoses Diagnosis Post-operative state- Primary Other postprocedural status documented in this encounter Care Teams Reproduction Technician Relationship Specialty Start Date End Date Jaswant Hyatt MD Need Additional Information PCP - General Internal Medicine 03/28/18 documented as of this encounter
--- NOTE | 2025-04-04 13:24 | A.SPINEOV_ITS ---
Intake Visit Reasons: 2 months f/up Intake Note: Ms. Arriaga is here today for her 2 month F/u. 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 She had been doing okay, her back pain is better than it was before surgery. The left leg pain she was having also seems to be better. She recently had a foot operation so she has been dealing with some pain and discomfort from that. Overall I think she has done well with this operation and that she will continue to improve. At this point she has no specific restrictions outside of 1 more month of doing no heavy lifting. We can see her back on an as-needed basis if something changes down the road. Jose Daniel Morataya MD, PhD [facility] Coding Level of Care Code Global (74090) Diagnoses Lumbar spinal stenosis M48.061
--- OUTSIDE RECORDS SUMMARY | 2025-04-04 14:34 | XMS_ITS | Clinical Summary ---
Author Organization 175 [facility] Address [address] [place] [address] Phone Care Team Providers Care Bioprocess Engineer Name Role Phone Jaswant Hyatt MD Primary Care Provider Un available Allergies Active Allergy Reactions Criticality Noted Date Comments Adhesive Tape-Silicones Medium 12/06/2024 Cortisone Hives,Skin Problems High 03/18/2024 Latex Rash Medium 03/18/2024 Medications atenoloL (TENORMIN) 50 mg tablet Take 0.5 tablets (25 mg total) by mouth 1 (one) time each day. Active chlorthalidone (HYGROTON) 25 mg tablet Take 25 mg by mouth daily. Active FLUoxetine (PROzac) 20 mg capsule Take 20 mg by mouth daily. Active magnesium aspart,citrate, oxide (Triple Magnesium Complex) 400 mg magnesium capsule 1 (one) time each day. Active meloxicam (MOBIC) 15 mg tablet Take 15 mg by mouth daily. Active omeprazole (PriLOSEC) [address] capsule 1 capsule (40 mg total). Active pregabalin (LYRICA) 75 mg capsule Take 1 capsule (75 mg total) by mouth 2 (two) times a day. Active semaglutide 1 mg/0.2 mL syringe Inject under the skin. LAST DOSE 02/1425 Active metFORMIN (GLUCOPHAGE) 1,000 mg tablet Take 1 tablet (1,000 mg total) by mouth 2 (two) times a day with meals. Active lisinopriL (PRINIVIL,ZESTR IL) 2.5 mg tablet Take 1 tablet (2.5 mg total) by mouth 1 (one) time each day. Active doxepin (SINEquan) 25 mg capsule Take 1 capsule (25 mg total) by mouth at bedtime. Active HYDROmorphone (DILAUDID) 2 mg tabletIndicatio ns:Exostosis of right foot Take 1 tablet (2 mg total) by mouth every 4 (four) hours if needed for severe pain for up to 7 days. Max Daily Amount: 12 mg 25 tablet 03/07/2025 03/14/20 25 acetaminophen (TYLENOL 8 HOUR) 650 mg 8 hr tablet Take 1 tablet (650 mg total) by mouth every 8 (eight) hours if needed for mild pain for up to 10 days. Do not crush, chew, or split. 30 tablet 03/07/2025 03/17/20 25 HYDROmorphone (DILAUDID) 2 mg tabletIndicatio ns:Arthritis of right ankle Take 1 tablet (2 mg total) by mouth every 4 (four) hours if needed for severe pain for up to 5 days. Max Daily Amount: 12 mg 25 tablet 03/07/2025 03/12/20 25 acetaminophen (TYLENOL 8 HOUR) 650 mg 8 hr tablet Take 1 tablet (650 mg total) by mouth every 8 (eight) hours if needed for mild pain for up to 10 days. Do not crush, chew, or split. 30 tablet 03/07/2025 03/17/20 25 HYDROmorphone (DILAUDID) 2 mg tabletIndicatio ns:Exostosis of right foot Take 1 tablet (2 mg total) by mouth every 4 (four) hours if needed for severe pain for up to 5 days. Max Daily Amount: 12 mg 25 tablet 03/07/2025 03/12/20 25 Active Problems Problem Noted Date Diagnosed Date Diabetes mellitus, type 2 ([facility] V24, [facility] V28) 03/07/2025 Arthritis of right ankle 07/30/2024 Exostosis of right foot 07/30/2024 Acquired hammer toe of right foot 07/30/2024 Ingrowing nail 07/30/2024 Contracture of joint of right foot 07/30/2024 Essential hypertension 12/29/2023 Lumbar radiculopathy 12/29/2023 Obesity 12/29/2023 Osteoarthritis of right knee 12/29/2023 Encounters Date Type Department Care Team Description 04/02/2025 1:00 PM EDT Office Visit Orthopedic Surgery [facility] [address] [phone] Bishop White DPM Post-operative state (Primary Dx) 03/20/2025 1:15 PM EDT Office Visit Orthopedic [facility] [address] [phone] Bishop White DPM Post-operative state (Primary Dx) 03/07/2025 7:32 AM EDT Anesthesia Event [facility] OR [address] [place] [phone] Dee Dee Berg MD Couture, Alison, CRNA 03/07/2025 7:30 AM EDT - 03/07/2025 9:15 AM EDT Surgery [facility] OR [address] [place] [phone] Bishop White DPM EXCISION BONE SPUR LOWER EXTREMITY [56039 (CPT ) +2 more] 03/07/2025 5:39 AM EDT - 03/07/2025 11:01 AM EDT Hospital Encounter [facility] OR [address] [place] [phone] Bishop White DPM Contracture of joint of right foot (Primary Dx); Exostosis of right foot; Acquired hammer toe of right foot; Ingrowing nail; Arthritis of right ankle Discharge Disposition: Home or Self Care 02/14/2025 7:11 AM EDT - 02/14/2025 11:59 PM EDT Hospital Encounter [facility] OR [address] [place] [phone] Bishop White DPM Discharge Disposition: Home or Self Care 02/10/2025 8:00 AM EDT Consult Orthopedic [facility] [address] [phone] Bishop White DPM Acquired hammer toe of right foot (Primary Dx); Exostosis of right foot; Arthritis of right ankle; Ingrowing nail; Contracture of joint of right foot 02/03/2025 Telephone Orthopedic Surgery [facility] [address] [phone] Bishop White DPM 01/02/2025 Telephone Orthopedic Surgery [facility] [address] [phone] Bishop White DPM from Last 3 Months Surgical History Surgery Date Site/Laterality Comments TUBAL LIGATION PROCEDURE: HISTORICAL TUBAL LIGATION BREAST LUMPECTOMY Left PROCEDURE: HISTORICAL BREAST LUMPECTOMY LUMBAR LAMINECTOMY 07/10/2024 - 07/09/2025 PROCEDURE: HISTORICAL LUMB LAMINECTOMY CHOLECYSTECTOMY KNEE ARTHROPLASTY Left FOOT SURGERY CARPAL TUNNEL RELEASE Bilateral Medical History Medical History Date Comments Essential hypertension DX:Essent ial hypertension GERD (gastroesophageal reflux disease) DX:GERD (gastroesophageal reflux disease) Depression DX:Depression Spinal stenosis DX:Spinal stenos is Arthritis Joint pain Neuromuscular disorder ([facility] V24, [facility] V28) Family History Medical History Relation Name Comments Hypertension Father Relation Name Status Comments Father Social History Tobacco Use Types Packs/Day Years Used Date Smoking Tobacco: Former Cigarettes Q uit: 2015 Smokeless Tobacco: Never Tobacco Cessation:Counseling Given: Not Answered Alcohol Use Standard Drinks/Week Comments Yes 0 [...] Sign Reading Time Taken Comments Blood Pressure 110/69 03/07/2025 9:28 AM EDT Pulse 72 03/07/2025 9:28 AM EDT Temperature 36.3 C (97.4 F) 03/07/2025 9:28 AM EDT Respiratory Rate 18 03/07/2025 9:28 AM EDT Oxygen Saturation 100% 03/07/2025 9:28 AM EDT Inhaled Oxygen Concentration - - Weight 134 kg (295 lb) 02/28/2025 4:00 PM EDT Height 175.3 cm (5' 9 ) 02/28/2025 4:00 PM EDT Body Mass Index 43.56 02/28/2025 4:00 PM EDT Plan of Treatment Upcoming Encounters Date Type Department Care Team (Late st Contact Info) Description 04/30/2025 11:00 AM EDT Office Visit Orthopedic Surgery - [place] [address] [phone] Bishop White, DPM [address] [phone] Health Maintenance Due Date Last Done Comments Breast Cancer Screening 1958 Diabetes: Annual GFR (Glomer ular Filtration Rate) 1958 Diabetes: Annual Foot Exam 1968 Diabetes: Annual Retina Eye Exam 1968 DTaP,Tdap,and Td Vaccines (1 - Tdap) 1977 Pneumococcal Vaccine: 50+ Ye ars (1 of 2 - PCV) 1977 Zoster Vaccines (1 of 2) 2008 RSV Immunization Adult Patie nts (1 - Risk 60-74 years 1-dose series) 2018 Cholesterol Screening (Lipid Panel) 04/17/2024 Colorectal Cancer Screening: Colonoscopy 04/17/2024 Hepatitis C Screening 04/17/2024 Hypertension/CHF/CAD Annual BMP Blood Test 04/17/2024 Medicare Annual Wellness Visit 04/17/2024 Osteoporosis Screening (Bone Density Screening) 04/17/2024 Social Influencers of Health Screening 04/17/2024 Depression Screening 07/10/2024 Diabetes: Annual Urine Albumin-Creatinine Ratio (uACR) 02/10/2025 Diabetes: Blood Sugar Contro l Test (HGBA1C) 02/10/2025 COVID-19 Vaccine (2 - 2024-2 6 season) 2025 02/22/2021 Influenza Vaccine (#1) 2025 Falls Risk Assessment 03/07/2026 03/07/2025 HIB Vaccines Aged Out No longer eligi [...] Associated Diagnosis Comments XR FOOT 3+ VIEWS RIGHT Routine 03/20/2025 1:03 PM EDT Post-operative state XR FOOT 3+ VIEWS RIGHT Routine 03/07/2025 9:27 AM EDT OXYGEN THERAPY, ADULT Routine 03/07/2025 8:47 AM EDT TISSUE EXAM Routine 03/07/2025 8:14 AM EDT Exostosis of right foot Acquired hammer toe of right foot Ingrowing nail TH AN LMA(NO CHARGE) Routine 03/07/2025 7:55 AM EDT IA EXCISION NAIL/NAIL MATRIX PARTIAL/COMPLETE PERMANENT REMOVAL 03/07/2025 7:32 AM EDT Exostosis of right foot Acquired hammer toe of right foot Ingrowing nail Contracture of joint of right foot Case Notes MINI C-ARM , K WIRES IA CORRECTION HAMMERTOE 03/07/2025 7:32 AM EDT Exostosis of right foot Acquired hammer toe of right foot Ingrowing nail Contracture of joint of right foot Case Notes MINI C-ARM , K WIRES IA PARTIAL EXCISION BONE TARSAL OR METATARSAL BONE EXCEPT TALUS/CALCANEUS 03/07/2025 7:32 AM EDT Exostosis of right foot Acquired hammer toe of right foot Ingrowing nail Contracture of joint of right foot Case Notes MINI C-ARM , K WIRES POCT GLUCOSE BLOOD Routine 03/07/2025 6: 06 AM EDT POCT GLUCOSE BLOOD Routine 02/14/2025 7: 35 AM EDT from Last 3 Months Results * XR Foot 3+ Views Right (03/20/2025 1:03 PM EDT) Only the most recent of2 resultswithin the time period is included. Anatomical Region Laterality Modality Lower Extremities, Foot Right Computed Radiography Narrative 03/20/2025 7:27 PM EDT Right foot 3 views Stable without changes without signs of hardware failure Some bending of the wire noted without fracture us Bishop White DPM IMG XR PROCEDURES Final R esult * Tissue exam (03/07/2025 8:14 AM EDT) Addendum B) ONYCHOMYCOSIS -GMS stain positive for fungal hyphae (control stain appropriate) 5 5:29 PM EDT [facility] Addendum electronically signed by Salazar Zepeda MD on 03/13/2025 at 5:29 PM Final Diagnosis A. Toe, Right, second phalangeal bone and foot mid tarsal bone: -DEGENERATIVE OSTEOARTHROPATHY, CONSISTENT WITH HAMMERTOE DEFORMITY/ EXOSTOSIS B. Toe, Right, toe nail: -NAIL PLATE MATERIAL -See addendum for GMS stain 5:29 PM EDT [facility] Gross Description A. Toe, Right, second phalangeal bone and foot mid tarsal bone: Labeled toe R, right sec . Received in formalin are two quintana-white to yellow bone fragments, each measuring approximately 1 x 0.6 x 0.4 cm. One of the fragments has a quintana-white smooth, glistening articular surface. The cut surfaces are pink-yellow and trabecular. There is minimal attached quintana-white fibrous tissue. The articular fragment is bisected. The specimen is entirely submitted in one cassette following decalcification, three pieces. B. Toe, Right, toe nail: Labeled toe R, right sec . Received in formalin are two irregular mena-white toenail fragments, measuring 1.4 x 0.5 cm and 1.6 x 0.6 cm. The tissues are longitudinally bisected, wrapped in paper, and entirely submitted in one cassette following brief treatment with sodium hydroxide, four pieces. ML 5:29 PM EDT [facility] Disclaimer NOTE: The immunohistochemical tests and in situ hybridization tests were developed and their performance characteristics were determined by [facility]. They have not been cleared or approved by the U.S. Food and Drug Administration. The FDA has determined that such clearance or approval is not necessary. These tests are used for clinical purposes. They should not be regarded as investigational or for research. This laboratory is certified under the Clinical Laboratory Improvement Amendments of 1988 (CLIA) as qualified to perform high complexity clinical laboratory testing. (controls appropriate) Unless otherwise specified, all tissue is 10% NB formalin fixed and paraffin embedded. 5 5:29 PM EDT [facility] Bone Structure of toe of right foot / Unknown 03/07/2025 8:14 AM EDT 03/07/2025 10:23 AM EDT Nail specimen (specimen) Structure of toe of right foot / Unknown 03/07/2025 8:30 AM EDT 03/07/2025 10:23 AM EDT Bishop White DPM LAB PATHOLOGY ORDERABLES Edited Result - Final [facility] [address] [place] [address], * TH AN LMA(NO CHARGE) (03/07/2025 7:55 AM EDT) Narrative Mino Vega CRNA - 03/07/2025 7:55 AM EDT Mino Vega CRNA 03/07/2025 7:57 AM General Information and Staff Patient location during procedure: OR Performed by: Mino Vega CRNA Authorized by: Dee Dee Berg MD Intubation Airway not difficult Urgency: elective Final Airway Details Number of attempts at approach: 1 Ventilation between attempts: none Number of other approaches attempted: 0 LMA Size: 5 LMA Type: Classic LMA Seal Pressure: Final airway type: LMA Indications and Patient Condition Indications for airway management: anesthesia Spontaneous ventilation: present Sedation level: Yes Preoxygenated: yes Soft Tissue Damage: No Dentition Unchanged: Yes Patient position: neutral MILS maintained throughout Mask difficulty assessment: 0 - not attempted Start Time: 03/07/2025 7:40 AMStop Time: 03/07/2025 7:40 AM us Dee Dee Berg MD ANESTHESIA ORDERABLES Final Resu lt * (ABNORMAL) POCT Glucose, blood (03/07/2025 6:06 AM EDT) Only the most recent of2 resultswithin the time period is included. Glucose POCT 130(H) 70 - 100 mg/dL 03/07/2025 6:07 AM EDT [facility] Blood Capillary blood specimen / Unknown 03/07/2025 6:06 AM EDT 03/07/2025 6:08 AM EDT us Bishop White DPM LAB POINT OF CARE TEST DOCKED DEVICE UNSOLICITED RESULTS Final Result [facility] [address] [place] [address], [place] [phone] from Last 3 Months Insurance [facility] MEDICARE Member Subscriber Plan / Payer (Ef fective 2023-Present) Name:EDGARDO ARRIAGA Relation to Subscriber:Self Name:Edgardo Arriaga Payer ID:[id number] Group ID:[id number] Type:Not on file Address: [address] [facility] [place] [address] Care Teams Bioprocess Engineer Relationship Specialty Start Date End Date Jaswant Hyatt MD Need Additional Information PCP - General Internal Medicine 03/28/18
--- OUTSIDE RECORDS SUMMARY | 2025-04-04 14:34 | XMS_ITS | Clinical Summary ---
Author Organization [facility] Address [address] [place] [address] [place] [phone] Phone Care Team Providers Care Scale Agent Name Role Phone Pcp, Unknown Primary Care [...] 01/02/2025 11:30 AM EDT Home Care Visit [facility] [address] [place] [phone] Sonja Gallegos, PT PT OASIS DISCHARGE VISIT from Last 3 Months Social History Tobacco [...] file Medical Devices Not on file Insurance [facility] MEDICARE REPLACEMENT [facility] MEDICARE REPLACEMENT [facility] MEDICARE REPLACEMENT [facility] MEDICARE REPLACEMENT [facility] MEDICARE REPLACEMENT [facility] MEDICARE REPLACEMENT [facility] Care Teams Scale Agent Relationship Specialty Start Date End Date Pcp, Unknown PCP - General 07/17/24 Additional Source Comments The information contained in this document represents components of the legal health record. It is not the complete legal health record.[facility]
== END 2025-04-04 14:49 | disposition home or self-care (01) ==
LOC: HO.HNS 13:20
PROVIDERS: PCP Family Medicine; Visit Provider Physician Assistant
DX: M48.061 Spinal stenosis, lumbar region without neurogenic claudication (principal)
CPT/HCPCS: 99024

== ENCOUNTER → 2025-04-04 13:20 | Outpatient (BNVA) | payer OTHER, SELFPAY | PROVIDERS: PCP Family Medicine; Visit Provider Physician Assistant | DX: Z98.890 Other specified postprocedural states (principal); M48.061 Spinal stenosis, lumbar region without neurogenic claudication | CPT/HCPCS: 99212 ==

== ENCOUNTER 2025-05-07 13:50 | Outpatient (RCR) | payer OTHER, SELFPAY ==
--- NOTE | 2025-03-24 16:11 | MHC.PT.EP ---
[facility] [place] Office [place] Office [place] Office [address] 155 Graciela Bland [address] [phone] F: [phone] F: [phone] F: [phone] F: [phone] Physical Therapy Plan of Care Date of Evaluation: 03/24/25 Date of Surgery: 12/03/24 Diagnosis: Preoperative diagnosis: degenerative disc disease L2-3 post-op diagnosis; status post L3-4 lumbar fusion (D[facility]: 12/03/24[facility]) RS Assessment: Ibis Arriaga (: 58) is a 64 y.o. female who is referred to PT by Jose Daniel Hayes PA-C of [facility] with Dx of Preoperative diagnosis: degenerative disc disease L2-3; post-op diagnosis; status post L3-4 lumbar fusion (DOS: 12/03/24, [facility]). Patient impairments include pain, radicular sxs in LEs, limited lumbar ROM, weakness in LEs and core musculature, antalgic gait pattern with AD use, poor body mechanics and transfers. Patient current functional limitations are walking, bend/squat, prolonged standing, cooking, cleaning, bathing independently. Patient will benefit from skilled PT to address aforementioned impairments and functional limitations to meet established goals. Frequency and Duration: The patient will be seen 2x/week for 4 weeks Short Term Goals: 2 weeks Patient demonstrates consistency and independence with HEP to self manage symptoms. Snf Goals: 4 weeks Patient presents with increased bilateral hip flexion strength 4/5 to be able to bend/squat to perform cooking/cleaning around the house, promoting more independence. Patient presents with increased lumbar flexion 80 degrees to be able to perform lower body dressing independently. Treatment Plan: Modalities to reduce pain, spasms and effusion. Manual therapy to restore motion and function. Therapeutic exercise to improve strength and flexibility. Neuromuscular re-education for posture and balance. Therapeutic activities to return to functional activities of daily living. Electronically signed by: Tiffanie Moore, PT, DPT Please sign and return to therapist. Thank you for your referral.
--- NOTE | 2025-05-21 10:20 | MHC.PT.DC ---
[facility] [place] Office [place] Office [place] Office [address] Ila Bland 140 [facility] [phone] F: [phone] F: [phone] F: [phone] F: [phone] Physical Therapy Discharge Report Diagnosis: Preoperative diagnosis: degenerative disc disease L2-3 post-op diagnosis; status post L3-4 lumbar fusion (DOS: 12/03/24[facility]) RS Date of Surgery: 12/03/24 Date of Evaluation: 03/24/25 Date of Discharge: 05/21/25 Treatments to Date: 8 Cancellations to Date: 2 No Shows to Date: 0 Discharge Status: Improved Function Independent with HEP Discharge Summary: The patient had fair compliance with recommendations and exercise program from physical therapy. She is not motivated to improve her health outcomes despite multiple attempts at education on importance of general activity for health and wellness. She has a basic supine and standing core and pelvic stability program with which she was encouraged to continue on her own. She reported a statistically significant improvement in her self-reported outcome measure, Modified Oswestry, compared to her initial evaluation. She is discharged at this time. Electronically signed by: Lakeisha Sewell PT, DPT Please sign and return to therapist. Thank you for your referral.
== END 2025-05-21 10:21 | disposition home or self-care (01) ==
LOC: HO.PT 13:50
PROVIDERS: Visit Provider Physician Assistant
DX: M54.50 Low back pain, unspecified (principal); G89.29 Other chronic pain; Z98.1 Arthrodesis status
CPT/HCPCS: 97110; 97140; 97162; 97535

== ENCOUNTER 2025-07-08 13:23 | Outpatient (AMB) | payer OTHER, SELFPAY ==
--- OUTSIDE RECORDS SUMMARY | 2025-07-04 23:59 | XMS_ITS | Continuity of Care Document ---
Author Organization [facility] Address [address] [place] [address]- Care Team Providers Care Director Of Pharmacy Name Role Phone Fili FOOT AND ANKLE SURGEON, Yumiko Echols Primary Care Physici an Encounter [facility] Date(s): 06/04/25 - 07/04/25 [facility] [address] [place] [address]- Encounter Type: Triage Allergies, Adverse Reactions, Alerts Substance Criticality Severity Reaction Reaction Severity Status cortisone hives Active Latex Active Immunizations Given and Recorded Vaccine Date Status Refusal Reason SARS-CoV-2 (COVID-19) Ad26 vaccine 02/22/21 Record ed Medications acetaminophen 325 mg oral tablet 650 mg, By Mouth, Every 6 hours, May take OTC not to exceed 3000 mg/day, Refills 0, Maintenance, 01/01/22 6:47:00 AM EDT, Partial fill upon patient request if the prescription is for a schedule II opioid drug. Start Date: 01/01/22 Status: Ordered Medication Dispense Status: Completed Total Allowed Fills: 1 Fills Dispensed: 0 atenolol 25 mg oral tablet 25 mg, 1, tablet, By Mouth, Daily, # 90 tablet, Refills 3, Tot. Refills 3, Maintenance, 10/18/24 10:28:00 AM EDT, Route to Pharmacy Electronically, [facility], Partial fill upon patient request if the prescription is for a schedule II opioid drug., 175.2, cm, 10/18/24 10:21:00 EDT,Height Start Date: 10/18/24 Status: Ordered Medication Dispense Status: Completed Quantity: 90.0 Unit: tablet Total Allowed Fills: 4 Fills Dispensed: 0 Indications: Essential (primary) hypertension; atorvastatin 10 mg oral tablet 1 tablet = 10 mg, By Mouth, Daily, 90 each, 0 Refill(s), TAKE ONE TABLET BY MOUTH EVERY DAY, # 90 tablet, 3 Refills, Maintenance, 10/18/24 10:28:00 AM EDT, Tablet, [facility], Partial fill upon patient request if the prescription is for a schedule II opioid drug., 175.2, cm, 10/18/24 10:21:00 EDT, Height Start Date: 10/18/24 Stop Date: 10/13/25 Status: Ordered Medication Dispense Status: Completed Quantity: 90.0 Unit: tablet Total Allowed Fills: 4 Fills Dispensed: 0 cetirizine 10 mg oral tablet 1 tablet = 10 mg, By Mouth, Daily, # 90 tablet, 3 Refills, Maintenance, 10/18/24 10:30:00 AM EDT, Tablet, [facility], Partial fill upon patient request if the prescription is for a schedule II opioid drug., 175.2, cm, 10/18/24 10:21:00 EDT, Height Start Date: 10/18/24 Status: Ordered Medication Dispense Status: Completed Quantity: 90.0 Unit: tablet Total Allowed Fills: 4 Fills Dispensed: 0 Indications: Allergic rhinitis, unspecified; chlorthalidone 25 mg oral tablet 25 mg, 1, tablet, By Mouth, Daily, # 90 tablet, Refills 3, Tot. Refills 3, Maintenance, 10/18/24 10:30:00 AM EDT, Route to Pharmacy Electronically, [facility], Partial fill upon patient request if the prescription is for a schedule II opioid drug., 175.2, cm, 10/18/24 10:21:00 EDT,Height Start Date: 10/18/24 Stop Date: 10/13/25 Status: Ordered Medication Dispense Status: Completed Quantity: 90.0 Unit: tablet Total Allowed Fills: 4 Fills Dispensed: 0 doxepin 25 mg oral capsule 1 capsule = 25 mg, By Mouth, Daily at bedtime, # 90 capsule, 3 Refills, Maintenance, 10/18/24 10:31:00 AM EDT, Capsule, [facility], Partial fill upon patient request if the prescription is for a schedule II opioid drug., 175.2, cm, 10/18/24 10:21:00 EDT, Height Start Date: 10/18/24 Status: Ordered Medication Dispense Status: Completed Quantity: 90.0 Unit: capsule Total Allowed Fills: 4 Fills Dispensed: 0 FLUoxetine 40 mg oral capsule 1 capsule = 40 mg, By Mouth, Daily, # 90 capsule, 3 Refills, Maintenance, 10/18/24 10:32:00 AM EDT, Capsule, [facility], Partial fill upon patient request if the prescription is for a schedule II opioid drug., 175.2, cm, 10/18/24 10:21:00 EDT, Height Start Date: 10/18/24 Status: Ordered Medication Dispense Status: Completed Quantity: 90.0 Unit: capsule Total Allowed Fills: 4 Fills Dispensed: 0 Freestyle Flash Glucose Meter See Instructions, # 1 each, Refills 5, Tot. Refills 5, Maintenance, use as directed for Type 2 Diabetes Mellitus, 05/29/25 3:08:00 PM EST, Supply, 175.2, cm, 01/17/25 11:46:00 EDT, Height Start Date: 05/29/25 Stop Date: 11/25/25 Status: Ordered Medication Dispense Status: Completed Quantity: 1.0 Unit: each Total Allowed Fills: 6 Fills Dispensed: 0 Indications: Type 2 diabetes mellitus with diabetic peripheral angiopathy without gangrene; FREESTYLE LANCETS MISC FREESTYLE LANCETS MISC, See Instructions, # 100 each, 6 Refills, Maintenance, USE ONCE A DAY TO TEST GLUCOSE, 175.2, cm, 01/17/25 11:46:00 EDT, Height Start Date: 05/29/25 Status: Ordered Medication Dispense Status: Completed Quantity: 100.0 Unit: each Total Allowed Fills: 7 Fills Dispensed: 0 Indications: Type 2 diabetes mellitus with diabetic peripheral angiopathy without gangrene; FREESTYLE LITE TEST STRP FREESTYLE LITE TEST STRP, See Instructions, # 300 each, 6 Refills, Maintenance, USE TO TEST BLOOD SUGARS THREE TIMES A DAY DIRECTED, 175.2, cm, 01/17/25 11:46:00 EDT, Height Start Date: 05/29/25 Status: Ordered Medication Dispense Status: Completed Quantity: 300.0 Unit: each Total Allowed Fills: 7 Fills Dispensed: 0 Indications: Type 2 diabetes mellitus with diabetic peripheral angiopathy without gangrene; isopropyl alcohol 70% topical pad See Instructions, use swab prior to checking blood sugars, # 100 each, 0 Refills, Maintenance, 05/29/25 3:04:00 PM EST, [facility], Partial fill upon patient request if the prescription is for a schedule II opioid drug., use swab prior to checking blood sugars, 175.2, cm, 01/17/2511:46:00 EDT, Height Start Date: 05/29/25 Status: Ordered Medication Dispense Status: Completed Quantity: 100.0 Unit: each Total Allowed Fills: 1 Fills Dispensed: 0 Indications: Type 2 diabetes mellitus with diabetic peripheral angiopathy without gangrene; Klor-Con 10 10 mEq oral tablet, extended release 1 tablet = 10 mEq, By Mouth, Daily, # 30 tablet, 0 Refills, Maintenance, 01/01/22 6:48:00 AM EDT, ERTablet, Partial fill upon patient request if the prescription is for a schedule II opioid drug. Start Date: 01/01/22 Stop Date: 01/31/22 Status: Ordered Medication Dispense Status: Completed Quantity: 30.0 Unit: tablet Total Allowed Fills: 1 Fills Dispensed: 0 lisinopril 2.5 mg oral tablet 2.5 mg, 1, tablet, By Mouth, Daily, # 90 tablet, Refills 3, Tot. Refills 3, Maintenance, 10/18/24 10:33:00 AM EDT, Route to Pharmacy Electronically, [facility], Partial fill upon patient request if the prescription is for a schedule II opioid drug., 175.2, cm, 10/18/24 10:21:00 EDT, Height Start Date: 10/18/24 Stop Date: 10/13/25 Status: Ordered Medication Dispense Status: Completed Quantity: 90.0 Unit: tablet Total Allowed Fills: 4 Fills Dispensed: 0 Indications: Essential (primary) hypertension; meloxicam 15 mg oral tablet 1 tablet = 15 mg, By Mouth, Daily, # 30 tablet, 1 Refills, Maintenance, 02/18/25 9:20:00 AM EDT, Tablet, [facility], Partial fill upon patient request if the prescription is for a schedule II opioid drug., 175.2, cm, 01/17/25 11:46:00 EDT, Height Start Date: 02/18/25 Status: Ordered Medication Dispense Status: Completed Quantity: 30.0 Unit: tablet Total Allowed Fills: 2 Fills Dispensed: 0 Indications: Low back pain, unspecified; metFORMIN 500 mg oral tablet 1 tablet = 500 mg, By Mouth, 2 times a day, # 180 tablet, 3 Refills, Maintenance, 06/10/25 1:09:00 PM EST, Tablet, [facility], Partial fill upon patient request if the prescription is for a schedule II opioid drug., 175.2, cm, 01/17/25 11:46:00 EDT, Height Start Date: 06/10/25 Status: Ordered Medication Dispense Status: Completed Quantity: 180.0 Unit: tablet Total Allowed Fills: 4 Fills Dispensed: 0 Indications: Type 2 diabetes mellitus with diabetic peripheral angiopathy without gangrene; MiraLax Powder 1 pack/packet = 17 Gm, By Mouth, Daily, PRN Constipation, 0 Refills, Maintenance, 01/01/22 6:47:00 AM EDT, Powder, Partial fill upon patient request if the prescription is for a schedule II opioid drug. Start Date: 01/01/22 Status: Ordered Medication Dispense Status: Completed Total Allowed Fills: 1 Fills Dispensed: 0 omeprazole 40 mg oral enteric coated capsule 1 capsule = 40 mg, By Mouth, Daily, # 90 capsule, 3 Refills, Maintenance, 10/18/24 10:34:00 AM EDT, Suspension, [facility], Partial fill upon patient request if the prescription is for a schedule II opioid drug., 175.2, cm, 10/18/24 10:21:00 EDT, Height Start Date: 10/18/24 Status: Ordered Medication Dispense Status: Completed Quantity: 90.0 Unit: capsule Total Allowed Fills: 4 Fills Dispensed: 0 Ozempic (1 mg dose) 4 mg/3 mL subcutaneous solution See Instructions, INJECT 0.75ML (1MG) UNDER THE SKIN ONCE A WEEK, # 3 mL, 3 Refills, Maintenance, 02/18/25 3:05:00 PM EDT, [facility], 175.2, cm, 01/17/25 11:46:00 EDT, Height Start Date: 02/18/25 Status: Ordered Medication Dispense Status: Completed Quantity: 3.0 Unit: mL Total Allowed Fills: 1 Fills Dispensed: 0 pregabalin 75 mg oral capsule 1 capsule = 75 mg, By Mouth, 2 times a day, # 180 capsule, 1 Refills, Maintenance, 05/08/25 6:11:00PM EDT, Capsule, [facility], Partial fill upon patient request if the prescription is for a schedule II opioid drug., 175.2, cm, 01/17/25 11:46:00 EDT, Height Start Date: 05/08/25 Status: Ordered Medication Dispense Status: Completed Quantity: 180.0 Unit: capsule Total Allowed Fills: 2 Fills Dispensed: 0 Indications: Low back pain, unspecified; Osteoarthritis of knee, unspecified; senna 187 mg oral tablet 1 tablet = 8.6 mg, By Mouth, Daily at bedtime, PRN as needed for constipation, 0 Refills, Maintenance, 01/01/22 6:47:00 AM EDT, Tablet, Partial fill upon patient request if the prescription is for a schedule II opioid drug. Start Date: 01/01/22 Status: Ordered Medication Dispense Status: Completed Total Allowed Fills: 1 Fills Dispensed: 0 Problem List Condition Confirmation Course Effective Dates Status H ealth Status Informant Allergic rhinitis Confirmed Active Anxiety Confirmed Active Hypertension Confirmed Active Chronic constipation Confirmed Active Chronic low back pain Confirmed Active Conductive hearing loss, bilateral Confirmed Active Acid reflux Confirmed Active History of lumbar surgery Confirmed Active Status post total knee replacement, left Confirmed Active Hypertension Confirmed Active Chronic pruritus Confirmed Active Major depression, chronic Confirmed Active Knee osteoarthritis Confirmed Active Severe obesity Confirmed Active Diabetes type 2 with atherosclerosis of arteries of extremities Confirmed Active Social History Social History Type Response Sexual Gender identity: Fem ace. Preferred pronoun: She/Her/Hers. Tobacco Other: Lifetime non- smoker. Sex Sex Representation Female (finding) Patient Care team information Care Team Personnel Name: Yumiko Penn NP Position: S PCO Associate Professional Member Role: PCP Address: [address] [place] [address] Telecom: Name: Christie Triplett RN Position: S RN Member Role: Primary Care Nurse Name: Lauryn Hall RN Position: S RN Member Role: Primary Care Nurse Care Team Related Persons Name: FACUNDO OCAMPO Name: KRIS LUJAN Name: GIN LUJAN Insurance Providers Guarantor name: EDGARDO WHITE [facility] Plan Information #: 1 [facility] Payer Identifier: NA Member Number: [id number] Group Number: [id number] Subscriber Identifier: NA Relationship to Subscriber: self Coverage Type: Medicare Managed Care (Includes Medicare Advantage Plans) Coverage Verification Date: NA Telecom: NA Address: NA
--- NOTE | 2025-07-08 14:03 | A.SPINEOV_ITS ---
Intake Visit Reasons: pain and spasm after surgery Intake Note: Ms. Arriaga is here today c/o pain and spasm after surgery. Rn Prior Authorization Required: No Allergies cortisone (CORTISONE) Allergy (Intermediate, Verified 04/04/25 13:27) RASH adhesive tape (ADHESIVE TAPE) Adverse Reaction (Unknown, Verified 04/04/25 13:27) UNKNOWN [place] Allergy (Severe, Uncoded 12/03/24 09:19) Unknown Latex Allergy (Intermediate, Uncoded 11/12/24 09:16) redness Assessment & Plan Assessment & Plan (1) Lumbar spinal stenosis: Code(s): M48.061 - Spinal stenosis, lumbar region without neurogenic claudication Category: Medical Plan Mrs Arriaga is here in follow-up. She underwent an L2-3 trans Kambin lumbar interbody fusion in November of this year. She initially was doing okay. I saw her back in March and she was having some back discomfort at the time but her leg pain down the left leg was gone. I sent her to physical therapy but that did not help much. She is coming back reporting that the back pain seems to be getting worse. It encompasses most of the lumbar spine. The leg pain is returning now as well. She is able to stand and walk independently on her own in her wounds are all healed up nicely. If we will recall, her original operation done by Dr. 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 Dr. Morataya did an exploratory operation on her in 2017 for evaluation of pseudoarthrosis. I can recall from the surgery, we were able to pull the screws out with no resistance at that time and had to do a full reconstruction on her. Just as a precaution I am going to get a noncontrast CT to rule out that she has not dealing with something similar. I will get a set of standing x-rays as well. I will see her back on a day Dr. Morataya is here. Total amount of time spent in this visit was 20 minutes in discussion of symptoms, ordering lumbar CT and x-ray imaging and subsequent plan of care Jose Daniel Morataya MD,PhD [facility] Orders: Orders CT lumbar spine wo IV con Today M48.061 - Spinal stenosis, lumbar region without neurogenic claudication XR lumbar spine 4V min Today M48.061 - Spinal stenosis, lumbar region without neurogenic claudication Coding Level of Care Code Est Pt Level 3 (72088) Diagnoses Lumbar spinal stenosis M48.061
--- OUTSIDE RECORDS SUMMARY | 2025-07-08 17:18 | XMS_ITS | Clinical Summary ---
Author Organization [facility] Address [address] [place] [address] [place] [id number] Phone Care Team Providers Care Intelligence Officer Name Role Phone Pcp, Unknown Primary Care [...] day as needed for mild constipation. Active Social History Tobacco Use Types Packs/Day Years [...] file Medical Devices Not on file Insurance [facility] MED[facility] REPL[facility]EMENT [facility] [place] [id number] [facility] [id number] [facility] [place] [address] [facility] [place] [id number] [facility] [id number] Care Teams Intelligence Officer Relationship Specialty Start Date End Date Pcp, Unknown PCP - General 07/17/24 Additional Source Comments The information contained in this document represents components of the legal health record. It is not the complete legal health record.[facility]
--- OUTSIDE RECORDS SUMMARY | 2025-07-08 17:18 | XMS_ITS | Clinical Summary ---
Author Organization [facility] Address [address] [place] [address] Phone Care Team Providers Care Lens Mold Setter Name Role Phone Jaswant Hyatt MD Primary [...] 20 mg by mouth daily. Active magnesium aspart,citrate,ox joshua (Triple Magnesium Complex) 400 mg magnesium capsule [...] times a day with meals. Active lisinopriL (PRINIVIL,ZESTRIL ) 2.5 mg tablet Take 1 tablet (2.5 mg total) by mouth 1 (one) time each day. Active doxepin (SINEquan) 25 mg capsule Take 1 capsule (25 mg total) by mouth at bedtime. Active silver sulfADIAZINE (Silvadene) 1 % cream Apply topically 1 (one) time each day. 50 g 04/30/20 Active Active Problems Problem Noted Date Diagnosed Date Diabetes mellitus, type 2 03/07/2025 Arthritis of right ankle 07/30/2024 Exostosis of right foot 07/30/2024 Acquired hammer toe of right foot 07/30/2024 Ingrowing nail 07/30/2024 Contracture of joint of right foot 07/30/2024 Essential hypertension 12/29/2023 Lumbar radiculopathy 12/29/2023 Obesity 12/29/2023 Osteoarthritis of right knee 12/29/2023 Encounters Date Type Department Care Team Description 06/26/2025 1:30 PM EST Office Visit Orthopedic [address] [phone] Bishop White DPM Peripheral venous insufficiency (Primary Dx); Follow-up exam; Ulcer of toe of right foot, limited to breakdown of skin (CMS/HCC V24, CMS/HCC V28) 05/15/2025 1:15 PM EST Office Visit Orthopedic [address] [phone] Bishop White DPM Ulcer of toe of right foot, limited to breakdown of skin (CMS/HCC V24, CMS/HCC V28) (Primary Dx) 04/30/2025 11:00 AM EDT Office Visit Orthopedic [address] [phone] Bishop White DPM Cellulitis of right foot (Primary Dx); Ulcer of toe of right foot, limited to breakdown of skin (CMS/HCC V24, CMS/HCC V28) from Last 3 Months Surgical History Surgery [...] stenos is Arthritis Joint pain Neuromuscular disorder ([facility] V24, [facility] V28) Family History Medical History Relation Name Comments Hypertension Father Relation Name Status Comments Father Social History Tobacco Use Types Packs/Day Years Used Date Smoking Tobacco: Former Cigarettes 0 Q uit: 2015 Smokeless Tobacco: Never Tobacco Cessation:Counseling Given: Not Answered Alcohol Use Standard Drinks/Week Comments Yes 0 (1 standard drink = 0.6 oz pur e alcohol) rarely Interpersonal Safety Answer Date Record ed Physical Abuse Unrecognized value 03/07/2025 Verbal Abuse Unrecognized value 03/07/2025 Comments No Sex and Gender Information [...] Concentration - - Weight 134 kg (295 lb 6.7 oz) 05/15/2025 1:21 PM EST Height 175.3 cm (5' 9.02 ) 05/15/2025 1:21 PM ES T Body Mass Index 43.61 05/15/2025 1:21 PM EST Plan of Treatment Upcoming Encounters Date Type Department Care Team (Late st Contact Info) Description 08/27/2025 2:00 PM EST Office Visit Orthopedic Surgery - [place] [address] [phone] Bishop White, REZA [address] [phone] Health Maintenance Due Date Last Done Comments Breast Cancer Screening 1960 Colorectal Cancer Screening: Colonoscopy 1960 Diabetes: Annual GFR (Glomer ular Filtration Rate) 1958 Diabetes: Annual Foot Exam 1968 Diabetes: Annual Retina Eye Exam 1968 Pneumococcal Vaccine: 50+ Ye ars (1 of 2 - PCV) 1977 RSV Immunization Adult Patie nts (1 - Risk 50-74 years 1-dose series) 2008 Zoster Vaccines (1 of 2) 2008 DTaP,Tdap,and Td Vaccines (2 - Tdap) 10/28/2018 10/28/2008 Cholesterol Screening (Lipid Panel) 04/17/2024 Hepatitis C Screening 04/17/2024 Hypertension/CHF/CAD Annual [...] ID:[id number] Group ID:[id number] Type:Not on file Address: [facility] [address] [id number] Care Teams Lens Mold Setter Relationship Specialty Start Date End Date Jaswant Hyatt MD Need Additional Information PCP - General Internal Medicine 03/28/18
== END 2025-07-08 14:15 | disposition home or self-care (01) ==
LOC: HO.HNS 13:23
PROVIDERS: PCP Family Medicine; Visit Provider Physician Assistant
DX: M48.061 Spinal stenosis, lumbar region without neurogenic claudication (principal)
CPT/HCPCS: 99213

== ENCOUNTER → 2025-07-08 13:23 | Outpatient (BNVA) | payer OTHER, SELFPAY | PROVIDERS: PCP Family Medicine; Visit Provider Physician Assistant | DX: M48.061 Spinal stenosis, lumbar region without neurogenic claudication (principal); Z98.1 Arthrodesis status | CPT/HCPCS: 99212 ==